=== PATIENT | male | born 1970 | race Two or more races ===

== ENCOUNTER 2024-08-13 11:53 | Inpatient (IN) | payer BC, OTHER ==
[~2024-08-13] VITALS: Ht 182.9 cm; Wt 110.0 kg
[2024-08-13] MEDS: SODIUM CHLORIDE 0.9% 1,000 ML IV ONE ×3 (12:15→20:12)
--- NOTE | 2024-08-13 12:15 | ED.PDOC ---
History of Present Illness HPI Comments 54Y M presents to ED for chief complaint etoh withdrawal. Pt has been experiencing fatigue and chills for 2wks. Pt stopped drinking in mid 2023. Pt previously drank avg 9 seltzers per day. Pt first started drinking at the age of 18. Pt denies tobacco and illicit drug use. Allergies include codeine. Chief Complaint: Withdrawal Time Seen by MD: 11:58 Reviewed Notes: Medications, Allergies Allergies: Coded Allergies: Codeine (Verified Allergy, Intermediate, 08/13/24) Information Source: Patient Mode of Arrival: Ambulatory Severity: Mild Timing: Weeks Duration: Since onset Past Medical History PAST MEDICAL HISTORY: Unknown Surgical History: Unknown Family History Family History: Unknown Social History Smoker: Non-Smoker Alcohol: Heavy Drugs: Denies Drug Use Lives In: Home Constitutional: reports: chills, fatigue; denies: diaphoresis, fever, malaise, sweats, weakness, others EENTM: denies: blurred vision, double vision, ear bleeding, ear discharge, ear drainage, ear pain, ear ringing, eye pain, eye redness, hearing loss, mouth pain, mouth swelling, nasal discharge, nose bleeding, nose congestion, nose pain, photophobia, tearing, throat pain, throat swelling, voice changes, others Respiratory: denies: cough, hemoptysis, orthopnea, SOB at rest, shortness of breath, SOB with excertion, stridor, wheezing, others Cardiovascular: denies: chest pain, dizzy spells, diaphoresis, Dyspnea on exertion, edema, irregular heart beat, left arm pain, lightheadedness, palpitations, PND, syncope, others Gastrointestinal: denies: abdomen distended, abdominal pain, blood streaked bowels, constipated, diarrhea, dysphagia, difficulty swallowing, hematemesis, melena, nausea, poor appetite, poor fluid intake, rectal bleeding, rectal pain, vomiting, others Genitourinary: denies: burning, dysuria, flank pain, frequency, hematuria, incontinence, penile discharge, penile sore, pain, testicle pain, testicle sw elling, urgency, others Neurological: denies: dizziness, fainting, headache, left sided numbness, left sided weakness, numbness, paresthesia, pre-existing deficit, right sided numbness, right sided weakness, seizure, speech problems, tingling, tremors, weakness, others Musculoskeletal: denies: back pain, gout, joint pain, joint swelling, muscle pain, muscle stiffness, neck pain, others Integumetry: denies: bruises, change in color, change in hair/nails, dryness, laceration, lesions, lumps, rash, wounds, others Allergic/Immunocompromised: denies: Difficulty Healing, Frequent Infections, Hives, Itching, others Hematologic/Lymphatic: denies: anemia, blood clots, easy bleeding, easy bruising, swollen glands, others Endocrine: denies: excessive hunger, excessive sweating, excessive thirst, excessive urination, flushing, intolerance to cold, intolerance to heat, unexplained weight gain, unexplained weight loss, others Psychiatric: denies: anxiety, bipolar disorder, depression, hopeless, panic disorder, schizophrenia, sleepless, suicidal, others All Other Systems: Reviewed and Negative Physical Exam General Appearance: Moderate Distress, Normal HEENT: Normal ENT Inspection, Pharynx Normal, TMs Normal Neck: Full Range of Motion, Non-Tender, Normal, Normal Inspection Respiratory: Chest Non-Tender, Lungs Clear, No Accessory Muscle Use, No Respiratory Distress, Normal Breath Sounds Cardiovascular: No Edema, No JVD, No Murmur, No Gallop, Tachycardia Breast Exam: Deferred Gastrointestinal: No Organomegaly, Non Tender, No Pulsatile Mass, Normal Bowel Sounds, Soft Genitalia: Deferred Pelvic: Deferred Rectal: Deferred Extremities: No calf tenderness, Normal capillary refill, Normal inspection, Normal range of motion, Non-tender, No pedal edema Musculoskeletal : Apperance: Normal Neurologic: Alert, boom tender II-XII nml as Tested, No Motor Deficits, Normal Affect, Normal Mood, No Sensory Deficits Cerebellar Function: Normal Reflexes: Normal Skin: Dry, Normal Color, Warm Peripheral Pulses: 3+ Radial (R), 3+ Radial (L) Lymphatic: No Adenopathy Was a procedure done? Was a procedure done?: No Differential Dx Considerations may include: Alcohol withdrawal Electrolyte imbalance X-Ray, Labs, Meds, VS Vital Signs Date Time Temp Pulse Resp B/P (MAP) Pulse Ox O2 Delivery O2 Flow Rate FiO2 08/13/24 16:29 116 18 131/70 (90) 97 08/13/24 13:25 Room Air* 0 21 08/13/24 13:08 99.1 125 18 138/93 (108) 96 99.1 08/13/24 12:14 126 08/13/24 12:12 98.5 139 18 151/94 (113) 95 Lab Test 08/13/24 16:24 08/13/24 15:37 08/13/24 12:37 Range/Units Urine Color Yellow Yellow Urine Clarity Clear Clear Urine pH 6.0 5.0-9.0 Urine Specific [place] 1.016 1.001-1.035 Urine Protein 1+ H Negative Urine Ketones 2+ H Negative Urine Blood Trace H Negative /uL Urine Nitrite Negative Negative Urine Bilirubin Negative Negative Urine Urobilinogen 2 H Negative mg/dL Urine Leukocyte Esterase Negative Negative /uL Urine RBC 3 0 - 3 /hpf Urine WBC 2 0 - 3 /hpf Urine Squamous Epithelial Cells Few <5 /hpf Urine Bacteria None seen None Seen /hpf Urine Glucose 4+ H Normal mg/dL POC Glucose 413 *H 70-106 mg/dl White Blood Count 16.5 H 4.4-10.8 10^3/uL Red Blood Count 4.61 4.5-5.90 10^6/uL Hemoglobin 14.1 13.5-17.5 g/dL Hematocrit 41.9 41.0-53.0 % Mean Corpuscular Volume 91.0 80.0-100.0 fL Mean Corpuscular Hemoglobin 30.6 28.0-32.0 pg Mean Corpuscular Hemoglobin Concent 33.6 32.0-36.0 g/dL Red Cell Distribution Width 12.7 11.8-14.3 % Platelet Count 364 140-450 10^3/uL Mean Platelet Volume 9.3 6.9-10.8 fL Neutrophils (%) (Auto) 95.0 H 37.0-80.0 % Lymphocytes (%) (Auto) 1.5 L 10.0-50.0 % Monocytes (%) (Auto) 3.2 0.0-12.0 % Eosinophils (%) (Auto) 0.0 0.0-7.0 % Basophils (%) (Auto) 0.3 0.0-2.0 % Neutrophils # (Auto) 15.7 H 1.6-8.6 10 ^3/uL Lymphocytes # (Auto) 0.2 L 0.4-5.4 10 ^3/uL Monocytes # (Auto) 0.5 0-1.3 10 ^3/uL Eosinophils # (Auto) 0 0-0.8 10 ^3/uL Basophils # (Auto) 0 0-0.2 10 ^3/uL Nucleated Red Blood Cells 0.0 % Sodium Level 115 *L 136-145 mmol/L Potassium Level 4.1 3.5-5.1 mmol/L Chloride Level 84 L 98-107 mmol/L Carbon Dioxide Level 20 20-31 mmol/L Anion Gap 11 5-15 Blood Urea Nitrogen 11 9-23 mg/dL Creatinine 1.22 0.700-1.30 mg/dL Glomerular Filtration Rate Calc 71 >90 mL/min BUN/Creatinine Ratio 9.0 L 10.0-20.0 Serum Glucose 489 *H 74-106 mg/dL Hemoglobin A1c 12.4 H <5.7 % A1C Calcium Level 9.6 8.7-10.4 mg/dL Current Medications Medications (Trade) Dose Ordered Sig/Unruly Route Start Time Stop Time Status Last Admin Sodium Chloride 1,000 ml @ 1,000 mls/hr Q1H ONCE IV 08/13/24 12:15 08/13/24 14:20 DC 08/13/24 13:14 Thiamine HCl 100 mg ONCE ONCE IV 08/13/24 12:15 08/13/24 12:16 DC 08/13/24 13:14 Lorazepam (Ativan Inj) 1 mg ONCE ONCE IV 08/13/24 12:15 08/13/24 12:16 DC 08/13/24 13:14 Diagnostic Test (Pha) (Accu-Chek Comfort Curve T) 1 strip IQ4HR 08/13/24 16:00 08/13/24 15:41 Insulin Human Regular (InsuLIN R) IQ4HR SC 08/13/24 16:00 08/13/24 15:40 Sodium Chloride 1,000 ml @ 120 mls/hr Q8H20M IV 08/13/24 14:30 08/13/24 14:30 Patient alert. Complaining of agitation. Blood pressure elevated. Vitals stable. He does not take any medication for his blood pressure. Tachycardia. Saturation pristine on room air. Was given thiamine. Was given Ativan. Alcohol withdrawal. Reviewed his history. Explained to the patient. Counseled patient on effects of drinking for 15 minutes. Continue cardiac monitoring. Sodium is low. Hyperglycemia. Time of 1ST Reevaluation: 12:28 Reevaluation 1ST: Unchanged Patient Education/Counseling: Diagnosis, Treatment Family Education/Counseling: No Family Present Departure 1 Departure Time of Disposition: 12:33 Impression: Primary Impression: Alcohol withdrawal Qualified Codes: F10.930 - Alcohol use, unspecified with withdrawal, uncomplicated Additional Impressions: Hypertensive emergency Hyponatremia Hyperglycemia Disposition: 09 ADMITTED INPATIENT Admit to: Med Surg Condition: Guarded Critical Care Note Critical Care Time?: Yes (45 min-critical care time only) Stability Stability form required: No Heart Score Heart Score: Heart Score Response (Comments) Value History Slightly Suspicious 0 EKG Normal 0 Age 45-64 1 Risk Factors 1 or 2 risk factors 1 Troponin Normal limit 0 Total 2 I personally scribed for COREY ROWELL MD ([facility]) on 08/13/24 at 12:15. Electronically submitted by Erin Vidal ([email or web address]). COREY ROWELL MD Aug 13, 2024 12:15
[2024-08-13 12:57] LABS: Basophils # (auto) 0 10 ^3/uL (0-0.2); Basophils % (auto) 0.3 % (0.0-2.0); Eosinophils # (auto) 0 10 ^3/uL (0-0.8); Hematocrit 41.9 % (41.0-53.0); Hemoglobin 14.1 g/dL (13.5-17.5); Lymphocytes # (auto) 0.2 10 ^3/uL (0.4-5.4); Lymphocytes % (auto) 1.5 % (10.0-50.0); Mean Corpuscular Hemoglobin 30.6 pg (28.0-32.0); Mean Corpuscular Hgb Conc. 33.6 g/dL (32.0-36.0); Monocytes # (auto) 0.5 10 ^3/uL (0-1.3); Monocytes % (auto) 3.2 % (0.0-12.0); Neutrophils # (auto) 15.7 10 ^3/uL (1.6-8.6); Platelet Count (auto) 364 10^3/uL (140-450); Red Blood Cells 4.61 10^6/uL (4.5-5.90); Red Cell Distribution Width 12.7 % (11.8-14.3); White Blood Cell 16.5 10^3/uL (4.4-10.8)
[2024-08-13 13:02] LABS: Chloride 84 mmol/L (98-107); Potassium 4.1 mmol/L (3.5-5.1)
[2024-08-13 13:03] LABS: Anion Gap 11 (5-15); Carbon Dioxide 20 mmol/L (20-31)
[2024-08-13 13:04] LABS: Calcium 9.6 mg/dL (8.7-10.4)
[2024-08-13 13:09] LABS: Blood Urea Nitrogen 11 mg/dL (9-23)
[2024-08-13 13:14] LABS: Glucose 489 mg/dL (74-106); Sodium 115 mmol/L (136-145)
[2024-08-13] MEDS: THIAMINE 100mg/ml INJ (200mg/2ml VIAL) IV ONE (13:14)
[2024-08-13] MEDS: LORazepam 2MG/ML-1ML VIAL IV ONE (13:14)
[2024-08-13] MEDS: SODIUM CHLORIDE 0.9% 1,000 ML IV SCH (14:30)
[2024-08-13] MEDS ORDERED: ONDANSETRON HCL 4 MG/2 ML VIAL IV PRN (14:30)
[2024-08-13] MEDS ORDERED: ACETAMINOPHEN 325 MG TAB PO PRN (14:30)
[2024-08-13] MEDS ORDERED: DEXTROSE (50%) 50ML SYRG IV PRN (14:30)
[2024-08-13] MEDS: InsuLIN REG 1unit/0.01ml Soln (100units/ml) SC SCH (15:40)
[2024-08-13] MEDS: ACCU-CHEK COMFORT CURVE STRIP VI SCH (15:41)
[2024-08-13 16:25] LABS: Urine Bacteria None Seen /hpf (None Seen)
--- NOTE | 2024-08-13 16:37 | DVHHP2 ---
History of Present Illness Reason for Visit: Hyponatremia History of Present Illness Patient is a 54-year-old male with past medical history of EtOH abuse who presented to [facility] ED for evaluation of alcohol withdrawal. Patient reports symptoms progressively get worse with fatigue, chills, tremors, getting worse today that prompted this visit. Patient states he recently drank average 9 seltzers per day, stopped drinking in mid July 2024. Patient was seen and evaluated in the ED, laboratory data shows elevated WBC 16.5, platelets 364, sodium 115, potassium 4.1, BUN 11, creatinine 1.22, GFR 71, glucose 489, hemoglobin A1c 12.4, blood pressure 138/94, heart rate 116, temperature 99.1 F, O2 saturation 96% on oxygen. Please see medication orders section in the computer. On my assessment, patient denied chest pain, no headache, no dizziness, no diaphoresis, no palpitations, no shortness a breath, no nausea, no vomiting, no fever, no chills. Patient was admitted for further evaluation and medical management. Past Medical History EtOH abuse Past Surgical History Denies all surgeries Family History Reviewed, noncontributory to the management of this case. Past Social History Patient lives at home, drinks alcohol heavily, denies smoking or illicit drugs abuse. Review of Systems Constitutional: Yes: Chills, Other (Fatigue); No: Fever, Sweats, Weakness, Malaise Eyes: No: Pain, Vision change, Conjunctivae inflammation, Eyelid inflammation, Other, Redness ENT: No: Ear pain, Ear discharge, Nose pain, Nose discharge, Nose congestion, Mouth pain, Mouth swelling, Throat pain, Throat swelling, Other Respiratory: No: Cough, Dry, Shortness of breath, SOB with excertion, Wheezing, Hemoptysis, Pleuritic Pain, Sputum, Wheezing, Other Cardiovascular: No: Chest Pain, Palpitations, Orthopnea, Paroxysmal Noc. Dyspnea, Edema, Lt Headedness, Other Gastrointestinal: No: Nausea, Vomiting, Abdominal Pain, Diarrhea, Constipation, Melena, Hematochezia, Other Genitourinary: No Dysuria, No Frequency, No Incontinence, No Hematuria, No Retention, No Other Musculoskeletal: No: other, neck pain, shoulder pain, arm pain, back pain, hand pain, leg pain, foot pain Skin: No: Rash, Lesions, Jaundice, Bruising, Other Neurological: Other (Tremor); No: Weakness, Numbness, Incoordination, Change in speech, Confusion, Seizures Allergies: Coded Allergies: Codeine (Verified Allergy, Intermediate, 08/13/24) Medications Current Medications Medications Dose Ordered Sig/Unruly Route Start Time Stop Time Status Last Admin Dose Admin Lorazepam 1 mg Q2HP PRN IV 08/13/24 14:30 Thiamine HCl 100 mg DAILY IV 08/14/24 10:00 Folic Acid 1 mg/ Dextrose 50.2 ml @ 200.8 mls/ hr DAILY INJ 08/14/24 10:00 Diagnostic Test (Pha) 1 strip IQ4HR 08/13/24 16:00 08/13/24 15:41 1 STRIP Insulin Human Regular IQ4HR SC 08/13/24 16:00 08/13/24 15:40 20 UNITS Dextrose 50 ml UD PRN IV 08/13/24 14:30 Sodium Chloride 1,000 ml @ 120 mls/hr Q8H20M IV 08/13/24 14:30 08/13/24 14:30 120 MLS/HR Ondansetron HCl 4 mg Q4HP PRN IV 08/13/24 14:30 Docusate Sodium 100 mg BIDPRN PRN PO 08/13/24 14:30 Acetaminophen 650 mg Q6HP PRN PO 08/13/24 14:30 Exam Vital Signs Vital Signs Date Time Temp Pulse Resp B/P (MAP) Pulse Ox O2 Delivery O2 Flow Rate FiO2 08/13/24 16:29 116 18 131/70 (90) 97 08/13/24 13:25 Room Air* 0 21 08/13/24 13:08 99.1 99.1 General Appearance: Alert, Oriented X3, Cooperative, No acute distress HEENT: Atraumatic, PERRLA, EOMI, Mucous membr. moist/pink Respiratory: Clear to auscultation, Normal air movement Cardiovascular: Regular rate, Normal S1, Normal S2, No murmurs Abdominal: Normal bowel sounds, Soft, No tenderness, No hepatospenomegaly, No masses Extremities: No clubbing, No cyanosis, No edema, Normal pulses, No tenderness/swelling Skin: No rashes, No breakdown, No significant lesion Neuro: Normal gait, Normal speech, Strength at 5/5 X4 ext, Normal tone, Sensation intact, Cranial nerves 3-12 NL, Reflexes 2+ Psych/Mental Status: Mental status NL, Mood NL Labs/Xrays Labs Test 08/13/24 16:24 08/13/24 15:37 08/13/24 12:37 Range/Units POC Glucose 413 *H 70-106 mg/dl White Blood Count 16.5 H 4.4-10.8 10^3/uL Red Blood Count 4.61 4.5-5.90 10^6/uL Hemoglobin 14.1 13.5-17.5 g/dL Hematocrit 41.9 41.0-53.0 % Mean Corpuscular Volume 91.0 80.0-100.0 fL Mean Corpuscular Hemoglobin 30.6 28.0-32.0 pg Mean Corpuscular Hemoglobin Concent 33.6 32.0-36.0 g/dL Red Cell Distribution Width 12.7 11.8-14.3 % Platelet Count 364 140-450 10^3/uL Mean Platelet Volume 9.3 6.9-10.8 fL Neutrophils (%) (Auto) 95.0 H 37.0-80.0 % Lymphocytes (%) (Auto) 1.5 L 10.0-50.0 % Monocytes (%) (Auto) 3.2 0.0-12.0 % Eosinophils (%) (Auto) 0.0 0.0-7.0 % Basophils (%) (Auto) 0.3 0.0-2.0 % Neutrophils # (Auto) 15.7 H 1.6-8.6 10 ^3/uL Lymphocytes # (Auto) 0.2 L 0.4-5.4 10 ^3/uL Monocytes # (Auto) 0.5 0-1.3 10 ^3/uL Eosinophils # (Auto) 0 0-0.8 10 ^3/uL Basophils # (Auto) 0 0-0.2 10 ^3/uL Nucleated Red Blood Cells 0.0 % Sodium Level 115 *L 136-145 mmol/L Potassium Level 4.1 3.5-5.1 mmol/L Chloride Level 84 L 98-107 mmol/L Carbon Dioxide Level 20 20-31 mmol/L Anion Gap 11 5-15 Blood Urea Nitrogen 11 9-23 mg/dL Creatinine 1.22 0.700-1.30 mg/dL Glomerular Filtration Rate Calc 71 >90 mL/min BUN/Creatinine Ratio 9.0 L 10.0-20.0 Serum Glucose 489 *H 74-106 mg/dL Hemoglobin A1c 12.4 H <5.7 % A1C Calcium Level 9.6 8.7-10.4 mg/dL Assessment/Plan Assessment/Plan Alcohol withdrawal New onset type 2 diabetes mellitus Hypertension Hyponatremia Alcohol use, unspecified with withdrawal, uncomplicated Plan 1. Admit to telemetry unit 2. Breathing treatment 3. Pain control management 4. Management of fluids and electrolytes 5. Consultation for hospitalist 6. Diagnostic tests x-ray 7. DVT prophylaxis on SCDs 8. Repeat labs CBC, CMP in a.m. 9. Continue with current medical management 10. Treatment plan discussed with patient and RN. Patient verbalized understanding. Plan discussed with: Patient, Other (RN) My Orders Orders - JOSE RAMIREZ DNP Procedure Category Date Status Time Blood Culture RONEN 08/13/24 In Process 14:23 Lorazepam 2mg/Ml Inj PHA 08/13/24 In Process (Ativan Inj) 14:30 Consistent DIET 08/13/24 Transmitted Carb(Ccho)Diabetes Dinner Thiamine Inj PHA 08/14/24 In Process 10:00 Folic Acid PHA 08/14/24 In Process 10:00 Glucose Blood PHA 08/13/24 In Process (Accu-Chek Comfort 16:00 Insulin R (Human) PHA 08/13/24 In Process (Insulin R) 16:00 Dextrose 50% Syringe PHA 08/13/24 In Process 14:30 Allergies DANIELA 08/13/24 In Process 14:23 Code Status CODE 08/13/24 Transmitted 14:23 Sodium Chloride 0.9% PHA 08/13/24 In Process 14:30 Oxygen Per Hour RT 08/13/24 Transmitted 14:23 Ondansetron Hcl PHA 08/13/24 In Process (Zofran) 14:30 Docusate Sodium PHA 08/13/24 In Process Capsule (Colace 14:30 Fall Risk Precautions DANIELA 08/13/[address] 14:23 Complete Blood Count LAB 08/14/24 Verified 04:00 Comprehensive LAB 08/14/24 Verified Metabolic Panel 04:00 Condition: Serious DANIELA 08/13/24 In Process 14:23 Acetaminophen Tablet PHA 08/13/24 In Process (Tylenol Tablet) 14:30 Sequential DANIELA 08/13/24 In Process Compression Device Admit ADMIT 08/13/24 Transmitted 16:34 Nitroglycerin PHA 08/13/24 Transmitted Sublingual (Ntrostat 16:45 Morphine Sulfate PHA 08/13/24 Transmitted Injection 16:45 Notify Of Changes [facility] 08/13/24 Transmitted From Base 16:34 Hydrology Teacher For [facility] 08/13/24 Transmitted 24 Hours 16:34 Emergency Dysrhythmia [facility] 08/13/24 Transmitted Protocol 16:34 Rhythm Strips Once [facility] 08/13/24 Transmitted Every Shift 16:34 Oxygen By Nasal RT 08/13/24 Transmitted Cannula 16:34 * Dietary Consult CONS 08/13/24 Transmitted 16:34 Problem List: (1) Alcohol withdrawal (2) New onset type 2 diabetes mellitus (3) Hypertension (4) Hyponatremia (5) Alcohol use, unspecified with withdrawal, uncomplicated Date of Service: Aug 13, 2024 Billing Provider: JOSE RAMIREZ DNP Common Visit Codes: [id number] INP/OBS CARE (HIGH) JOSE RAMIREZ DNP Aug 13, 2024 16:37
[2024-08-13 16:41] LABS: Urine Blood TRACE /uL (Negative); Urine Clarity Clear (Clear); Urine Color Yellow (Yellow); Urine Protein, UAD 1+ (Negative); Urine Specific Gravity 1.016 (1.001-1.035); Urine Urobilinogen 2 mg/dL (Negative); Urine WBC 2 /hpf (0 - 3)
[2024-08-13] MEDS ORDERED: NITROGLYCERIN 0.4 MG SL TAB SL PRN (16:45)
[2024-08-13] MEDS ORDERED: MORPHINE SULFATE INJ 2 MG/ml SYRG IV PRN (16:45)
[2024-08-13] MEDS: cefTRIAXone 1GM/50ML D5W 50 ML IV ONE (19:54)
[2024-08-13] MEDS: ACETAMINOPHEN 500 MG TAB PO ONE (19:54)
[2024-08-13 20:00] VITALS: PULSE 108; RESP 26; O2SAT 90
[2024-08-13] MEDS ORDERED: VANCOMYCIN PER PHARMACY 0 MG IV ONE (20:30)
[2024-08-13] MEDS ORDERED: VANCOMYCIN PER PHARMACY 0 MG IV PRN (20:30)
[2024-08-13] MEDS: VANCOMYCIN 1GM/200ML PREMIX IV SCH (20:58)
[2024-08-14 04:07] LABS: Basophils # (auto) 0 10 ^3/uL (0-0.2); Basophils % (auto) 0.1 % (0.0-2.0); Eosinophils # (auto) 0 10 ^3/uL (0-0.8); Eosinophils % (auto) 0.2 % (0.0-7.0); Hematocrit 35.4 % (41.0-53.0); Lymphocytes # (auto) 1.1 10 ^3/uL (0.4-5.4); Lymphocytes % (auto) 5.8 % (10.0-50.0); Mean Corpuscular Hemoglobin 30.5 pg (28.0-32.0); Mean Corpuscular Hgb Conc. 33.9 g/dL (32.0-36.0); Monocytes # (auto) 1.2 10 ^3/uL (0-1.3); Monocytes % (auto) 6.7 % (0.0-12.0); Neutrophils # (auto) 15.9 10 ^3/uL (1.6-8.6); Neutrophils % (auto) 87.2 % (37.0-80.0); Platelet Count (auto) 304 10^3/uL (140-450); Red Blood Cells 3.93 10^6/uL (4.5-5.90); Red Cell Distribution Width 12.7 % (11.8-14.3); White Blood Cell 18.2 10^3/uL (4.4-10.8)
[2024-08-14 04:24] LABS: Alanine Aminotransferase 23 U/L (7-40); Albumin 3.4 g/dL (3.2-4.8); Alkaline Phosphatase 277 U/L (46-116); Anion Gap 7 (5-15); Aspartate Aminotransferase 83 U/L (13-40); BUN/Creatinine Ratio 13.1 (10.0-20.0); Bilirubin, Total 0.8 mg/dL (0.2-1.0); Blood Urea Nitrogen 8 mg/dL (9-23); Calcium 9.1 mg/dL (8.7-10.4); Carbon Dioxide 25 mmol/L (20-31); Potassium 3.9 mmol/L (3.5-5.1); Total Protein 6.8 g/dL (5.7-8.2)
[2024-08-14] MEDS: IBUPROFEN 600 MG TAB PO ONE (04:25)
[2024-08-14 04:29] LABS: Chloride 96 mmol/L (98-107); Glucose 172 mg/dL (74-106); Sodium 128 mmol/L (136-145)
--- NOTE | 2024-08-14 06:35 | ECG ---
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
[2024-08-14] MEDS: dilTIAZem 25 MG/5 ML VIAL IV ONE ×3 (07:05→22:22)
[2024-08-14 08:00] VITALS: PULSE 117; RESP 20; O2SAT 95
--- NOTE | 2024-08-14 08:00 | ECG ---
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
[2024-08-14] MEDS: cefTRIAXone 1GM/50ML D5W 50 ML IV SCH (09:16)
[2024-08-14] MEDS: VANCOMYCIN 1.25GM/250ML IV SCH (09:28)
[2024-08-14] MEDS: THIAMINE 100mg/ml INJ (200mg/2ml VIAL) IV SCH (10:24)
[2024-08-14] MEDS: FOLIC ACID 1 MG in D5W 5% 50 ML INJ SCH (11:33)
[2024-08-14] MEDS: SODIUM CHLORIDE 0.9% 1,000 ML IV SCH (14:15)
--- NOTE | 2024-08-14 14:38 | DVH ---
CHEST RADIOGRAPH Indication:leukocytosis Technique: Single frontal view of the chest was obtained COMPARISON: None FINDINGS: Lines and Tubes: None Lungs: Diffuse increased interstitial prominence. Pleura: No effusion. No pneumothorax. Cardiomediastinal contours: Cardiomegaly Bones: Unremarkable IMPRESSION: Pulmonary vascular congestion versus viral pneumonitis.
[2024-08-14] MEDS: SODIUM CHLORIDE 0.9% 1,000 ML IV ONE (14:49)
--- NOTE | 2024-08-14 14:52 | DVHPN2 ---
Reviewed: Care Plan, H&P, Labs, Medications, Previous Orders, Radiology Changes from previous H/P or p: No Changes General: Per HPI Eyes: No Pain, No Vision change, No Conjunctivae inflammation, No Eyelid inflammation, No Other, No Redness ENT: No Ear pain, No Ear discharge, No Nose pain, No Nose discharge, No Nose congestion, No Mouth pain, No Mouth swelling, No Throat pain, No Throat swelling, No Other Cardiovascular: No Chest Pain, No Palpitations, No Orthopnea, No Paroxysmal Noc. Dyspnea, No Edema, No Lt Headedness, No Other Respiratory: No Cough, No Dry, No Shortness of breath, No SOB with excertion, No Wheezing, No Hemoptysis, No Pleuritic Pain, No Sputum, No Other Gastrointestinal: No Nausea, No Vomiting, No Abdominal Pain, No Diarrhea, No Constipation, No Melena, No Hematochezia, No Other Genitourinary: No Dysuria, No Frequency, No Incontinence, No Hematuria, No Retention, No Other Musculoskeletal: No other, No neck pain, No shoulder pain, No arm pain, No back pain, No hand pain, No leg pain, No foot pain Skin: No Rash, No Lesions, No Jaundice, No Bruising, No Other Objective Vitals Vital Signs Date Time Temp Pulse Resp B/P (MAP) Pulse Ox O2 Delivery O2 Flow Rate FiO2 08/14/24 14:00 97.7 26 124/72 (89) 96 97.7 08/14/24 13:57 153 08/14/24 08:00 Nasal Cannula* 2 28 Intake/Output Intake and Output 08/14/24 07:00 Intake Total 1440 ml Balance 1440 ml Intake IV Total 1440 ml General Appearance: Alert, Oriented X3, Cooperative Cardiovascular: Regular rate, Normal S1, Normal S2 Abdomen: Normal bowel sounds, Soft Medications Current Medications Medications Dose Ordered Sig/Unruly Route Start Time Stop Time Status Last Admin Dose Admin Lorazepam 1 mg Q2HP PRN IV 08/13/24 14:30 Thiamine HCl 100 mg DAILY IV 08/14/24 10:00 08/14/24 10:24 100 MG Folic Acid 1 mg/ Dextrose 50.2 ml @ 200.8 mls/ hr DAILY INJ 08/14/24 10:00 08/14/24 11:33 200.8 MLS/HR Diagnostic Test (Pha) 1 strip IQ4HR 08/13/24 16:00 08/14/24 12:30 1 STRIP Insulin Human Regular IQ4HR SC 08/13/24 16:00 08/14/24 12:53 12 UNITS Dextrose 50 ml UD PRN IV 08/13/24 14:30 Sodium Chloride 1,000 ml @ 120 mls/hr Q8H20M IV 08/13/24 14:30 08/14/24 14:25 120 MLS/HR Ondansetron HCl 4 mg Q4HP PRN IV 08/13/24 14:30 Docusate Sodium 100 mg BIDPRN PRN PO 08/13/24 14:30 Acetaminophen 650 mg Q6HP PRN PO 08/13/24 14:30 Nitroglycerin 0.4 mg Q5MINP PRN SL 08/13/24 16:45 Morphine Sulfate 2 mg Q30M PRN IV 08/13/24 16:45 Ceftriaxone Sodium 50 ml @ 100 mls/hr DAILY@09 IV 08/14/24 09:00 08/14/24 09:16 100 MLS/HR Vancomycin HCl 0 ml @ 0 mls/hr UD PRN IV 08/13/24 20:30 Vancomycin HCl 250 ml @ 200 mls/hr Q8H IV 08/14/24 09:00 08/14/24 09:28 200 MLS/HR Sodium Chloride 1,000 ml @ 150 mls/hr Q6H40M IV 08/14/24 14:15 Laboratory Results Laboratory Tests 08/14/24 03:52 Chemistry Test 08/14/24 03:52 Albumin 3.4 g/dL (3.2-4.8) Calcium Level 9.1 mg/dL (8.7-10.4) Total Protein 6.8 g/dL (5.7-8.2) LFT Test 08/14/24 03:52 Alanine Aminotransferase (ALT) 23 U/L (7-40) Alkaline Phosphatase 277 U/L (46-116) H Aspartate Amino Transferase (AST) 83 U/L (13-40) H Total Bilirubin 0.8 mg/dL (0.2-1.0) Urinalysis Test 08/13/24 16:24 Urine Color Yellow (Yellow) Urine Clarity Clear (Clear) Urine pH 6.0 (5.0-9.0) Urine Specific [place] 1.016 (1.001-1.035) Urine Protein 1+ (Negative) H Urine Ketones 2+ (Negative) H Urine Blood Trace /uL (Negative) H Urine Nitrite Negative (Negative) Urine Bilirubin Negative (Negative) Urine Urobilinogen 2 mg/dL (Negative) H Urine Leukocyte Esterase Negative /uL (Negative) Urine RBC 3 /hpf (0 - 3) Urine WBC 2 /hpf (0 - 3) Urine Squamous Epithelial Cells Few /hpf (<5) Urine Bacteria None seen /hpf (None Seen) Urine Glucose 4+ mg/dL (Normal) H Microbiology Microbiology Date/Time Source Procedure Growth Status 08/13/24 14:54 Blood Blood Culture - Preliminary Resulted Labs and/or images reviewed: Labs reviewed by me, Image(s) reviewed by me Assessment/Plan Assessment/Plan Patient is a 54-year-old male with past medical history of EtOH abuse who presented to [facility] ED for evaluation of alcohol withdrawal. Patient reports symptoms progressively get worse with fatigue, chills, tremors, getting worse today that prompted this visit. Patient states he recently drank average 9 seltzers per day, stopped drinking in mid July 2024. Patient was seen and evaluated in the ED, laboratory data shows elevated WBC 16.5, platelets 364, sodium 115, potassium 4.1, BUN 11, creatinine 1.22, GFR 71, glucose 489, hemoglobin A1c 12.4, blood pressure 138/94, heart rate 116, temperature 99.1 F, O2 saturation 96% on oxygen. Please see medication orders section in the computer. On my assessment, patient denied chest pain, no headache, no dizziness, no diaphoresis, no palpitations, no shortness a breath, no nausea, no vomiting, no fever, no chills. Patient was admitted for further evaluation and medical management. Alcohol withdrawal New onset type 2 diabetes mellitus Hypertension Hyponatremia Alcohol use, unspecified with withdrawal, uncomplicated a-fib with RVR bacteremia (pre-mota blood cx indicates gram positive) Newly diagnosed acute systolic congestive heart failure (LVEF 25%) Metabolic encephalopathy secondary to hyponatremia versus sepsis Sepsis with persistent bacteremia due to MSSA. Obesity History of ethanol abuse -- on amiodarone drip -- continue with ceftriaxone -- consult to ID Plan discussed with: Patient My Orders Orders - KYRIE LUONG DO Procedure Category Date Status Time Chest Xray 1 View XY 08/14/24 Resulted 14:04 Sodium Chloride 0.9% PHA 08/14/24 In Process 14:15 Sodium Chloride 0.9% PHA 08/14/24 In Process 14:15 Date of Service: Aug 14, 2024 Billing Provider: KYRIE LUONG DO Common Visit Codes: [id number] INP/OBS CARE(HIGH) KYRIE LUONG DO Aug 14, 2024 14:52
[2024-08-14] MEDS: LORazepam 2MG/ML-1ML VIAL IV PRN (21:21)
[2024-08-14 22:15] VITALS: PULSE 161; RESP 26; O2SAT 90
[2024-08-14] MEDS: AMIODARONE BOLUS KIT 100 ML IV ONE (22:57)
[2024-08-14] MEDS: AMIODARONE 450mg/250ml AE 250 ML IV SCH (23:08)
[2024-08-15] VITALS (9 sets, daily range): BP systolic 156–162; BP diastolic 91–103; PULSE 78–130; RESP 18–24; TEMP 97.4–97.9; O2SAT 92–98
[2024-08-15] MEDS: AMIODARONE 450mg/250ml AE 250 ML IV SCH (04:45)
[2024-08-15 06:15] LABS: Chloride 96 mmol/L (98-107); Potassium 3.6 mmol/L (3.5-5.1); Sodium 129 mmol/L (136-145)
[2024-08-15 06:16] LABS: Anion Gap 10 (5-15); Calcium 9.1 mg/dL (8.7-10.4); Carbon Dioxide 23 mmol/L (20-31)
[2024-08-15 06:21] LABS: BUN/Creatinine Ratio 15.4 (10.0-20.0); Blood Urea Nitrogen 8 mg/dL (9-23); Glucose 205 mg/dL (74-106)
[2024-08-15 08:02] LABS: INR 1.17 (0.9-1.15); Partial Thromboplastin Time 32.6 SEC (24.5-34.5); Prothrombin Time 12.3 sec (9.3-11.8)
[2024-08-15 08:11] LABS: Base Excess -0.9 mmol/L (-2.0-3.0)
--- NOTE | 2024-08-15 10:49 | ECG ---
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
--- NOTE | 2024-08-15 10:59 | ECG ---
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
[2024-08-15 11:05] LABS: COVID19 ANTIGEN SOFIA FIA NEGATIVE (NEGATIVE); Rapid Influenza A Negative (Negative); Rapid Influenza B Negative (Negative)
[2024-08-15] MEDS: ENOXAPARIN SOD 120 MG/0.8 ML SYRINGE SC ONE (13:53)
--- NOTE | 2024-08-15 15:20 | DVHSR ---
APPROVED REPORT EXAM: Two-dimensional and M-mode echocardiogram with Doppler and color Doppler. Blood Pressure: 142/103 mmHg INDICATION AFIB RISK FACTORS Height: 65, Weight: 234 DIMENSIONS LVDd6.1 (3.8-5.7cm)LA (2D)4.5 (1.9-4.0cm)Aortic Root3.7 (2.0-3.7cm) LVDs5.4 (2.5-4.0cm)LA (MM) (1.9-4.0cm)Aortic Cusp Exc1.8 (1.5-2.0cm) EF (%) 25.0 (55-70%)Rt. Atrium5.4 (1.9-4.0cm)Asc. Aorta cm IVSd1.0 (0.7-1.1cm)RV (D) (1.8-2.4cm) PWd1.4 (0.7-1.1cm) Mitral Valve MitralMitral Stenosis E wave1.12m/sMV Mean GR.mmHg E/A ratio0.02D MVAcm2 Aortic Valve Aortic ValveAortic Stenosis LVOT Diameter2.4 (1.8-2.4cm)Doppler AVAcm2 Pulmonic Valve V20.87m/s Tricuspid Valve TR Velocity3.40m/s [id number] Other Information Technically limited study due to body habitus. Patient was sitting straight up during exam due to br eathing. Conclusion Severely dilated left ventricle. Severely reduced left ventricular systolic function with estimated ejection fraction 25% in a global fashion. Severely reduced right ventricular systolic function. Severely elevated right ventricular systolic p [id number] mm of mercury. Moderately dilated right and left atria. Normal aortic valve structure and function. Normal mitral valve structure and function. Normal tricuspid valve structure and function. The pulmonary valve is grossly normal. No pericardial effusion.
--- NOTE | 2024-08-15 17:33 | DVHINCON2 ---
Date Seen: Aug 15, 2024 Referring Physician Ginger Hill NP Reason for Consultation New sit atrial fibrillation RVR History of Present Illness Alvin Styles is a 54 year old male patient who presents to ED with chief complaint of fatigue, generalized weakness and dry cough which started three day s before his admission. Patient has not seen any doctor for approximately 40 years. During ED stay patient was diagnosed with simple hyperglycemia associated hyponatremia and sepsis. Presented on telemetry new onset AFib RVR, with symptoms of generalized weakness, currently on amiodarone drip and therapeutic enoxaparin. Denies palpitation, syncope, chest pain, dyspnea, nausea, vomiting, diarrhea, constipation, bleeding, dysuria, recent travel, sick contacts and motor or sensory deficits. Past medical history: Hypertension, newly diagnosed diabetes Surgical history: Denies Family history: Mother diagnosed with congestive heart failure eight age 33. Father due to lung cancer secondary to smoking. Social history: Lives in [place] with mother. 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 Denies current tobacco, alcohol and other drug abuse. Allergies: Denies (per EMR codeine) Home medication: Denies Patient seen and examined at bedside. Currently is asymptomatic, has been feeling better since his admission. Past Medical History Per HPI Past Surgical History Per HPI Family History: Patient reports no known family medical history. Family History Per HPI Social History Per HPI Allergies: Coded Allergies: Codeine (Verified Allergy, Intermediate, 08/13/24) Current Medications Current Medications Medications (Trade) Dose Ordered Sig/Unruly Route PRN Reason Start Time Stop Time Status Last Admin Amiodarone HCl 250 ml @ 33.333 mls/ hr Q7H30M IV 08/14/24 22:45 08/15/24 04:44 DC 08/14/24 23:08 Amiodarone HCl 250 ml @ 16.667 mls/ hr Q15H IV 08/15/24 04:45 08/15/24 07:24 Enoxaparin Sodium (Lovenox) 110 mg Q12HR SC 08/15/24 22:00 Levalbuterol HCl (Xopenex Medneb) 0.625 mg Q6HR PRN NEB sob 08/15/24 12:30 Ipratropium [place] (Atrovent Medneb) 0.5 mg Q6HPRN PRN NEB SHORTNESS OF BREATH 08/15/24 12:30 Review of Systems Per HPI Vital Signs Vital Signs Date Time Temp Pulse Resp B/P (MAP) Pulse Ox O2 Delivery O2 Flow Rate FiO2 08/15/24 12:43 78 24 156/91 95 95 08/15/24 11:27 97.4 97.4 08/15/24 08:40 Room Air* 0 Physical Exam Patient lying in bed, in no acute distress General: Lucid, afebrile, mucosae are moist Cardiovascular: Irregular S1 and S2. No murmurs, gallops or rubs Respiratory: Normal ventilation mechanics. Clear lung sounds on auscultation Abdomen: Soft, nontender, no organomegaly, normal bowel sounds MSK/skin: Mobilizes 4 limbs. Skin is dry and warm Neurological: Oriented in 3 spheres. No motor no sensitive deficits. Pupils are isocoric and reactive Labs/Diagnostic Data Labs Test 08/15/24 16:18 08/15/24 10:00 08/15/24 08:07 08/15/24 05:23 Range/Units POC Glucose 227 H 70-106 mg/dl Influenza Type A Antigen Negative Negative Influenza Type B Antigen Negative Negative SARS-CoV-2 Antigen (Rapid) Negative NEGATIVE Blood Gas Specimen Type Arterial Blood Gas Sample Site Right radial Blood Gas Patient Temperature 37.0 Arterial Blood Date Drawn [id number] Arterial Blood pH 7.462 H 7.350-7.450 Arterial Blood Partial Pressure CO2 31.5 L 35.0-48.0 mmHg Arterial Blood Partial Pressure O2 91.1 83.0-108.0 mmHg Arterial Blood HCO3 22.0 21.0-28.0 mmol/L Arterial Blood Oxygen Saturation 97.6 94.0-98.0 % Arterial Blood Base Excess -0.9 -2.0-3.0 mmol/L Arterial Blood Oxyhemoglobin 96.7 94.0-98.0 % Arterial Blood Carboxyhemoglobin 0.6 0.5-1.5 % Arterial Blood Methemoglobin 0.3 0.0-1.5 % Obed Test Yes Blood Gas Total Hemoglobin 13.20 L 13.5-17.5 g/dL Blood Gas Liter Flow 3.00 Blood Gas Modality Nasal cannula FiO2 % 32.0 Prothrombin Time 12.3 H 9.3-11.8 sec Prothrombin Time INR 1.17 H 0.9-1.15 Activated Partial Thromboplast Time 32.6 24.5-34.5 SEC Sodium Level 129 L 136-145 mmol/L Potassium Level 3.6 3.5-5.1 mmol/L Chloride Level 96 L 98-107 mmol/L Carbon Dioxide Level 23 20-31 mmol/L Anion Gap 10 5-15 Blood Urea Nitrogen 8 L 9-23 mg/dL Creatinine 0.52 L 0.700-1.30 mg/dL Glomerular Filtration Rate Calc 121 >90 mL/min BUN/Creatinine Ratio 15.4 10.0-20.0 Serum Glucose 205 H 74-106 mg/dL Calcium Level 9.1 8.7-10.4 mg/dL Troponin I High Sensitivity 20 </=54 ng/L B-Type Natriuretic Peptide 236.74 0-100 pg/mL Test 08/15/24 00:18 08/14/24 03:52 08/13/24 16:24 08/13/24 12:37 Range/Units Vancomycin Level Trough 16.6 H 5-10 ug/mL White Blood Count 18.2 H 4.4-10.8 10^3/uL Red Blood Count 3.93 L 4.5-5.90 10^6/uL Hemoglobin 12.0 L 13.5-17.5 g/dL Hematocrit 35.4 #L 41.0-53.0 % Mean Corpuscular Volume 90.0 80.0-100.0 fL Mean Corpuscular Hemoglobin 30.5 28.0-32.0 pg Mean Corpuscular Hemoglobin Concent 33.9 32.0-36.0 g/dL Red Cell Distribution Width 12.7 11.8-14.3 % Platelet Count 304 140-450 10^3/uL Mean Platelet Volume 9.0 6.9-10.8 fL Neutrophils (%) (Auto) 87.2 H 37.0-80.0 % Lymphocytes (%) (Auto) 5.8 L 10.0-50.0 % Monocytes (%) (Auto) 6.7 0.0-12.0 % Eosinophils (%) (Auto) 0.2 0.0-7.0 % Basophils (%) (Auto) 0.1 0.0-2.0 % Neutrophils # (Auto) 15.9 H 1.6-8.6 10 ^3/uL Lymphocytes # (Auto) 1.1 0.4-5.4 10 ^3/uL Monocytes # (Auto) 1.2 0-1.3 10 ^3/uL Eosinophils # (Auto) 0 0-0.8 10 ^3/uL Basophils # (Auto) 0 0-0.2 10 ^3/uL Nucleated Red Blood Cells 0.0 % Total Bilirubin 0.8 0.2-1.0 mg/dL Aspartate Amino Transferase (AST) 83 H 13-40 U/L Alanine Aminotransferase (ALT) 23 7-40 U/L Alkaline Phosphatase 277 H 46-116 U/L Total Protein 6.8 5.7-8.2 g/dL Albumin 3.4 3.2-4.8 g/dL Urine Color Yellow Yellow Urine Clarity Clear Clear Urine pH 6.0 5.0-9.0 Urine Specific [place] 1.016 1.001-1.035 Urine Protein 1+ H Negative Urine Ketones 2+ H Negative Urine Blood Trace H Negative /uL Urine Nitrite Negative Negative Urine Bilirubin Negative Negative Urine Urobilinogen 2 H Negative mg/dL Urine Leukocyte Esterase Negative Negative /uL Urine RBC 3 0 - 3 /hpf Urine WBC 2 0 - 3 /hpf Urine Squamous Epithelial Cells Few <5 /hpf Urine Bacteria None seen None Seen /hpf Urine Glucose 4+ H Normal mg/dL Hemoglobin A1c 12.4 H <5.7 % A1C Microbiology Date/Time Source Procedure Growth Status 08/13/24 14:54 Blood Blood Culture - Preliminary Staphylococcus aureus Resulted Assessment New onset AFib RVR (chads Vasc 3 / has bled 1) Newly diagnosed acute systolic congestive heart failure (HFrEF, LVEF 25%, RVSP 75 mmHg) Metabolic encephalopathy secondary to hyponatremia versus sepsis Newly diagnosed diabetes (hemoglobin A1c 12.4%) Pseudohyponatremia Sepsis with bacteremia due to S.Aureus (pending susceptibility) Obesity Hypertension History of ethanol abuse Plan/Recommendation Echocardiogram: Severely reduced LV systolic function, LVEF 25% and global fashion, severely reduced right ventricular systolic function, RVSP 75 mmHg, moderately dilated right and left atrium. Patient continues with amiodarone drip since patient continues with atrial fibrillation (on admission patient had normal sinus rhythm). Suggest avoiding calcium channel blockers Patient is on therapeutic enoxaparin. Optimize loading conditions Pending optimization of GDM T (added metoprolol and Entresto at this point, pending spironolactone and empagliflozin) Optimize electrolytes (potassium above 4 meq/L, magnesium above 2 mEq/L) IV antibiotics per hospitalist Antidiabetic medication per hospitalist Discussed plan with Dr. Pastor, patient and nurses: Patient was newly diagnosed with HFrEF associated with new onset AFib RVR. Continue with amiodarone drip, on therapeutic enoxaparin. Recommend treating sepsis and metabolic panel (hyperglycemia, hyponatremia and electrolyte disbalance). We will evaluate coronary angiography. Patient has poor prognosis Plan discussed with: Patient, Other (Nurses) Date of Service: Aug 15, 2024 Billing Provider: MARITZA PASTOR MD Cardiology Common Codes: [id number] INP/OBS CARE (High), [id number] CARE-EACH +30MIN GRETEL CABALLERO RESIDENT Aug 15, 2024 17:33
[2024-08-15] MEDS: LEVALBUTEROL HCL 1.25 MG/3 ML NEB NEB PRN (18:17)
[2024-08-15] MEDS: SACUBITRIL-VALSARTAN 24mg/26mg TAB PO SCH (22:14)
[2024-08-15] MEDS: ENOXAPARIN SOD 120 MG/0.8 ML SYRINGE SC SCH (22:15)
[2024-08-16] VITALS (14 sets, daily range): BP systolic 136–164; BP diastolic 1–105; PULSE 91–105; RESP 14–20; TEMP 97.4–98; O2SAT 92–100
[2024-08-16] MEDS: LABETALOL HCL 20 MG/4 ML VL IV ONE (01:11)
[2024-08-16] MEDS: METOPROLOL SUCCINATE XL 50 MG TAB PO SCH (06:27)
[2024-08-16] MEDS: IPRATROPIUM BROM 0.5 MG/2.5ML INH SOL NEB PRN (06:45)
[2024-08-16 07:49] LABS: Hematocrit 41.9 % (41.0-53.0); Hemoglobin 13.8 g/dL (13.5-17.5); Magnesium 1.6 mg/dL (1.6-2.6); Mean Corpuscular Hemoglobin 29.7 pg (28.0-32.0); Mean Corpuscular Volume 90.2 fL (80.0-100.0); Platelet Count (auto) 322 10^3/uL (140-450); Red Blood Cells 4.65 10^6/uL (4.5-5.90); Red Cell Distribution Width 13.4 % (11.8-14.3); White Blood Cell 22.2 10^3/uL (4.4-10.8)
[2024-08-16 07:51] LABS: Phosphorus 4.4 mg/dL (2.4-5.1)
[2024-08-16 08:09] LABS: Band Neutrophils % (manual) 0; Basophils % (manual) 0 (0.0-2.0); Blast Cells 0; Eosinophils % (manual) 0 (0-7); Promyelocytes % 0; Reactive Lymphocytes 0
--- NOTE | 2024-08-16 08:36 | DVHPNRES ---
Progress Note Date Seen: Aug 16, 2024 Resident Creating Document: GRETEL CABALLERO RESIDENT Medical Necessity Reason Pt with a Central, PICC or Fol: No Subjective Review of Systems Alvin Styles is a 54 year old male patient who presents to ED with chief complaint of fatigue, generalized weakness and dry cough which started three days before his admission. Patient has not seen any doctor for approximately 40 years. During ED stay patient was diagnosed with simple hyperglycemia associated hyponatremia and sepsis. Presented on telemetry new onset AFib RVR, with symptoms of generalized weakness, currently on amiodarone drip and therapeutic enoxaparin. Denies palpitation, syncope, chest pain, dyspnea, nausea, vomiting, diarrhea, constipation, bleeding, dysuria, recent travel, sick contacts and motor or sensory deficits. Past medical history: Hypertension, newly diagnosed diabetes Surgical history: Denies Family history: Mother diagnosed with congestive heart failure eight age 33. Father due to lung cancer secondary to smoking. Social history: Lives in [place] with mother. 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 Denies current tobacco, alcohol and other drug abuse. Allergies: Denies (per EMR codeine) Home medication: Denies Patient seen and examined at bedside. Currently is asymptomatic, has been feeling better since his admission. Objective vital signs Vital Sign Date Time Temp Pulse Resp B/P (MAP) Pulse Ox O2 Delivery O2 Flow Rate FiO2 08/16/24 06:51 96 18 100 08/16/24 06:45 Nasal Cannula 2.0 08/16/24 06:45 28 08/16/24 06:27 176/110 08/16/24 05:00 98.0 98.0 Total Intake and Output 08/15/24 08/15/24 08/16/24 15:00 23:00 07:00 Intake Total 862.3 ml 554 ml 730 ml Output Total 600 ml Balance 862.3 ml 554 ml 130 ml medications Current Medications Medications Dose Ordered Sig/Unruly Route Start Time Stop Time Status Last Admin Dose Admin Lorazepam 1 mg Q2HP PRN IV 08/13/24 14:30 08/14/24 21:21 1 MG Thiamine HCl 100 mg DAILY IV 08/14/24 10:00 08/15/24 08:04 100 MG Folic Acid 1 mg/ Dextrose 50.2 ml @ 200.8 mls/ hr DAILY INJ 08/14/24 10:00 08/15/24 08:31 200.8 MLS/HR Diagnostic Test (Pha) 1 strip IQ4HR 08/13/24 16:00 08/16/24 03:59 1 STRIP Insulin Human Regular IQ4HR SC 08/13/24 16:00 08/16/24 01:10 2 UNITS Dextrose 50 ml UD PRN IV 08/13/24 14:30 Sodium Chloride 1,000 ml @ 120 mls/hr Q8H20M IV 08/13/24 14:30 08/15/24 17:38 120 MLS/HR Ondansetron HCl 4 mg Q4HP PRN IV 08/13/24 14:30 Docusate Sodium 100 mg BIDPRN PRN PO 08/13/24 14:30 Acetaminophen 650 mg Q6HP PRN PO 08/13/24 14:30 Nitroglycerin 0.4 mg Q5MINP PRN SL 08/13/24 16:45 Morphine Sulfate 2 mg Q30M PRN IV 08/13/24 16:45 Ceftriaxone Sodium 50 ml @ 100 mls/hr DAILY@09 IV 08/14/24 09:00 08/15/24 08:05 100 MLS/HR Vancomycin HCl 0 ml @ 0 mls/hr UD PRN IV 08/13/24 20:30 Amiodarone HCl 250 ml @ 16.667 mls/ hr Q15H IV 08/15/24 04:45 08/15/24 22:11 16.667 MLS/HR Enoxaparin Sodium 110 mg Q12HR SC 08/15/24 22:00 08/15/24 22:15 110 MG Levalbuterol HCl 0.625 mg Q6HR PRN NEB 08/15/24 12:30 08/16/24 06:45 0.625 MG Ipratropium [place] 0.5 mg Q6HPRN PRN NEB 08/15/24 12:30 08/16/24 06:45 0.5 MG Sacubitril/ Valsartan 1 tab BID PO 08/15/24 22:00 08/16/24 06:25 1 TAB Metoprolol Succinate 25 mg DAILY PO 08/16/24 10:00 08/16/24 06:27 25 MG Vancomycin HCl 300 ml @ 200 mls/hr Q8H IV 08/16/24 09:00 Examination Patient lying in bed, in no acute distress General: Lucid, afebrile, mucosae are moist Cardiovascular: Irregular S1 and S2. No murmurs, gallops or rubs Respiratory: Normal ventilation mechanics. Clear lung sounds on auscultation Abdomen: Soft, nontender, no organomegaly, normal bowel sounds MSK/skin: Mobilizes 4 limbs. Skin is dry and warm Neurological: Oriented in 3 spheres. No motor no sensitive deficits. Pupils are isocoric and reactive laboratory and microbiology Laboratory Tests 08/16/24 07:10 08/15/24 05:23 Test 08/15/24 05:23 Range/Units Serum Glucose 205 H 74-106 mg/dL Microbiology Date/Time Source Procedure Growth Status 08/13/24 14:54 Blood Blood Culture - Preliminary Staphylococcus aureus Resulted Problem List/Assessment/Plan Problem List/Assessment/Plan Assessment New onset AFib RVR (chads Vasc 3 / has bled 1) Newly diagnosed acute systolic congestive heart failure (HFrEF, LVEF 25%, RVSP 75 mmHg) Metabolic encephalopathy secondary to hyponatremia versus sepsis Newly diagnosed diabetes (hemoglobin A1c 12.4%) Pseudohyponatremia Sepsis with bacteremia due to S.Aureus (pending susceptibility) Obesity Hypertension History of ethanol abuse Plan/Recommendation Echocardiogram: Severely reduced LV systolic function, LVEF 25% and global fashion, severely reduced right ventricular systolic function, RVSP 75 mmHg, moderately dilated right and left atrium. Patient continues with amiodarone drip since patient continues with atrial fibrillation (on admission patient had normal sinus rhythm). Suggest avoiding calcium channel blockers Patient is on therapeutic enoxaparin. Optimize loading conditions Pending optimization of GDM T (added metoprolol and Entresto at this point, pending spironolactone and empagliflozin) Optimize electrolytes (potassium above 4 meq/L, magnesium above 2 mEq/L) IV antibiotics per hospitalist Antidiabetic medication per hospitalist Discussed plan with Dr. Gordon, patient and nurses: Patient was newly diagnosed with HFrEF associated with new onset AFib RVR. Continue with amiodarone drip, on therapeutic enoxaparin. Recommend treating sepsis and metabolic panel (hyperglycemia, hyponatremia and electrolyte disbalance). We will evaluate coronary angiography, planning to left heart cath on 08/17/2024. Patient has poor prognosis Plan discussed with: Patient, Other (Nurses) My Orders My Orders Orders - GRETEL CABALLERO Procedure Category Date Status Time * [facility] CONS 08/15/24 Transmitted Consult Levalbuterol Hcl PHA 08/15/24 In Process (Xopenex Medneb) 12:30 Ipratropium Medneb PHA 08/15/24 In Process (Atrovent Medneb) 12:30 Cont Med Neb Intial Tx RT 08/15/24 Logged 12:20 Enoxaparin Sodium PHA 08/15/24 In Process (Lovenox) 22:00 Blood Culture RONEN 08/15/24 In Process 17:29 Urine Bacterial RONEN 08/15/24 Logged Culture 17:29 Respiratory Culture RONEN 08/15/24 Logged W/ Gs 17:29 Sacubitril-Valsartan PHA 08/15/24 In Process (Entresto 24-26 Mg 22:00 Metoprolol Xl PHA 08/16/24 In Process Succinate (Toprol Xl) 10:00 Manual Differential LAB 08/16/24 In Process 07:10 Dietary Evaluation Review Comments: Continue current plan of care Expected Outcomes/Goals: F/U in 3-5 days Visit Coding Cardiology RES Date of Service: Aug 16, 2024 Billing Provider: MARITZA GORDON MD Cardiology Common Codes: [id number] HOSP CARE(High, [id number] CARE 30-74 MIN GRETEL CABALLERO RESIDENT Aug 16, 2024 08:36
[2024-08-16 08:51] LABS: Lymphocytes % (manual) 7 (10.0-50.0); Metamyelocytes % 2; Monocytes % (manual) 3 (0-12); Myelocytes % 1; Platelet Estimate Adequate; RBC Morphology Normal
--- NOTE | 2024-08-16 10:23 | DVH ---
CHEST RADIOGRAPH Indication:CHF Technique: Single frontal view of the chest was obtained Comparison: XY CHEST XRAY 1 VIEW on DOS: 08/14/24, XY CHEST XRAY 1 VIEW on DOS: 08/14/24 FINDINGS: Lines and Tubes: None Lungs: Diffuse increased interstitial prominence. Pleura: No effusion. No pneumothorax. Cardiomediastinal contours: Cardiomegaly Bones: Unremarkable IMPRESSION: Pulmonary vascular congestion versus viral pneumonitis.
[2024-08-16 10:28] LABS: Alanine Aminotransferase 56 U/L (7-40); Albumin 3.5 g/dL (3.2-4.8); Alkaline Phosphatase 459 U/L (46-116); Anion Gap 17 (5-15); Aspartate Aminotransferase 106 U/L (13-40); BUN/Creatinine Ratio 13.8 (10.0-20.0); Bilirubin, Total 1.4 mg/dL (0.2-1.0); Blood Urea Nitrogen 8 mg/dL (9-23); Calcium 9.2 mg/dL (8.7-10.4); Carbon Dioxide 21 mmol/L (20-31); Chloride 94 mmol/L (98-107); Glucose 153 mg/dL (74-106); Potassium 3.7 mmol/L (3.5-5.1); Sodium 132 mmol/L (136-145)
[2024-08-16] MEDS: SPIRONOLACTONE 25 MG TAB PO SCH (10:39)
[2024-08-16] MEDS: FUROSEMIDE 40 MG/4 ML VIAL IV ONE (10:40)
[2024-08-16] MEDS: VANCOMYCIN 1.5GM/300ML 300 ML IV SCH (10:43)
--- NOTE | 2024-08-16 15:37 | DVHPN2 ---
Reviewed: Care Plan, H&P, Labs, Medications, Previous Orders, Radiology Changes from previous H/P or p: No Changes General: Per HPI Eyes: No Pain, No Vision change, No Conjunctivae inflammation, No Eyelid inflammation, No Other, No Redness ENT: No Ear pain, No Ear discharge, No Nose pain, No Nose discharge, No Nose congestion, No Mouth pain, No Mouth swelling, No Throat pain, No Throat swelling, No Other Cardiovascular: No Chest Pain, No Palpitations, No Orthopnea, No Paroxysmal Noc. Dyspnea, No Edema, No Lt Headedness, No Other Respiratory: No Cough, No Dry, No Shortness of breath, No SOB with excertion, No Wheezing, No Hemoptysis, No Pleuritic Pain, No Sputum, No Other Gastrointestinal: No Nausea, No Vomiting, No Abdominal Pain, No Diarrhea, No Constipation, No Melena, No Hematochezia, No Other Genitourinary: No Dysuria, No Frequency, No Incontinence, No Hematuria, No Retention, No Other Musculoskeletal: No other, No neck pain, No shoulder pain, No arm pain, No back pain, No hand pain, No leg pain, No foot pain Skin: No Rash, No Lesions, No Jaundice, No Bruising, No Other Objective Vitals Vital Signs Date Time Temp Pulse Resp B/P (MAP) Pulse Ox O2 Delivery O2 Flow Rate FiO2 08/16/24 15:31 91 18 08/16/24 15:30 93 Nasal Cannula* 2 28 08/16/24 13:00 97.4 156/105 (122) 97.4 Intake/Output Intake and Output 08/16/24 07:00 Intake Total 2146.3 ml Output Total 600 ml Balance 1546.3 ml Intake Oral 540 ml IV Total 1606.3 ml Output Urine Total 600 ml # Voids 2 General Appearance: Alert, Oriented X3 HEENT: Atraumatic Cardiovascular: Regular rate, Normal S1, Normal S2 Abdomen: Normal bowel sounds, Soft Medications Current Medications Medications Dose Ordered Sig/Unruly Route Start Time Stop Time Status Last Admin Dose Admin Lorazepam 1 mg Q2HP PRN IV 08/13/24 14:30 08/14/24 21:21 1 MG Thiamine HCl 100 mg DAILY IV 08/14/24 10:00 08/16/24 10:42 100 MG Folic Acid 1 mg/ Dextrose 50.2 ml @ 200.8 mls/ hr DAILY INJ 08/14/24 10:00 08/16/24 14:29 200.8 MLS/HR Diagnostic Test (Pha) 1 strip IQ4HR 08/13/24 16:00 08/16/24 13:58 1 STRIP Insulin Human Regular IQ4HR SC 08/13/24 16:00 08/16/24 14:00 4 UNITS Dextrose 50 ml UD PRN IV 08/13/24 14:30 Ondansetron HCl 4 mg Q4HP PRN IV 08/13/24 14:30 Docusate Sodium 100 mg BIDPRN PRN PO 08/13/24 14:30 Acetaminophen 650 mg Q6HP PRN PO 08/13/24 14:30 Nitroglycerin 0.4 mg Q5MINP PRN SL 08/13/24 16:45 Morphine Sulfate 2 mg Q30M PRN IV 08/13/24 16:45 Ceftriaxone Sodium 50 ml @ 100 mls/hr DAILY@09 IV 08/14/24 09:00 08/16/24 08:50 100 MLS/HR Vancomycin HCl 0 ml @ 0 mls/hr UD PRN IV 08/13/24 20:30 Amiodarone HCl 250 ml @ 16.667 mls/ hr Q15H IV 08/15/24 04:45 08/16/24 15:00 16.667 MLS/HR Enoxaparin Sodium 110 mg Q12HR SC 08/15/24 22:00 08/16/24 10:42 110 MG Levalbuterol HCl 0.625 mg Q6HR PRN NEB 08/15/24 12:30 08/16/24 15:25 0.625 MG Ipratropium [place] 0.5 mg Q6HPRN PRN NEB 08/15/24 12:30 08/16/24 15:25 0.5 MG Sacubitril/ Valsartan 1 tab BID PO 08/15/24 22:00 08/16/24 06:25 1 TAB Metoprolol Succinate 25 mg DAILY PO 08/16/24 10:00 08/16/24 06:27 25 MG Vancomycin HCl 300 ml @ 200 mls/hr Q8H IV 08/16/24 09:00 08/16/24 10:43 200 MLS/HR Spironolactone 25 mg DAILY PO 08/16/24 10:00 08/16/24 10:39 25 MG Furosemide 40 mg BIDD IV 08/16/24 18:00 Laboratory Results Laboratory Tests 08/16/24 07:10 Chemistry Test 08/16/24 07:10 Albumin 3.5 g/dL (3.2-4.8) Calcium Level 9.2 mg/dL (8.7-10.4) Magnesium Level 1.6 mg/dL (1.6-2.6) Phosphorus Level 4.4 mg/dL (2.4-5.1) Total Protein 7.0 g/dL (5.7-8.2) Lipid panel Test 08/16/24 07:10 Cholesterol Level 152 mg/dL (< 200) HDL Cholesterol 8 mg/dL (40-59) L Triglycerides Level 197 mg/dL (< 150) H LFT Test 08/16/24 07:10 Alanine Aminotransferase (ALT) 56 U/L (7-40) H Alkaline Phosphatase 459 U/L (46-116) H Aspartate Amino Transferase (AST) 106 U/L (13-40) H Total Bilirubin 1.4 mg/dL (0.2-1.0) H HgA1c, TSH Test 08/16/24 07:10 Thyroid Stimulating Hormone (TSH) 1.73 uIU/mL (0.55-4.78) Urinalysis Test 08/13/24 16:24 Urine Color Yellow (Yellow) Urine Clarity Clear (Clear) Urine pH 6.0 (5.0-9.0) Urine Specific [place] 1.016 (1.001-1.035) Urine Protein 1+ (Negative) H Urine Ketones 2+ (Negative) H Urine Blood Trace /uL (Negative) H Urine Nitrite Negative (Negative) Urine Bilirubin Negative (Negative) Urine Urobilinogen 2 mg/dL (Negative) H Urine Leukocyte Esterase Negative /uL (Negative) Urine RBC 3 /hpf (0 - 3) Urine WBC 2 /hpf (0 - 3) Urine Squamous Epithelial Cells Few /hpf (<5) Urine Bacteria None seen /hpf (None Seen) Urine Glucose 4+ mg/dL (Normal) H Microbiology Microbiology Date/Time Source Procedure Growth Status 08/13/24 14:54 Blood Blood Culture - Final Staphylococcus aureus Complete Labs and/or images reviewed: Labs reviewed by me, Image(s) reviewed by me Assessment/Plan Assessment/Plan Patient is a 54-year-old male with past medical history of EtOH abuse who presented to [facility] ED for evaluation of alcohol withdrawal. Patient reports symptoms progressively get worse with fatigue, chills, tremors, getting worse today that prompted this visit. Patient states he recently drank average 9 seltzers per day, stopped drinking in mid July 2024. Patient was seen and evaluated in the ED, laboratory data shows elevated WBC 16.5, platelets 364, sodium 115, potassium 4.1, BUN 11, creatinine 1.22, GFR 71, glucose 489, hemoglobin A1c 12.4, blood pressure 138/94, heart rate 116, temperature 99.1 F, O2 saturation 96% on oxygen. Please see medication orders section in the computer. On my assessment, patient denied chest pain, no headache, no dizziness, no diaphoresis, no palpitations, no shortness a breath, no nausea, no vomiting, no fever, no chills. Patient was admitted for further evaluation and medical management. Alcohol withdrawal New onset type 2 diabetes mellitus Hypertension Hyponatremia Alcohol use, unspecified with withdrawal, uncomplicated a-fib with RVR bacteremia (pre-mota blood cx indicates gram positive) Newly diagnosed acute systolic congestive heart failure (LVEF 25%) Metabolic encephalopathy secondary to hyponatremia versus sepsis Sepsis with persistent bacteremia due to MSSA. Obesity History of ethanol abuse 08/14/2024: -- on amiodarone drip -- continue with ceftriaxone -- consult to ID 08/15/2024 -- continue with current care. still on amiodarone drip Plan discussed with: Patient Date of Service: Aug 15, 2024 Billing Provider: KYRIE LUONG DO Common Visit Codes: [id number] INP/OBS CARE(HIGH) [facility] KYRIE LUONG DO Aug 16, 2024 15:37
--- NOTE | 2024-08-16 15:38 | DVHPN2 ---
Reviewed: Care Plan, H&P, Labs, Medications, Previous Orders, Radiology Changes from previous H/P or p: No Changes General: Per HPI Eyes: No Pain, No Vision change, No Conjunctivae inflammation, No Eyelid inflammation, No Other, No Redness ENT: No Ear pain, No Ear discharge, No Nose pain, No Nose discharge, No Nose congestion, No Mouth pain, No Mouth swelling, No Throat pain, No Throat swelling, No Other Cardiovascular: No Chest Pain, No Palpitations, No Orthopnea, No Paroxysmal Noc. Dyspnea, No Edema, No Lt Headedness, No Other Respiratory: No Cough, No Dry, No Shortness of breath, No SOB with excertion, No Wheezing, No Hemoptysis, No Pleuritic Pain, No Sputum, No Other Gastrointestinal: No Nausea, No Vomiting, No Abdominal Pain, No Diarrhea, No Constipation, No Melena, No Hematochezia, No Other Genitourinary: No Dysuria, No Frequency, No Incontinence, No Hematuria, No Retention, No Other Musculoskeletal: No other, No neck pain, No shoulder pain, No arm pain, No back pain, No hand pain, No leg pain, No foot pain Skin: No Rash, No Lesions, No Jaundice, No Bruising, No Other Objective Vitals Vital Signs Date Time Temp Pulse Resp B/P (MAP) Pulse Ox O2 Delivery O2 Flow Rate FiO2 08/16/24 15:31 91 18 08/16/24 15:30 93 Nasal Cannula* 2 28 08/16/24 13:00 97.4 156/105 (122) 97.4 Intake/Output Intake and Output 08/16/24 07:00 Intake Total 2146.3 ml Output Total 600 ml Balance 1546.3 ml Intake Oral 540 ml IV Total 1606.3 ml Output Urine Total 600 ml # Voids 2 General Appearance: Alert, Oriented X3 Lungs: Clear to auscultation Cardiovascular: Regular rate, Normal S1, Normal S2 Abdomen: Normal bowel sounds Medications Current Medications Medications Dose Ordered Sig/Unruly Route Start Time Stop Time Status Last Admin Dose Admin Lorazepam 1 mg Q2HP PRN IV 08/13/24 14:30 08/14/24 21:21 1 MG Thiamine HCl 100 mg DAILY IV 08/14/24 10:00 08/16/24 10:42 100 MG Folic Acid 1 mg/ Dextrose 50.2 ml @ 200.8 mls/ hr DAILY INJ 08/14/24 10:00 08/16/24 14:29 200.8 MLS/HR Diagnostic Test (Pha) 1 strip IQ4HR 08/13/24 16:00 08/16/24 13:58 1 STRIP Insulin Human Regular IQ4HR SC 08/13/24 16:00 08/16/24 14:00 4 UNITS Dextrose 50 ml UD PRN IV 08/13/24 14:30 Ondansetron HCl 4 mg Q4HP PRN IV 08/13/24 14:30 Docusate Sodium 100 mg BIDPRN PRN PO 08/13/24 14:30 Acetaminophen 650 mg Q6HP PRN PO 08/13/24 14:30 Nitroglycerin 0.4 mg Q5MINP PRN SL 08/13/24 16:45 Morphine Sulfate 2 mg Q30M PRN IV 08/13/24 16:45 Ceftriaxone Sodium 50 ml @ 100 mls/hr DAILY@09 IV 08/14/24 09:00 08/16/24 08:50 100 MLS/HR Vancomycin HCl 0 ml @ 0 mls/hr UD PRN IV 08/13/24 20:30 Amiodarone HCl 250 ml @ 16.667 mls/ hr Q15H IV 08/15/24 04:45 08/16/24 15:00 16.667 MLS/HR Enoxaparin Sodium 110 mg Q12HR SC 08/15/24 22:00 08/16/24 10:42 110 MG Levalbuterol HCl 0.625 mg Q6HR PRN NEB 08/15/24 12:30 08/16/24 15:25 0.625 MG Ipratropium [place] 0.5 mg Q6HPRN PRN NEB 08/15/24 12:30 08/16/24 15:25 0.5 MG Sacubitril/ Valsartan 1 tab BID PO 08/15/24 22:00 08/16/24 06:25 1 TAB Metoprolol Succinate 25 mg DAILY PO 08/16/24 10:00 08/16/24 06:27 25 MG Vancomycin HCl 300 ml @ 200 mls/hr Q8H IV 08/16/24 09:00 08/16/24 10:43 200 MLS/HR Spironolactone 25 mg DAILY PO 08/16/24 10:00 08/16/24 10:39 25 MG Furosemide 40 mg BIDD IV 08/16/24 18:00 Laboratory Results Laboratory Tests 08/16/24 07:10 Chemistry Test 08/16/24 07:10 Albumin 3.5 g/dL (3.2-4.8) Calcium Level 9.2 mg/dL (8.7-10.4) Magnesium Level 1.6 mg/dL (1.6-2.6) Phosphorus Level 4.4 mg/dL (2.4-5.1) Total Protein 7.0 g/dL (5.7-8.2) Lipid panel Test 08/16/24 07:10 Cholesterol Level 152 mg/dL (< 200) HDL Cholesterol 8 mg/dL (40-59) L Triglycerides Level 197 mg/dL (< 150) H LFT Test 08/16/24 07:10 Alanine Aminotransferase (ALT) 56 U/L (7-40) H Alkaline Phosphatase 459 U/L (46-116) H Aspartate Amino Transferase (AST) 106 U/L (13-40) H Total Bilirubin 1.4 mg/dL (0.2-1.0) H HgA1c, TSH Test 08/16/24 07:10 Thyroid Stimulating Hormone (TSH) 1.73 uIU/mL (0.55-4.78) Urinalysis Test 08/13/24 16:24 Urine Color Yellow (Yellow) Urine Clarity Clear (Clear) Urine pH 6.0 (5.0-9.0) Urine Specific [place] 1.016 (1.001-1.035) Urine Protein 1+ (Negative) H Urine Ketones 2+ (Negative) H Urine Blood Trace /uL (Negative) H Urine Nitrite Negative (Negative) Urine Bilirubin Negative (Negative) Urine Urobilinogen 2 mg/dL (Negative) H Urine Leukocyte Esterase Negative /uL (Negative) Urine RBC 3 /hpf (0 - 3) Urine WBC 2 /hpf (0 - 3) Urine Squamous Epithelial Cells Few /hpf (<5) Urine Bacteria None seen /hpf (None Seen) Urine Glucose 4+ mg/dL (Normal) H Microbiology Microbiology Date/Time Source Procedure Growth Status 08/13/24 14:54 Blood Blood Culture - Final Staphylococcus aureus Complete Labs and/or images reviewed: Labs reviewed by me, Image(s) reviewed by me Assessment/Plan Assessment/Plan Patient is a 54-year-old male with past medical history of EtOH abuse who presented to [facility] ED for evaluation of alcohol withdrawal. Patient reports symptoms progressively get worse with fatigue, chills, tremors, getting worse today that prompted this visit. Patient states he recently drank average 9 seltzers per day, stopped drinking in mid July 2024. Patient was seen and evaluated in the ED, laboratory data shows elevated WBC 16.5, platelets 364, sodium 115, potassium 4.1, BUN 11, creatinine 1.22, GFR 71, glucose 489, hemoglobin A1c 12.4, blood pressure 138/94, heart rate 116, temperature 99.1 F, O2 saturation 96% on oxygen. Please see medication orders section in the computer. On my assessment, patient denied chest pain, no headache, no dizziness, no diaphoresis, no palpitations, no shortness a breath, no nausea, no vomiting, no fever, no chills. Patient was admitted for further evaluation and medical management. Alcohol withdrawal New onset type 2 diabetes mellitus Hypertension Hyponatremia Alcohol use, unspecified with withdrawal, uncomplicated a-fib with RVR bacteremia (pre-mota blood cx indicates gram positive) Newly diagnosed acute systolic congestive heart failure (LVEF 25%) Metabolic encephalopathy secondary to hyponatremia versus sepsis Sepsis with persistent bacteremia due to MSSA. Obesity History of ethanol abuse 08/14/2024: -- on amiodarone drip -- continue with ceftriaxone -- consult to ID 08/15/2024 -- continue with current care. still on amiodarone drip 08/16/2024 continue with empiric IV Abx -- repeat blood culture every 48 hours 08/17/2024: -- repeat blood cultures -- spoke with cardiology. possibly TALI. blood culture is repeated again Plan discussed with: Patient Date of Service: Aug 16, 2024 Billing Provider: KYRIE LUONG DO Common Visit Codes: [id number] INP/OBS CARE(HIGH) KYRIE LUONG DO Aug 16, 2024 15:38
[2024-08-16] MEDS: FUROSEMIDE 40 MG/4 ML VIAL IV SCH (18:11)
[2024-08-17] VITALS (16 sets, daily range): BP systolic 109–147; BP diastolic 65–101; PULSE 85–100; RESP 16–24; TEMP 98–98.6; O2SAT 90–98
[2024-08-17] MEDS: IODIXANOL 320MG/ML 100ML BTL IV ONE (07:57)
[2024-08-17] MEDS: ANGIOMAX 250 MG VIAL IV ONE (08:52)
[2024-08-17] MEDS: HEPARIN SODIUM (PORCINE) 5000 UNITS/ML 1ML VIAL ONE (08:52)
[2024-08-17] MEDS: SODIUM CHL 0.9% 0 ML ONE (08:52)
[2024-08-17] MEDS: MIDAZOLAM HCL 2MG/2ML 2ml VIAL (1mg/ml) ONE (08:52)
[2024-08-17] MEDS: VERAPAMIL 2.5MG/ML INJ 2ML VIAL IV ONE (08:52)
[2024-08-17] MEDS: fentaNYL CITRATE 100 MCG/2 ML VL ONE (08:52)
[2024-08-17] MEDS: LIDOCAINE 2%HCL (LOCAL ANESTH.) INJ 20ML MDV ONE (08:53)
--- NOTE | 2024-08-17 09:35 | DVHPNRES ---
Progress Note Date Seen: Aug 17, 2024 Resident Creating Document: GRETEL CABALLERO RESIDENT Medical Necessity Reason Pt with a Central, PICC or Fol: No Subjective Review of Systems Alvin Styles is a 54 year old male patient who presents to ED with chief complaint of fatigue, generalized weakness and dry cough which started three days before his admission. Patient has not seen any doctor for approximately 40 years. During ED stay patient was diagnosed with simple hyperglycemia associated hyponatremia and sepsis. Presented on telemetry new onset AFib RVR, with symptoms of generalized weakness, currently on amiodarone drip and therapeutic enoxaparin. Denies palpitation, syncope, chest pain, dyspnea, nausea, vomiting, diarrhea, constipation, bleeding, dysuria, recent travel, sick contacts and motor or sensory deficits. Past medical history: Hypertension, newly diagnosed diabetes Surgical history: Denies Family history: Mother diagnosed with congestive heart failure eight age 33. Father due to lung cancer secondary to smoking. Social history: Lives in [place] with mother. 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 Denies current tobacco, alcohol and other drug abuse. Allergies: Denies (per EMR codeine) Home medication: Denies Patient seen and examined at bedside. Currently is asymptomatic, has been feeling better since his admission. Telemetry shows patient is on sinus rhythm. Objective vital signs Vital Sign Date Time Temp Pulse Resp B/P (MAP) Pulse Ox O2 Delivery O2 Flow Rate FiO2 08/17/24 07:01 123/72 08/17/24 05:00 98.5 93 16 93 98.5 08/16/24 22:19 Nasal Cannula* 2 28 Total Intake and Output 08/16/24 08/16/24 08/17/24 15:00 23:00 07:00 Intake Total 634.2 ml 1652 ml 100 ml Output Total 801 ml 800 ml Balance 634.2 ml 851 ml -700 ml medications Current Medications Medications Dose Ordered Sig/Unruly Route Start Time Stop Time Status Last Admin Dose Admin Lorazepam 1 mg Q2HP PRN IV 08/13/24 14:30 08/14/24 21:21 1 MG Thiamine HCl 100 mg DAILY IV 08/14/24 10:00 08/16/24 10:42 100 MG Folic Acid 1 mg/ Dextrose 50.2 ml @ 200.8 mls/ hr DAILY INJ 08/14/24 10:00 08/16/24 14:29 200.8 MLS/HR Diagnostic Test (Pha) 1 strip IQ4HR 08/13/24 16:00 08/17/24 03:53 1 STRIP Insulin Human Regular IQ4HR SC 08/13/24 16:00 08/17/24 03:53 2 UNITS Dextrose 50 ml UD PRN IV 08/13/24 14:30 Ondansetron HCl 4 mg Q4HP PRN IV 08/13/24 14:30 Docusate Sodium 100 mg BIDPRN PRN PO 08/13/24 14:30 Acetaminophen 650 mg Q6HP PRN PO 08/13/24 14:30 Nitroglycerin 0.4 mg Q5MINP PRN SL 08/13/24 16:45 Morphine Sulfate 2 mg Q30M PRN IV 08/13/24 16:45 Ceftriaxone Sodium 50 ml @ 100 mls/hr DAILY@09 IV 08/14/24 09:00 08/16/24 08:50 100 MLS/HR Vancomycin HCl 0 ml @ 0 mls/hr UD PRN IV 08/13/24 20:30 Amiodarone HCl 250 ml @ 16.667 mls/ hr Q15H IV 08/15/24 04:45 08/17/24 07:07 16.667 MLS/HR Enoxaparin Sodium 110 mg Q12HR SC 08/15/24 22:00 08/16/24 21:02 110 MG Levalbuterol HCl 0.625 mg Q6HR PRN NEB 08/15/24 12:30 08/16/24 15:25 0.625 MG Ipratropium [place] 0.5 mg Q6HPRN PRN NEB 08/15/24 12:30 08/16/24 15:25 0.5 MG Sacubitril/ Valsartan 1 tab BID PO 08/15/24 22:00 08/16/24 21:01 1 TAB Metoprolol Succinate 25 mg DAILY PO 08/16/24 10:00 08/16/24 06:27 25 MG Vancomycin HCl 300 ml @ 200 mls/hr Q8H IV 08/16/24 09:00 08/17/24 00:31 200 MLS/HR Spironolactone 25 mg DAILY PO 08/16/24 10:00 08/16/24 10:39 25 MG Furosemide 40 mg BIDD IV 08/16/24 18:00 08/17/24 07:01 40 MG Examination Patient lying in bed, in no acute distress General: Lucid, afebrile, mucosae are moist Cardiovascular: Irregular S1 and S2. No murmurs, gallops or rubs Respiratory: Normal ventilation mechanics. Clear lung sounds on auscultation Abdomen: Soft, nontender, no organomegaly, normal bowel sounds MSK/skin: Mobilizes 4 limbs. Skin is dry and warm. Right Radial puncture site with no hematoma. Neurological: Oriented in 3 spheres. No motor no sensitive deficits. Pupils are isocoric and reactive laboratory and microbiology Laboratory Tests 08/17/24 06:55 08/16/24 07:10 Test 08/16/24 07:10 Range/Units Serum Glucose 153 H 74-106 mg/dL Microbiology Date/Time Source Procedure Growth Status 08/15/24 19:25 Blood Blood Culture - Preliminary Resulted Problem List/Assessment/Plan Problem List/Assessment/Plan Assessment New onset AFib RVR (chads Vasc 3 / has bled 1) injury hypercoagulability state Newly diagnosed acute systolic congestive heart failure (HFrEF, LVEF 25%, RVSP 75 mmHg) Metabolic encephalopathy secondary to hyponatremia versus sepsis Newly diagnosed diabetes (hemoglobin A1c 12.4%) Pseudohyponatremia Sepsis with persistent bacteremia due to MSSA. Obesity Hypertension History of ethanol abuse Plan/Recommendation Echocardiogram: Severely reduced LV systolic function, LVEF 25% and global fashion, severely reduced right ventricular systolic function, RVSP 75 mmHg, moderately dilated right and left atrium. Completed coronary angiography with nonobstructive coronary artery disease. Patient currently on amiodarone p.o. since patient converted to normal sinus rhythm. Suggest avoiding calcium channel blockers due to HFrEF Patient is on therapeutic enoxaparin. Optimize loading conditions Currently on GDM T (on metoprolol and Entresto,spironolactone and empagliflozin). Evaluate if can up titrate medication Optimize electrolytes (potassium above 4 meq/L, magnesium above 2 mEq/L) IV antibiotics per hospitalist . Patient presented to blood cultures positive for Gram-positive cocci in clusters with 48 hours of difference. Did offer TALI, but patient refused at this point. Antidiabetic medication per hospitalist Discussed plan with Dr. Gordon, patient and nurses: Patient was newly diagnosed with HFrEF associated with new onset AFib RVR. Switched amiodarone drip to p.o. since patient is currently in sinus rhythm, on therapeutic enoxaparin. Recommend treating sepsis and metabolic panel (hyperglycemia, hyponatremia and electrolyte disbalance). Coronary angiography completed with nonobstructive coronary artery disease Offered TALI due to persistent bacteremia to Gram-positive cocci in clusters, but patient refused. We will follow to evaluate need of TALI to rule out infective endocarditis and tolerance to medication. Patient has poor prognosis Plan discussed with: Patient, Other (Nurses and mother) My Orders My Orders Orders - GRETEL CABALLERO Procedure Category Date Status Time Npo Except For DANIELA 08/17/24 In Process Medications 00:01 Npo After Midnight DIET 08/17/24 Transmitted Breakfast Obtain Consent For: ORDERS 08/17/24 Transmitted 10:00 Hold Enoxaparin Day DANIELA 08/17/24 In Process Of Procedu 00:01 D/C Tlc DANIELA 08/16/24 In Process 14:07 Shave Both Groins [facility] 08/16/24 In Process 14:07 Provide Education [facility] 08/16/24 In Process Materials 14:07 Cl Left Heart Cath CL 08/16/24 Logged 14:07 Comprehensive LAB 08/18/24 Verified Metabolic Panel 04:00 Obtain Consent For [facility] 08/16/24 In Process Anesthesia 14:07 Dietary Evaluation Review Comments: Continue current plan of care Expected Outcomes/Goals: F/U in 3-5 days Visit Coding Cardiology RES Date of Service: Aug 17, 2024 Billing Provider: MARITZA GORDON MD Cardiology Common Codes: 05533-USH/OBS SAME DATE (High), [id number] CARE- EACH +30MIN GRETEL CABALLERO Aug 17, 2024 09:35
--- NOTE | 2024-08-17 09:56 | DVHOP2 ---
Operative Report -Cardiology Report Details Date: 08/17/24 Preop Diagnosis: Patient presented with a congestive heart failure and severely reduced left ventricular systolic function for which cardiac catheterization was done to rule out ischemic heart disease Postop Diagnosis: Coronary angiography did not reveal any significant coronary artery disease that account for the degree of LV systolic dysfunction the patient has. The patient has a likely case of nonischemic cardiomyopathy Surgeon: Grey Gordon MD Anesthesiologist: Conscious sedation was obtained using25 mcg of fentanyl as well as a mg of midazolam. Patient was monitored for total of35 minutes without obvious complication. Medication were given in the direct supervision of myself the primary attendant honor bar as well as in the presence of the attending nurses. Anesthesia: Local Consent: The patient was informed of the risks and benefits of the procedure. These include but are not limited to complications of anesthesia, postoperative infection, incomplete relief of symptoms, recurrence of symptoms, damage to blood vessels, nerves and tendons, deep venous thrombosis, pulmonary embolism and possible need for repeat surgery in the future. Indications for Surgery: Alvin Styles is a 54 year old male patient who presents to ED with chief complaint of fatigue, generalized weakness and dry cough which started three days before his admission. Patient has not seen any doctor for approximately 40 years. During ED stay patient was diagnosed with simple hyperglycemia associated hyponatremia and sepsis. Presented on telemetry new onset AFib RVR, with symptoms of generalized weakness, currently on amiodarone drip and therapeutic enoxaparin. Denies palpitation, syncope, chest pain, dyspnea, nausea, vomiting, diarrhea, constipation, bleeding, dysuria, recent travel, sick contacts and motor or sensory deficits. Name of Procedure Performed 1. Left heart catheterization with left ventricular end-diastolic pressure measurement. 2. Selective right and left coronary angiography utilizing right transradial approach. 3. Conscious sedation using25 mcg of fentanyl as well as a mg IV midazolam.. Procedure Details Procedure Details: Procedure note: After informed consent was obtained, risks, benefits, complications, and alternatives were discussed in details with the patient who agrees to have the procedure done. At the beginning of the procedure, the right wrist and right groin area were prepped and draped in the regular sterile fashion. Patient [id number] mcg of fentanyl as well as a mg midazolam for conscious sedation. Then received a total of2 cc of 1% xylocaine at the right wrist area for local anesthesia. Six Egyptian sheath was placed using modified Seldinger technique into the right radial artery without difficulty. A cocktail of 2.5 mg of verapamil as well as 100 mcg nitroglycerin were given intra- arterial to prevent vasospasm. After we across the aortic arch patient received 3000 of heparin. [place] five Egyptian catheter was used to engage the right and left coronary system as well as the left heart catheterization findings were as follows: 1. Left heart catheterization with left ventricular end-diastolic pressure measurement: With the help of a tiger five Egyptian catheter as well as pins and J-tip wire we were able to cross the aortic valve and measured left ventricular end-diastolic pressure which was elevated at 16mm of mercury. No significant gradient was noted across the aortic valve on the pullback. 2. Selective right and left coronary angiography utilizing right transradial approach: 1. The right coronary artery comes off the right coronary cusp it is a large and dominant system, it bifurcates distally into large posterior descending artery as well as large posterolateral branch. Right coronary artery is free of any significant atherosclerotic plaquing. 2. The left main comes off the left coronary cusp it is a large system bifurcates into large left anterior descending artery and medium-sized left circumflex vessel. Left main is free of any significant stenosis. 3. The left anterior descending artery is a large vessels with a transapical course:, it gives rise to two large diagonal branches, it has mild irregularity but no significant stenosis. 4. Left circumflex artery is medium-sized vessel it has a high takeoff 1st obtuse marginal branch with mild ostial disease at 30% but no other significant disease was noted in the remaining two branches, no significant discrete stenosis was noted in the left circumflex vessel. Impression and plan: 1. No significant coronary artery disease was noted in the study done today. 2. Patient presentation is likely due to nonischemic cardiomyopathy. 3. Given bacteremia in the blood patient could still have subtle endocarditis for which you were recommend TALI. 4. Patient would need to start on aggressive goal-directed medical therapy, including Entresto, metoprolol, Aldactone, and Jardiance. 5. Patient would need to be followed regularly by a cardiac team and patient and after discharge with a regular follow-up. Condition Good Dominance Dominance: Right Disposition GREY GORDON MD Aug 17, 2024 09:56
[2024-08-17 10:03] LABS: Alanine Aminotransferase 35 U/L (7-40); Albumin 2.9 g/dL (3.2-4.8); Alkaline Phosphatase 411 U/L (46-116); Anion Gap 9 (5-15); Aspartate Aminotransferase 51 U/L (13-40); BUN/Creatinine Ratio 14.6 (10.0-20.0); Blood Urea Nitrogen 7 mg/dL (9-23); Calcium 8.7 mg/dL (8.7-10.4); Carbon Dioxide 30 mmol/L (20-31); Chloride 98 mmol/L (98-107); Glucose 151 mg/dL (74-106); Magnesium 1.6 mg/dL (1.6-2.6); Potassium 3.4 mmol/L (3.5-5.1); Sodium 137 mmol/L (136-145)
[2024-08-17 10:04] LABS: Bilirubin, Total 1.2 mg/dL (0.2-1.0)
[2024-08-17 10:19] LABS: Basophils # (auto) 0.2 10 ^3/uL (0-0.2); Eosinophils # (auto) 0.1 10 ^3/uL (0-0.8); Eosinophils % (auto) 0.6 % (0.0-7.0); Hematocrit 38.1 % (41.0-53.0); Hemoglobin 12.9 g/dL (13.5-17.5); Lymphocytes # (auto) 2.2 10 ^3/uL (0.4-5.4); Lymphocytes % (auto) 12.9 % (10.0-50.0); Mean Corpuscular Hemoglobin 30.2 pg (28.0-32.0); Mean Corpuscular Hgb Conc. 33.8 g/dL (32.0-36.0); Mean Corpuscular Volume 89.3 fL (80.0-100.0); Monocytes % (auto) 6.1 % (0.0-12.0); Neutrophils # (auto) 13.6 10 ^3/uL (1.6-8.6); Neutrophils % (auto) 79.4 % (37.0-80.0); Nucleated Red Blood Cells % 0.1 %; Platelet Count (auto) 326 10^3/uL (140-450); Red Blood Cells 4.27 10^6/uL (4.5-5.90); Red Cell Distribution Width 13.5 % (11.8-14.3); White Blood Cell 17.1 10^3/uL (4.4-10.8)
[2024-08-17] MEDS: VANCOMYCIN 1.25GM/250ML 250 ML IV ONE (11:23)
[2024-08-17] MEDS: AMIODARONE HCL 200 MG TAB PO SCH (21:42)
[2024-08-18] VITALS (11 sets, daily range): BP systolic 104–147; BP diastolic 53–96; PULSE 80–100; RESP 14–19; TEMP 97.5–98.5; O2SAT 92–96
[2024-08-18 00:35] LABS: Urine Bacteria None Seen /hpf (None Seen)
[2024-08-18 00:44] LABS: Urine Blood TRACE /uL (Negative); Urine Clarity Clear (Clear); Urine Color Yellow (Yellow); Urine Hyaline Cast FEW /lpf (0 - 2); Urine Mucus FEW (None Seen); Urine Protein, UAD Negative (Negative); Urine Specific Gravity 1.014 (1.001-1.035); Urine Urobilinogen 2 mg/dL (Negative); Urine WBC 2 /hpf (0 - 3)
[2024-08-18 01:45] LABS: Amphetamine Screen, Urine Neg (NEGATIVE); Barbiturate Scree,Urine Neg (NEGATIVE); Benzodiazephine Screen, Urine Pos (NEGATIVE); Cannabinoid Screen, Urine Neg (NEGATIVE); Cocaine Screen, Urine Neg (NEGATIVE); Opiate Scree,Urine Neg (NEGATIVE); Phencyclidine Screen, Urine Neg (NEGATIVE)
[2024-08-18 07:06] LABS: Basophils # (auto) 0.1 10 ^3/uL (0-0.2); Basophils % (auto) 0.3 % (0.0-2.0); Eosinophils # (auto) 0.1 10 ^3/uL (0-0.8); Eosinophils % (auto) 0.9 % (0.0-7.0); Hematocrit 38.1 % (41.0-53.0); Hemoglobin 13.1 g/dL (13.5-17.5); Lymphocytes # (auto) 2.4 10 ^3/uL (0.4-5.4); Lymphocytes % (auto) 14.4 % (10.0-50.0); Mean Corpuscular Hemoglobin 30.5 pg (28.0-32.0); Mean Corpuscular Hgb Conc. 34.3 g/dL (32.0-36.0); Mean Corpuscular Volume 88.9 fL (80.0-100.0); Monocytes # (auto) 1.1 10 ^3/uL (0-1.3); Monocytes % (auto) 6.7 % (0.0-12.0); Neutrophils # (auto) 13.2 10 ^3/uL (1.6-8.6); Neutrophils % (auto) 77.7 % (37.0-80.0); Platelet Count (auto) 395 10^3/uL (140-450); Red Blood Cells 4.29 10^6/uL (4.5-5.90); Red Cell Distribution Width 13.6 % (11.8-14.3)
[2024-08-18 07:17] LABS: Alanine Aminotransferase 23 U/L (7-40); Albumin 3.3 g/dL (3.2-4.8); Alkaline Phosphatase 414 U/L (46-116); Anion Gap 8 (5-15); Aspartate Aminotransferase 34 U/L (13-40); BUN/Creatinine Ratio 10.5 (10.0-20.0); Blood Urea Nitrogen 6 mg/dL (9-23); Calcium 9.1 mg/dL (8.7-10.4); Carbon Dioxide 32 mmol/L (20-31); Chloride 97 mmol/L (98-107); Glucose 169 mg/dL (74-106); Potassium 2.9 mmol/L (3.5-5.1); Sodium 137 mmol/L (136-145)
[2024-08-18 07:18] LABS: Bilirubin, Total 1.1 mg/dL (0.2-1.0); Total Protein 7.1 g/dL (5.7-8.2)
[2024-08-18] MEDS: EMPAGLIFLOZIN 10 MG TAB PO SCH (08:00)
--- NOTE | 2024-08-18 14:41 | DVHPN2 ---
Consult Progress Note Subjective Patient reports: Feels better Review of Systems: CVS:Normal (Denies any chest pain, palpitations), RESPIRATORY:Normal (Denies any shortness of breath.) Objective vital signs Vital Sign Date Time Temp Pulse Resp B/P (MAP) Pulse Ox O2 Delivery O2 Flow Rate FiO2 08/18/24 12:44 98.5 87 14 121/96 (104) 95 98.5 08/18/24 09:05 Room Air* 0 21 Total Intake and Output 08/17/24 08/17/24 08/18/24 15:00 23:00 07:00 Intake Total 300 ml 1175 ml 300 ml Balance 300 ml 1175 ml 300 ml medications Current Medications Medications Dose Ordered Sig/Unruly Route Start Time Stop Time Status Last Admin Dose Admin Lorazepam 1 mg Q2HP PRN IV 08/13/24 14:30 08/14/24 21:21 1 MG Thiamine HCl 100 mg DAILY IV 08/14/24 10:00 08/18/24 08:02 100 MG Folic Acid 1 mg/ Dextrose 50.2 ml @ 200.8 mls/ hr DAILY INJ 08/14/24 10:00 08/18/24 12:13 200.8 MLS/HR Diagnostic Test (Pha) 1 strip IQ4HR 08/13/24 16:00 08/18/24 12:18 1 STRIP Insulin Human Regular IQ4HR SC 08/13/24 16:00 08/18/24 12:23 2 UNITS Dextrose 50 ml UD PRN IV 08/13/24 14:30 Ondansetron HCl 4 mg Q4HP PRN IV 08/13/24 14:30 Docusate Sodium 100 mg BIDPRN PRN PO 08/13/24 14:30 Acetaminophen 650 mg Q6HP PRN PO 08/13/24 14:30 Nitroglycerin 0.4 mg Q5MINP PRN SL 08/13/24 16:45 Morphine Sulfate 2 mg Q30M PRN IV 08/13/24 16:45 Ceftriaxone Sodium 50 ml @ 100 mls/hr DAILY@09 IV 08/14/24 09:00 08/18/24 07:59 100 MLS/HR Vancomycin HCl 0 ml @ 0 mls/hr UD PRN IV 08/13/24 20:30 Enoxaparin Sodium 110 mg Q12HR SC 08/15/24 22:00 08/18/24 08:02 110 MG Levalbuterol HCl 0.625 mg Q6HR PRN NEB 08/15/24 12:30 08/16/24 15:25 0.625 MG Ipratropium [place] 0.5 mg Q6HPRN PRN NEB 08/15/24 12:30 08/16/24 15:25 0.5 MG Sacubitril/ Valsartan 1 tab BID PO 08/15/24 22:00 08/18/24 08:01 1 TAB Metoprolol Succinate 25 mg DAILY PO 08/16/24 10:00 08/18/24 08:00 25 MG Vancomycin HCl 300 ml @ 200 mls/hr Q8H IV 08/16/24 09:00 08/18/24 08:32 200 MLS/HR Spironolactone 25 mg DAILY PO 08/16/24 10:00 08/18/24 08:01 25 MG Furosemide 40 mg BIDD IV 08/16/24 18:00 08/18/24 05:58 40 MG Amiodarone HCl 200 mg Q12HR PO 08/17/24 22:00 08/18/24 08:02 200 MG Empaglifozin 10 mg DAILY PO 08/18/24 10:00 08/18/24 08:00 10 MG Examination: LUNGS:Normal (Breathing stable on room air.), CVS:Normal (potline monitor reviewed consistent with sinus rhythm at 98 beats per minute, no overnight events noted.) laboratory and microbiology Laboratory Tests 08/18/24 06:41 Test 08/18/24 06:41 Range/Units Serum Glucose 169 H 74-106 mg/dL Problem List/Assessment/Plan Problem List/Assessment/Plan Problem List/Assessment/Plan Assessment New onset AFib RVR (chads Vasc 3 / has bled 1) injury hypercoagulability state Newly diagnosed acute systolic congestive heart failure (HFrEF, LVEF 25%, RVSP 75 mmHg) Metabolic encephalopathy secondary to hyponatremia versus sepsis Newly diagnosed diabetes (hemoglobin A1c 12.4%) Pseudohyponatremia Sepsis with persistent bacteremia due to MSSA. Obesity Hypertension History of ethanol abuse Plan/Recommendation Echocardiogram: Severely reduced LV systolic function, LVEF 25% and global fashion, severely reduced right ventricular systolic function, RVSP 75 mmHg, moderately dilated right and left atrium. Coronary angiography with nonobstructive coronary artery disease. Amiodarone p.o. since patient converted to normal sinus rhythm. Suggest avoiding calcium channel blockers due to HFrEF Patient is on therapeutic enoxaparin. Optimize loading conditions Currently on GDM T (on metoprolol and Entresto,spironolactone and empagliflozin). Evaluate if can up titrate medication Optimize electrolytes (potassium above 4 meq/L, magnesium above 2 mEq/L) IV antibiotics per hospitalist . Patient presented to blood cultures positive for Gram-positive cocci in clusters with 48 hours of difference. Did offer TALI, but patient refused at this point. Antidiabetic medication per hospitalist Discussed plan with Dr. Gordon, patient and nurses: Patient was newly diagnosed with HFrEF associated with new onset AFib RVR. Continue amiodarone 200 mg p.o. twice daily x1 month followed by 200 mg daily. Full-dose anticoagulation therapy with Lovenox may switch to Eliquis 5 mg p.o. twice a day upon discharge for stroke prophylaxis. Continue treating sepsis per ID and metabolic panel (hyperglycemia, hyponatremia and electrolyte disbalance). Nonobstructive CAD on coronary angiogram. Continues to not want TALI to rule out infective endocarditis and tolerance to medication. Patient has poor prognosis. Continue GDMT as above. Outpatient cardiology follow-up recommended. Stable from Cardiology standpoint. We will sign off. Plan discussed with: Patient Dietary Evaluation Review Comments: Continue current plan of care Expected Outcomes/Goals: F/U in 3-5 days Date of Service: Aug 18, 2024 Billing Provider: MARITZA GORDON MD Common Visit Codes: [id number] INP/OBS CARE(HIGH), [id number] CARE 30-74 MIN BOBBI BAI AGACNP Aug 18, 2024 14:41
--- NOTE | 2024-08-18 14:42 | DVHPN2 ---
Reviewed: Care Plan, H&P, Labs, Medications, Previous Orders, Radiology Changes from previous H/P or p: No Changes General: Per HPI Eyes: No Pain, No Vision change, No Conjunctivae inflammation, No Eyelid inflammation, No Other, No Redness ENT: No Ear pain, No Ear discharge, No Nose pain, No Nose discharge, No Nose congestion, No Mouth pain, No Mouth swelling, No Throat pain, No Throat swelling, No Other Cardiovascular: No Chest Pain, No Palpitations, No Orthopnea, No Paroxysmal Noc. Dyspnea, No Edema, No Lt Headedness, No Other Respiratory: No Cough, No Dry, No Shortness of breath, No SOB with excertion, No Wheezing, No Hemoptysis, No Pleuritic Pain, No Sputum, No Other Gastrointestinal: No Nausea, No Vomiting, No Abdominal Pain, No Diarrhea, No Constipation, No Melena, No Hematochezia, No Other Genitourinary: No Dysuria, No Frequency, No Incontinence, No Hematuria, No Retention, No Other Musculoskeletal: No other, No neck pain, No shoulder pain, No arm pain, No back pain, No hand pain, No leg pain, No foot pain Skin: No Rash, No Lesions, No Jaundice, No Bruising, No Other Objective Vitals Vital Signs Date Time Temp Pulse Resp B/P (MAP) Pulse Ox O2 Delivery O2 Flow Rate FiO2 08/18/24 12:44 98.5 87 14 121/96 (104) 95 98.5 08/18/24 09:05 Room Air* 0 21 Intake/Output Intake and Output 08/18/24 07:00 Intake Total 1775 ml Balance 1775 ml Intake Oral 1125 ml IV Total 650 ml # Voids 7 # Bowel Movements 1 General Appearance: Alert, Oriented X3 HEENT: Atraumatic Lungs: Clear to auscultation Cardiovascular: Regular rate, Normal S1, Normal S2 Abdomen: Normal bowel sounds Medications Current Medications Medications Dose Ordered Sig/Unruly Route Start Time Stop Time Status Last Admin Dose Admin Lorazepam 1 mg Q2HP PRN IV 08/13/24 14:30 08/14/24 21:21 1 MG Thiamine HCl 100 mg DAILY IV 08/14/24 10:00 08/18/24 08:02 100 MG Folic Acid 1 mg/ Dextrose 50.2 ml @ 200.8 mls/ hr DAILY INJ 08/14/24 10:00 08/18/24 12:13 200.8 MLS/HR Diagnostic Test (Pha) 1 strip IQ4HR 08/13/24 16:00 08/18/24 12:18 1 STRIP Insulin Human Regular IQ4HR SC 08/13/24 16:00 08/18/24 12:23 2 UNITS Dextrose 50 ml UD PRN IV 08/13/24 14:30 Ondansetron HCl 4 mg Q4HP PRN IV 08/13/24 14:30 Docusate Sodium 100 mg BIDPRN PRN PO 08/13/24 14:30 Acetaminophen 650 mg Q6HP PRN PO 08/13/24 14:30 Nitroglycerin 0.4 mg Q5MINP PRN SL 08/13/24 16:45 Morphine Sulfate 2 mg Q30M PRN IV 08/13/24 16:45 Ceftriaxone Sodium 50 ml @ 100 mls/hr DAILY@09 IV 08/14/24 09:00 08/18/24 07:59 100 MLS/HR Vancomycin HCl 0 ml @ 0 mls/hr UD PRN IV 08/13/24 20:30 Enoxaparin Sodium 110 mg Q12HR SC 08/15/24 22:00 08/18/24 08:02 110 MG Levalbuterol HCl 0.625 mg Q6HR PRN NEB 08/15/24 12:30 08/16/24 15:25 0.625 MG Ipratropium [place] 0.5 mg Q6HPRN PRN NEB 08/15/24 12:30 08/16/24 15:25 0.5 MG Sacubitril/ Valsartan 1 tab BID PO 08/15/24 22:00 08/18/24 08:01 1 TAB Metoprolol Succinate 25 mg DAILY PO 08/16/24 10:00 08/18/24 08:00 25 MG Vancomycin HCl 300 ml @ 200 mls/hr Q8H IV 08/16/24 09:00 08/18/24 08:32 200 MLS/HR Spironolactone 25 mg DAILY PO 08/16/24 10:00 08/18/24 08:01 25 MG Furosemide 40 mg BIDD IV 08/16/24 18:00 08/18/24 05:58 40 MG Amiodarone HCl 200 mg Q12HR PO 08/17/24 22:00 08/18/24 08:02 200 MG Empaglifozin 10 mg DAILY PO 08/18/24 10:00 08/18/24 08:00 10 MG Laboratory Results Laboratory Tests 08/18/24 06:41 Chemistry Test 08/18/24 06:41 Albumin 3.3 g/dL (3.2-4.8) Calcium Level 9.1 mg/dL (8.7-10.4) Total Protein 7.1 g/dL (5.7-8.2) LFT Test 08/18/24 06:41 Alanine Aminotransferase (ALT) 23 U/L (7-40) Alkaline Phosphatase 414 U/L (46-116) H Aspartate Amino Transferase (AST) 34 U/L (13-40) Total Bilirubin 1.1 mg/dL (0.2-1.0) H Urinalysis Test 08/17/24 21:36 Urine Color Yellow (Yellow) Urine Clarity Clear (Clear) Urine pH 6.0 (5.0-9.0) Urine Specific [place] 1.014 (1.001-1.035) Urine Protein Negative (Negative) Urine Ketones Negative (Negative) Urine Blood Trace /uL (Negative) H Urine Nitrite Negative (Negative) Urine Bilirubin Negative (Negative) Urine Urobilinogen 2 mg/dL (Negative) H Urine Leukocyte Esterase Negative /uL (Negative) Urine RBC 1 /hpf (0 - 3) Urine WBC 2 /hpf (0 - 3) Urine Squamous Epithelial Cells Few /hpf (<5) Urine Bacteria None seen /hpf (None Seen) Urine Hyaline Casts Few /lpf (0 - 2) Urine Mucus Few (None Seen) Urine Glucose 1+ mg/dL (Normal) H Microbiology Microbiology Date/Time Source Procedure Growth Status 08/17/24 11:23 Blood Blood Culture - Preliminary NO GROWTH AFTER 24 HOURS OF INCUBATION. Resulted Assessment/Plan Assessment/Plan Patient is a 54-year-old male with past medical history of EtOH abuse who presented to [facility] ED for evaluation of alcohol withdrawal. Patient reports symptoms progressively get worse with fatigue, chills, tremors, getting worse today that prompted this visit. Patient states he recently drank average 9 seltzers per day, stopped drinking in mid July 2024. Patient was seen and evaluated in the ED, laboratory data shows elevated WBC 16.5, platelets 364, sodium 115, potassium 4.1, BUN 11, creatinine 1.22, GFR 71, glucose 489, hemoglobin A1c 12.4, blood pressure 138/94, heart rate 116, temperature 99.1 F, O2 saturation 96% on oxygen. Please see medication orders section in the computer. On my assessment, patient denied chest pain, no headache, no dizziness, no diaphoresis, no palpitations, no shortness a breath, no nausea, no vomiting, no fever, no chills. Patient was admitted for further evaluation and medical management. Alcohol withdrawal New onset type 2 diabetes mellitus Hypertension Hyponatremia Alcohol use, unspecified with withdrawal, uncomplicated a-fib with RVR bacteremia (pre-mota blood cx indicates gram positive) Newly diagnosed acute systolic congestive heart failure (LVEF 25%) Metabolic encephalopathy secondary to hyponatremia versus sepsis Sepsis with persistent bacteremia due to MSSA. Obesity History of ethanol abuse 08/14/2024: -- on amiodarone drip -- continue with ceftriaxone -- consult to ID 08/15/2024 -- continue with current care. still on amiodarone drip 08/16/2024 continue with empiric IV Abx -- repeat blood culture every 48 hours 08/17/2024: -- repeat blood cultures -- spoke with cardiology. possibly TALI. blood culture is repeated again 08/18/2024: pending 3rd blood culture -- replace serum K with 60mEq Plan discussed with: Patient Date of Service: Aug 18, 2024 Billing Provider: KYRIE LUONG DO Common Visit Codes: [id number] INP/OBS CARE(HIGH) KYRIE LUONG DO Aug 18, 2024 14:42
[2024-08-18] MEDS: POTASSIUM CHL 20 Meq TABLET PO ONE (17:11)
[2024-08-18] MEDS: DOCUSATE SOD 100 MG CAP PO PRN (17:27)
[2024-08-19] VITALS (10 sets, daily range): BP systolic 129–148; BP diastolic 78–92; PULSE 70–96; RESP 14–98; TEMP 97.5–98.3; O2SAT 94–100
[2024-08-19 07:18] LABS: Hematocrit 38.7 % (41.0-53.0); Mean Corpuscular Hemoglobin 30.2 pg (28.0-32.0); Mean Corpuscular Hgb Conc. 33.6 g/dL (32.0-36.0); Mean Corpuscular Volume 89.7 fL (80.0-100.0); Platelet Count (auto) 469 10^3/uL (140-450); Red Blood Cells 4.32 10^6/uL (4.5-5.90); Red Cell Distribution Width 13.6 % (11.8-14.3); White Blood Cell 15.6 10^3/uL (4.4-10.8)
[2024-08-19 07:22] LABS: Alanine Aminotransferase 21 U/L (7-40); Albumin 3.6 g/dL (3.2-4.8); Alkaline Phosphatase 450 U/L (46-116); Anion Gap 13 (5-15); Aspartate Aminotransferase 33 U/L (13-40); BUN/Creatinine Ratio 12.9 (10.0-20.0); Bilirubin, Total 1.1 mg/dL (0.2-1.0); Blood Urea Nitrogen 8 mg/dL (9-23); Calcium 9.6 mg/dL (8.7-10.4); Carbon Dioxide 24 mmol/L (20-31); Chloride 98 mmol/L (98-107); Glucose 156 mg/dL (74-106); Potassium 3.6 mmol/L (3.5-5.1); Sodium 135 mmol/L (136-145); Total Protein 7.8 g/dL (5.7-8.2)
[2024-08-19 07:25] LABS: Basophils % (manual) 0 (0.0-2.0); Blast Cells 0; Eosinophils % (manual) 0 (0-7); Myelocytes % 0; Promyelocytes % 0
[2024-08-19 07:53] LABS: Band Neutrophils % (manual) 5; Lymphocytes % (manual) 20 (10.0-50.0); Metamyelocytes % 1; Monocytes % (manual) 7 (0-12); Reactive Lymphocytes 1
[2024-08-19 07:55] LABS: Platelet Estimate Increased; RBC Morphology Normal
--- NOTE | 2024-08-19 15:14 | DVHPN2 ---
Reviewed: Care Plan, H&P, Labs, Medications, Previous Orders, Radiology Changes from previous H/P or p: No Changes General: Per HPI Eyes: No Pain, No Vision change, No Conjunctivae inflammation, No Eyelid inflammation, No Other, No Redness ENT: No Ear pain, No Ear discharge, No Nose pain, No Nose discharge, No Nose congestion, No Mouth pain, No Mouth swelling, No Throat pain, No Throat swelling, No Other Cardiovascular: No Chest Pain, No Palpitations, No Orthopnea, No Paroxysmal Noc. Dyspnea, No Edema, No Lt Headedness, No Other Respiratory: No Cough, No Dry, No Shortness of breath, No SOB with excertion, No Wheezing, No Hemoptysis, No Pleuritic Pain, No Sputum, No Other Gastrointestinal: No Nausea, No Vomiting, No Abdominal Pain, No Diarrhea, No Constipation, No Melena, No Hematochezia, No Other Genitourinary: No Dysuria, No Frequency, No Incontinence, No Hematuria, No Retention, No Other Musculoskeletal: No other, No neck pain, No shoulder pain, No arm pain, No back pain, No hand pain, No leg pain, No foot pain Skin: No Rash, No Lesions, No Jaundice, No Bruising, No Other Objective Vitals Vital Signs Date Time Temp Pulse Resp B/P (MAP) Pulse Ox O2 Delivery O2 Flow Rate FiO2 08/19/24 13:00 98.1 79 18 148/92 (110) 96 98.1 08/19/24 08:00 Room Air* 0 21 Intake/Output Intake and Output 08/19/24 07:00 Intake Total 4634.2 ml Output Total 1375 ml Balance 3259.2 ml Intake Oral 4234 ml IV Total 400.2 ml Output Urine Total 1375 ml Stool Total 0 ml # Voids 9 General Appearance: Alert, Oriented X3 HEENT: Atraumatic Lungs: Clear to auscultation Cardiovascular: Regular rate, Normal S1, Normal S2 Abdomen: Normal bowel sounds Medications Current Medications Medications Dose Ordered Sig/Unruly Route Start Time Stop Time Status Last Admin Dose Admin Lorazepam 1 mg Q2HP PRN IV 08/13/24 14:30 08/14/24 21:21 1 MG Thiamine HCl 100 mg DAILY IV 08/14/24 10:00 08/19/24 08:16 100 MG Folic Acid 1 mg/ Dextrose 50.2 ml @ 200.8 mls/ hr DAILY INJ 08/14/24 10:00 08/19/24 12:19 200.8 MLS/HR Diagnostic Test (Pha) 1 strip IQ4HR 08/13/24 16:00 08/19/24 11:36 1 STRIP Insulin Human Regular IQ4HR SC 08/13/24 16:00 08/19/24 08:25 2 UNITS Dextrose 50 ml UD PRN IV 08/13/24 14:30 Ondansetron HCl 4 mg Q4HP PRN IV 08/13/24 14:30 Docusate Sodium 100 mg BIDPRN PRN PO 08/13/24 14:30 08/18/24 17:27 100 MG Acetaminophen 650 mg Q6HP PRN PO 08/13/24 14:30 Nitroglycerin 0.4 mg Q5MINP PRN SL 08/13/24 16:45 Morphine Sulfate 2 mg Q30M PRN IV 08/13/24 16:45 Ceftriaxone Sodium 50 ml @ 100 mls/hr DAILY@09 IV 08/14/24 09:00 08/19/24 08:15 100 MLS/HR Vancomycin HCl 0 ml @ 0 mls/hr UD PRN IV 08/13/24 20:30 Enoxaparin Sodium 110 mg Q12HR SC 08/15/24 22:00 08/19/24 08:17 110 MG Levalbuterol HCl 0.625 mg Q6HR PRN NEB 08/15/24 12:30 08/16/24 15:25 0.625 MG Ipratropium [place] 0.5 mg Q6HPRN PRN NEB 08/15/24 12:30 08/16/24 15:25 0.5 MG Sacubitril/ Valsartan 1 tab BID PO 08/15/24 22:00 08/19/24 08:17 1 TAB Metoprolol Succinate 25 mg DAILY PO 08/16/24 10:00 08/19/24 08:18 25 MG Spironolactone 25 mg DAILY PO 08/16/24 10:00 08/19/24 08:17 25 MG Furosemide 40 mg BIDD IV 08/16/24 18:00 08/19/24 05:57 40 MG Amiodarone HCl 200 mg Q12HR PO 08/17/24 22:00 08/19/24 08:17 200 MG Empaglifozin 10 mg DAILY PO 08/18/24 10:00 08/19/24 08:18 10 MG Vancomycin HCl 300 ml @ 200 mls/hr Q8H IV 08/20/24 17:00 Laboratory Results Laboratory Tests 08/19/24 06:42 Chemistry Test 08/19/24 06:42 Albumin 3.6 g/dL (3.2-4.8) Calcium Level 9.6 mg/dL (8.7-10.4) Total Protein 7.8 g/dL (5.7-8.2) LFT Test 08/19/24 06:42 Alanine Aminotransferase (ALT) 21 U/L (7-40) Alkaline Phosphatase 450 U/L (46-116) H Aspartate Amino Transferase (AST) 33 U/L (13-40) Total Bilirubin 1.1 mg/dL (0.2-1.0) H Urinalysis Test 08/17/24 21:36 Urine Color Yellow (Yellow) Urine Clarity Clear (Clear) Urine pH 6.0 (5.0-9.0) Urine Specific [place] 1.014 (1.001-1.035) Urine Protein Negative (Negative) Urine Ketones Negative (Negative) Urine Blood Trace /uL (Negative) H Urine Nitrite Negative (Negative) Urine Bilirubin Negative (Negative) Urine Urobilinogen 2 mg/dL (Negative) H Urine Leukocyte Esterase Negative /uL (Negative) Urine RBC 1 /hpf (0 - 3) Urine WBC 2 /hpf (0 - 3) Urine Squamous Epithelial Cells Few /hpf (<5) Urine Bacteria None seen /hpf (None Seen) Urine Hyaline Casts Few /lpf (0 - 2) Urine Mucus Few (None Seen) Urine Glucose 1+ mg/dL (Normal) H Microbiology Microbiology Date/Time Source Procedure Growth Status 08/17/24 11:23 Blood Blood Culture - Preliminary NO GROWTH AFTER 48 HOURS OF INCUBATION. Resulted Assessment/Plan Assessment/Plan Patient is a 54-year-old male with past medical history of EtOH abuse who presented to [facility] ED for evaluation of alcohol withdrawal. Patient reports symptoms progressively get worse with fatigue, chills, tremors, getting worse today that prompted this visit. Patient states he recently drank average 9 seltzers per day, stopped drinking in mid July 2024. Patient was seen and evaluated in the ED, laboratory data shows elevated WBC 16.5, platelets 364, sodium 115, potassium 4.1, BUN 11, creatinine 1.22, GFR 71, glucose 489, hemoglobin A1c 12.4, blood pressure 138/94, heart rate 116, temperature 99.1 F, O2 saturation 96% on oxygen. Please see medication orders section in the computer. On my assessment, patient denied chest pain, no headache, no dizziness, no diaphoresis, no palpitations, no shortness a breath, no nausea, no vomiting, no fever, no chills. Patient was admitted for further evaluation and medical management. Alcohol withdrawal New onset type 2 diabetes mellitus Hypertension Hyponatremia Alcohol use, unspecified with withdrawal, uncomplicated a-fib with RVR bacteremia (pre-mota blood cx indicates gram positive) Newly diagnosed acute systolic congestive heart failure (LVEF 25%) Metabolic encephalopathy secondary to hyponatremia versus sepsis Sepsis with persistent bacteremia due to MSSA. Obesity History of ethanol abuse 08/14/2024: -- on amiodarone drip -- continue with ceftriaxone -- consult to ID 08/15/2024 -- continue with current care. still on amiodarone drip 08/16/2024 continue with empiric IV Abx -- repeat blood culture every 48 hours 08/17/2024: -- repeat blood cultures -- spoke with cardiology. possibly TALI. blood culture is repeated again 08/18/2024: pending 3rd blood culture -- replace serum K with 60mEq 08/19/2024: persistent bacteremia, would benefit from TALI. repeat blood culture very 48 hours for now until cleared Plan discussed with: Patient Date of Service: Aug 19, 2024 Billing Provider: KYRIE LUONG DO Common Visit Codes: [id number] INP/OBS CARE(HIGH) KYRIE LUONG DO Aug 19, 2024 15:14
[2024-08-20] VITALS (8 sets, daily range): BP systolic 130–148; BP diastolic 83–96; PULSE 84–91; RESP 14–18; TEMP 97.8–98.8; O2SAT 94–99
[2024-08-20] MEDS: VANCOMYCIN 1,500 MG in SODIUM CHL 0.9% 250 ML IV ONE ×2 (00:13→09:58)
[2024-08-20 05:18] LABS: Mean Corpuscular Volume 90.3 fL (80.0-100.0); Red Cell Distribution Width 13.6 % (11.8-14.3)
[2024-08-20 05:22] LABS: Hematocrit 39.4 % (41.0-53.0); Hemoglobin 12.9 g/dL (13.5-17.5); Mean Corpuscular Hemoglobin 29.6 pg (28.0-32.0); Mean Corpuscular Hgb Conc. 32.8 g/dL (32.0-36.0); Platelet Count (auto) 527 10^3/uL (140-450); Red Blood Cells 4.36 10^6/uL (4.5-5.90); White Blood Cell 14.4 10^3/uL (4.4-10.8)
[2024-08-20 05:24] LABS: Basophils % (manual) 0 (0.0-2.0); Blast Cells 0; Promyelocytes % 0; Reactive Lymphocytes 0
[2024-08-20 06:37] LABS: Band Neutrophils % (manual) 3; Eosinophils % (manual) 1 (0-7); Giant Platelets Few; Large Platelets FEW; Lymphocytes % (manual) 24 (10.0-50.0); Metamyelocytes % 1; Monocytes % (manual) 6 (0-12); Myelocytes % 2; Platelet Estimate Increased
--- NOTE | 2024-08-20 11:25 | DVHPN2 ---
Subjective The patient is seen and examined at bedside. No complaint today. The patient wanted to go home. Patient refused TALI Reviewed: Care Plan, H&P, Labs, Medications, Previous Orders, Radiology Changes from previous H/P or p: No Changes General: Per HPI Eyes: No Pain, No Vision change, No Conjunctivae inflammation, No Eyelid inflammation, No Other, No Redness ENT: No Ear pain, No Ear discharge, No Nose pain, No Nose discharge, No Nose congestion, No Mouth pain, No Mouth swelling, No Throat pain, No Throat swelling, No Other Cardiovascular: No Chest Pain, No Palpitations, No Orthopnea, No Paroxysmal Noc. Dyspnea, No Edema, No Lt Headedness, No Other Respiratory: No Cough, No Dry, No Shortness of breath, No SOB with excertion, No Wheezing, No Hemoptysis, No Pleuritic Pain, No Sputum, No Other Gastrointestinal: No Nausea, No Vomiting, No Abdominal Pain, No Diarrhea, No Constipation, No Melena, No Hematochezia, No Other Genitourinary: No Dysuria, No Frequency, No Incontinence, No Hematuria, No Retention, No Other Musculoskeletal: No other, No neck pain, No shoulder pain, No arm pain, No back pain, No hand pain, No leg pain, No foot pain Skin: No Rash, No Lesions, No Jaundice, No Bruising, No Other Objective Vitals Vital Signs Date Time Temp Pulse Resp B/P (MAP) Pulse Ox O2 Delivery O2 Flow Rate FiO2 08/20/24 08:00 97.8 87 18 133/90 (104) 94 97.8 08/19/24 20:00 Room Air* 0 21 Intake/Output Intake and Output 08/20/24 07:00 Intake Total 3550 ml Output Total 500 ml Balance 3050 ml Intake Oral 3300 ml IV Total 250 ml Output Urine Total 500 ml # Voids 15 # Bowel Movements 2 General Appearance: Alert, No acute distress HEENT: Atraumatic Lungs: Clear to auscultation Cardiovascular: Regular rate, Normal S1, Normal S2 Abdomen: Normal bowel sounds Neuro: Cranial nerves 3-12 NL Psych/Mental Status: Mental status NL Medications Current Medications Medications Dose Ordered Sig/Unruly Route Start Time Stop Time Status Last Admin Dose Admin Lorazepam 1 mg Q2HP PRN IV 08/13/24 14:30 08/14/24 21:21 1 MG Thiamine HCl 100 mg DAILY IV 08/14/24 10:00 08/20/24 08:36 100 MG Folic Acid 1 mg/ Dextrose 50.2 ml @ 200.8 mls/ hr DAILY INJ 08/14/24 10:00 08/19/24 12:19 200.8 MLS/HR Diagnostic Test (Pha) 1 strip IQ4HR 08/13/24 16:00 08/20/24 08:39 1 STRIP Insulin Human Regular IQ4HR SC 08/13/24 16:00 08/20/24 04:15 2 UNITS Dextrose 50 ml UD PRN IV 08/13/24 14:30 Ondansetron HCl 4 mg Q4HP PRN IV 08/13/24 14:30 Docusate Sodium 100 mg BIDPRN PRN PO 08/13/24 14:30 08/18/24 17:27 100 MG Acetaminophen 650 mg Q6HP PRN PO 08/13/24 14:30 Nitroglycerin 0.4 mg Q5MINP PRN SL 08/13/24 16:45 Morphine Sulfate 2 mg Q30M PRN IV 08/13/24 16:45 Ceftriaxone Sodium 50 ml @ 100 mls/hr DAILY@09 IV 08/14/24 09:00 08/20/24 08:36 100 MLS/HR Vancomycin HCl 0 ml @ 0 mls/hr UD PRN IV 08/13/24 20:30 Enoxaparin Sodium 110 mg Q12HR SC 08/15/24 22:00 08/19/24 21:28 110 MG Levalbuterol HCl 0.625 mg Q6HR PRN NEB 08/15/24 12:30 08/16/24 15:25 0.625 MG Ipratropium [place] 0.5 mg Q6HPRN PRN NEB 08/15/24 12:30 08/16/24 15:25 0.5 MG Sacubitril/ Valsartan 1 tab BID PO 08/15/24 22:00 08/19/24 21:26 1 TAB Metoprolol Succinate 25 mg DAILY PO 08/16/24 10:00 08/19/24 08:18 25 MG Spironolactone 25 mg DAILY PO 08/16/24 10:00 08/19/24 08:17 25 MG Furosemide 40 mg BIDD IV 08/16/24 18:00 08/20/24 05:39 40 MG Amiodarone HCl 200 mg Q12HR PO 08/17/24 22:00 08/19/24 21:26 200 MG Empaglifozin 10 mg DAILY PO 08/18/24 10:00 08/19/24 08:18 10 MG Vancomycin HCl 300 ml @ 200 mls/hr Q8H IV 08/20/24 17:00 Laboratory Results Laboratory Tests 08/19/24 06:42 08/20/24 04:47 Urinalysis Test 08/17/24 21:36 Urine Color Yellow (Yellow) Urine Clarity Clear (Clear) Urine pH 6.0 (5.0-9.0) Urine Specific [place] 1.014 (1.001-1.035) Urine Protein Negative (Negative) Urine Ketones Negative (Negative) Urine Blood Trace /uL (Negative) H Urine Nitrite Negative (Negative) Urine Bilirubin Negative (Negative) Urine Urobilinogen 2 mg/dL (Negative) H Urine Leukocyte Esterase Negative /uL (Negative) Urine RBC 1 /hpf (0 - 3) Urine WBC 2 /hpf (0 - 3) Urine Squamous Epithelial Cells Few /hpf (<5) Urine Bacteria None seen /hpf (None Seen) Urine Hyaline Casts Few /lpf (0 - 2) Urine Mucus Few (None Seen) Urine Glucose 1+ mg/dL (Normal) H Microbiology Microbiology Date/Time Source Procedure Growth Status 08/17/24 11:23 Blood Blood Culture - Preliminary NO GROWTH AFTER 48 HOURS OF INCUBATION. Resulted Labs and/or images reviewed: Labs reviewed by me Assessment/Plan Assessment/Plan Alcohol withdrawal New onset type 2 diabetes mellitus Hypertension Hyponatremia Alcohol use, unspecified with withdrawal, uncomplicated a-fib with RVR bacteremia (pre-mota blood cx indicates gram positive) Newly diagnosed acute systolic congestive heart failure (LVEF 25%) Metabolic encephalopathy secondary to hyponatremia versus sepsis Sepsis with persistent bacteremia due to MSSA. Obesity History of ethanol abuse Continuing current management. Continuing with amiodarone. Continuing with IV Rocephin. Patient refused TALI we will discuss with ID physician regarding to plan of care about antibiotic Replace electrolyte Explained to the patient without TALI weaned not sure that bacteria not affecting his heart valve. I explained to him I can not discharge him until I discussed his case with Infectious Disease. Continuing sliding scale insulin. Plan discussed with: Patient Date of Service: Aug 20, 2024 Billing Provider: SHON VILLARREAL MD Common Visit Codes: [id number] INP/OBS CARE(HIGH) SHON VILLARREAL MD Aug 20, 2024 11:25
[2024-08-20] MEDS: VANCOMYCIN 1.5GM/300ML 300 ML IV SCH (17:58)
[2024-08-21] VITALS (8 sets, daily range): BP systolic 109–143; BP diastolic 62–94; PULSE 84–92; RESP 16–17; TEMP 97.3–98.6; O2SAT 94–100
[2024-08-21 07:23] LABS: Basophils % (auto) 0.3 % (0.0-2.0); Eosinophils # (auto) 0.1 10 ^3/uL (0-0.8); Neutrophils # (auto) 13.4 10 ^3/uL (1.6-8.6)
[2024-08-21 07:24] LABS: Basophils # (auto) 0 10 ^3/uL (0-0.2); Eosinophils % (auto) 0.5 % (0.0-7.0); Hemoglobin 13.4 g/dL (13.5-17.5); Lymphocytes # (auto) 2.5 10 ^3/uL (0.4-5.4); Lymphocytes % (auto) 14.9 % (10.0-50.0); Mean Corpuscular Hemoglobin 30.1 pg (28.0-32.0); Mean Corpuscular Hgb Conc. 33.5 g/dL (32.0-36.0); Mean Corpuscular Volume 89.9 fL (80.0-100.0); Monocytes # (auto) 0.9 10 ^3/uL (0-1.3); Monocytes % (auto) 5.5 % (0.0-12.0); Neutrophils % (auto) 78.8 % (37.0-80.0); Platelet Count (auto) 615 10^3/uL (140-450); Red Blood Cells 4.45 10^6/uL (4.5-5.90); Red Cell Distribution Width 14.2 % (11.8-14.3)
--- NOTE | 2024-08-21 11:34 | DVHPN2 ---
Subjective The patient is seen and examined at bedside. No complaint today. The patient wanted to go home. Patient refused TALI Reviewed: Care Plan, H&P, Labs, Medications, Previous Orders, Radiology Changes from previous H/P or p: No Changes General: Per HPI Eyes: No Pain, No Vision change, No Conjunctivae inflammation, No Eyelid inflammation, No Other, No Redness ENT: No Ear pain, No Ear discharge, No Nose pain, No Nose discharge, No Nose congestion, No Mouth pain, No Mouth swelling, No Throat pain, No Throat swelling, No Other Cardiovascular: No Chest Pain, No Palpitations, No Orthopnea, No Paroxysmal Noc. Dyspnea, No Edema, No Lt Headedness, No Other Respiratory: No Cough, No Dry, No Shortness of breath, No SOB with excertion, No Wheezing, No Hemoptysis, No Pleuritic Pain, No Sputum, No Other Gastrointestinal: No Nausea, No Vomiting, No Abdominal Pain, No Diarrhea, No Constipation, No Melena, No Hematochezia, No Other Genitourinary: No Dysuria, No Frequency, No Incontinence, No Hematuria, No Retention, No Other Musculoskeletal: No other, No neck pain, No shoulder pain, No arm pain, No back pain, No hand pain, No leg pain, No foot pain Skin: No Rash, No Lesions, No Jaundice, No Bruising, No Other Objective Vitals Vital Signs Date Time Temp Pulse Resp B/P (MAP) Pulse Ox O2 Delivery O2 Flow Rate FiO2 08/21/24 11:13 85 123/86 08/21/24 09:00 98.2 16 100 98.2 08/20/24 20:00 Room Air* 0 21 Intake/Output Intake and Output 08/21/24 07:00 Intake Total 2250.2 ml Balance 2250.2 ml Intake Oral 1900 ml IV Total 350.2 ml # Voids 8 # Bowel Movements 1 General Appearance: Alert, No acute distress HEENT: Atraumatic Lungs: Clear to auscultation Cardiovascular: Regular rate, Normal S1, Normal S2 Abdomen: Normal bowel sounds Neuro: Cranial nerves 3-12 NL Psych/Mental Status: Mental status NL Medications Current Medications Medications Dose Ordered Sig/Unruly Route Start Time Stop Time Status Last Admin Dose Admin Lorazepam 1 mg Q2HP PRN IV 08/13/24 14:30 08/14/24 21:21 1 MG Thiamine HCl 100 mg DAILY IV 08/14/24 10:00 08/21/24 11:12 100 MG Folic Acid 1 mg/ Dextrose 50.2 ml @ 200.8 mls/ hr DAILY INJ 08/14/24 10:00 08/20/24 21:52 200.8 MLS/HR Diagnostic Test (Pha) 1 strip IQ4HR 08/13/24 16:00 08/21/24 08:00 1 STRIP Insulin Human Regular IQ4HR SC 08/13/24 16:00 08/21/24 08:14 2 UNITS Dextrose 50 ml UD PRN IV 08/13/24 14:30 Ondansetron HCl 4 mg Q4HP PRN IV 08/13/24 14:30 Docusate Sodium 100 mg BIDPRN PRN PO 08/13/24 14:30 08/18/24 17:27 100 MG Acetaminophen 650 mg Q6HP PRN PO 08/13/24 14:30 Nitroglycerin 0.4 mg Q5MINP PRN SL 08/13/24 16:45 Morphine Sulfate 2 mg Q30M PRN IV 08/13/24 16:45 Ceftriaxone Sodium 50 ml @ 100 mls/hr DAILY@09 IV 08/14/24 09:00 08/21/24 08:07 100 MLS/HR Vancomycin HCl 0 ml @ 0 mls/hr UD PRN IV 08/13/24 20:30 Enoxaparin Sodium 110 mg Q12HR SC 08/15/24 22:00 08/21/24 11:14 110 MG Sacubitril/ Valsartan 1 tab BID PO 08/15/24 22:00 08/21/24 11:12 1 TAB Metoprolol Succinate 25 mg DAILY PO 08/16/24 10:00 08/21/24 11:13 25 MG Spironolactone 25 mg DAILY PO 08/16/24 10:00 08/21/24 11:12 25 MG Furosemide 40 mg BIDD IV 08/16/24 18:00 08/21/24 05:48 40 MG Amiodarone HCl 200 mg Q12HR PO 08/17/24 22:00 08/21/24 11:11 200 MG Empaglifozin 10 mg DAILY PO 08/18/24 10:00 08/21/24 11:11 10 MG Vancomycin HCl 300 ml @ 200 mls/hr Q8H IV 08/20/24 17:00 08/21/24 09:19 200 MLS/HR Laboratory Results Laboratory Tests 08/19/24 06:42 08/21/24 06:00 Urinalysis Test 08/17/24 21:36 Urine Color Yellow (Yellow) Urine Clarity Clear (Clear) Urine pH 6.0 (5.0-9.0) Urine Specific [place] 1.014 (1.001-1.035) Urine Protein Negative (Negative) Urine Ketones Negative (Negative) Urine Blood Trace /uL (Negative) H Urine Nitrite Negative (Negative) Urine Bilirubin Negative (Negative) Urine Urobilinogen 2 mg/dL (Negative) H Urine Leukocyte Esterase Negative /uL (Negative) Urine RBC 1 /hpf (0 - 3) Urine WBC 2 /hpf (0 - 3) Urine Squamous Epithelial Cells Few /hpf (<5) Urine Bacteria None seen /hpf (None Seen) Urine Hyaline Casts Few /lpf (0 - 2) Urine Mucus Few (None Seen) Urine Glucose 1+ mg/dL (Normal) H Microbiology Microbiology Date/Time Source Procedure Growth Status 08/19/24 16:10 Blood Blood Culture - Preliminary NO GROWTH AFTER 24 HOURS OF INCUBATION. Resulted Labs and/or images reviewed: Labs reviewed by me Assessment/Plan Assessment/Plan Alcohol withdrawal New onset type 2 diabetes mellitus Hypertension Hyponatremia Alcohol use, unspecified with withdrawal, uncomplicated a-fib with RVR bacteremia (pre-mota blood cx indicates gram positive) Newly diagnosed acute systolic congestive heart failure (LVEF 25%) Metabolic encephalopathy secondary to hyponatremia versus sepsis Sepsis with persistent bacteremia due to MSSA. Obesity History of ethanol abuse Continuing current management. Continuing with amiodarone. Continuing with IV Rocephin. Patient refused TALI we will discuss with ID physician regarding to plan of care about antibiotic Replace electrolyte Explained to the patient without TALI weaned not sure that bacteria not affecting his heart valve. I explained to him I can not discharge him until I discussed his case with Infectious Disease. Continuing sliding scale insulin. Continuing to monitor CBC and leukocytosis Plan discussed with: Patient Date of Service: Aug 21, 2024 Billing Provider: SHON VILLARREAL MD Common Visit Codes: [id number] INP/OBS CARE(HIGH) SHON VILLARREAL MD Aug 21, 2024 11:33
[2024-08-21] MEDS ORDERED: VANCOMYCIN 1.5 GM in D5W 5% 250 ML IV SCH (16:15)
[2024-08-21] MEDS: VANCOMYCIN 1.5 GM in D5W 5% 250 ML IV SCH (17:14)
[2024-08-22] VITALS (8 sets, daily range): BP systolic 107–128; BP diastolic 64–83; PULSE 81–91; RESP 16–18; TEMP 98–98.7; O2SAT 93–97
[2024-08-22 07:24] LABS: Basophils # (auto) 0.1 10 ^3/uL (0-0.2); Red Cell Distribution Width 13.8 % (11.8-14.3)
[2024-08-22 07:27] LABS: Basophils % (auto) 0.5 % (0.0-2.0); Eosinophils # (auto) 0.1 10 ^3/uL (0-0.8); Eosinophils % (auto) 0.5 % (0.0-7.0); Hematocrit 39.5 % (41.0-53.0); Hemoglobin 13.4 g/dL (13.5-17.5); Lymphocytes # (auto) 2.3 10 ^3/uL (0.4-5.4); Lymphocytes % (auto) 13.2 % (10.0-50.0); Mean Corpuscular Hemoglobin 30.4 pg (28.0-32.0); Mean Corpuscular Hgb Conc. 33.9 g/dL (32.0-36.0); Mean Corpuscular Volume 89.7 fL (80.0-100.0); Monocytes % (auto) 5.7 % (0.0-12.0); Neutrophils # (auto) 14.2 10 ^3/uL (1.6-8.6); Neutrophils % (auto) 80.1 % (37.0-80.0); Platelet Count (auto) 612 10^3/uL (140-450); White Blood Cell 17.8 10^3/uL (4.4-10.8)
--- NOTE | 2024-08-22 11:27 | DVHPN2 ---
Subjective The patient is seen and examined at bedside. No complaint today. Reviewed: Care Plan, H&P, Labs, Medications, Previous Orders, Radiology Changes from previous H/P or p: No Changes General: Per HPI Eyes: No Pain, No Vision change, No Conjunctivae inflammation, No Eyelid inflammation, No Other, No Redness ENT: No Ear pain, No Ear discharge, No Nose pain, No Nose discharge, No Nose congestion, No Mouth pain, No Mouth swelling, No Throat pain, No Throat swelling, No Other Cardiovascular: No Chest Pain, No Palpitations, No Orthopnea, No Paroxysmal Noc. Dyspnea, No Edema, No Lt Headedness, No Other Respiratory: No Cough, No Dry, No Shortness of breath, No SOB with excertion, No Wheezing, No Hemoptysis, No Pleuritic Pain, No Sputum, No Other Gastrointestinal: No Nausea, No Vomiting, No Abdominal Pain, No Diarrhea, No Constipation, No Melena, No Hematochezia, No Other Genitourinary: No Dysuria, No Frequency, No Incontinence, No Hematuria, No Retention, No Other Musculoskeletal: No other, No neck pain, No shoulder pain, No arm pain, No back pain, No hand pain, No leg pain, No foot pain Skin: No Rash, No Lesions, No Jaundice, No Bruising, No Other Objective Vitals Vital Signs Date Time Temp Pulse Resp B/P (MAP) Pulse Ox O2 Delivery O2 Flow Rate FiO2 08/22/24 10:39 83 107/65 08/22/24 09:00 98.1 16 96 98.1 08/21/24 20:00 Room Air* 0 21 Intake/Output Intake and Output 08/22/24 07:00 Intake Total 2308 ml Balance 2308 ml Intake Oral 1808 ml IV Total 500 ml # Voids 11 # Bowel Movements 2 General Appearance: Alert, No acute distress HEENT: Atraumatic Lungs: Clear to auscultation Cardiovascular: Regular rate, Normal S1, Normal S2 Abdomen: Normal bowel sounds Neuro: Cranial nerves 3-12 NL Psych/Mental Status: Mental status NL Medications Current Medications Medications Dose Ordered Sig/Unruly Route Start Time Stop Time Status Last Admin Dose Admin Lorazepam 1 mg Q2HP PRN IV 08/13/24 14:30 08/14/24 21:21 1 MG Thiamine HCl 100 mg DAILY IV 08/14/24 10:00 08/22/24 10:38 100 MG Folic Acid 1 mg/ Dextrose 50.2 ml @ 200.8 mls/ hr DAILY INJ 08/14/24 10:00 08/21/24 12:10 200.8 MLS/HR Diagnostic Test (Pha) 1 strip IQ4HR 08/13/24 16:00 08/22/24 07:56 1 STRIP Insulin Human Regular IQ4HR SC 08/13/24 16:00 08/22/24 09:07 4 UNITS Dextrose 50 ml UD PRN IV 08/13/24 14:30 Ondansetron HCl 4 mg Q4HP PRN IV 08/13/24 14:30 Docusate Sodium 100 mg BIDPRN PRN PO 08/13/24 14:30 08/18/24 17:27 100 MG Acetaminophen 650 mg Q6HP PRN PO 08/13/24 14:30 Nitroglycerin 0.4 mg Q5MINP PRN SL 08/13/24 16:45 Morphine Sulfate 2 mg Q30M PRN IV 08/13/24 16:45 Ceftriaxone Sodium 50 ml @ 100 mls/hr DAILY@09 IV 08/14/24 09:00 08/22/24 09:15 100 MLS/HR Vancomycin HCl 0 ml @ 0 mls/hr UD PRN IV 08/13/24 20:30 Enoxaparin Sodium 110 mg Q12HR SC 08/15/24 22:00 08/22/24 10:39 110 MG Sacubitril/ Valsartan 1 tab BID PO 08/15/24 22:00 08/22/24 10:40 1 TAB Metoprolol Succinate 25 mg DAILY PO 08/16/24 10:00 08/22/24 10:39 25 MG Spironolactone 25 mg DAILY PO 08/16/24 10:00 08/22/24 10:38 25 MG Furosemide 40 mg BIDD IV 08/16/24 18:00 08/22/24 05:51 40 MG Amiodarone HCl 200 mg Q12HR PO 08/17/24 22:00 08/22/24 10:38 200 MG Empaglifozin 10 mg DAILY PO 08/18/24 10:00 08/22/24 10:38 10 MG Vancomycin HCl 1.5 gm/Dextrose 250 ml @ 166.667 mls/hr Q8H IV 08/21/24 17:00 08/22/24 09:56 166.667 MLS/HR Laboratory Results Laboratory Tests 08/19/24 06:42 08/22/24 06:51 Urinalysis Test 08/17/24 21:36 Urine Color Yellow (Yellow) Urine Clarity Clear (Clear) Urine pH 6.0 (5.0-9.0) Urine Specific [place] 1.014 (1.001-1.035) Urine Protein Negative (Negative) Urine Ketones Negative (Negative) Urine Blood Trace /uL (Negative) H Urine Nitrite Negative (Negative) Urine Bilirubin Negative (Negative) Urine Urobilinogen 2 mg/dL (Negative) H Urine Leukocyte Esterase Negative /uL (Negative) Urine RBC 1 /hpf (0 - 3) Urine WBC 2 /hpf (0 - 3) Urine Squamous Epithelial Cells Few /hpf (<5) Urine Bacteria None seen /hpf (None Seen) Urine Hyaline Casts Few /lpf (0 - 2) Urine Mucus Few (None Seen) Urine Glucose 1+ mg/dL (Normal) H Microbiology Microbiology Date/Time Source Procedure Growth Status 08/19/24 16:10 Blood Blood Culture - Preliminary NO GROWTH AFTER 48 HOURS OF INCUBATION. Resulted Labs and/or images reviewed: Labs reviewed by me Assessment/Plan Assessment/Plan Alcohol withdrawal New onset type 2 diabetes mellitus Hypertension Hyponatremia Alcohol use, unspecified with withdrawal, uncomplicated a-fib with RVR bacteremia (pre-mota blood cx indicates gram positive) Newly diagnosed acute systolic congestive heart failure (LVEF 25%) Metabolic encephalopathy secondary to hyponatremia versus sepsis Sepsis with persistent bacteremia due to MSSA. Obesity History of ethanol abuse Continuing current management. Continuing with amiodarone. Continuing with IV Rocephin. Continuing sliding scale insulin. Continuing with IV antibiotic. Continuing with coagulation medication. Patient finally agreed to have TALI done after infectious disease doctor spoke with him. So waiting for TALI. Dr. Sanchez also order a CT scan of chest, abdomen and pelvis. We will follow up Plan discussed with: Patient Date of Service: Aug 22, 2024 Billing Provider: SHON VILLARREAL MD Common Visit Codes: [id number] INP/OBS CARE(HIGH) SHON VILLARREAL MD Aug 22, 2024 11:27
--- NOTE | 2024-08-22 11:39 | DVHINCON2 ---
Date of service: Aug 22, [address] Pichardo Reason for Consultation bacteremia History of Present Illness I was initially consulted on 08/14 however , I advised to consult other ID since I wasn't available/ out of net work insurance. apparently he hasn't seen by ID so I was reconsulted today. 08/22/2024. Patient is a 54-year-old male presents to the hospital for evaluation. He had positive blood culture. 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 He attributes his condition to self-inflicted lesions from skin picking, with a specific mention of a resolved lesion on his neck. Patient denies experiencing back pain or headaches. 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 Following his cessation of alcohol, he initially felt an improvement in his condition but subsequently experienced fatigue and general malaise. He has a history of abdominal distension, particularly noted during his period of heavy drinking, and is currently on Lasix for leg swelling management. Patient lives with a dog and denies any recent travel, joint pain, or having metal in his body. He reports no known allergies and expresses feeling much better compared to his initial presentation. However, patient is currently concerned about the financial implications of his medical care due to having [id number] insurance coverage. he has bacteremia , ID is consulted, Family History: Patient reports no known family medical history. Allergies: Coded Allergies: Codeine (Verified Allergy, Intermediate, 08/13/24) Home Meds No Active Prescriptions or Reported Meds Current Medications Current Medications Medications (Trade) Dose Ordered Sig/Unruly Route PRN Reason Start Time Stop Time Status Last Admin Vancomycin HCl 1.5 gm/Dextrose 250 ml @ 166.667 mls/hr Q8H IV 08/21/24 16:15 08/21/24 16:16 DC Vancomycin HCl 1.5 gm/Dextrose 250 ml @ 166.667 mls/hr Q8H IV 08/21/24 17:00 08/22/24 09:56 Vital Signs Vital Signs Date Time Temp Pulse Resp B/P (MAP) Pulse Ox O2 Delivery O2 Flow Rate FiO2 08/22/24 10:39 83 107/65 08/22/24 09:00 98.1 16 96 98.1 08/21/24 20:00 Room Air* 0 21 Physical Exam General alert and oriented HEENT: Atraumatic Neck: No swelling Lungs: Equal air entry and clear to auscultation Cardiovascular: S2 heard no murmur Abdomen: Soft nontender, no organomegaly, mild distended Neuro: Alert and oriented, no focal deficit Psych: Normal mood and affect Labs/Diagnostic Data Labs Test 08/22/24 07:26 08/22/24 06:51 08/20/24 16:23 08/20/24 04:47 Range/Units POC Glucose 173 H 70-106 mg/dl White Blood Count 17.8 H 4.4-10.8 10^3/uL Red Blood Count 4.40 L 4.5-5.90 10^6/uL Hemoglobin 13.4 L 13.5-17.5 g/dL Hematocrit 39.5 L 41.0-53.0 % Mean Corpuscular Volume 89.7 80.0-100.0 fL Mean Corpuscular Hemoglobin 30.4 28.0-32.0 pg Mean Corpuscular Hemoglobin Concent 33.9 32.0-36.0 g/dL Red Cell Distribution Width 13.8 11.8-14.3 % Platelet Count 612 H 140-450 10^3/uL Mean Platelet Volume 8.2 6.9-10.8 fL Neutrophils (%) (Auto) 80.1 H 37.0-80.0 % Lymphocytes (%) (Auto) 13.2 10.0-50.0 % Monocytes (%) (Auto) 5.7 0.0-12.0 % Eosinophils (%) (Auto) 0.5 0.0-7.0 % Basophils (%) (Auto) 0.5 0.0-2.0 % Neutrophils # (Auto) 14.2 H 1.6-8.6 10 ^3/uL Lymphocytes # (Auto) 2.3 0.4-5.4 10 ^3/uL Monocytes # (Auto) 1.0 0-1.3 10 ^3/uL Eosinophils # (Auto) 0.1 0-0.8 10 ^3/uL Basophils # (Auto) 0.1 0-0.2 10 ^3/uL Nucleated Red Blood Cells 0.0 % Creatinine 0.75 0.700-1.30 mg/dL Glomerular Filtration Rate Calc 108 >90 mL/min Vancomycin Level Trough 17.0 H 5-10 ug/mL Differential Total Cells Counted 100.0 100 Neutrophils % (Manual) 63 37.0-80.0 Band Neutrophils % (Manual) 3 Lymphocytes % (Manual) 24 10.0-50.0 Monocytes % (Manual) 6 0-12 Eosinophils % (Manual) 1 0-7 Basophils % (Manual) 0 0.0-2.0 Metamyelocytes % (manual) 1 Myelocytes % (Manual) 2 Promyelocytes % (Manual) 0 Blast Cells % (Manual) 0 Reactive Lymphocytes 0 Platelet Estimate Increased Large Platelets Few Giant Platelets Few Test 08/19/24 06:42 08/17/24 21:36 08/17/24 06:55 08/16/24 07:10 Range/Units Red Blood Cell Morphology Normal Sodium Level 135 L 136-145 mmol/L Potassium Level 3.6 3.5-5.1 mmol/L Chloride Level 98 98-107 mmol/L Carbon Dioxide Level 24 20-31 mmol/L Anion Gap 13 5-15 Blood Urea Nitrogen 8 L 9-23 mg/dL BUN/Creatinine Ratio 12.9 10.0-20.0 Serum Glucose 156 H 74-106 mg/dL Calcium Level 9.6 8.7-10.4 mg/dL Total Bilirubin 1.1 H 0.2-1.0 mg/dL Aspartate Amino Transferase (AST) 33 13-40 U/L Alanine Aminotransferase (ALT) 21 7-40 U/L Alkaline Phosphatase 450 H 46-116 U/L Total Protein 7.8 5.7-8.2 g/dL Albumin 3.6 3.2-4.8 g/dL Urine Color Yellow Yellow Urine Clarity Clear Clear Urine pH 6.0 5.0-9.0 Urine Specific [place] 1.014 1.001-1.035 Urine Protein Negative Negative Urine Ketones Negative Negative Urine Blood Trace H Negative /uL Urine Nitrite Negative Negative Urine Bilirubin Negative Negative Urine Urobilinogen 2 H Negative mg/dL Urine Leukocyte Esterase Negative Negative /uL Urine RBC 1 0 - 3 /hpf Urine WBC 2 0 - 3 /hpf Urine Squamous Epithelial Cells Few <5 /hpf Urine Bacteria None seen None Seen /hpf Urine Hyaline Casts Few 0 - 2 /lpf Urine Mucus Few None Seen Urine Glucose 1+ H Normal mg/dL Urine Opiates Screen Neg NEGATIVE Urine Fentanyl Screen Neg NEGATIVE Urine Barbiturates Screen Neg NEGATIVE Urine Phencyclidine Screen Neg NEGATIVE Urine Amphetamines Screen Neg NEGATIVE Urine Benzodiazepines Screen Pos NEGATIVE Urine Cocaine Screen Neg NEGATIVE Urine Cannabinoids Screen Neg NEGATIVE Phosphorus Level 4.0 2.4-5.1 mg/dL Magnesium Level 1.6 1.6-2.6 mg/dL Lactic Acid Level 1.6 0.4-2.0 mmol/L Ammonia < 10 L 11-32 umol/L Triglycerides Level 197 H < 150 mg/dL Cholesterol Level 152 < 200 mg/dL LDL Cholesterol 92 < 100 mg/dL HDL Cholesterol 8 L 40-59 mg/dL Vitamin B12 Level 3782 H 211-911 pg/mL Vitamin D 25-Hydroxy 44.9 30.0-100 ng/mL Thyroid Stimulating Hormone (TSH) 1.73 0.55-4.78 uIU/mL Test 08/15/24 10:00 08/15/24 08:07 08/15/24 05:23 08/13/24 12:37 Range/Units Influenza Type A Antigen Negative Negative Influenza Type B Antigen Negative Negative SARS-CoV-2 Antigen (Rapid) Negative NEGATIVE Blood Gas Specimen Type Arterial Blood Gas Sample Site Right radial Blood Gas Patient Temperature 37.0 Arterial Blood Date Drawn [id number] Arterial Blood pH 7.462 H 7.350-7.450 Arterial Blood Partial Pressure CO2 31.5 L 35.0-48.0 mmHg Arterial Blood Partial Pressure O2 91.1 83.0-108.0 mmHg Arterial Blood HCO3 22.0 21.0-28.0 mmol/L Arterial Blood Oxygen Saturation 97.6 94.0-98.0 % Arterial Blood Base Excess -0.9 -2.0-3.0 mmol/L Arterial Blood Oxyhemoglobin 96.7 94.0-98.0 % Arterial Blood Carboxyhemoglobin 0.6 0.5-1.5 % Arterial Blood Methemoglobin 0.3 0.0-1.5 % Obed Test Yes Blood Gas Total Hemoglobin 13.20 L 13.5-17.5 g/dL Blood Gas Liter Flow 3.00 Blood Gas Modality Nasal cannula FiO2 % 32.0 Prothrombin Time 12.3 H 9.3-11.8 sec Prothrombin Time INR 1.17 H 0.9-1.15 Activated Partial Thromboplast Time 32.6 24.5-34.5 SEC Troponin I High Sensitivity 20 </=54 ng/L B-Type Natriuretic Peptide 236.74 0-100 pg/mL Hemoglobin A1c 12.4 H <5.7 % A1C Microbiology Date/Time Source Procedure Growth Status 08/19/24 16:10 Blood Blood Culture - Preliminary NO GROWTH AFTER 48 HOURS OF INCUBATION. Resulted Assessment A 54 yo male sepsis MSSA bacteremia Liver abscess Leucocytosis Cirrhosis newly diagnosed uncontrolled diabetes cardiomyopathy with ef 25% recommendations continue IV Cefazolin CT chest/ abd reviewed, large liver abscess IR consult for drainage of abscess; send fluid for cultures Plan for TALI repeat culture from blood reviewed, no growth prognosis gaurded plan discussed with patient/ primary team Plan discussed with: Patient EVELIA OWENS MD Aug 22, 2024 11:38
--- NOTE | 2024-08-22 13:22 | DVH ---
Exam: CT CT CHEST/AB/PL W CON- IV ONLY History: possible endocarditis Comparison Study: None available at time of dictation. Technique: Multidetector spiral CT of the chest, abdomen and pelvis was performed from lower neck to pubic symphysis. 100 cc Omni 300 intravenous contrast was administered during this examination. Port al venous imaging was obtained. Axial, coronal and sagittal multiplanar reformats were performed by the technologist on a separate workstation. Radiation Dose : Chest/Abdomen/Pelvis: CTDIvol 21 mGy, DLP 1545.28 mGy*cm. Findings: Lower neck: Normal thyroid. Lungs: There is a ground-glass opacity in the right middle lobe measuring up to 12 mm. There is a le ss than 6 mm nodule in the right middle lobe. Heart/Vascular Structures: Normal heart size. No pericardial effusion. Lymph Nodes: Mediastinal lymph nodes measuring up to 10 mm. Pleura: No pleural effusion or significant pneumothorax. Liver: There is a fluid collection in the right lobe of the liver with surrounding enhancement measur ing up to 167 mm, likely an abscess. There is some adjacent fatty stranding. Gallbladder and biliary Tree: Gallbladder is surgically absent. Spleen: Unremarkable Pancreas: The pancreas is normal in appearance without focal lesions or abnormal enhancement. Adrenal Glands: Unremarkable Kidneys: There is a subcentimeter cyst in the right kidney. There is an exophytic cystic lesion proje cting off the lower pole of the right kidney measuring up to 17 mm. No hydronephrosis. Bladder: Unremarkable Bowel: The stomach is grossly normal in appearance. Small bowel and colon are normal in caliber and d istribution. Normal appendix is visualized in the right lower quadrant without findings of appendici tis. Ascites: Absent Lymphadenopathy: No mesenteric, retroperitoneal or periportal lymphadenopathy. Abdominal wall and Mesentery: Unremarkable. Vasculature: The visualized abdominal aorta is normal in size and caliber. Abdominal and pelvic vess els demonstrate normal enhancement. Pelvic Organs: Unremarkable Musculoskeletal: Grade 1 retrolisthesis of L5 on S1. IMPRESSION: 1. Large likely abscess in the right lobe of the liver measuring up to [address]-guided leah inage. 2. Nonspecific ground-glass opacity in the right middle lobe. Nonspecific mediastinal lymphadenopathy . Less than 6 mm right middle lobe nodule. 3. Possible complicated right renal cyst measuring up to 17 mm. This could be further evaluated with MRI of the abdomen with contrast. 4. Recommend clinical correlation and continued follow-up. HS:Y
[2024-08-22] MEDS: ceFAZolin 2 GM/D5W50ml 50 ML IV SCH (14:38)
--- NOTE | 2024-08-22 15:38 | DVHINCON2 ---
Date Seen: Aug 22, 2024 Referring Physician Laura Cosby Reason for Consultation TALI is requested to r/o infective endocarditis History of Present Illness This is a 54-year-old gentleman who is known to the Cardiac team. He presented to the hospital 10 days ago with the acute exacerbation of heart failure for the 1st time. His echocardiogram shows an ejection fraction 25%. He subsequently had an cardiac catheterization which shows no significant coronary artery disease but severe left ventricular systolic dysfunction indicating nonischemic cardiomyopathy. While in the hospital he was having fever which a blood culture was drawn and this came back positive repeatedly for staph aureus bacteremia. Patient at that time was advised to have a TALI but he declined. However after he is seen by the infectious disease specialist a TALI is advised to determine the duration of the antibiotics. I have discussed with the patient today the need of the TALI and he agrees to have the procedure done. With the pocket tentatively tomorrow morning for TALI after he fast mid night. Have explained in detail the procedure to the patient. And he has consented for the procedure. Past Medical History 1. Patient has alcoholic cardiomyopathy likely from longstanding alcohol intake. 2. Hyponatremia secondary to severe alcoholism. 3. Staph aureus bacteremia. 4. New onset diabetes mellitus type 2. 5. Hyperlipidemia. 6. Hypertension. 7. The radial impairment and liver disorder likely due to alcoholic hepatitis as well as cardiorenal syndrome Family History: Patient reports no known family medical history. Allergies: Coded Allergies: Codeine (Verified Allergy, Intermediate, 08/13/24) Home Meds No Active Prescriptions or Reported Meds Current Medications Current Medications Medications (Trade) Dose Ordered Sig/Unruly Route PRN Reason Start Time Stop Time Status Last Admin Vancomycin HCl 1.5 gm/Dextrose 250 ml @ 166.667 mls/hr Q8H IV 08/21/24 16:15 08/21/24 16:16 DC Vancomycin HCl 1.5 gm/Dextrose 250 ml @ 166.667 mls/hr Q8H IV 08/21/24 17:00 08/22/24 11:57 DC 08/22/24 09:56 Cefazolin Sodium/ Dextrose 50 ml @ 50 mls/hr Q8HR IV 08/22/24 14:00 08/22/24 14:38 Review of Systems Point review of system was unremarkable apart from biatrial lower limb edema, PND orthopnea, lethargy weakness and symptoms suggestive of withdrawal from myocardial Vital Signs Vital Signs Date Time Temp Pulse Resp B/P (MAP) Pulse Ox O2 Delivery O2 Flow Rate FiO2 08/22/24 13:00 98.1 82 18 128/83 (98) 97 98.1 08/22/24 08:00 Room Air* 0 21 Physical Exam Normal first and second heart sound with a optimal murmur. His lungs were clear to auscultation both function. He has got significant biatrial lower limb edema all the way up to the midshin. He has biatrial basal crackles. He has symmetrical peripheral pulses. His neurologic examination is grossly intact, his abdominal examination is in keeping with a positive shifting dullness secondary to ascites and hepatosplenomegaly. Labs/Diagnostic Data Labs Test 08/22/24 11:32 08/22/24 06:51 08/20/24 16:23 08/20/24 04:47 Range/Units POC Glucose 234 H 70-106 mg/dl White Blood Count 17.8 H 4.4-10.8 10^3/uL Red Blood Count 4.40 L 4.5-5.90 10^6/uL Hemoglobin 13.4 L 13.5-17.5 g/dL Hematocrit 39.5 L 41.0-53.0 % Mean Corpuscular Volume 89.7 80.0-100.0 fL Mean Corpuscular Hemoglobin 30.4 28.0-32.0 pg Mean Corpuscular Hemoglobin Concent 33.9 32.0-36.0 g/dL Red Cell Distribution Width 13.8 11.8-14.3 % Platelet Count 612 H 140-450 10^3/uL Mean Platelet Volume 8.2 6.9-10.8 fL Neutrophils (%) (Auto) 80.1 H 37.0-80.0 % Lymphocytes (%) (Auto) 13.2 10.0-50.0 % Monocytes (%) (Auto) 5.7 0.0-12.0 % Eosinophils (%) (Auto) 0.5 0.0-7.0 % Basophils (%) (Auto) 0.5 0.0-2.0 % Neutrophils # (Auto) 14.2 H 1.6-8.6 10 ^3/uL Lymphocytes # (Auto) 2.3 0.4-5.4 10 ^3/uL Monocytes # (Auto) 1.0 0-1.3 10 ^3/uL Eosinophils # (Auto) 0.1 0-0.8 10 ^3/uL Basophils # (Auto) 0.1 0-0.2 10 ^3/uL Nucleated Red Blood Cells 0.0 % Creatinine 0.75 0.700-1.30 mg/dL Glomerular Filtration Rate Calc 108 >90 mL/min Vancomycin Level Trough 17.0 H 5-10 ug/mL Differential Total Cells Counted 100.0 100 Neutrophils % (Manual) 63 37.0-80.0 Band Neutrophils % (Manual) 3 Lymphocytes % (Manual) 24 10.0-50.0 Monocytes % (Manual) 6 0-12 Eosinophils % (Manual) 1 0-7 Basophils % (Manual) 0 0.0-2.0 Metamyelocytes % (manual) 1 Myelocytes % (Manual) 2 Promyelocytes % (Manual) 0 Blast Cells % (Manual) 0 Reactive Lymphocytes 0 Platelet Estimate Increased Large Platelets Few Giant Platelets Few Test 08/19/24 06:42 08/17/24 21:36 08/17/24 06:55 08/16/24 07:10 Range/Units Red Blood Cell Morphology Normal Sodium Level 135 L 136-145 mmol/L Potassium Level 3.6 3.5-5.1 mmol/L Chloride Level 98 98-107 mmol/L Carbon Dioxide Level 24 20-31 mmol/L Anion Gap 13 5-15 Blood Urea Nitrogen 8 L 9-23 mg/dL BUN/Creatinine Ratio 12.9 10.0-20.0 Serum Glucose 156 H 74-106 mg/dL Calcium Level 9.6 8.7-10.4 mg/dL Total Bilirubin 1.1 H 0.2-1.0 mg/dL Aspartate Amino Transferase (AST) 33 13-40 U/L Alanine Aminotransferase (ALT) 21 7-40 U/L Alkaline Phosphatase 450 H 46-116 U/L Total Protein 7.8 5.7-8.2 g/dL Albumin 3.6 3.2-4.8 g/dL Urine Color Yellow Yellow Urine Clarity Clear Clear Urine pH 6.0 5.0-9.0 Urine Specific [place] 1.014 1.001-1.035 Urine Protein Negative Negative Urine Ketones Negative Negative Urine Blood Trace H Negative /uL Urine Nitrite Negative Negative Urine Bilirubin Negative Negative Urine Urobilinogen 2 H Negative mg/dL Urine Leukocyte Esterase Negative Negative /uL Urine RBC 1 0 - 3 /hpf Urine WBC 2 0 - 3 /hpf Urine Squamous Epithelial Cells Few <5 /hpf Urine Bacteria None seen None Seen /hpf Urine Hyaline Casts Few 0 - 2 /lpf Urine Mucus Few None Seen Urine Glucose 1+ H Normal mg/dL Urine Opiates Screen Neg NEGATIVE Urine Fentanyl Screen Neg NEGATIVE Urine Barbiturates Screen Neg NEGATIVE Urine Phencyclidine Screen Neg NEGATIVE Urine Amphetamines Screen Neg NEGATIVE Urine Benzodiazepines Screen Pos NEGATIVE Urine Cocaine Screen Neg NEGATIVE Urine Cannabinoids Screen Neg NEGATIVE Phosphorus Level 4.0 2.4-5.1 mg/dL Magnesium Level 1.6 1.6-2.6 mg/dL Lactic Acid Level 1.6 0.4-2.0 mmol/L Ammonia < 10 L 11-32 umol/L Triglycerides Level 197 H < 150 mg/dL Cholesterol Level 152 < 200 mg/dL LDL Cholesterol 92 < 100 mg/dL HDL Cholesterol 8 L 40-59 mg/dL Vitamin B12 Level 3782 H 211-911 pg/mL Vitamin D 25-Hydroxy 44.9 30.0-100 ng/mL Thyroid Stimulating Hormone (TSH) 1.73 0.55-4.78 uIU/mL Test 08/15/24 10:00 08/15/24 08:07 08/15/24 05:23 08/13/24 12:37 Range/Units Influenza Type A Antigen Negative Negative Influenza Type B Antigen Negative Negative SARS-CoV-2 Antigen (Rapid) Negative NEGATIVE Blood Gas Specimen Type Arterial Blood Gas Sample Site Right radial Blood Gas Patient Temperature 37.0 Arterial Blood Date Drawn [id number] Arterial Blood pH 7.462 H 7.350-7.450 Arterial Blood Partial Pressure CO2 31.5 L 35.0-48.0 mmHg Arterial Blood Partial Pressure O2 91.1 83.0-108.0 mmHg Arterial Blood HCO3 22.0 21.0-28.0 mmol/L Arterial Blood Oxygen Saturation 97.6 94.0-98.0 % Arterial Blood Base Excess -0.9 -2.0-3.0 mmol/L Arterial Blood Oxyhemoglobin 96.7 94.0-98.0 % Arterial Blood Carboxyhemoglobin 0.6 0.5-1.5 % Arterial Blood Methemoglobin 0.3 0.0-1.5 % Obed Test Yes Blood Gas Total Hemoglobin 13.20 L 13.5-17.5 g/dL Blood Gas Liter Flow 3.00 Blood Gas Modality Nasal cannula FiO2 % 32.0 Prothrombin Time 12.3 H 9.3-11.8 sec Prothrombin Time INR 1.17 H 0.9-1.15 Activated Partial Thromboplast Time 32.6 24.5-34.5 SEC Troponin I High Sensitivity 20 </=54 ng/L B-Type Natriuretic Peptide 236.74 0-100 pg/mL Hemoglobin A1c 12.4 H <5.7 % A1C Microbiology Date/Time Source Procedure Growth Status 08/19/24 16:10 Blood Blood Culture - Preliminary NO GROWTH AFTER 48 HOURS OF INCUBATION. Resulted Assessment Alcohol withdrawal New onset type 2 diabetes mellitus Hypertension Hyponatremia Alcohol use, unspecified with withdrawal, uncomplicated a-fib with RVR bacteremia (pre-mota blood cx indicates gram positive) Newly diagnosed acute systolic congestive heart failure (LVEF 25%) Metabolic encephalopathy secondary to hyponatremia versus sepsis Sepsis with persistent bacteremia due to MSSA. Obesity History of ethanol abuse Problems(with codes): (1) Hyperglycemia (2) Hyponatremia (3) Alcohol withdrawal (4) Hypertensive emergency (5) New onset type 2 diabetes mellitus (6) Alcohol use, unspecified with withdrawal, uncomplicated (7) Hypertension Plan/Recommendation We will arrange TALI for him tomorrow please keep patient NPO after midnight. And concentration. The procedure. Plan discussed with: Patient Date of Service: Aug 22, 2024 Billing Provider: MARITZA PASTOR MD Cardiology Common Codes: 12509-[id number] HOSP CARE(High MARITZA PASTOR MD Aug 22, 2024 15:38
[2024-08-23 01:00] VITALS: BP 109/66; PULSE 85; RESP 17; TEMP 98; O2SAT 95
[2024-08-23 08:30] VITALS: BP 116/78; PULSE 80; PULSE 94; RESP 20; TEMP 98.1; O2SAT 98
[2024-08-23] MEDS: MIDAZOLAM HCL 2MG/2ML 2ml VIAL (1mg/ml) IV ONE (10:49)
[2024-08-23] MEDS: fentaNYL CITRATE 100 MCG/2 ML VL IV ONE (10:49)
[2024-08-23] MEDS: LIDOCAINE VISCOUS 2% 15ML UD PO ONE (10:49)
--- NOTE | 2024-08-23 11:26 | DVHOP2 ---
Operative Report - 2 Report Details Date: 08/23/24 Preop Diagnosis: Patient has Staph aureus bacteremia that was positive multiple sets of blood cultures. As per infectious disease TALI was requested to rule out vegetation and endocarditis Postop Diagnosis: Transesophageal echocardiogram was done today without complication this did not show any evidence of vegetation any segment of the four valves. Moderately reduced left ventricular systolic function estimated ejection fraction 35-40%. No intracardiac shunting. No significant pericardial effusion. Surgeon: Grey Gordon MD Anesthesiologist: Conscious sedation was obtained using25 mcg of fentanyl as well as a mg of midazolam. Patient was monitored for total of35 minutes without obvious complication. Medication were given in the direct supervision of myself the primary procurement director as well as in the presence of the attending nurses. Anesthesia: Local Consent: The patient was informed of the risks and benefits of the procedure. These include but are not limited to complications of anesthesia, postoperative infection, incomplete relief of symptoms, recurrence of symptoms, damage to blood vessels, nerves and tendons, deep venous thrombosis, pulmonary embolism and possible need for repeat surgery in the future. Indications for Surgery: This is a 54-year-old gentleman was admitted to the hospital with symptoms suggestive of biventricular heart failure. He underwent coronary angiogram which shows nonischemic cardiomyopathy likely due to excess alcohol intake. However while in the hospital he was spiking temperature for which blood cultures came back positive for staph aureus bacteremia. This was proven to be positive in multiple sets of blood culture drawn at different times. Id is involved the patient has tolerated vancomycin then switched to linezolid. However patient is need to have a TALI to rule out endocarditis which was done today under conscious sedation. Name of Procedure Performed 1. Standard transesophageal echocardiography with a multiple views. 2. Bubble study. 3. Conscious sedation using25 mcg of fentanyl as well as a mg IV midazolam. In addition to a nasopharyngeal local anesthesia using 2% of 10 cc xylocaine Procedure Details Procedure Details: Procedure note: After informed consent was obtained, risks, benefits, complications, and alternatives were discussed in details with the patient who agrees to have the procedure done. At the beginning of the procedure total of 10 cc of 2% xylocaine was given for the patient to gargle to achieve posterior wall nasopharyngeal anesthesia. Patient received then conscious sedation using25 mcg of fentanyl as well as a mg IV midazolam. A standard TALI probe was advanced to the mid esophageal area and standard views including five chamber, four chamber, three chamber, and anteflexed and retroflexed fashion views were obtained. Findings were as follows: 1. Moderately reduced left ventricular systolic function estimated ejection fraction of 35-40% in a global fashion. The left ventricle is moderately dilated. 2. Normal right ventricular size and dimension. Moderately reduced right ventricular systolic function. 3. Normal biatrial size and dimension 4. Aortic valve is mildly thickened no significant stenosis or regurgitation was noted. No vegetation was discernible on the valve. 5. Mitral valve appears normal in structure and function. There is no vegetation detected. 6. The tricuspid valve appears mildly thickened no significant regurgitation, no significant vegetation was noted. 7. Pulmonary valve appears normal in structure and function no vegetation was discernible. 8. The left atrial appendage structure and function within normal limits. 9. Bubble study was conducted to rule out intra-atrial shunting which was negative for contrast through about through the atrial septum. 10. No significant pericardial effusion. 11. Normal pulmonary vein connections to the left atrium. 12. No significant pericardial effusion. 13. The visualized part of the aorta and the aortic root looks okay with a mild atherosclerotic plaquing, but no significant dissection or atheroma was noted. Impression and plan: 1. Moderately reduced left ventricular systolic function as mentioned above. 2. No evidence of vegetation in the study done today. 3. No significant valve pathology was noted in the study done today. Condition Good Disposition GREY GORDON MD Aug 23, 2024 11:26
--- NOTE | 2024-08-23 11:43 | DVHPN2 ---
Subjective The patient is seen and examined at bedside. No complaint today. The patient's CT scan abdomen pelvis showed liver abscess. Reviewed: Care Plan, H&P, Labs, Medications, Previous Orders, Radiology Changes from previous H/P or p: No Changes General: Per HPI Eyes: No Pain, No Vision change, No Conjunctivae inflammation, No Eyelid inflammation, No Other, No Redness ENT: No Ear pain, No Ear discharge, No Nose pain, No Nose discharge, No Nose congestion, No Mouth pain, No Mouth swelling, No Throat pain, No Throat swelling, No Other Cardiovascular: No Chest Pain, No Palpitations, No Orthopnea, No Paroxysmal Noc. Dyspnea, No Edema, No Lt Headedness, No Other Respiratory: No Cough, No Dry, No Shortness of breath, No SOB with excertion, No Wheezing, No Hemoptysis, No Pleuritic Pain, No Sputum, No Other Gastrointestinal: No Nausea, No Vomiting, No Abdominal Pain, No Diarrhea, No Constipation, No Melena, No Hematochezia, No Other Genitourinary: No Dysuria, No Frequency, No Incontinence, No Hematuria, No Retention, No Other Musculoskeletal: No other, No neck pain, No shoulder pain, No arm pain, No back pain, No hand pain, No leg pain, No foot pain Skin: No Rash, No Lesions, No Jaundice, No Bruising, No Other Objective Vitals Vital Signs Date Time Temp Pulse Resp B/P (MAP) Pulse Ox O2 Delivery O2 Flow Rate FiO2 08/23/24 08:30 98.1 94 20 116/78 (91) 98 98.1 08/22/24 20:00 Room Air* 0 21 Intake/Output Intake and Output 08/23/24 07:00 Intake Total 2700.2 ml Balance 2700.2 ml Intake Oral 2150 ml IV Total 550.2 ml # Voids 7 # Bowel Movements 1 General Appearance: Alert, No acute distress HEENT: Atraumatic Lungs: Clear to auscultation Cardiovascular: Regular rate, Normal S1, Normal S2 Abdomen: Normal bowel sounds Neuro: Cranial nerves 3-12 NL Psych/Mental Status: Mental status NL Medications Current Medications Medications Dose Ordered Sig/Unruly Route Start Time Stop Time Status Last Admin Dose Admin Lorazepam 1 mg Q2HP PRN IV 08/13/24 14:30 08/14/24 21:21 1 MG Thiamine HCl 100 mg DAILY IV 08/14/24 10:00 08/22/24 10:38 100 MG Folic Acid 1 mg/ Dextrose 50.2 ml @ 200.8 mls/ hr DAILY INJ 08/14/24 10:00 08/22/24 13:01 200.8 MLS/HR Diagnostic Test (Pha) 1 strip IQ4HR 08/13/24 16:00 08/23/24 08:00 1 STRIP Insulin Human Regular IQ4HR SC 08/13/24 16:00 08/23/24 08:00 4 UNITS Dextrose 50 ml UD PRN IV 08/13/24 14:30 Ondansetron HCl 4 mg Q4HP PRN IV 08/13/24 14:30 Docusate Sodium 100 mg BIDPRN PRN PO 08/13/24 14:30 08/18/24 17:27 100 MG Acetaminophen 650 mg Q6HP PRN PO 08/13/24 14:30 Nitroglycerin 0.4 mg Q5MINP PRN SL 08/13/24 16:45 Ceftriaxone Sodium 50 ml @ 100 mls/hr DAILY@09 IV 08/14/24 09:00 08/22/24 09:15 100 MLS/HR Enoxaparin Sodium 110 mg Q12HR SC 08/15/24 22:00 08/22/24 22:06 110 MG Sacubitril/ Valsartan 1 tab BID PO 08/15/24 22:00 08/22/24 22:05 1 TAB Metoprolol Succinate 25 mg DAILY PO 08/16/24 10:00 08/22/24 10:39 25 MG Spironolactone 25 mg DAILY PO 08/16/24 10:00 08/22/24 10:38 25 MG Furosemide 40 mg BIDD IV 08/16/24 18:00 08/23/24 06:46 40 MG Amiodarone HCl 200 mg Q12HR PO 08/17/24 22:00 08/22/24 22:05 200 MG Empaglifozin 10 mg DAILY PO 08/18/24 10:00 08/22/24 10:38 10 MG Cefazolin Sodium/ Dextrose 50 ml @ 50 mls/hr Q8HR IV 08/22/24 14:00 08/23/24 06:00 50 MLS/HR Laboratory Results Laboratory Tests 08/19/24 06:42 08/22/24 06:51 Urinalysis Test 08/17/24 21:36 Urine Color Yellow (Yellow) Urine Clarity Clear (Clear) Urine pH 6.0 (5.0-9.0) Urine Specific [place] 1.014 (1.001-1.035) Urine Protein Negative (Negative) Urine Ketones Negative (Negative) Urine Blood Trace /uL (Negative) H Urine Nitrite Negative (Negative) Urine Bilirubin Negative (Negative) Urine Urobilinogen 2 mg/dL (Negative) H Urine Leukocyte Esterase Negative /uL (Negative) Urine RBC 1 /hpf (0 - 3) Urine WBC 2 /hpf (0 - 3) Urine Squamous Epithelial Cells Few /hpf (<5) Urine Bacteria None seen /hpf (None Seen) Urine Hyaline Casts Few /lpf (0 - 2) Urine Mucus Few (None Seen) Urine Glucose 1+ mg/dL (Normal) H Microbiology Microbiology Date/Time Source Procedure Growth Status 08/19/24 16:10 Blood Blood Culture - Preliminary NO GROWTH AFTER 72 HOURS OF INCUBATION. Resulted Labs and/or images reviewed: Labs reviewed by me Assessment/Plan Assessment/Plan Alcohol withdrawal New onset type 2 diabetes mellitus Hypertension Hyponatremia Alcohol use, unspecified with withdrawal, uncomplicated a-fib with RVR bacteremia (pre-mota blood cx indicates gram positive) Newly diagnosed acute systolic congestive heart failure (LVEF 25%) Metabolic encephalopathy secondary to hyponatremia versus sepsis Sepsis with persistent bacteremia due to MSSA. Obesity History of ethanol abuse. Liver abscess Continuing current management. Continuing with amiodarone. Continuing with IV antibiotic. The CT scan chest, abdomen, and pelvis showed liver abscess. I will consult IR for drainage of the abscess. IV antibiotic will be change by Infectious Disease. Continuing sliding scale insulin. Continuing with anticoagulation. Plan discussed with: Patient My Orders Orders - SHON VILLARREAL MD Procedure Category Date Status Time * Cardiology Consult CONS 08/22/24 Transmitted 11:56 Date of Service: Aug 23, 2024 Billing Provider: SHON VILLARREAL MD Common Visit Codes: [id number] INP/OBS CARE(HIGH) SHON VILLARREAL MD Aug 23, 2024 11:43
[2024-08-23 16:30] VITALS: BP 101/65; PULSE 75; RESP 20; TEMP 97.9; O2SAT 92
--- NOTE | 2024-08-23 17:05 | DVHPN2 ---
Progress Note - Dictate Date Seen: Aug 23, 2024 Medical Necessity Reason Pt with a Central, PICC or Fol: No Subjective feels good. s/p TALI vital signs Vital Sign Date Time Temp Pulse Resp B/P (MAP) Pulse Ox O2 Delivery O2 Flow Rate FiO2 08/23/24 16:30 97.9 75 20 101/65 (77) 92 97.9 08/22/24 20:00 Room Air* 0 21 Total Intake and Output 08/22/24 08/22/24 08/23/24 15:00 23:00 07:00 Intake Total 350.2 ml 1000 ml 1350 ml Balance 350.2 ml 1000 ml 1350 ml medications Current Medications Medications Dose Ordered Sig/Unruly Route Start Time Stop Time Status Last Admin Dose Admin Lorazepam 1 mg Q2HP PRN IV 08/13/24 14:30 08/14/24 21:21 1 MG Thiamine HCl 100 mg DAILY IV 08/14/24 10:00 08/23/24 13:22 100 MG Folic Acid 1 mg/ Dextrose 50.2 ml @ 200.8 mls/ hr DAILY INJ 08/14/24 10:00 08/22/24 13:01 200.8 MLS/HR Diagnostic Test (Pha) 1 strip IQ4HR 08/13/24 16:00 08/23/24 08:00 1 STRIP Insulin Human Regular IQ4HR SC 08/13/24 16:00 08/23/24 08:00 4 UNITS Dextrose 50 ml UD PRN IV 08/13/24 14:30 Ondansetron HCl 4 mg Q4HP PRN IV 08/13/24 14:30 Docusate Sodium 100 mg BIDPRN PRN PO 08/13/24 14:30 08/18/24 17:27 100 MG Acetaminophen 650 mg Q6HP PRN PO 08/13/24 14:30 Nitroglycerin 0.4 mg Q5MINP PRN SL 08/13/24 16:45 Ceftriaxone Sodium 50 ml @ 100 mls/hr DAILY@09 IV 08/14/24 09:00 08/23/24 13:20 100 MLS/HR Enoxaparin Sodium 110 mg Q12HR SC 08/15/24 22:00 08/22/24 22:06 110 MG Sacubitril/ Valsartan 1 tab BID PO 08/15/24 22:00 08/23/24 13:21 1 TAB Metoprolol Succinate 25 mg DAILY PO 08/16/24 10:00 08/22/24 10:39 25 MG Spironolactone 25 mg DAILY PO 08/16/24 10:00 08/23/24 13:22 25 MG Furosemide 40 mg BIDD IV 08/16/24 18:00 08/23/24 06:46 40 MG Amiodarone HCl 200 mg Q12HR PO 08/17/24 22:00 08/23/24 13:36 200 MG Empaglifozin 10 mg DAILY PO 08/18/24 10:00 08/23/24 13:22 10 MG Cefazolin Sodium/ Dextrose 50 ml @ 50 mls/hr Q8HR IV 08/22/24 14:00 08/23/24 06:00 50 MLS/HR objective General alert and oriented HEENT: Atraumatic Neck: No swelling Lungs: Equal air entry and clear to auscultation Cardiovascular: S2 heard no murmur Abdomen: Soft nontender, no organomegaly, mild distended Neuro: Alert and oriented, no focal deficit Psych: Normal mood and affect laboratory and microbiology Laboratory Tests 08/22/24 06:51 08/19/24 06:42 Test 08/19/24 06:42 Range/Units Serum Glucose 156 H 74-106 mg/dL Assessment/Plan A 54 yo male MSSA bacteremia Liver abscess Leucocytosis Cirrhosis newly diagnosed uncontrolled diabetes recommendations continue IV Cefazolin CT chest/ abd reviewed, large liver abscess IR consult for drainage of abscess; send fluid for cultures s/p TALI; no vegetation repeat culture from blood reviewed, no growth prognosis gaurded plan discussed with patient/ primary team Dietary Evaluation Review Comments: Continue current plan of care Expected Outcomes/Goals: F/U in 3-5 days Plan discussed with: Patient, Other EVELIA OWENS MD Aug 23, 2024 17:04
[2024-08-23 20:00] VITALS: PULSE 85; PULSE 89; RESP 17
[2024-08-23 21:00] VITALS: BP 97/60; PULSE 92; RESP 20; TEMP 98.8; O2SAT 94
[2024-08-24 01:00] VITALS: BP 100/62; PULSE 85; RESP 20; TEMP 98.5; O2SAT 96
[2024-08-24 05:00] VITALS: BP 112/60; PULSE 86; RESP 20; TEMP 98.3; O2SAT 99
[2024-08-24] MEDS: MIDAZOLAM HCL 2MG/2ML 2ml VIAL (1mg/ml) IV ONE (07:00)
[2024-08-24] MEDS: fentaNYL CITRATE 100 MCG/2 ML VL IV ONE (07:00)
[2024-08-24 07:30] VITALS: PULSE 79
[2024-08-24] MEDS: GELATIN 1 SPONGE SIZE 50 TOP ONE (07:40)
--- NOTE | 2024-08-24 09:16 | DVH ---
US ULTRA GUIDED ABCESS DRAINAGE, HISTORY: LIVER ABSCESS DRAINAGE COMPARISON: 08/22 PROCEDURE: Informed consent was obtained. The patient was placed supine on the CT scanner. IV sedatio n was administered. The fluid collection was localized under CT scan/ US and the overlying skin prepp ed with chlorhexidine which was allowed to dry and draped in the usual sterile fashion and infiltrate d with Xylocaine. Time out was performed. With CT/US guidance, a 19-gauge centesis needle catheter wa s advanced via trans-peritoneal approach into the fluid collection. Following aspiration of a small a mount of fluid, a 0.035 wire was advanced into the fluid collection. Placement was confirmed with CT scan. After serial dilatation, a 8 [place] multipurpose pigtail drain was placed into the collection. Approximately 250 cc of purulent fluid was aspirated, with specimen sent for appropriate laboratory/c ytology/laboratory and cytology evaluation. The drain was sutured at the skin surface and connected t o suction drainage. No immediate complication was noted. Post procedure CT imaging through the drain site was obtained. DLP = mGy-cm. SEDATION: Dr. Geeta Downs was personally responsible for the administration of moderate sedation during the procedure performed, including the use of an independent trained observer who had no other duties during the procedure. The drugs utilized were IV fentanyl and versed (see nursing log for details). The total time of supervision by the attending physician was approximately 30 minutes. FINDINGS: Limited CT scan of through the abdomen demonstrates a large sized fluid collection in the l iver parenchyma. Collection appears complex. Post procedure scan shows pigtail drain within the colle ction. No immediate complication was identified. IMPRESSION: US/CT guided placement of 8 [place] pigtail drain into a liver abscess with 250 mL purulent fluid init ially aspirated. PLAN: Drain to remain in place for 4 weeks minimum prior to removal so that a tract can be establishe d prior to drain removal. Consider flush/aspirate daily with 5 mL saline.
--- NOTE | 2024-08-24 09:21 | DVH ---
CT ABDOMEN WITHOUT CONTRAST INDICATION: LIVER DRAINAGE HISTORY: LIVER ABSCESS DRAINAGE COMPARISON: 08/22 PROCEDURE: Informed consent was obtained. The patient was placed supine on the CT scanner. IV sedatio n was administered. The fluid collection was localized under CT scan/ US and the overlying skin prepp ed with chlorhexidine which was allowed to dry and draped in the usual sterile fashion and infiltrate d with Xylocaine. Time out was performed. With CT/US guidance, a 19-gauge centesis needle catheter wa s advanced via trans-peritoneal approach into the fluid collection. Following aspiration of a small a mount of fluid, a 0.035 wire was advanced into the fluid collection. Placement was confirmed with CT scan. After serial dilatation, a 8 Amharic multipurpose pigtail drain was placed into the collection. Approximately 250 cc of purulent fluid was aspirated, with specimen sent for appropriate laboratory/c ytology/laboratory and cytology evaluation. The drain was sutured at the skin surface and connected t o suction drainage. No immediate complication was noted. Post procedure CT imaging through the drain site was obtained. DLP = 848 mGy-cm. SEDATION: Dr. Geeta Downs was personally responsible for the administration of moderate sedation during the procedure performed, including the use of an independent trained observer who had no other duties during the procedure. The drugs utilized were IV fentanyl and versed (see nursing log for details). The total time of supervision by the attending physician was approximately 30 minutes. FINDINGS: Limited CT scan of through the abdomen demonstrates a large sized fluid collection in the l iver parenchyma. Collection appears complex. Post procedure scan shows pigtail drain within the colle ction. No immediate complication was identified. IMPRESSION: US/CT guided placement of 8 Amharic pigtail drain into a liver abscess with 250 mL purulent fluid init ially aspirated. PLAN: Drain to remain in place for 4 weeks minimum prior to removal so that a tract can be establishe d prior to drain removal. Consider flush/aspirate daily with 5 mL saline.
--- NOTE | 2024-08-24 11:23 | DVHPN2 ---
Subjective The patient is seen and examined at bedside. No complaint today. Status post liver abscess drainage. No fever or chills. Reviewed: Care Plan, H&P, Labs, Medications, Previous Orders, Radiology Changes from previous H/P or p: No Changes General: Per HPI Eyes: No Pain, No Vision change, No Conjunctivae inflammation, No Eyelid inflammation, No Other, No Redness ENT: No Ear pain, No Ear discharge, No Nose pain, No Nose discharge, No Nose congestion, No Mouth pain, No Mouth swelling, No Throat pain, No Throat swelling, No Other Cardiovascular: No Chest Pain, No Palpitations, No Orthopnea, No Paroxysmal Noc. Dyspnea, No Edema, No Lt Headedness, No Other Respiratory: No Cough, No Dry, No Shortness of breath, No SOB with excertion, No Wheezing, No Hemoptysis, No Pleuritic Pain, No Sputum, No Other Gastrointestinal: No Nausea, No Vomiting, No Abdominal Pain, No Diarrhea, No Constipation, No Melena, No Hematochezia, No Other Genitourinary: No Dysuria, No Frequency, No Incontinence, No Hematuria, No Retention, No Other Musculoskeletal: No other, No neck pain, No shoulder pain, No arm pain, No back pain, No hand pain, No leg pain, No foot pain Skin: No Rash, No Lesions, No Jaundice, No Bruising, No Other Objective Vitals Vital Signs Date Time Temp Pulse Resp B/P (MAP) Pulse Ox O2 Delivery O2 Flow Rate FiO2 08/24/24 05:00 98.3 86 20 112/60 (77) 99 98.3 08/23/24 20:00 Room Air* 0 21 Intake/Output Intake and Output 08/24/24 07:00 Intake Total 500 ml Output Total 400 ml Balance 100 ml Intake Oral 300 ml IV Total 200 ml Output Urine Total 400 ml # Voids 2 # Bowel Movements 2 General Appearance: Alert, Oriented X3, Cooperative, No acute distress HEENT: Atraumatic Lungs: Clear to auscultation Cardiovascular: Regular rate, Normal S1, Normal S2 Abdomen: Normal bowel sounds Neuro: Cranial nerves 3-12 NL Psych/Mental Status: Mental status NL Medications Current Medications Medications Dose Ordered Sig/Unruly Route Start Time Stop Time Status Last Admin Dose Admin Lorazepam 1 mg Q2HP PRN IV 08/13/24 14:30 08/14/24 21:21 1 MG Thiamine HCl 100 mg DAILY IV 08/14/24 10:00 08/23/24 13:22 100 MG Folic Acid 1 mg/ Dextrose 50.2 ml @ 200.8 mls/ hr DAILY INJ 08/14/24 10:00 08/22/24 13:01 200.8 MLS/HR Diagnostic Test (Pha) 1 strip IQ4HR 08/13/24 16:00 08/24/24 04:00 1 STRIP Insulin Human Regular IQ4HR SC 08/13/24 16:00 08/24/24 04:54 8 UNITS Dextrose 50 ml UD PRN IV 08/13/24 14:30 Ondansetron HCl 4 mg Q4HP PRN IV 08/13/24 14:30 Docusate Sodium 100 mg BIDPRN PRN PO 08/13/24 14:30 08/18/24 17:27 100 MG Acetaminophen 650 mg Q6HP PRN PO 08/13/24 14:30 Nitroglycerin 0.4 mg Q5MINP PRN SL 08/13/24 16:45 Ceftriaxone Sodium 50 ml @ 100 mls/hr DAILY@09 IV 08/14/24 09:00 08/23/24 13:20 100 MLS/HR Enoxaparin Sodium 110 mg Q12HR SC 08/15/24 22:00 08/22/24 22:06 110 MG Sacubitril/ Valsartan 1 tab BID PO 08/15/24 22:00 08/23/24 21:57 1 TAB Metoprolol Succinate 25 mg DAILY PO 08/16/24 10:00 08/22/24 10:39 25 MG Spironolactone 25 mg DAILY PO 08/16/24 10:00 08/23/24 13:22 25 MG Furosemide 40 mg BIDD IV 08/16/24 18:00 08/24/24 04:57 40 MG Amiodarone HCl 200 mg Q12HR PO 08/17/24 22:00 08/23/24 21:57 200 MG Empaglifozin 10 mg DAILY PO 08/18/24 10:00 08/23/24 13:22 10 MG Cefazolin Sodium/ Dextrose 50 ml @ 50 mls/hr Q8HR IV 08/22/24 14:00 08/24/24 04:58 50 MLS/HR Laboratory Results Laboratory Tests 08/19/24 06:42 08/22/24 06:51 Urinalysis Test 08/17/24 21:36 Urine Color Yellow (Yellow) Urine Clarity Clear (Clear) Urine pH 6.0 (5.0-9.0) Urine Specific [place] 1.014 (1.001-1.035) Urine Protein Negative (Negative) Urine Ketones Negative (Negative) Urine Blood Trace /uL (Negative) H Urine Nitrite Negative (Negative) Urine Bilirubin Negative (Negative) Urine Urobilinogen 2 mg/dL (Negative) H Urine Leukocyte Esterase Negative /uL (Negative) Urine RBC 1 /hpf (0 - 3) Urine WBC 2 /hpf (0 - 3) Urine Squamous Epithelial Cells Few /hpf (<5) Urine Bacteria None seen /hpf (None Seen) Urine Hyaline Casts Few /lpf (0 - 2) Urine Mucus Few (None Seen) Urine Glucose 1+ mg/dL (Normal) H Microbiology Microbiology Date/Time Source Procedure Growth Status 08/19/24 16:10 Blood Blood Culture - Preliminary NO GROWTH AFTER 72 HOURS OF INCUBATION. Resulted Labs and/or images reviewed: Labs reviewed by me Assessment/Plan Assessment/Plan Alcohol withdrawal New onset type 2 diabetes mellitus Hypertension Hyponatremia Alcohol use, unspecified with withdrawal, uncomplicated a-fib with RVR bacteremia (pre-mota blood cx indicates gram positive) Newly diagnosed acute systolic congestive heart failure (LVEF 25%) Metabolic encephalopathy secondary to hyponatremia versus sepsis Sepsis with persistent bacteremia due to MSSA. Obesity History of ethanol abuse Liver abscess status post drainage placement by interventional radiologist. Continuing current management. Continuing with amiodarone. Continuing with IV antibiotic. Continuing sliding scale insulin. Continuing coagulation medication. Continue hypertensive medication and congestive heart failure medication. Waiting for the culture from the drainage. Devin is normal, no vegetation. Plan discussed with: Patient My Orders Orders - SHON VILLARREAL MD Procedure Category Date Status Time Ultra Guided Abcess US 08/24/24 Resulted Drainage 07:52 Consistent DIET 08/24/24 Transmitted Carb(Ccho)Diabetes Lunch Date of Service: Aug 24, 2024 Billing Provider: SHON VILLARREAL MD Common Visit Codes: [id number] INP/OBS CARE(HIGH) SHON VILLARREAL MD Aug 24, 2024 11:23
--- NOTE | 2024-08-24 12:50 | DVHPN2 ---
Progress Note - Dictate Date Seen: Aug 24, 2024 Medical Necessity Reason Pt with a Central, PICC or Fol: No Subjective patient is seen and evaluated anthony complaints. Abscess drainage US 08/24 : placement of 8 [place]ian pigtail drain into a liver abscess with 250 mL purulent fluid vital signs Vital Sign Date Time Temp Pulse Resp B/P (MAP) Pulse Ox O2 Delivery O2 Flow Rate FiO2 08/24/24 11:43 85 135/97 08/24/24 05:00 98.3 20 99 98.3 08/23/24 20:00 Room Air* 0 21 Total Intake and Output 08/23/24 08/23/24 08/24/24 14:59 22:59 06:59 Intake Total 50 ml 400 ml 50 ml Output Total 400 ml Balance 50 ml 400 ml -350 ml medications Current Medications Medications Dose Ordered Sig/Unruly Route Start Time Stop Time Status Last Admin Dose Admin Lorazepam 1 mg Q2HP PRN IV 08/13/24 14:30 08/14/24 21:21 1 MG Thiamine HCl 100 mg DAILY IV 08/14/24 10:00 08/24/24 11:37 100 MG Folic Acid 1 mg/ Dextrose 50.2 ml @ 200.8 mls/ hr DAILY INJ 08/14/24 10:00 08/22/24 13:01 200.8 MLS/HR Diagnostic Test (Pha) 1 strip IQ4HR 08/13/24 16:00 08/24/24 04:00 1 STRIP Insulin Human Regular IQ4HR SC 08/13/24 16:00 08/24/24 04:54 8 UNITS Dextrose 50 ml UD PRN IV 08/13/24 14:30 Ondansetron HCl 4 mg Q4HP PRN IV 08/13/24 14:30 Docusate Sodium 100 mg BIDPRN PRN PO 08/13/24 14:30 08/18/24 17:27 100 MG Acetaminophen 650 mg Q6HP PRN PO 08/13/24 14:30 Nitroglycerin 0.4 mg Q5MINP PRN SL 08/13/24 16:45 Ceftriaxone Sodium 50 ml @ 100 mls/hr DAILY@09 IV 08/14/24 09:00 08/24/24 12:02 100 MLS/HR Enoxaparin Sodium 110 mg Q12HR SC 08/15/24 22:00 08/24/24 11:46 110 MG Sacubitril/ Valsartan 1 tab BID PO 08/15/24 22:00 08/24/24 11:35 1 TAB Metoprolol Succinate 25 mg DAILY PO 08/16/24 10:00 08/24/24 11:43 25 MG Spironolactone 25 mg DAILY PO 08/16/24 10:00 08/24/24 11:34 25 MG Furosemide 40 mg BIDD IV 08/16/24 18:00 08/24/24 04:57 40 MG Amiodarone HCl 200 mg Q12HR PO 08/17/24 22:00 08/24/24 11:35 200 MG Empaglifozin 10 mg DAILY PO 08/18/24 10:00 08/24/24 11:34 10 MG Cefazolin Sodium/ Dextrose 50 ml @ 50 mls/hr Q8HR IV 08/22/24 14:00 08/24/24 11:34 50 MLS/HR objective General alert and oriented HEENT: Atraumatic Neck: No swelling Lungs: Equal air entry and clear to auscultation Cardiovascular: S2 heard no murmur Abdomen: Soft nontender, no organomegaly, mild distended; liver drain + Neuro: Alert and oriented, no focal deficit Psych: Normal mood and affect laboratory and microbiology Laboratory Tests 08/22/24 06:51 08/19/24 06:42 Test 08/19/24 06:42 Range/Units Serum Glucose 156 H 74-106 mg/dL Assessment/Plan A 54 yo male MSSA bacteremia Liver abscess Leucocytosis Cirrhosis newly diagnosed uncontrolled diabetes recommendations continue IV Cefazolin CT chest/ abd reviewed, large liver abscess s/p US drain 250 cc fluid removed. drain left in place. drainage of abscess done today: send fluid for cultures s/p TALI; no vegetation repeat culture from blood reviewed, no growth recommend a picc line, IV antibiotics for 4 weeks prognosis gaurded plan discussed with patient/ primary team Dietary Evaluation Review Comments: Continue current plan of care Expected Outcomes/Goals: F/U in 3-5 days Plan discussed with: EVELIA Morales MD Aug 24, 2024 12:50
--- NOTE | 2024-08-24 16:55 | DVHPN2 ---
Consult Progress Note Date Seen: Aug 24, 2024 Subjective Other Systems: Patient remains in normal sinus rhythm on continuous community education specialist. No cardiac events reported Objective vital signs Vital Sign Date Time Temp Pulse Resp B/P (MAP) Pulse Ox O2 Delivery O2 Flow Rate FiO2 08/24/24 11:43 85 135/97 08/24/24 08:00 Room Air* 0 21 08/24/24 05:00 98.3 20 99 98.3 Total Intake and Output 08/23/24 08/23/24 08/24/24 15:00 23:00 07:00 Intake Total 400 ml 100 ml Output Total 400 ml Balance 400 ml -300 ml medications Current Medications Medications Dose Ordered Sig/Unruly Route Start Time Stop Time Status Last Admin Dose Admin Lorazepam 1 mg Q2HP PRN IV 08/13/24 14:30 08/14/24 21:21 1 MG Thiamine HCl 100 mg DAILY IV 08/14/24 10:00 08/24/24 11:37 100 MG Folic Acid 1 mg/ Dextrose 50.2 ml @ 200.8 mls/ hr DAILY INJ 08/14/24 10:00 08/24/24 13:02 200.8 MLS/HR Diagnostic Test (Pha) 1 strip IQ4HR 08/13/24 16:00 08/24/24 12:57 1 STRIP Insulin Human Regular IQ4HR SC 08/13/24 16:00 08/24/24 12:59 8 UNITS Dextrose 50 ml UD PRN IV 08/13/24 14:30 Ondansetron HCl 4 mg Q4HP PRN IV 08/13/24 14:30 Docusate Sodium 100 mg BIDPRN PRN PO 08/13/24 14:30 08/18/24 17:27 100 MG Acetaminophen 650 mg Q6HP PRN PO 08/13/24 14:30 Nitroglycerin 0.4 mg Q5MINP PRN SL 08/13/24 16:45 Ceftriaxone Sodium 50 ml @ 100 mls/hr DAILY@09 IV 08/14/24 09:00 08/24/24 12:02 100 MLS/HR Enoxaparin Sodium 110 mg Q12HR SC 08/15/24 22:00 08/24/24 11:46 110 MG Sacubitril/ Valsartan 1 tab BID PO 08/15/24 22:00 08/24/24 11:35 1 TAB Metoprolol Succinate 25 mg DAILY PO 08/16/24 10:00 08/24/24 11:43 25 MG Spironolactone 25 mg DAILY PO 08/16/24 10:00 08/24/24 11:34 25 MG Furosemide 40 mg BIDD IV 08/16/24 18:00 08/24/24 04:57 40 MG Amiodarone HCl 200 mg Q12HR PO 08/17/24 22:00 08/24/24 11:35 200 MG Empaglifozin 10 mg DAILY PO 08/18/24 10:00 08/24/24 11:34 10 MG Cefazolin Sodium/ Dextrose 50 ml @ 50 mls/hr Q8HR IV 08/22/24 14:00 08/24/24 11:34 50 MLS/HR Examination: GENERAL:Normal, LUNGS:Normal, CVS:Normal, NEURO:Normal laboratory and microbiology Laboratory Tests 08/22/24 06:51 08/19/24 06:42 Test 08/19/24 06:42 Range/Units Serum Glucose 156 H 74-106 mg/dL Problem List/Assessment/Plan Problem List/Assessment/Plan Ruled out infective endocarditis New onset atrial fibrillation with rapid ventricular response Nonischemic cardiomyopathy Acute on chronic decompensated HFrEF, NYHA class II, newly diagnosed Hypertension Bacteremia Type 2 diabetes mellitus, newly diagnosed (Hgb A1c 12.4%) History of alcohol abuse Obesity Plan/recommendations (Dr. Pastor): The patient underwent a transesophageal echocardiogram on 08/23/2024 which revealed no evidence of vegetation. The patient underwent a coronary angiogram with left heart catheterization on 08/17/24 which revealed no significant coronary artery disease. We will recommend for the patient to continue with guideline directed medical therapy for CHF as tolerated. [id number] VASc score: 3, HAS-BLED: 1 point. Continue with amiodarone and beta-lashaun for rhythm and rate control. Patient currently on therapeutic Lovenox, recommend to transition to NOAC therapy when appropriate. We will order LifeVest for patient. Patient may qualify for ICD implantation in the future if no improvement in EF within three months on guideline directed medical therapy. There is no further inpatient cardiac workup indicated at this time. Cardiology will sign off. Please reconsult if needed. Patient to follow up with the Cardiology in the outpatient setting in 1-2 weeks post discharge. Thank you for allowing us to care for this patient. Please call with any questions or concerns. This medical document was created using an electronic medical record system with voice recognition software and computerized dictation system. Although this document has been carefully reviewed, there might still be some phonetic and typographical errors. Occasional wrong-word or ``sound-alike substitutions may have occurred due to the inherent limitations of voice recognition software. These areas are purely typographical due to imperfections of the software programs and do not reflect any compromise in the patient's medical care. Please read the chart carefully and recognize, using context, where these substitutions have occurred. Plan discussed with: Patient Dietary Evaluation Review Comments: Continue current plan of care Expected Outcomes/Goals: F/U in 3-5 days Date of Service: Aug 24, 2024 Billing Provider: MARITZA PASTOR MD Cardiology Common Codes: [id number] INP/OBS CARE(Mod) DEREK [facility] Aug 24, 2024 16:55
[2024-08-24 17:00] VITALS: BP 118/67; PULSE 81; RESP 16; TEMP 97.7; O2SAT 100
[2024-08-24 20:00] VITALS: PULSE 89
[2024-08-24 21:00] VITALS: BP 137/77; PULSE 88; RESP 20; TEMP 98; O2SAT 95
[2024-08-24] MEDS: ACCU-CHEK COMFORT CURVE STRIP VI SCH (22:15)
[2024-08-24] MEDS: InsuLIN REG 1unit/0.01ml Soln (100units/ml) SC SCH (22:43)
[2024-08-25] VITALS (8 sets, daily range): BP systolic 111–130; BP diastolic 73–84; PULSE 73–90; RESP 17–20; TEMP 97.6–98.9; O2SAT 89–98
--- NOTE | 2024-08-25 09:30 | DVHPN2 ---
Progress Note - Dictate Date Seen: Aug 25, 2024 Medical Necessity Reason Pt with a Central, PICC or Fol: No Subjective Patient is seen and evaluated at bedside. He denies any new acute complaints. Patient remains in normal sinus rhythm on continuous desk monitor. Abscess drainage US 08/24 : placement of 8 Turkmen pigtail drain into a liver abscess with 250 mL purulent fluid vital signs Vital Sign Date Time Temp Pulse Resp B/P (MAP) Pulse Ox O2 Delivery O2 Flow Rate FiO2 08/25/24 07:39 116/81 08/25/24 05:00 97.6 87 20 89 97.6 08/24/24 20:00 Room Air* 0 21 Total Intake and Output 08/24/24 08/24/24 08/25/24 15:00 23:00 07:00 Intake Total 150.2 ml 700 ml 750 ml Balance 150.2 ml 700 ml 750 ml medications Current Medications Medications Dose Ordered Sig/Unruly Route Start Time Stop Time Status Last Admin Dose Admin Lorazepam 1 mg Q2HP PRN IV 08/13/24 14:30 08/14/24 21:21 1 MG Thiamine HCl 100 mg DAILY IV 08/14/24 10:00 08/24/24 11:37 100 MG Folic Acid 1 mg/ Dextrose 50.2 ml @ 200.8 mls/ hr DAILY INJ 08/14/24 10:00 08/24/24 13:02 200.8 MLS/HR Dextrose 50 ml UD PRN IV 08/13/24 14:30 Ondansetron HCl 4 mg Q4HP PRN IV 08/13/24 14:30 Docusate Sodium 100 mg BIDPRN PRN PO 08/13/24 14:30 08/18/24 17:27 100 MG Acetaminophen 650 mg Q6HP PRN PO 08/13/24 14:30 Nitroglycerin 0.4 mg Q5MINP PRN SL 08/13/24 16:45 Enoxaparin Sodium 110 mg Q12HR SC 08/15/24 22:00 08/24/24 22:12 110 MG Sacubitril/ Valsartan 1 tab BID PO 08/15/24 22:00 08/24/24 22:08 1 TAB Metoprolol Succinate 25 mg DAILY PO 08/16/24 10:00 08/24/24 11:43 25 MG Spironolactone 25 mg DAILY PO 08/16/24 10:00 08/24/24 11:34 25 MG Furosemide 40 mg BIDD IV 08/16/24 18:00 08/25/24 07:39 40 MG Amiodarone HCl 200 mg Q12HR PO 08/17/24 22:00 08/24/24 22:09 200 MG Empaglifozin 10 mg DAILY PO 08/18/24 10:00 08/24/24 11:34 10 MG Cefazolin Sodium/ Dextrose 50 ml @ 50 mls/hr Q8HR IV 08/22/24 14:00 08/25/24 07:39 50 MLS/HR Insulin Human Regular ACHS SC 08/24/24 22:00 08/25/24 07:00 8 UNITS Diagnostic Test (Pha) 1 strip ACHS 08/24/24 22:00 08/25/24 07:00 1 STRIP objective General alert and oriented HEENT: Atraumatic Neck: No swelling Lungs: Equal air entry and clear to auscultation Cardiovascular: S2 heard no murmur Abdomen: Soft nontender, no organomegaly, mild distended; liver drain + Neuro: Alert and oriented, no focal deficit Psych: Normal mood and affect laboratory and microbiology Laboratory Tests 08/22/24 06:51 08/19/24 06:42 Test 08/19/24 06:42 Range/Units Serum Glucose 156 H 74-106 mg/dL Assessment/Plan Patient is a 54-year-old male presented with: MSSA bacteremia Liver abscess Leucocytosis Cirrhosis newly diagnosed uncontrolled diabetes Recommendations Continue IV Cefazolin CT chest/ Abd reviewed, large liver abscess s/p US drain 250 cc fluid removed. drain left in place. drainage of abscess done today: send fluid for cultures s/p TALI; no vegetation repeat culture from blood reviewed, no growth recommend a picc line, IV antibiotics for 4 weeks prognosis guarded plan discussed with patient/ primary team Dietary Evaluation Review Comments: Continue current plan of care Expected Outcomes/Goals: F/U in 3-5 days Plan discussed with: Patient EVELIA OWENS MD Aug 25, 2024 09:30
--- NOTE | 2024-08-25 14:36 | DVHPN2 ---
Subjective The patient is seen and examined at bedside. No complaint today. Reviewed: Care Plan, H&P, Labs, Medications, Previous Orders, Radiology Changes from previous H/P or p: No Changes General: Per HPI Eyes: No Pain, No Vision change, No Conjunctivae inflammation, No Eyelid inflammation, No Other, No Redness ENT: No Ear pain, No Ear discharge, No Nose pain, No Nose discharge, No Nose congestion, No Mouth pain, No Mouth swelling, No Throat pain, No Throat swelling, No Other Cardiovascular: No Chest Pain, No Palpitations, No Orthopnea, No Paroxysmal Noc. Dyspnea, No Edema, No Lt Headedness, No Other Respiratory: No Cough, No Dry, No Shortness of breath, No SOB with excertion, No Wheezing, No Hemoptysis, No Pleuritic Pain, No Sputum, No Other Gastrointestinal: No Nausea, No Vomiting, No Abdominal Pain, No Diarrhea, No Constipation, No Melena, No Hematochezia, No Other Genitourinary: No Dysuria, No Frequency, No Incontinence, No Hematuria, No Retention, No Other Musculoskeletal: No other, No neck pain, No shoulder pain, No arm pain, No back pain, No hand pain, No leg pain, No foot pain Skin: No Rash, No Lesions, No Jaundice, No Bruising, No Other Objective Vitals Vital Signs Date Time Temp Pulse Resp B/P (MAP) Pulse Ox O2 Delivery O2 Flow Rate FiO2 08/25/24 13:00 98.1 90 17 117/78 (91) 98 98.1 08/24/24 20:00 Room Air* 0 21 Intake/Output Intake and Output 08/25/24 07:00 Intake Total 1600.2 ml Balance 1600.2 ml Intake Oral 1400 ml IV Total 200.2 ml # Voids 8 General Appearance: Alert, No acute distress HEENT: Atraumatic Lungs: Clear to auscultation Cardiovascular: Regular rate, Normal S1, Normal S2 Abdomen: Normal bowel sounds Neuro: Cranial nerves 3-12 NL Psych/Mental Status: Mental status NL Medications Current Medications Medications Dose Ordered Sig/Unruly Route Start Time Stop Time Status Last Admin Dose Admin Lorazepam 1 mg Q2HP PRN IV 08/13/24 14:30 08/14/24 21:21 1 MG Thiamine HCl 100 mg DAILY IV 08/14/24 10:00 08/25/24 09:36 100 MG Folic Acid 1 mg/ Dextrose 50.2 ml @ 200.8 mls/ hr DAILY INJ 08/14/24 10:00 08/25/24 09:36 200.8 MLS/HR Dextrose 50 ml UD PRN IV 08/13/24 14:30 Ondansetron HCl 4 mg Q4HP PRN IV 08/13/24 14:30 Docusate Sodium 100 mg BIDPRN PRN PO 08/13/24 14:30 08/18/24 17:27 100 MG Acetaminophen 650 mg Q6HP PRN PO 08/13/24 14:30 Nitroglycerin 0.4 mg Q5MINP PRN SL 08/13/24 16:45 Enoxaparin Sodium 110 mg Q12HR SC 08/15/24 22:00 08/25/24 09:38 110 MG Sacubitril/ Valsartan 1 tab BID PO 08/15/24 22:00 08/25/24 09:22 1 TAB Metoprolol Succinate 25 mg DAILY PO 08/16/24 10:00 08/25/24 09:34 25 MG Spironolactone 25 mg DAILY PO 08/16/24 10:00 08/25/24 09:22 25 MG Furosemide 40 mg BIDD IV 08/16/24 18:00 08/25/24 07:39 40 MG Amiodarone HCl 200 mg Q12HR PO 08/17/24 22:00 08/25/24 09:23 200 MG Empaglifozin 10 mg DAILY PO 08/18/24 10:00 08/25/24 09:23 10 MG Cefazolin Sodium/ Dextrose 50 ml @ 50 mls/hr Q8HR IV 08/22/24 14:00 08/25/24 07:39 50 MLS/HR Insulin Human Regular ACHS SC 08/24/24 22:00 08/25/24 12:10 8 UNITS Diagnostic Test (Pha) 1 strip ACHS 08/24/24 22:00 08/25/24 11:50 1 STRIP Laboratory Results Laboratory Tests 08/19/24 06:42 08/22/24 06:51 Urinalysis Test 08/17/24 21:36 Urine Color Yellow (Yellow) Urine Clarity Clear (Clear) Urine pH 6.0 (5.0-9.0) Urine Specific [place] 1.014 (1.001-1.035) Urine Protein Negative (Negative) Urine Ketones Negative (Negative) Urine Blood Trace /uL (Negative) H Urine Nitrite Negative (Negative) Urine Bilirubin Negative (Negative) Urine Urobilinogen 2 mg/dL (Negative) H Urine Leukocyte Esterase Negative /uL (Negative) Urine RBC 1 /hpf (0 - 3) Urine WBC 2 /hpf (0 - 3) Urine Squamous Epithelial Cells Few /hpf (<5) Urine Bacteria None seen /hpf (None Seen) Urine Hyaline Casts Few /lpf (0 - 2) Urine Mucus Few (None Seen) Urine Glucose 1+ mg/dL (Normal) H Microbiology Microbiology Date/Time Source Procedure Growth Status 08/24/24 09:30 Aspirate Gram Stain Pending Resulted 08/24/24 09:30 Aspirate Body Fluid Culture - Preliminary Resulted 08/19/24 16:10 Blood Blood Culture - Final NO GROWTH AFTER 5 DAYS OF INCUBATION. Complete Labs and/or images reviewed: Labs reviewed by me Assessment/Plan Assessment/Plan Alcohol withdrawal New onset type 2 diabetes mellitus Hypertension Hyponatremia Alcohol use, unspecified with withdrawal, uncomplicated a-fib with RVR bacteremia (pre-mota blood cx indicates gram positive) Newly diagnosed acute systolic congestive heart failure (LVEF 25%) Metabolic encephalopathy secondary to hyponatremia versus sepsis Sepsis with persistent bacteremia due to MSSA. Obesity History of ethanol abuse Continuing current management. Continuing with amiodarone. Continuing with IV antibiotic with cefazolin. We will follow up with abscess culture. Continuing with sliding scale insulin. Continuing with hypertensive medication. Continuing with Entresto. Continuing new with anticoagulation medication. Plan discussed with: Patient My Orders Orders - SHON VILLARREAL MD Procedure Category Date Status Time Insulin R (Human) PHA 08/24/24 In Process (Insulin R) 22:00 Glucose Blood PHA 08/24/24 In Process (Accu-Chek Comfort 22:00 Date of Service: Aug 25, 2024 Billing Provider: SHON VILLARREAL MD Common Visit Codes: [id number] INP/OBS CARE(HIGH) SHON VILLARREAL MD Aug 25, 2024 14:36
[2024-08-26] VITALS (8 sets, daily range): BP systolic 107–135; BP diastolic 68–93; PULSE 75–97; RESP 18–20; TEMP 97.7–99; O2SAT 95–99
--- NOTE | 2024-08-26 10:08 | DVHPN2 ---
Subjective The patient is seen and examined at bedside. No complaint today. No fever or chills Reviewed: Care Plan, H&P, Labs, Medications, Previous Orders, Radiology Changes from previous H/P or p: No Changes General: Per HPI Eyes: No Pain, No Vision change, No Conjunctivae inflammation, No Eyelid inflammation, No Other, No Redness ENT: No Ear pain, No Ear discharge, No Nose pain, No Nose discharge, No Nose congestion, No Mouth pain, No Mouth swelling, No Throat pain, No Throat swelling, No Other Cardiovascular: No Chest Pain, No Palpitations, No Orthopnea, No Paroxysmal Noc. Dyspnea, No Edema, No Lt Headedness, No Other Respiratory: No Cough, No Dry, No Shortness of breath, No SOB with excertion, No Wheezing, No Hemoptysis, No Pleuritic Pain, No Sputum, No Other Gastrointestinal: No Nausea, No Vomiting, No Abdominal Pain, No Diarrhea, No Constipation, No Melena, No Hematochezia, No Other Genitourinary: No Dysuria, No Frequency, No Incontinence, No Hematuria, No Retention, No Other Musculoskeletal: No other, No neck pain, No shoulder pain, No arm pain, No back pain, No hand pain, No leg pain, No foot pain Skin: No Rash, No Lesions, No Jaundice, No Bruising, No Other Objective Vitals Vital Signs Date Time Temp Pulse Resp B/P (MAP) Pulse Ox O2 Delivery O2 Flow Rate FiO2 08/26/24 06:30 128/66 08/26/24 05:00 99.0 86 20 99 99.0 08/25/24 20:00 Room Air* 0 21 Intake/Output Intake and Output 08/26/24 07:00 Intake Total 2185.2 ml Balance 2185.2 ml Intake Oral 2035 ml IV Total 150.2 ml # Voids 7 General Appearance: Alert, Oriented X3, Cooperative, No acute distress HEENT: Atraumatic Lungs: Clear to auscultation Cardiovascular: Regular rate, Normal S1, Normal S2 Abdomen: Normal bowel sounds Neuro: Cranial nerves 3-12 NL Psych/Mental Status: Mental status NL Medications Current Medications Medications Dose Ordered Sig/Unruly Route Start Time Stop Time Status Last Admin Dose Admin Lorazepam 1 mg Q2HP PRN IV 08/13/24 14:30 08/14/24 21:21 1 MG Thiamine HCl 100 mg DAILY IV 08/14/24 10:00 08/25/24 09:36 100 MG Folic Acid 1 mg/ Dextrose 50.2 ml @ 200.8 mls/ hr DAILY INJ 08/14/24 10:00 08/25/24 09:36 200.8 MLS/HR Dextrose 50 ml UD PRN IV 08/13/24 14:30 Ondansetron HCl 4 mg Q4HP PRN IV 08/13/24 14:30 Docusate Sodium 100 mg BIDPRN PRN PO 08/13/24 14:30 08/18/24 17:27 100 MG Acetaminophen 650 mg Q6HP PRN PO 08/13/24 14:30 Nitroglycerin 0.4 mg Q5MINP PRN SL 08/13/24 16:45 Enoxaparin Sodium 110 mg Q12HR SC 08/15/24 22:00 08/25/24 21:29 110 MG Sacubitril/ Valsartan 1 tab BID PO 08/15/24 22:00 08/25/24 21:28 1 TAB Metoprolol Succinate 25 mg DAILY PO 08/16/24 10:00 08/25/24 09:34 25 MG Spironolactone 25 mg DAILY PO 08/16/24 10:00 08/25/24 09:22 25 MG Furosemide 40 mg BIDD IV 08/16/24 18:00 08/26/24 06:30 40 MG Amiodarone HCl 200 mg Q12HR PO 08/17/24 22:00 08/25/24 21:29 200 MG Empaglifozin 10 mg DAILY PO 08/18/24 10:00 08/25/24 09:23 10 MG Cefazolin Sodium/ Dextrose 50 ml @ 50 mls/hr Q8HR IV 08/22/24 14:00 08/26/24 05:30 50 MLS/HR Insulin Human Regular ACHS SC 08/24/24 22:00 08/26/24 06:35 4 UNITS Diagnostic Test (Pha) 1 strip ACHS 08/24/24 22:00 08/26/24 06:32 1 STRIP Laboratory Results Laboratory Tests 08/19/24 06:42 08/22/24 06:51 Urinalysis Test 08/17/24 21:36 Urine Color Yellow (Yellow) Urine Clarity Clear (Clear) Urine pH 6.0 (5.0-9.0) Urine Specific [place] 1.014 (1.001-1.035) Urine Protein Negative (Negative) Urine Ketones Negative (Negative) Urine Blood Trace /uL (Negative) H Urine Nitrite Negative (Negative) Urine Bilirubin Negative (Negative) Urine Urobilinogen 2 mg/dL (Negative) H Urine Leukocyte Esterase Negative /uL (Negative) Urine RBC 1 /hpf (0 - 3) Urine WBC 2 /hpf (0 - 3) Urine Squamous Epithelial Cells Few /hpf (<5) Urine Bacteria None seen /hpf (None Seen) Urine Hyaline Casts Few /lpf (0 - 2) Urine Mucus Few (None Seen) Urine Glucose 1+ mg/dL (Normal) H Microbiology Microbiology Date/Time Source Procedure Growth Status 08/24/24 09:30 Aspirate Gram Stain - Final Complete 08/24/24 09:30 Body Fluid Culture - Final Staphylococcus aureus Complete 08/19/24 16:10 Blood Blood Culture - Final NO GROWTH AFTER 5 DAYS OF INCUBATION. Complete Labs and/or images reviewed: Labs reviewed by me Assessment/Plan Assessment/Plan Alcohol withdrawal New onset type 2 diabetes mellitus Hypertension Hyponatremia Alcohol use, unspecified with withdrawal, uncomplicated a-fib with RVR bacteremia (pre-mota blood cx indicates gram positive) Newly diagnosed acute systolic congestive heart failure (LVEF 25%) Metabolic encephalopathy secondary to hyponatremia versus sepsis Sepsis with persistent bacteremia due to MSSA. Obesity History of ethanol abuse Liver abscess Continuing current management. Continuing with amiodarone. Continuing with IV antibiotic Ancef. Continuing to monitor electrolytes. Continuing with hypertensive medication. Continuing with Entresto. Continuing with anticoagulation. Discharge planning. Plan discussed with: Patient My Orders Orders - SHON VILLARREAL MD Procedure Category Date Status Time Complete Blood Count LAB 08/26/24 Verified 10:07 Basic Metabolic Panel LAB 08/26/24 Verified 10:07 Date of Service: Aug 26, 2024 Billing Provider: SHON VILLARREAL MD Common Visit Codes: [id number] INP/OBS CARE(HIGH) SHON VILLARREAL MD Aug 26, 2024 10:08
--- NOTE | 2024-08-26 11:25 | DVHPN2 ---
Progress Note - Dictate Date Seen: Aug 26, 2024 Medical Necessity Reason Pt with a Central, PICC or Fol: No Subjective Patient is seen and evaluated at bedside. Patient remains in normal sinus rhythm on continuous school lunch monitor. Pt does not want to go to SNF. Pt wants to do home silvino with IV abx. Abscess drainage US 08/24 : placement of 8 Maltese pigtail drain into a liver abscess with 250 mL purulent fluid vital signs Vital Sign Date Time Temp Pulse Resp B/P (MAP) Pulse Ox O2 Delivery O2 Flow Rate FiO2 08/26/24 06:30 128/66 08/26/24 05:00 99.0 86 20 99 99.0 08/25/24 20:00 Room Air* 0 21 Total Intake and Output 08/25/24 08/25/24 08/26/24 15:00 23:00 07:00 Intake Total 100.2 ml 1285 ml 800 ml Balance 100.2 ml 1285 ml 800 ml medications Current Medications Medications Dose Ordered Sig/Unruly Route Start Time Stop Time Status Last Admin Dose Admin Lorazepam 1 mg Q2HP PRN IV 08/13/24 14:30 08/14/24 21:21 1 MG Thiamine HCl 100 mg DAILY IV 08/14/24 10:00 08/25/24 09:36 100 MG Folic Acid 1 mg/ Dextrose 50.2 ml @ 200.8 mls/ hr DAILY INJ 08/14/24 10:00 08/25/24 09:36 200.8 MLS/HR Dextrose 50 ml UD PRN IV 08/13/24 14:30 Ondansetron HCl 4 mg Q4HP PRN IV 08/13/24 14:30 Docusate Sodium 100 mg BIDPRN PRN PO 08/13/24 14:30 08/18/24 17:27 100 MG Acetaminophen 650 mg Q6HP PRN PO 08/13/24 14:30 Nitroglycerin 0.4 mg Q5MINP PRN SL 08/13/24 16:45 Enoxaparin Sodium 110 mg Q12HR SC 08/15/24 22:00 08/25/24 21:29 110 MG Sacubitril/ Valsartan 1 tab BID PO 08/15/24 22:00 08/25/24 21:28 1 TAB Metoprolol Succinate 25 mg DAILY PO 08/16/24 10:00 08/25/24 09:34 25 MG Spironolactone 25 mg DAILY PO 08/16/24 10:00 08/25/24 09:22 25 MG Furosemide 40 mg BIDD IV 08/16/24 18:00 08/26/24 06:30 40 MG Amiodarone HCl 200 mg Q12HR PO 08/17/24 22:00 08/25/24 21:29 200 MG Empaglifozin 10 mg DAILY PO 08/18/24 10:00 08/25/24 09:23 10 MG Cefazolin Sodium/ Dextrose 50 ml @ 50 mls/hr Q8HR IV 08/22/24 14:00 08/26/24 05:30 50 MLS/HR Insulin Human Regular ACHS SC 08/24/24 22:00 08/26/24 06:35 4 UNITS Diagnostic Test (Pha) 1 strip ACHS 08/24/24 22:00 08/26/24 06:32 1 STRIP objective General alert and oriented HEENT: Atraumatic Neck: No swelling Lungs: Equal air entry and clear to auscultation Cardiovascular: S2 heard no murmur Abdomen: Soft nontender, no organomegaly, mild distended; liver drain + Neuro: Alert and oriented, no focal deficit Psych: Normal mood and affect laboratory and microbiology Laboratory Tests 08/22/24 06:51 08/19/24 06:42 Test 08/19/24 06:42 Range/Units Serum Glucose 156 H 74-106 mg/dL Assessment/Plan Patient is a 54-year-old male presented with: MSSA bacteremia Liver abscess Leucocytosis Cirrhosis newly diagnosed uncontrolled diabetes Recommendations Continue IV Cefazolin 2g q [address] chest/ Abd reviewed, large liver abscess s/p US drain 250 cc fluid removed. drain left in place. drainage of abscess done today: send fluid for cultures s/p TALI; no vegetation repeat culture from blood reviewed, no growth midline placed , IV antibiotics for 4 weeks; arrange 3-4 weeks of IV cefazolin, plan discussed with patient/ primary team Dietary Evaluation Review Comments: Continue current plan of care Expected Outcomes/Goals: F/U in 3-5 days Plan discussed with: EVELIA Morales MD Aug 26, 2024 11:25
[2024-08-26 15:05] LABS: Basophils # (auto) 0.1 10 ^3/uL (0-0.2); Basophils % (auto) 0.9 % (0.0-2.0); Eosinophils # (auto) 0.1 10 ^3/uL (0-0.8); Eosinophils % (auto) 0.6 % (0.0-7.0); Hematocrit 37.7 % (41.0-53.0); Hemoglobin 12.6 g/dL (13.5-17.5); Lymphocytes # (auto) 1.8 10 ^3/uL (0.4-5.4); Lymphocytes % (auto) 17.8 % (10.0-50.0); Mean Corpuscular Hemoglobin 29.8 pg (28.0-32.0); Mean Corpuscular Hgb Conc. 33.4 g/dL (32.0-36.0); Mean Corpuscular Volume 89.3 fL (80.0-100.0); Monocytes # (auto) 0.7 10 ^3/uL (0-1.3); Monocytes % (auto) 6.6 % (0.0-12.0); Neutrophils # (auto) 7.7 10 ^3/uL (1.6-8.6); Neutrophils % (auto) 74.1 % (37.0-80.0); Nucleated Red Blood Cells % 0.1 %; Platelet Count (auto) 566 10^3/uL (140-450); Red Blood Cells 4.22 10^6/uL (4.5-5.90); Red Cell Distribution Width 13.7 % (11.8-14.3); White Blood Cell 10.3 10^3/uL (4.4-10.8)
[2024-08-26 15:12] LABS: Chloride 98 mmol/L (98-107); Potassium 4.1 mmol/L (3.5-5.1); Sodium 130 mmol/L (136-145)
[2024-08-26 15:13] LABS: Anion Gap 7 (5-15); Carbon Dioxide 25 mmol/L (20-31)
[2024-08-26 15:14] LABS: Calcium 9.8 mg/dL (8.7-10.4)
[2024-08-26 15:18] LABS: BUN/Creatinine Ratio 15.3 (10.0-20.0); Blood Urea Nitrogen 13 mg/dL (9-23); Glucose 210 mg/dL (74-106)
[2024-08-27] VITALS (8 sets, daily range): BP systolic 109–128; BP diastolic 75–93; PULSE 74–98; RESP 18–20; TEMP 98–98.9; O2SAT 6–97
[2024-08-27 09:20] LABS: Basophils # (auto) 0.1 10 ^3/uL (0-0.2); Eosinophils # (auto) 0 10 ^3/uL (0-0.8); Eosinophils % (auto) 0.5 % (0.0-7.0); Neutrophils # (auto) 7.1 10 ^3/uL (1.6-8.6); Nucleated Red Blood Cells % 0.1 %
[2024-08-27 09:23] LABS: Basophils % (auto) 0.7 % (0.0-2.0); Hematocrit 40.8 % (41.0-53.0); Hemoglobin 13.9 g/dL (13.5-17.5); Lymphocytes # (auto) 1.5 10 ^3/uL (0.4-5.4); Lymphocytes % (auto) 16.2 % (10.0-50.0); Mean Corpuscular Hemoglobin 30.3 pg (28.0-32.0); Mean Corpuscular Hgb Conc. 34.1 g/dL (32.0-36.0); Mean Corpuscular Volume 88.9 fL (80.0-100.0); Monocytes # (auto) 0.6 10 ^3/uL (0-1.3); Monocytes % (auto) 6.4 % (0.0-12.0); Neutrophils % (auto) 76.2 % (37.0-80.0); Platelet Count (auto) 557 10^3/uL (140-450); Red Blood Cells 4.59 10^6/uL (4.5-5.90); Red Cell Distribution Width 13.6 % (11.8-14.3); White Blood Cell 9.3 10^3/uL (4.4-10.8)
[2024-08-27 09:28] LABS: Chloride 97 mmol/L (98-107); Potassium 4.2 mmol/L (3.5-5.1); Sodium 130 mmol/L (136-145)
[2024-08-27 09:29] LABS: Anion Gap 9 (5-15); Calcium 9.9 mg/dL (8.7-10.4); Carbon Dioxide 24 mmol/L (20-31)
[2024-08-27 09:34] LABS: BUN/Creatinine Ratio 13.6 (10.0-20.0); Blood Urea Nitrogen 11 mg/dL (9-23); Glucose 245 mg/dL (74-106)
--- NOTE | 2024-08-27 11:33 | DVHPN2 ---
Subjective The patient is seen and examined at bedside. No complaint today. No fever or chills Reviewed: Care Plan, H&P, Labs, Medications, Previous Orders, Radiology Changes from previous H/P or p: No Changes General: Per HPI Eyes: No Pain, No Vision change, No Conjunctivae inflammation, No Eyelid inflammation, No Other, No Redness ENT: No Ear pain, No Ear discharge, No Nose pain, No Nose discharge, No Nose congestion, No Mouth pain, No Mouth swelling, No Throat pain, No Throat swelling, No Other Cardiovascular: No Chest Pain, No Palpitations, No Orthopnea, No Paroxysmal Noc. Dyspnea, No Edema, No Lt Headedness, No Other Respiratory: No Cough, No Dry, No Shortness of breath, No SOB with excertion, No Wheezing, No Hemoptysis, No Pleuritic Pain, No Sputum, No Other Gastrointestinal: No Nausea, No Vomiting, No Abdominal Pain, No Diarrhea, No Constipation, No Melena, No Hematochezia, No Other Genitourinary: No Dysuria, No Frequency, No Incontinence, No Hematuria, No Retention, No Other Musculoskeletal: No other, No neck pain, No shoulder pain, No arm pain, No back pain, No hand pain, No leg pain, No foot pain Skin: No Rash, No Lesions, No Jaundice, No Bruising, No Other Objective Vitals Vital Signs Date Time Temp Pulse Resp B/P (MAP) Pulse Ox O2 Delivery O2 Flow Rate FiO2 08/27/24 09:36 83 118/82 08/27/24 09:33 98.4 18 6 98.4 08/26/24 20:00 Room Air* 0 21 Intake/Output Intake and Output 08/27/24 07:00 Intake Total 2400.2 ml Output Total 20 ml Balance 2380.2 ml Intake Oral 2200 ml IV Total 200.2 ml Other 20 ml # Voids 11 # Bowel Movements 2 General Appearance: Alert, Oriented X3, Cooperative, No acute distress HEENT: Atraumatic Lungs: Clear to auscultation Cardiovascular: Regular rate, Normal S1, Normal S2 Abdomen: Normal bowel sounds Neuro: Cranial nerves 3-12 NL Psych/Mental Status: Mental status NL Medications Current Medications Medications Dose Ordered Sig/Unruly Route Start Time Stop Time Status Last Admin Dose Admin Lorazepam 1 mg Q2HP PRN IV 08/13/24 14:30 08/14/24 21:21 1 MG Thiamine HCl 100 mg DAILY IV 08/14/24 10:00 08/27/24 09:43 100 MG Folic Acid 1 mg/ Dextrose 50.2 ml @ 200.8 mls/ hr DAILY INJ 08/14/24 10:00 08/27/24 09:44 200.8 MLS/HR Dextrose 50 ml UD PRN IV 08/13/24 14:30 Ondansetron HCl 4 mg Q4HP PRN IV 08/13/24 14:30 Docusate Sodium 100 mg BIDPRN PRN PO 08/13/24 14:30 08/18/24 17:27 100 MG Acetaminophen 650 mg Q6HP PRN PO 08/13/24 14:30 Nitroglycerin 0.4 mg Q5MINP PRN SL 08/13/24 16:45 Sacubitril/ Valsartan 1 tab BID PO 08/15/24 22:00 08/27/24 09:37 1 TAB Metoprolol Succinate 25 mg DAILY PO 08/16/24 10:00 08/27/24 09:36 25 MG Spironolactone 25 mg DAILY PO 08/16/24 10:00 08/27/24 09:37 25 MG Furosemide 40 mg BIDD IV 08/16/24 18:00 08/27/24 05:51 40 MG Amiodarone HCl 200 mg Q12HR PO 08/17/24 22:00 08/27/24 09:37 200 MG Empaglifozin 10 mg DAILY PO 08/18/24 10:00 08/27/24 09:37 10 MG Cefazolin Sodium/ Dextrose 50 ml @ 50 mls/hr Q8HR IV 08/22/24 14:00 08/27/24 05:43 50 MLS/HR Insulin Human Regular ACHS SC 08/24/24 22:00 08/27/24 05:55 4 UNITS Diagnostic Test (Pha) 1 strip ACHS 08/24/24 22:00 08/27/24 05:43 1 STRIP Laboratory Results Laboratory Tests 08/27/24 08:28 Chemistry Test 08/26/24 14:34 08/27/24 08:28 Calcium Level 9.8 mg/dL (8.7-10.4) 9.9 mg/dL (8.7-10.4) Urinalysis Test 08/17/24 21:36 Urine Color Yellow (Yellow) Urine Clarity Clear (Clear) Urine pH 6.0 (5.0-9.0) Urine Specific [place] 1.014 (1.001-1.035) Urine Protein Negative (Negative) Urine Ketones Negative (Negative) Urine Blood Trace /uL (Negative) H Urine Nitrite Negative (Negative) Urine Bilirubin Negative (Negative) Urine Urobilinogen 2 mg/dL (Negative) H Urine Leukocyte Esterase Negative /uL (Negative) Urine RBC 1 /hpf (0 - 3) Urine WBC 2 /hpf (0 - 3) Urine Squamous Epithelial Cells Few /hpf (<5) Urine Bacteria None seen /hpf (None Seen) Urine Hyaline Casts Few /lpf (0 - 2) Urine Mucus Few (None Seen) Urine Glucose 1+ mg/dL (Normal) H Microbiology Microbiology Date/Time Source Procedure Growth Status 08/24/24 09:30 Aspirate Gram Stain - Final Complete 08/24/24 09:30 Body Fluid Culture - Final Staphylococcus aureus Complete 08/19/24 16:10 Blood Blood Culture - Final NO GROWTH AFTER 5 DAYS OF INCUBATION. Complete Labs and/or images reviewed: Labs reviewed by me Assessment/Plan Assessment/Plan Alcohol withdrawal New onset type 2 diabetes mellitus Nonischemic cardiomyopathy Hypertension Hyponatremia Alcohol use, unspecified with withdrawal, uncomplicated a-fib with RVR bacteremia (pre-mota blood cx indicates gram positive) Newly diagnosed acute systolic congestive heart failure (LVEF 25%) Metabolic encephalopathy secondary to hyponatremia versus sepsis Sepsis with persistent bacteremia due to MSSA. Obesity History of ethanol abuse Liver abscess Continuing current management. Continuing with amiodarone. Continuing with IV antibiotic Ancef. Continuing to monitor electrolytes. Continuing with hypertensive medication. Continuing with Entresto. Continuing with anticoagulation. Waiting for LifeVest fit due to cardiomyopathy. The patient we will wear LifeVest for couple months if not improved, loop tender's we will consider ICD placement Discharge planning. Plan discussed with: Patient Date of Service: Aug 27, 2024 Billing Provider: SHON VILLARREAL MD Common Visit Codes: [id number] INP/OBS CARE(HIGH) SHON VILLARREAL MD Aug 27, 2024 11:33
--- NOTE | 2024-08-27 20:20 | DVHPN2 ---
Progress Note - Dictate Date Seen: Aug 27, 2024 Medical Necessity Reason Pt with a Central, PICC or Fol: No Subjective Patient is seen and evaluated at bedside. Patient remains in normal sinus rhythm on continuous case monitor. Pt now want to go to SNF. Abscess drainage US 08/24 : placement of 8 [place] pigtail drain into a liver abscess with 250 mL purulent fluid vital signs Vital Sign Date Time Temp Pulse Resp B/P (MAP) Pulse Ox O2 Delivery O2 Flow Rate FiO2 08/27/24 17:38 112/83 08/27/24 16:43 98.6 77 18 95 98.6 08/27/24 08:15 Room Air* 0 21 Total Intake and Output 08/26/24 08/26/24 08/27/24 15:00 23:00 07:00 Intake Total 100.2 ml 1450 ml 850 ml Output Total 20 ml Balance 100.2 ml 1430 ml 850 ml medications Current Medications Medications Dose Ordered Sig/Unruly Route Start Time Stop Time Status Last Admin Dose Admin Lorazepam 1 mg Q2HP PRN IV 08/13/24 14:30 08/14/24 21:21 1 MG Thiamine HCl 100 mg DAILY IV 08/14/24 10:00 08/27/24 09:43 100 MG Folic Acid 1 mg/ Dextrose 50.2 ml @ 200.8 mls/ hr DAILY INJ 08/14/24 10:00 08/27/24 09:44 200.8 MLS/HR Dextrose 50 ml UD PRN IV 08/13/24 14:30 Ondansetron HCl 4 mg Q4HP PRN IV 08/13/24 14:30 Docusate Sodium 100 mg BIDPRN PRN PO 08/13/24 14:30 08/18/24 17:27 100 MG Acetaminophen 650 mg Q6HP PRN PO 08/13/24 14:30 Nitroglycerin 0.4 mg Q5MINP PRN SL 08/13/24 16:45 Sacubitril/ Valsartan 1 tab BID PO 08/15/24 22:00 08/27/24 09:37 1 TAB Metoprolol Succinate 25 mg DAILY PO 08/16/24 10:00 08/27/24 09:36 25 MG Spironolactone 25 mg DAILY PO 08/16/24 10:00 08/27/24 09:37 25 MG Furosemide 40 mg BIDD IV 08/16/24 18:00 08/27/24 17:38 40 MG Amiodarone HCl 200 mg Q12HR PO 08/17/24 22:00 08/27/24 09:37 200 MG Empaglifozin 10 mg DAILY PO 08/18/24 10:00 08/27/24 09:37 10 MG Cefazolin Sodium/ Dextrose 50 ml @ 50 mls/hr Q8HR IV 08/22/24 14:00 08/27/24 13:41 50 MLS/HR Insulin Human Regular ACHS SC 08/24/24 22:00 08/27/24 16:28 4 UNITS Diagnostic Test (Pha) 1 strip ACHS 08/24/24 22:00 08/27/24 16:26 1 STRIP objective General alert and oriented HEENT: Atraumatic Neck: No swelling Lungs: Equal air entry and clear to auscultation Cardiovascular: S2 heard no murmur Abdomen: Soft nontender, no organomegaly, mild distended; liver drain + Neuro: Alert and oriented, no focal deficit Psych: Normal mood and affect laboratory and microbiology Laboratory Tests 08/27/24 08:28 Test 08/27/24 08:28 Range/Units Serum Glucose 245 H 74-106 mg/dL Assessment/Plan Patient is a 54-year-old male presented with: MSSA bacteremia Liver abscess Leucocytosis Cirrhosis newly diagnosed uncontrolled diabetes Recommendations Continue IV Cefazolin 2g q [address] chest/ Abd reviewed, large liver abscess s/p US drain 250 cc fluid removed. drain left in place. drainage of abscess done today: send fluid for cultures s/p TALI; no vegetation repeat culture from blood reviewed, no growth midline placed , IV antibiotics for 4 weeks; arrange 3-4 weeks of IV cefazolin, f/u with PCP/ ID in [address] abdomen/ pelvis plan discussed with patient/ primary team Dietary Evaluation Review Comments: Continue current plan of care Expected Outcomes/Goals: F/U in 3-5 days Plan discussed with: Patient EVELIA OWENS MD Aug 27, 2024 20:20
[2024-08-28] VITALS (8 sets, daily range): BP systolic 104–121; BP diastolic 70–83; PULSE 76–98; RESP 18–20; TEMP 97.6–98.7; O2SAT 92–97
--- NOTE | 2024-08-28 09:29 | DVHPN2 ---
Progress Note - Dictate Date Seen: Aug 28, 2024 Medical Necessity Reason Pt with a Central, PICC or Fol: No Subjective Patient is seen and evaluated at bedside. Patient remains in normal sinus rhythm on continuous ekg monitor. pending SNF. Abscess drainage US 08/24 : placement of 8 [place] pigtail drain into a liver abscess with 250 mL purulent fluid vital signs Vital Sign Date Time Temp Pulse Resp B/P (MAP) Pulse Ox O2 Delivery O2 Flow Rate FiO2 08/28/24 06:06 112/78 08/28/24 05:00 98.5 76 18 96 98.5 08/27/24 20:00 Room Air* 0 21 Total Intake and Output 08/27/24 08/27/24 08/28/24 15:00 23:00 07:00 Intake Total 100.2 ml 1330 ml 800 ml Balance 100.2 ml 1330 ml 800 ml medications Current Medications Medications Dose Ordered Sig/Unruly Route Start Time Stop Time Status Last Admin Dose Admin Lorazepam 1 mg Q2HP PRN IV 08/13/24 14:30 08/14/24 21:21 1 MG Thiamine HCl 100 mg DAILY IV 08/14/24 10:00 08/27/24 09:43 100 MG Folic Acid 1 mg/ Dextrose 50.2 ml @ 200.8 mls/ hr DAILY INJ 08/14/24 10:00 08/27/24 09:44 200.8 MLS/HR Dextrose 50 ml UD PRN IV 08/13/24 14:30 Ondansetron HCl 4 mg Q4HP PRN IV 08/13/24 14:30 Docusate Sodium 100 mg BIDPRN PRN PO 08/13/24 14:30 08/18/24 17:27 100 MG Acetaminophen 650 mg Q6HP PRN PO 08/13/24 14:30 Nitroglycerin 0.4 mg Q5MINP PRN SL 08/13/24 16:45 Sacubitril/ Valsartan 1 tab BID PO 08/15/24 22:00 08/27/24 21:48 1 TAB Metoprolol Succinate 25 mg DAILY PO 08/16/24 10:00 08/27/24 09:36 25 MG Spironolactone 25 mg DAILY PO 08/16/24 10:00 08/27/24 09:37 25 MG Furosemide 40 mg BIDD IV 08/16/24 18:00 08/28/24 06:06 40 MG Amiodarone HCl 200 mg Q12HR PO 08/17/24 22:00 08/27/24 21:49 200 MG Empaglifozin 10 mg DAILY PO 08/18/24 10:00 08/27/24 09:37 10 MG Cefazolin Sodium/ Dextrose 50 ml @ 50 mls/hr Q8HR IV 08/22/24 14:00 08/28/24 06:03 50 MLS/HR Insulin Human Regular ACHS SC 08/24/24 22:00 08/28/24 06:06 4 UNITS Diagnostic Test (Pha) 1 strip ACHS 08/24/24 22:00 08/28/24 06:06 1 STRIP objective General alert and oriented HEENT: Atraumatic Neck: No swelling Lungs: Equal air entry and clear to auscultation Cardiovascular: S2 heard no murmur Abdomen: Soft nontender, no organomegaly, mild distended; liver drain + Neuro: Alert and oriented, no focal deficit Psych: Normal mood and affect laboratory and microbiology Laboratory Tests 08/27/24 08:28 Test 08/27/24 08:28 Range/Units Serum Glucose 245 H 74-106 mg/dL Assessment/Plan Patient is a 54-year-old male presented with: MSSA bacteremia Liver abscess Leucocytosis Cirrhosis newly diagnosed uncontrolled diabetes Recommendations Continue IV Cefazolin 2g q [address] chest/ Abd reviewed, large liver abscess s/p US drain 250 cc fluid removed. drain left in place. drainage of abscess done today: send fluid for cultures s/p TALI; no vegetation repeat culture from blood reviewed, no growth midline placed , IV antibiotics for 4 weeks; arrange 3-4 weeks of IV cefazolin, f/u with PCP/ ID in [address] abdomen/ pelvis plan discussed with patient/ primary team Dietary Evaluation Review Comments: Continue current plan of care Expected Outcomes/Goals: F/U in 3-5 days Plan discussed with: EVELIA Morales MD Aug 28, 2024 09:29
--- NOTE | 2024-08-28 11:29 | DVHPN2 ---
Subjective The patient is seen and examined at bedside. No complaint today. No fever or chills. Still waiting for LifeVest Reviewed: Care Plan, H&P, Labs, Medications, Previous Orders, Radiology Changes from previous H/P or p: No Changes General: Per HPI Eyes: No Pain, No Vision change, No Conjunctivae inflammation, No Eyelid inflammation, No Other, No Redness ENT: No Ear pain, No Ear discharge, No Nose pain, No Nose discharge, No Nose congestion, No Mouth pain, No Mouth swelling, No Throat pain, No Throat swelling, No Other Cardiovascular: No Chest Pain, No Palpitations, No Orthopnea, No Paroxysmal Noc. Dyspnea, No Edema, No Lt Headedness, No Other Respiratory: No Cough, No Dry, No Shortness of breath, No SOB with excertion, No Wheezing, No Hemoptysis, No Pleuritic Pain, No Sputum, No Other Gastrointestinal: No Nausea, No Vomiting, No Abdominal Pain, No Diarrhea, No Constipation, No Melena, No Hematochezia, No Other Genitourinary: No Dysuria, No Frequency, No Incontinence, No Hematuria, No Retention, No Other Musculoskeletal: No other, No neck pain, No shoulder pain, No arm pain, No back pain, No hand pain, No leg pain, No foot pain Skin: No Rash, No Lesions, No Jaundice, No Bruising, No Other Objective Vitals Vital Signs Date Time Temp Pulse Resp B/P (MAP) Pulse Ox O2 Delivery O2 Flow Rate FiO2 08/28/24 09:49 85 100/73 08/28/24 08:10 Room Air* 0 21 08/28/24 05:00 98.5 18 96 98.5 Intake/Output Intake and Output 08/28/24 07:00 Intake Total 2230.2 ml Balance 2230.2 ml Intake Oral 2080 ml IV Total 150.2 ml # Voids 6 # Bowel Movements 1 General Appearance: Alert, Oriented X3, Cooperative, No acute distress HEENT: Atraumatic Lungs: Clear to auscultation Cardiovascular: Regular rate, Normal S1, Normal S2 Abdomen: Normal bowel sounds Neuro: Cranial nerves 3-12 NL Psych/Mental Status: Mental status NL Medications Current Medications Medications Dose Ordered Sig/Unruly Route Start Time Stop Time Status Last Admin Dose Admin Lorazepam 1 mg Q2HP PRN IV 08/13/24 14:30 08/14/24 21:21 1 MG Thiamine HCl 100 mg DAILY IV 08/14/24 10:00 08/28/24 09:38 100 MG Folic Acid 1 mg/ Dextrose 50.2 ml @ 200.8 mls/ hr DAILY INJ 08/14/24 10:00 08/28/24 09:42 200.8 MLS/HR Dextrose 50 ml UD PRN IV 08/13/24 14:30 Ondansetron HCl 4 mg Q4HP PRN IV 08/13/24 14:30 Docusate Sodium 100 mg BIDPRN PRN PO 08/13/24 14:30 08/18/24 17:27 100 MG Acetaminophen 650 mg Q6HP PRN PO 08/13/24 14:30 Nitroglycerin 0.4 mg Q5MINP PRN SL 08/13/24 16:45 Sacubitril/ Valsartan 1 tab BID PO 08/15/24 22:00 08/28/24 09:47 1 TAB Metoprolol Succinate 25 mg DAILY PO 08/16/24 10:00 08/28/24 09:49 25 MG Spironolactone 25 mg DAILY PO 08/16/24 10:00 08/28/24 09:47 25 MG Furosemide 40 mg BIDD IV 08/16/24 18:00 08/28/24 06:06 40 MG Amiodarone HCl 200 mg Q12HR PO 08/17/24 22:00 08/28/24 09:49 200 MG Empaglifozin 10 mg DAILY PO 08/18/24 10:00 08/28/24 09:49 10 MG Cefazolin Sodium/ Dextrose 50 ml @ 50 mls/hr Q8HR IV 08/22/24 14:00 08/28/24 06:03 50 MLS/HR Insulin Human Regular ACHS SC 08/24/24 22:00 08/28/24 11:12 8 UNITS Diagnostic Test (Pha) 1 strip ACHS 08/24/24 22:00 08/28/24 11:10 1 STRIP Laboratory Results Laboratory Tests 08/27/24 08:28 Urinalysis Test 08/17/24 21:36 Urine Color Yellow (Yellow) Urine Clarity Clear (Clear) Urine pH 6.0 (5.0-9.0) Urine Specific [place] 1.014 (1.001-1.035) Urine Protein Negative (Negative) Urine Ketones Negative (Negative) Urine Blood Trace /uL (Negative) H Urine Nitrite Negative (Negative) Urine Bilirubin Negative (Negative) Urine Urobilinogen 2 mg/dL (Negative) H Urine Leukocyte Esterase Negative /uL (Negative) Urine RBC 1 /hpf (0 - 3) Urine WBC 2 /hpf (0 - 3) Urine Squamous Epithelial Cells Few /hpf (<5) Urine Bacteria None seen /hpf (None Seen) Urine Hyaline Casts Few /lpf (0 - 2) Urine Mucus Few (None Seen) Urine Glucose 1+ mg/dL (Normal) H Microbiology Microbiology Date/Time Source Procedure Growth Status 08/24/24 09:30 Aspirate Gram Stain - Final Complete 08/24/24 09:30 Body Fluid Culture - Final Staphylococcus aureus Complete 08/19/24 16:10 Blood Blood Culture - Final NO GROWTH AFTER 5 DAYS OF INCUBATION. Complete Assessment/Plan Assessment/Plan Alcohol withdrawal New onset type 2 diabetes mellitus Nonischemic cardiomyopathy Hypertension Hyponatremia Alcohol use, unspecified with withdrawal, uncomplicated a-fib with RVR bacteremia (pre-mota blood cx indicates gram positive) Newly diagnosed acute systolic congestive heart failure (LVEF 25%) Metabolic encephalopathy secondary to hyponatremia versus sepsis Sepsis with persistent bacteremia due to MSSA. Obesity History of ethanol abuse Liver abscess Continuing current management. Continuing with amiodarone. Continuing with IV antibiotic Ancef. Continuing to monitor electrolytes. Continuing with hypertensive medication. Continuing with Entresto. Continuing with anticoagulation. Waiting for LifeVest fit due to cardiomyopathy. The patient will wear LifeVest for couple months, and if not improved, endoscopy technician's we will consider ICD placement Discharge planning. Plan discussed with: Patient Date of Service: Aug 28, 2024 Billing Provider: SHON VILLARREAL MD Common Visit Codes: [id number] INP/OBS CARE(HIGH) SHON VILLARREAL MD Aug 28, 2024 11:29
[2024-08-28 12:45] LABS: Basophils # (auto) 0.1 10 ^3/uL (0-0.2); Basophils % (auto) 0.8 % (0.0-2.0); Eosinophils # (auto) 0.1 10 ^3/uL (0-0.8); Eosinophils % (auto) 1.2 % (0.0-7.0); Hematocrit 37.8 % (41.0-53.0); Hemoglobin 12.8 g/dL (13.5-17.5); Lymphocytes # (auto) 1.8 10 ^3/uL (0.4-5.4); Lymphocytes % (auto) 21.9 % (10.0-50.0); Mean Corpuscular Hgb Conc. 33.9 g/dL (32.0-36.0); Mean Corpuscular Volume 88.4 fL (80.0-100.0); Monocytes # (auto) 0.7 10 ^3/uL (0-1.3); Monocytes % (auto) 8.2 % (0.0-12.0); Neutrophils # (auto) 5.6 10 ^3/uL (1.6-8.6); Neutrophils % (auto) 67.9 % (37.0-80.0); Nucleated Red Blood Cells % 0.2 %; Platelet Count (auto) 518 10^3/uL (140-450); Red Blood Cells 4.27 10^6/uL (4.5-5.90); Red Cell Distribution Width 13.5 % (11.8-14.3); White Blood Cell 8.2 10^3/uL (4.4-10.8)
[2024-08-28 12:55] LABS: Chloride 98 mmol/L (98-107); Potassium 4.1 mmol/L (3.5-5.1); Sodium 131 mmol/L (136-145)
[2024-08-28 12:56] LABS: Anion Gap 7 (5-15); Calcium 9.9 mg/dL (8.7-10.4); Carbon Dioxide 26 mmol/L (20-31)
[2024-08-28 13:01] LABS: BUN/Creatinine Ratio 16.4 (10.0-20.0); Blood Urea Nitrogen 12 mg/dL (9-23); Glucose 153 mg/dL (74-106)
[2024-08-29] VITALS (8 sets, daily range): BP systolic 102–123; BP diastolic 69–91; PULSE 75–95; RESP 16–20; TEMP 97.3–98.6; O2SAT 75–98
--- NOTE | 2024-08-29 11:42 | DVHPN2 ---
Progress Note - Dictate Date Seen: Aug 29, 2024 Medical Necessity Reason Pt with a Central, PICC or Fol: No Subjective no new complaints afebrile wbc normal Abscess drainage US 08/24 : placement of 8 [place] pigtail drain into a liver abscess with 250 mL purulent fluid vital signs Vital Sign Date Time Temp Pulse Resp B/P (MAP) Pulse Ox O2 Delivery O2 Flow Rate FiO2 08/29/24 09:21 82 123/91 08/29/24 09:00 97.3 16 96 97.3 08/29/24 08:20 Room Air* 0 21 Total Intake and Output 08/28/24 08/28/24 08/29/24 15:00 23:00 07:00 Intake Total 50 ml 1260 ml 650 ml Output Total 4 ml 875 ml Balance 50 ml 1256 ml -225 ml medications Current Medications Medications Dose Ordered Sig/Unruly Route Start Time Stop Time Status Last Admin Dose Admin Lorazepam 1 mg Q2HP PRN IV 08/13/24 14:30 08/14/24 21:21 1 MG Thiamine HCl 100 mg DAILY IV 08/14/24 10:00 08/29/24 09:21 100 MG Folic Acid 1 mg/ Dextrose 50.2 ml @ 200.8 mls/ hr DAILY INJ 08/14/24 10:00 08/29/24 09:20 200.8 MLS/HR Dextrose 50 ml UD PRN IV 08/13/24 14:30 Ondansetron HCl 4 mg Q4HP PRN IV 08/13/24 14:30 Docusate Sodium 100 mg BIDPRN PRN PO 08/13/24 14:30 08/18/24 17:27 100 MG Acetaminophen 650 mg Q6HP PRN PO 08/13/24 14:30 Nitroglycerin 0.4 mg Q5MINP PRN SL 08/13/24 16:45 Sacubitril/ Valsartan 1 tab BID PO 08/15/24 22:00 08/29/24 09:22 1 TAB Metoprolol Succinate 25 mg DAILY PO 08/16/24 10:00 08/29/24 09:21 25 MG Spironolactone 25 mg DAILY PO 08/16/24 10:00 08/29/24 09:22 25 MG Furosemide 40 mg BIDD IV 08/16/24 18:00 08/29/24 05:43 40 MG Amiodarone HCl 200 mg Q12HR PO 08/17/24 22:00 08/29/24 09:22 200 MG Empaglifozin 10 mg DAILY PO 08/18/24 10:00 08/29/24 09:23 10 MG Cefazolin Sodium/ Dextrose 50 ml @ 50 mls/hr Q8HR IV 08/22/24 14:00 08/29/24 05:41 50 MLS/HR Insulin Human Regular ACHS SC 08/24/24 22:00 08/29/24 06:30 8 UNITS Diagnostic Test (Pha) 1 strip ACHS 08/24/24 22:00 08/29/24 06:24 1 STRIP objective General alert and oriented HEENT: Atraumatic Neck: No swelling Lungs: Equal air entry and clear to auscultation Cardiovascular: S2 heard no murmur Abdomen: Soft nontender, no organomegaly, mild distended; liver drain + Neuro: Alert and oriented, no focal deficit Psych: Normal mood and affect laboratory and microbiology Laboratory Tests 08/28/24 12:00 Test 08/28/24 12:00 Range/Units Serum Glucose 153 H 74-106 mg/dL Assessment/Plan Patient is a 54-year-old male presented with: MSSA bacteremia Liver abscess Leucocytosis Cirrhosis newly diagnosed uncontrolled diabetes Recommendations Continue IV Cefazolin 2g q [address] chest/ Abd reviewed, large liver abscess s/p US drain 250 cc fluid removed. drain left in place. drainage of abscess done today: send fluid for cultures s/p TALI; no vegetation repeat culture from blood reviewed, no growth midline placed , IV antibiotics for 4 weeks; arrange 3-4 weeks of IV cefazolin, f/u with PCP/ ID in [address] abdomen/ pelvis plan discussed with patient/ primary team Dietary Evaluation Review Comments: Continue current plan of care Expected Outcomes/Goals: F/U in 3-5 days Plan discussed with: EVELIA Morales MD Aug 29, 2024 11:42
--- NOTE | 2024-08-29 17:26 | DVHPN2 ---
Subjective Patient denies any symptoms at this time. Reviewed: Care Plan, H&P, Labs, Medications, Previous Orders, Radiology Changes from previous H/P or p: No Changes General: Per HPI Eyes: No Pain, No Vision change, No Conjunctivae inflammation, No Eyelid inflammation, No Other, No Redness ENT: No Ear pain, No Ear discharge, No Nose pain, No Nose discharge, No Nose congestion, No Mouth pain, No Mouth swelling, No Throat pain, No Throat swelling, No Other Cardiovascular: No Chest Pain, No Palpitations, No Orthopnea, No Paroxysmal Noc. Dyspnea, No Edema, No Lt Headedness, No Other Respiratory: No Cough, No Dry, No Shortness of breath, No SOB with excertion, No Wheezing, No Hemoptysis, No Pleuritic Pain, No Sputum, No Other Gastrointestinal: No Nausea, No Vomiting, No Abdominal Pain, No Diarrhea, No Constipation, No Melena, No Hematochezia, No Other Genitourinary: No Dysuria, No Frequency, No Incontinence, No Hematuria, No Retention, No Other Musculoskeletal: No other, No neck pain, No shoulder pain, No arm pain, No back pain, No hand pain, No leg pain, No foot pain Skin: No Rash, No Lesions, No Jaundice, No Bruising, No Other Objective Vitals Vital Signs Date Time Temp Pulse Resp B/P (MAP) Pulse Ox O2 Delivery O2 Flow Rate FiO2 08/29/24 12:46 97.7 75 17 107/76 (86) 98 97.7 08/29/24 08:20 Room Air* 0 21 Intake/Output Intake and Output 08/29/24 07:00 Intake Total 1960 ml Output Total 879 ml Balance 1081 ml Intake Oral 1810 ml IV Total 150 ml Output Urine Total 804 ml Drainage Total 75 ml # Bowel Movements 1 General Appearance: Alert, Oriented X3, Cooperative, No acute distress HEENT: Atraumatic, PERRLA Lungs: Clear to auscultation Cardiovascular: Regular rate, Normal S1, Normal S2 Abdomen: Normal bowel sounds, Other (Abdominal drain with persistent pustulant drainage.) Neuro: Cranial nerves 3-12 NL Psych/Mental Status: Mental status NL Medications Current Medications Medications Dose Ordered Sig/Unruly Route Start Time Stop Time Status Last Admin Dose Admin Lorazepam 1 mg Q2HP PRN IV 08/13/24 14:30 08/14/24 21:21 1 MG Thiamine HCl 100 mg DAILY IV 08/14/24 10:00 08/29/24 09:21 100 MG Folic Acid 1 mg/ Dextrose 50.2 ml @ 200.8 mls/ hr DAILY INJ 08/14/24 10:00 08/29/24 09:20 200.8 MLS/HR Dextrose 50 ml UD PRN IV 08/13/24 14:30 Ondansetron HCl 4 mg Q4HP PRN IV 08/13/24 14:30 Docusate Sodium 100 mg BIDPRN PRN PO 08/13/24 14:30 08/18/24 17:27 100 MG Acetaminophen 650 mg Q6HP PRN PO 08/13/24 14:30 Nitroglycerin 0.4 mg Q5MINP PRN SL 08/13/24 16:45 Sacubitril/ Valsartan 1 tab BID PO 08/15/24 22:00 08/29/24 09:22 1 TAB Metoprolol Succinate 25 mg DAILY PO 08/16/24 10:00 08/29/24 09:21 25 MG Spironolactone 25 mg DAILY PO 08/16/24 10:00 08/29/24 09:22 25 MG Amiodarone HCl 200 mg Q12HR PO 08/17/24 22:00 08/29/24 09:22 200 MG Empaglifozin 10 mg DAILY PO 08/18/24 10:00 08/29/24 09:23 10 MG Cefazolin Sodium/ Dextrose 50 ml @ 50 mls/hr Q8HR IV 08/22/24 14:00 08/29/24 14:01 50 MLS/HR Insulin Human Regular ACHS SC 08/24/24 22:00 08/29/24 17:02 4 UNITS Diagnostic Test (Pha) 1 strip ACHS 08/24/24 22:00 08/29/24 17:03 1 STRIP Furosemide 40 mg DAILY IV 08/30/24 10:00 Saccharomyces Boulardii 250 mg DAILY PO 08/30/24 10:00 Laboratory Results Laboratory Tests 08/28/24 12:00 Urinalysis Test 08/17/24 21:36 Urine Color Yellow (Yellow) Urine Clarity Clear (Clear) Urine pH 6.0 (5.0-9.0) Urine Specific [place] 1.014 (1.001-1.035) Urine Protein Negative (Negative) Urine Ketones Negative (Negative) Urine Blood Trace /uL (Negative) H Urine Nitrite Negative (Negative) Urine Bilirubin Negative (Negative) Urine Urobilinogen 2 mg/dL (Negative) H Urine Leukocyte Esterase Negative /uL (Negative) Urine RBC 1 /hpf (0 - 3) Urine WBC 2 /hpf (0 - 3) Urine Squamous Epithelial Cells Few /hpf (<5) Urine Bacteria None seen /hpf (None Seen) Urine Hyaline Casts Few /lpf (0 - 2) Urine Mucus Few (None Seen) Urine Glucose 1+ mg/dL (Normal) H Microbiology Microbiology Date/Time Source Procedure Growth Status 08/24/24 09:30 Aspirate Gram Stain - Final Complete 08/24/24 09:30 Body Fluid Culture - Final Staphylococcus aureus Complete 08/19/24 16:10 Blood Blood Culture - Final NO GROWTH AFTER 5 DAYS OF INCUBATION. Complete Labs and/or images reviewed: Labs reviewed by me, Image(s) reviewed by me Assessment/Plan Assessment/Plan Impression: -sepsis secondary to liver abscess, Staphylococcus aureus in blood and liver aspirate -new onset diabetes mellitus with severe uncontrolled hyperglycemia -acute systolic heart failure with ejection fraction 25% -pulmonary hypertension with right ventricular systolic heart failure -obesity -alcoholism Plan: -continue antibiotic therapy with Ancef. Follow up with ID for further recommendations. WBC normal -start probiotic given patient reported abdominal discomfort -continue goal-directed medical therapy for heart failure. Given patient's acute respiratory failure and O2 supplementation has improved, wean IV Lasix -continue regular insulin sliding scale. Start Lantus 15 units q.h.s. -PUD, DVT prophylaxis -social service consultation for discharge planning. Apparently, patient was currently being evaluated to be placed at a correction facility given his required three more week course of IV antibiotics. -repeat labs and chest x-ray in a.m. Total time spent with patient discussing and formulating plan of care: 35 minutes. This medical document was created using an electronic medical record system with [employer] dictation system. Although this document has been carefully reviewed, there may still be some phonetic and typographical errors. These areas are purely typographical due to imperfections of the software programs, and do not reflect any compromise in the patient's medical care. Plan discussed with: Patient, Other (RN) My Orders Orders - PEPPER KUMAR NP Procedure Category Date Status Time Basic Metabolic Panel LAB 08/30/24 Verified 04:00 Chest Portable XY 08/30/24 Logged 04:00 Furosemide Injection PHA 08/30/24 In Process (Lasix Injection) 10:00 Florastor (S. PHA 08/30/24 In Process Boulardii) (Florastor) 10:00 Insulin Lantus PHA 08/29/24 Verified (Glargine) (Lantus) 22:00 Glucose Blood PHA 08/29/24 Verified (Accu-Chek Comfort 22:00 Bedtime Insulin Scale PHA 08/29/24 Verified 22:00 Moderate Insulin Ss PHA 08/30/24 Verified 07:00 Dextrose 50% Syringe PHA 08/29/24 Verified 17:30 Date of Service: Aug 29, 2024 Billing Provider: PEPPER KUMAR NP Common Visit Codes: [id number] INP/OBS CARE(HIGH) PEPPER KUMAR NP Aug 29, 2024 17:26
[2024-08-29] MEDS ORDERED: DEXTROSE (50%) 50ML SYRG IV PRN (17:30)
[2024-08-29] MEDS: InsuLIN REG 1unit/0.01ml Soln (100units/ml) SC SCH ×2 (21:42→21:47)
[2024-08-29] MEDS: INSULIN LANTUS (GLARGINE) 1 /0.01ml (100units/ml) SC SCH (21:42)
[2024-08-29] MEDS: ACCU-CHEK COMFORT CURVE STRIP VI SCH (21:43)
[2024-08-30] VITALS (7 sets, daily range): BP systolic 104–115; BP diastolic 69–82; PULSE 67–78; RESP 18–20; TEMP 97.9–98.1; O2SAT 93–98
--- NOTE | 2024-08-30 07:04 | DVH ---
CLINICAL INFORMATION: 54 years old, Male; congestive heart failure. TECHNIQUE: Single AP portable chest radiograph was obtained. COMPARISON: XY CHEST XRAY 1 VIEW on DOS: 08/16/24, XY CHEST XRAY 1 VIEW on DOS: 08/14/24 FINDINGS: Lungs: Low lung volumes with mild bibasilar atelectasis. Mild perihilar interstitial opacities. Cardiac: Heart size is at the upper limits of normal, may be accentuated due to portable AP technique . Pulmonary vasculature: Prominence of the pulmonary vasculature Mediastinum/desmond: Unremarkable. Bones: No acute osseous abnormality identified. Other: No other significant findings. IMPRESSION: Prominence of the pulmonary vasculature and mild perihilar interstitial opacities, may be seen with p ulmonary vascular congestion in the appropriate clinical setting.
[2024-08-30 07:44] LABS: Chloride 99 mmol/L (98-107); Potassium 4.4 mmol/L (3.5-5.1)
[2024-08-30 07:45] LABS: Anion Gap 7 (5-15); Carbon Dioxide 27 mmol/L (20-31)
[2024-08-30 07:46] LABS: Sodium 133 mmol/L (136-145)
[2024-08-30 07:51] LABS: BUN/Creatinine Ratio 13.9 (10.0-20.0); Blood Urea Nitrogen 10 mg/dL (9-23)
[2024-08-30 07:58] LABS: Glucose 169 mg/dL (74-106)
[2024-08-30] MEDS: FLORASTOR (S. BOULARDII) 250 MG CAP PO SCH (09:18)
[2024-08-30] MEDS: FUROSEMIDE 40 MG/4 ML VIAL IV SCH (09:19)
--- NOTE | 2024-08-30 12:51 | DVHPN2 ---
Progress Note - Dictate Date Seen: Aug 30, 2024 Medical Necessity Reason Pt with a Central, PICC or Fol: No Subjective no new complaints afebrile normal wbc Abscess drainage US 08/24 : placement of 8 [place] pigtail drain into a liver abscess with 250 mL purulent fluid 08/30, Chest x-ray revealed: Prominence of the pulmonary vasculature and mild perihilar interstitial opacities, may be seen with pulmonary vascular congestion in the appropriate clinical setting. vital signs Vital Sign Date Time Temp Pulse Resp B/P (MAP) Pulse Ox O2 Delivery O2 Flow Rate FiO2 08/30/24 09:20 74 115/82 08/30/24 08:30 98.1 19 97 98.1 08/30/24 07:44 Room Air* 0 21 Total Intake and Output 08/29/24 08/29/24 08/30/24 15:00 23:00 07:00 Intake Total 50 ml 1430 ml 1400 ml Output Total 125 ml Balance 50 ml 1305 ml 1400 ml medications Current Medications Medications Dose Ordered Sig/Unruly Route Start Time Stop Time Status Last Admin Dose Admin Lorazepam 1 mg Q2HP PRN IV 08/13/24 14:30 08/14/24 21:21 1 MG Thiamine HCl 100 mg DAILY IV 08/14/24 10:00 08/30/24 09:18 100 MG Folic Acid 1 mg/ Dextrose 50.2 ml @ 200.8 mls/ hr DAILY INJ 08/14/24 10:00 08/30/24 09:35 200.8 MLS/HR Ondansetron HCl 4 mg Q4HP PRN IV 08/13/24 14:30 Docusate Sodium 100 mg BIDPRN PRN PO 08/13/24 14:30 08/18/24 17:27 100 MG Acetaminophen 650 mg Q6HP PRN PO 08/13/24 14:30 Nitroglycerin 0.4 mg Q5MINP PRN SL 08/13/24 16:45 Sacubitril/ Valsartan 1 tab BID PO 08/15/24 22:00 08/30/24 09:18 1 TAB Metoprolol Succinate 25 mg DAILY PO 08/16/24 10:00 08/30/24 09:20 25 MG Spironolactone 25 mg DAILY PO 08/16/24 10:00 08/30/24 09:20 25 MG Amiodarone HCl 200 mg Q12HR PO 08/17/24 22:00 08/30/24 09:20 200 MG Empaglifozin 10 mg DAILY PO 08/18/24 10:00 08/30/24 09:20 10 MG Cefazolin Sodium/ Dextrose 50 ml @ 50 mls/hr Q8HR IV 08/22/24 14:00 08/30/24 06:46 50 MLS/HR Furosemide 40 mg DAILY IV 08/30/24 10:00 08/30/24 09:19 40 MG Saccharomyces Boulardii 250 mg DAILY PO 08/30/24 10:00 08/30/24 09:18 250 MG Insulin Glargine 15 units HS SC 08/29/24 22:00 08/29/24 21:42 15 UNITS Diagnostic Test (Pha) 1 strip ACHS 08/29/24 22:00 08/30/24 11:30 1 STRIP Insulin Human Regular HS SC 08/29/24 22:00 08/29/24 21:47 4 UNITS Insulin Human Regular AC SC 08/30/24 07:00 08/30/24 12:21 3 UNITS Dextrose 50 ml UD PRN IV 08/29/24 17:30 objective General alert and oriented HEENT: Atraumatic Neck: No swelling Lungs: Equal air entry and clear to auscultation Cardiovascular: S2 heard no murmur Abdomen: Soft nontender, no organomegaly, mild distended; liver drain + Neuro: Alert and oriented, no focal deficit Psych: Normal mood and affect laboratory and microbiology Laboratory Tests 08/30/24 06:55 08/28/24 12:00 Test 08/30/24 06:55 Range/Units Serum Glucose 169 H 74-106 mg/dL Assessment/Plan Patient is a 54-year-old male presented with: MSSA bacteremia Liver abscess Leucocytosis Cirrhosis newly diagnosed uncontrolled diabetes Recommendations Continue IV Cefazolin 2g q [address] chest/ Abd reviewed, large liver abscess s/p US drain 250 cc fluid removed. drain left in place. drainage of abscess done today: send fluid for cultures s/p TALI; no vegetation repeat culture from blood reviewed, no growth midline placed , IV antibiotics for 4 weeks; arrange 3-4 weeks of IV cefazolin, f/u with PCP/ ID in [address] abdomen/ pelvis plan discussed with patient/ primary team Dietary Evaluation Review Comments: Continue current plan of care Expected Outcomes/Goals: F/U in 3-5 days Plan discussed with: Other EVELIA OWENS MD Aug 30, 2024 12:51
[2024-08-31] VITALS (9 sets, daily range): BP systolic 107–135; BP diastolic 71–90; PULSE 66–81; RESP 16–18; TEMP 97.5–99.4; O2SAT 92–100
--- NOTE | 2024-08-31 09:41 | DVHPN2 ---
Progress Note - Dictate Date Seen: Aug 31, 2024 Medical Necessity Reason Pt with a Central, PICC or Fol: No Subjective no new complaints afebrile normal wbc Abscess drainage US 08/24 : Placement of 8 [place] pigtail drain into a liver abscess with 250 mL purulent fluid 08/30, Chest x-ray revealed: Prominence of the pulmonary vasculature and mild perihilar interstitial opacities, may be seen with pulmonary vascular congestion in the appropriate clinical setting. vital signs Vital Sign Date Time Temp Pulse Resp B/P (MAP) Pulse Ox O2 Delivery O2 Flow Rate FiO2 08/31/24 09:09 68 126/70 08/31/24 07:57 Room Air* 0 21 08/31/24 05:00 98.0 18 92 98.0 Total Intake and Output 08/30/24 08/30/24 08/31/24 15:00 23:00 07:00 Intake Total 50 ml 1150 ml 800 ml Balance 50 ml 1150 ml 800 ml medications Current Medications Medications Dose Ordered Sig/Unruly Route Start Time Stop Time Status Last Admin Dose Admin Lorazepam 1 mg Q2HP PRN IV 08/13/24 14:30 08/14/24 21:21 1 MG Thiamine HCl 100 mg DAILY IV 08/14/24 10:00 08/31/24 09:08 100 MG Folic Acid 1 mg/ Dextrose 50.2 ml @ 200.8 mls/ hr DAILY INJ 08/14/24 10:00 08/31/24 09:11 200.8 MLS/HR Ondansetron HCl 4 mg Q4HP PRN IV 08/13/24 14:30 Docusate Sodium 100 mg BIDPRN PRN PO 08/13/24 14:30 08/18/24 17:27 100 MG Acetaminophen 650 mg Q6HP PRN PO 08/13/24 14:30 Nitroglycerin 0.4 mg Q5MINP PRN SL 08/13/24 16:45 Sacubitril/ Valsartan 1 tab BID PO 08/15/24 22:00 08/31/24 09:09 1 TAB Metoprolol Succinate 25 mg DAILY PO 08/16/24 10:00 08/31/24 09:09 25 MG Spironolactone 25 mg DAILY PO 08/16/24 10:00 08/31/24 09:09 25 MG Amiodarone HCl 200 mg Q12HR PO 08/17/24 22:00 08/31/24 09:09 200 MG Empaglifozin 10 mg DAILY PO 08/18/24 10:00 08/31/24 09:09 10 MG Cefazolin Sodium/ Dextrose 50 ml @ 50 mls/hr Q8HR IV 08/22/24 14:00 08/31/24 06:09 50 MLS/HR Furosemide 40 mg DAILY IV 08/30/24 10:00 08/31/24 09:08 40 MG Saccharomyces Boulardii 250 mg DAILY PO 08/30/24 10:00 08/31/24 09:09 250 MG Insulin Glargine 15 units HS SC 08/29/24 22:00 08/30/24 21:33 15 UNITS Diagnostic Test (Pha) 1 strip ACHS 08/29/24 22:00 08/31/24 05:53 1 STRIP Insulin Human Regular HS SC 08/29/24 22:00 08/30/24 21:34 4 UNITS Insulin Human Regular AC SC 08/30/24 07:00 08/31/24 05:58 2 UNITS Dextrose 50 ml UD PRN IV 08/29/24 17:30 objective General alert and oriented HEENT: Atraumatic Neck: No swelling Lungs: Equal air entry and clear to auscultation Cardiovascular: S2 heard no murmur Abdomen: Soft nontender, no organomegaly, mild distended; liver drain + Neuro: Alert and oriented, no focal deficit Psych: Normal mood and affect laboratory and microbiology Laboratory Tests 08/30/24 06:55 08/28/24 12:00 Test 08/30/24 06:55 Range/Units Serum Glucose 169 H 74-106 mg/dL Assessment/Plan Patient is a 54-year-old male presented with: MSSA bacteremia Liver abscess Leucocytosis Cirrhosis newly diagnosed uncontrolled diabetes Recommendations Continue IV Cefazolin 2g q [address] chest/ Abd reviewed, large liver abscess s/p US drain 250 cc fluid removed. drain left in place. drainage of abscess done today: send fluid for cultures s/p TALI; no vegetation repeat culture from blood reviewed, no growth midline placed , IV antibiotics for 4 weeks; arrange 3-4 weeks of IV cefazolin, f/u with PCP/ ID in [address] abdomen/ pelvis plan discussed with patient/ primary team Dietary Evaluation Review Comments: Continue current plan of care Expected Outcomes/Goals: F/U in 3-5 days Plan discussed with: Other EVELIA OWENS MD Aug 31, 2024 09:41
--- NOTE | 2024-08-31 12:17 | DVHPN2 ---
Subjective The patient is seen and examined at bedside. No complaint today. No fever or chills. Still waiting for LifeVest Reviewed: Care Plan, H&P, Labs, Medications, Previous Orders, Radiology Changes from previous H/P or p: No Changes General: Per HPI Eyes: No Pain, No Vision change, No Conjunctivae inflammation, No Eyelid inflammation, No Other, No Redness ENT: No Ear pain, No Ear discharge, No Nose pain, No Nose discharge, No Nose congestion, No Mouth pain, No Mouth swelling, No Throat pain, No Throat swelling, No Other Cardiovascular: No Chest Pain, No Palpitations, No Orthopnea, No Paroxysmal Noc. Dyspnea, No Edema, No Lt Headedness, No Other Respiratory: No Cough, No Dry, No Shortness of breath, No SOB with excertion, No Wheezing, No Hemoptysis, No Pleuritic Pain, No Sputum, No Other Gastrointestinal: No Nausea, No Vomiting, No Abdominal Pain, No Diarrhea, No Constipation, No Melena, No Hematochezia, No Other Genitourinary: No Dysuria, No Frequency, No Incontinence, No Hematuria, No Retention, No Other Musculoskeletal: No other, No neck pain, No shoulder pain, No arm pain, No back pain, No hand pain, No leg pain, No foot pain Skin: No Rash, No Lesions, No Jaundice, No Bruising, No Other Objective Vitals Vital Signs Date Time Temp Pulse Resp B/P (MAP) Pulse Ox O2 Delivery O2 Flow Rate FiO2 08/31/24 09:09 68 126/70 08/31/24 09:00 98.3 18 96 98.3 08/31/24 07:57 Room Air* 0 21 Intake/Output Intake and Output 08/31/24 07:00 Intake Total 2000 ml Balance 2000 ml Intake Oral 1900 ml IV Total 100 ml # Voids 11 # Bowel Movements 2 General Appearance: Alert, Oriented X3, Cooperative, No acute distress HEENT: Atraumatic Lungs: Clear to auscultation Cardiovascular: Regular rate, Normal S1, Normal S2 Abdomen: Normal bowel sounds Neuro: Cranial nerves 3-12 NL Psych/Mental Status: Mental status NL Medications Current Medications Medications Dose Ordered Sig/Unruly Route Start Time Stop Time Status Last Admin Dose Admin Lorazepam 1 mg Q2HP PRN IV 08/13/24 14:30 08/14/24 21:21 1 MG Thiamine HCl 100 mg DAILY IV 08/14/24 10:00 08/31/24 09:08 100 MG Folic Acid 1 mg/ Dextrose 50.2 ml @ 200.8 mls/ hr DAILY INJ 08/14/24 10:00 08/31/24 09:11 200.8 MLS/HR Ondansetron HCl 4 mg Q4HP PRN IV 08/13/24 14:30 Docusate Sodium 100 mg BIDPRN PRN PO 08/13/24 14:30 08/18/24 17:27 100 MG Acetaminophen 650 mg Q6HP PRN PO 08/13/24 14:30 Nitroglycerin 0.4 mg Q5MINP PRN SL 08/13/24 16:45 Sacubitril/ Valsartan 1 tab BID PO 08/15/24 22:00 08/31/24 09:09 1 TAB Metoprolol Succinate 25 mg DAILY PO 08/16/24 10:00 08/31/24 09:09 25 MG Spironolactone 25 mg DAILY PO 08/16/24 10:00 08/31/24 09:09 25 MG Amiodarone HCl 200 mg Q12HR PO 08/17/24 22:00 08/31/24 09:09 200 MG Empaglifozin 10 mg DAILY PO 08/18/24 10:00 08/31/24 09:09 10 MG Cefazolin Sodium/ Dextrose 50 ml @ 50 mls/hr Q8HR IV 08/22/24 14:00 08/31/24 06:09 50 MLS/HR Furosemide 40 mg DAILY IV 08/30/24 10:00 08/31/24 09:08 40 MG Saccharomyces Boulardii 250 mg DAILY PO 08/30/24 10:00 08/31/24 09:09 250 MG Insulin Glargine 15 units HS SC 08/29/24 22:00 08/30/24 21:33 15 UNITS Diagnostic Test (Pha) 1 strip ACHS 08/29/24 22:00 08/31/24 11:21 1 STRIP Insulin Human Regular HS SC 08/29/24 22:00 08/30/24 21:34 4 UNITS Insulin Human Regular AC SC 08/30/24 07:00 08/31/24 11:22 3 UNITS Dextrose 50 ml UD PRN IV 08/29/24 17:30 Laboratory Results Laboratory Tests 08/28/24 12:00 08/30/24 06:55 Urinalysis Test 08/17/24 21:36 Urine Color Yellow (Yellow) Urine Clarity Clear (Clear) Urine pH 6.0 (5.0-9.0) Urine Specific [place] 1.014 (1.001-1.035) Urine Protein Negative (Negative) Urine Ketones Negative (Negative) Urine Blood Trace /uL (Negative) H Urine Nitrite Negative (Negative) Urine Bilirubin Negative (Negative) Urine Urobilinogen 2 mg/dL (Negative) H Urine Leukocyte Esterase Negative /uL (Negative) Urine RBC 1 /hpf (0 - 3) Urine WBC 2 /hpf (0 - 3) Urine Squamous Epithelial Cells Few /hpf (<5) Urine Bacteria None seen /hpf (None Seen) Urine Hyaline Casts Few /lpf (0 - 2) Urine Mucus Few (None Seen) Urine Glucose 1+ mg/dL (Normal) H Microbiology Microbiology Date/Time Source Procedure Growth Status 08/24/24 09:30 Aspirate Gram Stain - Final Complete 08/24/24 09:30 Body Fluid Culture - Final Staphylococcus aureus Complete 08/19/24 16:10 Blood Blood Culture - Final NO GROWTH AFTER 5 DAYS OF INCUBATION. Complete Labs and/or images reviewed: Labs reviewed by me Assessment/Plan Assessment/Plan Alcohol withdrawal New onset type 2 diabetes mellitus Nonischemic cardiomyopathy Hypertension Hyponatremia Alcohol use, unspecified with withdrawal, uncomplicated a-fib with RVR bacteremia (pre-mota blood cx indicates gram positive) Newly diagnosed acute systolic congestive heart failure (LVEF 25%) Metabolic encephalopathy secondary to hyponatremia versus sepsis Sepsis with persistent bacteremia due to MSSA. Obesity History of ethanol abuse Liver abscess Continuing current management. Continuing with amiodarone. Continuing with IV antibiotic Ancef. Continuing to monitor electrolytes. Continuing with hypertensive medication. Continuing with Entresto. Continuing with anticoagulation. Waiting for LifeVest delivery due to cardiomyopathy. 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 Plan discussed with: Patient Date of Service: Aug 31, 2024 Billing Provider: SHON VILLARREAL MD Common Visit Codes: [id number] INP/OBS CARE(HIGH) SHON VILLARREAL MD Aug 31, 2024 12:17
[2024-09-01] VITALS (8 sets, daily range): BP systolic 104–113; BP diastolic 70–80; PULSE 59–77; RESP 16–18; TEMP 98.1–98.6; O2SAT 90–96
--- NOTE | 2024-09-01 11:02 | DVHPN2 ---
Progress Note - Dictate Date Seen: Sep 01, 2024 Medical Necessity Reason Pt with a Central, PICC or Fol: No Subjective No new acute complaints noted. Still waiting for LifeVest Abscess drainage US 08/24 : Placement of 8 [place] pigtail drain into a liver abscess with 250 mL purulent fluid 08/30, Chest x-ray revealed: Prominence of the pulmonary vasculature and mild perihilar interstitial opacities, may be seen with pulmonary vascular congestion in the appropriate clinical setting. vital signs Vital Sign Date Time Temp Pulse Resp B/P (MAP) Pulse Ox O2 Delivery O2 Flow Rate FiO2 09/01/24 09:51 67 111/80 09/01/24 09:00 98.6 16 94 98.6 09/01/24 08:15 Room Air* 0 21 Total Intake and Output 08/31/24 08/31/24 09/01/24 15:00 23:00 07:00 Intake Total 100.2 ml 1027 ml 650 ml Balance 100.2 ml 1027 ml 650 ml medications Current Medications Medications Dose Ordered Sig/Unruly Route Start Time Stop Time Status Last Admin Dose Admin Lorazepam 1 mg Q2HP PRN IV 08/13/24 14:30 08/14/24 21:21 1 MG Thiamine HCl 100 mg DAILY IV 08/14/24 10:00 09/01/24 09:50 100 MG Folic Acid 1 mg/ Dextrose 50.2 ml @ 200.8 mls/ hr DAILY INJ 08/14/24 10:00 09/01/24 10:13 200.8 MLS/HR Ondansetron HCl 4 mg Q4HP PRN IV 08/13/24 14:30 Docusate Sodium 100 mg BIDPRN PRN PO 08/13/24 14:30 08/18/24 17:27 100 MG Acetaminophen 650 mg Q6HP PRN PO 08/13/24 14:30 Nitroglycerin 0.4 mg Q5MINP PRN SL 08/13/24 16:45 Sacubitril/ Valsartan 1 tab BID PO 08/15/24 22:00 09/01/24 09:50 1 TAB Metoprolol Succinate 25 mg DAILY PO 08/16/24 10:00 09/01/24 09:51 25 MG Spironolactone 25 mg DAILY PO 08/16/24 10:00 09/01/24 09:52 25 MG Amiodarone HCl 200 mg Q12HR PO 08/17/24 22:00 09/01/24 09:51 200 MG Empaglifozin 10 mg DAILY PO 08/18/24 10:00 09/01/24 09:52 10 MG Cefazolin Sodium/ Dextrose 50 ml @ 50 mls/hr Q8HR IV 08/22/24 14:00 09/01/24 06:24 50 MLS/HR Furosemide 40 mg DAILY IV 08/30/24 10:00 09/01/24 09:50 40 MG Saccharomyces Boulardii 250 mg DAILY PO 08/30/24 10:00 09/01/24 09:51 250 MG Insulin Glargine 15 units HS SC 08/29/24 22:00 08/31/24 22:26 15 UNITS Diagnostic Test (Pha) 1 strip ACHS 08/29/24 22:00 09/01/24 06:43 1 STRIP Insulin Human Regular HS SC 08/29/24 22:00 08/31/24 22:25 4 UNITS Insulin Human Regular AC SC 08/30/24 07:00 09/01/24 06:23 3 UNITS Dextrose 50 ml UD PRN IV 08/29/24 17:30 objective General alert and oriented HEENT: Atraumatic Neck: No swelling Lungs: Equal air entry and clear to auscultation Cardiovascular: S2 heard no murmur Abdomen: Soft nontender, no organomegaly, mild distended; liver drain + Neuro: Alert and oriented, no focal deficit Psych: Normal mood and affect laboratory and microbiology Laboratory Tests 08/30/24 06:55 08/28/24 12:00 Test 08/30/24 06:55 Range/Units Serum Glucose 169 H 74-106 mg/dL Assessment/Plan Patient is a 54-year-old male presented with: MSSA bacteremia Liver abscess Leucocytosis Cirrhosis newly diagnosed uncontrolled diabetes Cardiomyopathy Recommendations waiting for life vest Continue IV Cefazolin 2g q [address] chest/ Abd reviewed, large liver abscess s/p US drain 250 cc fluid removed. drain left in place. drainage of abscess done today: send fluid for cultures s/p ATLI; no vegetation repeat culture from blood reviewed, no growth midline placed , IV antibiotics for 4 weeks; arrange 3-4 weeks of IV cefazolin, f/u with PCP/ ID in [address] abdomen/ pelvis plan discussed with patient/ primary team Dietary Evaluation Review Comments: Continue current plan of care Expected Outcomes/Goals: F/U in 3-5 days Plan discussed with: EVELIA Morales MD Sep 01, 2024 11:02
--- NOTE | 2024-09-01 14:07 | DVHPN2 ---
Subjective The patient is seen and examined at bedside. No complaint today. No fever or chills. LifeVest delivery. Still waiting for IV antibiotic and penitentiary arrangement. Reviewed: Care Plan, H&P, Labs, Medications, Previous Orders, Radiology Changes from previous H/P or p: No Changes General: Per HPI Eyes: No Pain, No Vision change, No Conjunctivae inflammation, No Eyelid inflammation, No Other, No Redness ENT: No Ear pain, No Ear discharge, No Nose pain, No Nose discharge, No Nose congestion, No Mouth pain, No Mouth swelling, No Throat pain, No Throat swelling, No Other Cardiovascular: No Chest Pain, No Palpitations, No Orthopnea, No Paroxysmal Noc. Dyspnea, No Edema, No Lt Headedness, No Other Respiratory: No Cough, No Dry, No Shortness of breath, No SOB with excertion, No Wheezing, No Hemoptysis, No Pleuritic Pain, No Sputum, No Other Gastrointestinal: No Nausea, No Vomiting, No Abdominal Pain, No Diarrhea, No Constipation, No Melena, No Hematochezia, No Other Genitourinary: No Dysuria, No Frequency, No Incontinence, No Hematuria, No Retention, No Other Musculoskeletal: No other, No neck pain, No shoulder pain, No arm pain, No back pain, No hand pain, No leg pain, No foot pain Skin: No Rash, No Lesions, No Jaundice, No Bruising, No Other Objective Vitals Vital Signs Date Time Temp Pulse Resp B/P (MAP) Pulse Ox O2 Delivery O2 Flow Rate FiO2 09/01/24 09:51 67 111/80 09/01/24 09:00 98.6 16 94 98.6 09/01/24 08:15 Room Air* 0 21 Intake/Output Intake and Output 09/01/24 07:00 Intake Total 1777.2 ml Balance 1777.2 ml Intake Oral 1577 ml IV Total 200.2 ml # Voids 10 # Bowel Movements 2 General Appearance: Alert, Oriented X3, Cooperative, No acute distress HEENT: Atraumatic Lungs: Clear to auscultation Cardiovascular: Regular rate, Normal S1, Normal S2 Abdomen: Normal bowel sounds Neuro: Cranial nerves 3-12 NL Psych/Mental Status: Mental status NL Medications Current Medications Medications Dose Ordered Sig/Unruly Route Start Time Stop Time Status Last Admin Dose Admin Lorazepam 1 mg Q2HP PRN IV 08/13/24 14:30 08/14/24 21:21 1 MG Thiamine HCl 100 mg DAILY IV 08/14/24 10:00 09/01/24 09:50 100 MG Folic Acid 1 mg/ Dextrose 50.2 ml @ 200.8 mls/ hr DAILY INJ 08/14/24 10:00 09/01/24 10:13 200.8 MLS/HR Ondansetron HCl 4 mg Q4HP PRN IV 08/13/24 14:30 Docusate Sodium 100 mg BIDPRN PRN PO 08/13/24 14:30 08/18/24 17:27 100 MG Acetaminophen 650 mg Q6HP PRN PO 08/13/24 14:30 Nitroglycerin 0.4 mg Q5MINP PRN SL 08/13/24 16:45 Sacubitril/ Valsartan 1 tab BID PO 08/15/24 22:00 09/01/24 09:50 1 TAB Metoprolol Succinate 25 mg DAILY PO 08/16/24 10:00 09/01/24 09:51 25 MG Spironolactone 25 mg DAILY PO 08/16/24 10:00 09/01/24 09:52 25 MG Amiodarone HCl 200 mg Q12HR PO 08/17/24 22:00 09/01/24 09:51 200 MG Empaglifozin 10 mg DAILY PO 08/18/24 10:00 09/01/24 09:52 10 MG Cefazolin Sodium/ Dextrose 50 ml @ 50 mls/hr Q8HR IV 08/22/24 14:00 09/01/24 06:24 50 MLS/HR Furosemide 40 mg DAILY IV 08/30/24 10:00 09/01/24 09:50 40 MG Saccharomyces Boulardii 250 mg DAILY PO 08/30/24 10:00 09/01/24 09:51 250 MG Insulin Glargine 15 units HS SC 08/29/24 22:00 08/31/24 22:26 15 UNITS Diagnostic Test (Pha) 1 strip ACHS 08/29/24 22:00 09/01/24 11:51 1 STRIP Insulin Human Regular HS SC 08/29/24 22:00 08/31/24 22:25 4 UNITS Insulin Human Regular AC SC 08/30/24 07:00 09/01/24 11:51 6 UNITS Dextrose 50 ml UD PRN IV 08/29/24 17:30 Laboratory Results Laboratory Tests 08/28/24 12:00 08/30/24 06:55 Urinalysis Test 08/17/24 21:36 Urine Color Yellow (Yellow) Urine Clarity Clear (Clear) Urine pH 6.0 (5.0-9.0) Urine Specific [place] 1.014 (1.001-1.035) Urine Protein Negative (Negative) Urine Ketones Negative (Negative) Urine Blood Trace /uL (Negative) H Urine Nitrite Negative (Negative) Urine Bilirubin Negative (Negative) Urine Urobilinogen 2 mg/dL (Negative) H Urine Leukocyte Esterase Negative /uL (Negative) Urine RBC 1 /hpf (0 - 3) Urine WBC 2 /hpf (0 - 3) Urine Squamous Epithelial Cells Few /hpf (<5) Urine Bacteria None seen /hpf (None Seen) Urine Hyaline Casts Few /lpf (0 - 2) Urine Mucus Few (None Seen) Urine Glucose 1+ mg/dL (Normal) H Microbiology Microbiology Date/Time Source Procedure Growth Status 08/24/24 09:30 Aspirate Gram Stain - Final Complete 08/24/24 09:30 Body Fluid Culture - Final Staphylococcus aureus Complete 08/19/24 16:10 Blood Blood Culture - Final NO GROWTH AFTER 5 DAYS OF INCUBATION. Complete Labs and/or images reviewed: Labs reviewed by me Assessment/Plan Assessment/Plan Alcohol withdrawal New onset type 2 diabetes mellitus Nonischemic cardiomyopathy Hypertension Hyponatremia Alcohol use, unspecified with withdrawal, uncomplicated a-fib with RVR bacteremia (pre-mota blood cx indicates gram positive) Newly diagnosed acute systolic congestive heart failure (LVEF 25%) Metabolic encephalopathy secondary to hyponatremia versus sepsis Sepsis with persistent bacteremia due to MSSA. Obesity History of ethanol abuse Liver abscess Continuing current management. Continuing with amiodarone. Continuing with IV antibiotic Ancef. Continuing to monitor electrolytes. Continuing with hypertensive medication. Continuing with Entresto. Continuing with anticoagulation. LifeVest had been delivery today. Still waiting for arrangement for outpatient IV antibiotic. Discharge planning. Plan discussed with: Patient Date of Service: Sep 01, 2024 Billing Provider: SHON VILLARREAL MD Common Visit Codes: [id number] INP/OBS CARE(HIGH) SHON VILLARREAL MD Sep 01, 2024 14:07
[2024-09-02] VITALS (8 sets, daily range): BP systolic 109–131; BP diastolic 76–94; PULSE 70–81; RESP 17–19; TEMP 97.8–98.6; O2SAT 92–98
--- NOTE | 2024-09-02 08:31 | DVHPN2 ---
Subjective The patient is seen and examined at bedside. No complaint today. No fever or chills. Still waiting for IV antibiotic set up as outpatient Reviewed: Care Plan, H&P, Labs, Medications, Previous Orders, Radiology Changes from previous H/P or p: No Changes General: Per HPI Eyes: No Pain, No Vision change, No Conjunctivae inflammation, No Eyelid inflammation, No Other, No Redness ENT: No Ear pain, No Ear discharge, No Nose pain, No Nose discharge, No Nose congestion, No Mouth pain, No Mouth swelling, No Throat pain, No Throat swelling, No Other Cardiovascular: No Chest Pain, No Palpitations, No Orthopnea, No Paroxysmal Noc. Dyspnea, No Edema, No Lt Headedness, No Other Respiratory: No Cough, No Dry, No Shortness of breath, No SOB with excertion, No Wheezing, No Hemoptysis, No Pleuritic Pain, No Sputum, No Other Gastrointestinal: No Nausea, No Vomiting, No Abdominal Pain, No Diarrhea, No Constipation, No Melena, No Hematochezia, No Other Genitourinary: No Dysuria, No Frequency, No Incontinence, No Hematuria, No Retention, No Other Musculoskeletal: No other, No neck pain, No shoulder pain, No arm pain, No back pain, No hand pain, No leg pain, No foot pain Skin: No Rash, No Lesions, No Jaundice, No Bruising, No Other Objective Vitals Vital Signs Date Time Temp Pulse Resp B/P (MAP) Pulse Ox O2 Delivery O2 Flow Rate FiO2 09/02/24 05:00 98.6 71 18 112/76 (88) 94 98.6 09/01/24 20:00 Room Air* 0 21 Intake/Output Intake and Output 09/02/24 07:00 Intake Total 1000.2 ml Output Total 1200 ml Balance -199.8 ml Intake Oral 600 ml IV Total 400.2 ml Output Urine Total 1200 ml # Voids 3 General Appearance: Alert, Oriented X3, Cooperative, No acute distress HEENT: Atraumatic Lungs: Clear to auscultation Cardiovascular: Regular rate, Normal S1, Normal S2 Abdomen: Normal bowel sounds Neuro: Cranial nerves 3-12 NL Psych/Mental Status: Mental status NL Medications Current Medications Medications Dose Ordered Sig/Unruly Route Start Time Stop Time Status Last Admin Dose Admin Lorazepam 1 mg Q2HP PRN IV 08/13/24 14:30 08/14/24 21:21 1 MG Thiamine HCl 100 mg DAILY IV 08/14/24 10:00 09/01/24 09:50 100 MG Folic Acid 1 mg/ Dextrose 50.2 ml @ 200.8 mls/ hr DAILY INJ 08/14/24 10:00 09/01/24 10:13 200.8 MLS/HR Ondansetron HCl 4 mg Q4HP PRN IV 08/13/24 14:30 Docusate Sodium 100 mg BIDPRN PRN PO 08/13/24 14:30 08/18/24 17:27 100 MG Acetaminophen 650 mg Q6HP PRN PO 08/13/24 14:30 Nitroglycerin 0.4 mg Q5MINP PRN SL 08/13/24 16:45 Sacubitril/ Valsartan 1 tab BID PO 08/15/24 22:00 09/01/24 22:27 1 TAB Metoprolol Succinate 25 mg DAILY PO 08/16/24 10:00 09/01/24 09:51 25 MG Spironolactone 25 mg DAILY PO 08/16/24 10:00 09/01/24 09:52 25 MG Amiodarone HCl 200 mg Q12HR PO 08/17/24 22:00 09/01/24 22:27 200 MG Empaglifozin 10 mg DAILY PO 08/18/24 10:00 09/01/24 09:52 10 MG Cefazolin Sodium/ Dextrose 50 ml @ 50 mls/hr Q8HR IV 08/22/24 14:00 09/02/24 05:58 50 MLS/HR Furosemide 40 mg DAILY IV 08/30/24 10:00 09/01/24 09:50 40 MG Saccharomyces Boulardii 250 mg DAILY PO 08/30/24 10:00 09/01/24 09:51 250 MG Insulin Glargine 15 units HS SC 08/29/24 22:00 09/01/24 22:43 15 UNITS Diagnostic Test (Pha) 1 strip ACHS 08/29/24 22:00 09/02/24 05:58 1 STRIP Insulin Human Regular HS SC 08/29/24 22:00 09/01/24 22:44 6 UNITS Insulin Human Regular AC SC 08/30/24 07:00 09/02/24 06:12 2 UNITS Dextrose 50 ml UD PRN IV 08/29/24 17:30 Laboratory Results Laboratory Tests 08/28/24 12:00 08/30/24 06:55 Urinalysis Test 08/17/24 21:36 Urine Color Yellow (Yellow) Urine Clarity Clear (Clear) Urine pH 6.0 (5.0-9.0) Urine Specific [place] 1.014 (1.001-1.035) Urine Protein Negative (Negative) Urine Ketones Negative (Negative) Urine Blood Trace /uL (Negative) H Urine Nitrite Negative (Negative) Urine Bilirubin Negative (Negative) Urine Urobilinogen 2 mg/dL (Negative) H Urine Leukocyte Esterase Negative /uL (Negative) Urine RBC 1 /hpf (0 - 3) Urine WBC 2 /hpf (0 - 3) Urine Squamous Epithelial Cells Few /hpf (<5) Urine Bacteria None seen /hpf (None Seen) Urine Hyaline Casts Few /lpf (0 - 2) Urine Mucus Few (None Seen) Urine Glucose 1+ mg/dL (Normal) H Microbiology Microbiology Date/Time Source Procedure Growth Status 08/24/24 09:30 Aspirate Gram Stain - Final Complete 08/24/24 09:30 Body Fluid Culture - Final Staphylococcus aureus Complete 08/19/24 16:10 Blood Blood Culture - Final NO GROWTH AFTER 5 DAYS OF INCUBATION. Complete Labs and/or images reviewed: Labs reviewed by me Assessment/Plan Assessment/Plan Alcohol withdrawal New onset type 2 diabetes mellitus Nonischemic cardiomyopathy Hypertension Hyponatremia Alcohol use, unspecified with withdrawal, uncomplicated a-fib with RVR bacteremia (pre-mota blood cx indicates gram positive) Newly diagnosed acute systolic congestive heart failure (LVEF 25%) Metabolic encephalopathy secondary to hyponatremia versus sepsis Sepsis with persistent bacteremia due to MSSA. Obesity History of ethanol abuse Liver abscess Continuing current management. Continuing with amiodarone. Continuing with IV antibiotic Ancef. Continuing to monitor electrolytes. Continuing with hypertensive medication. Continuing with Entresto. Continuing with anticoagulation. LifeVest had been delivery . Still waiting for arrangement for outpatient IV antibiotic. Discharge planning when outpatient IV antibiotics set up done. Plan discussed with: Patient Date of Service: Sep 02, 2024 Billing Provider: SHON VILLARREAL MD Common Visit Codes: [id number] INP/OBS CARE(HIGH) SHON VILLARREAL MD Sep 02, 2024 08:31
--- NOTE | 2024-09-02 13:43 | DVHPN2 ---
Progress Note - Dictate Date Seen: Sep 02, 2024 Medical Necessity Reason Pt with a Central, PICC or Fol: No Subjective No new acute complaints noted. Still waiting for LifeVest Abscess drainage US 08/24 : Placement of 8 Nepali pigtail drain into a liver abscess with 250 mL purulent fluid 08/30, Chest x-ray revealed: Prominence of the pulmonary vasculature and mild perihilar interstitial opacities, may be seen with pulmonary vascular congestion in the appropriate clinical setting. vital signs Vital Sign Date Time Temp Pulse Resp B/P (MAP) Pulse Ox O2 Delivery O2 Flow Rate FiO2 09/02/24 11: 70 127/78 09/02/24 09:00 97.9 19 96 97.9 09/01/24 20:00 Room Air* 0 21 Total Intake and Output 09/01/24 09/01/24 09/02/24 15:00 23:00 07:00 Intake Total 100.2 ml 50 ml 850 ml Output Total 1200 ml Balance 100.2 ml -1150 ml 850 ml medications Current Medications Medications Dose Ordered Sig/Unruly Route Start Time Stop Time Status Last Admin Dose Admin Lorazepam 1 mg Q2HP PRN IV 08/13/24 14:30 08/14/24 21:21 1 MG Thiamine HCl 100 mg DAILY IV 08/14/24 10:00 09/02/24 11:27 100 MG Folic Acid 1 mg/ Dextrose 50.2 ml @ 200.8 mls/ hr DAILY INJ 08/14/24 10:00 09/02/24 11:27 200.8 MLS/HR Ondansetron HCl 4 mg Q4HP PRN IV 08/13/24 14:30 Docusate Sodium 100 mg BIDPRN PRN PO 08/13/24 14:30 08/18/24 17:27 100 MG Acetaminophen 650 mg Q6HP PRN PO 08/13/24 14:30 Nitroglycerin 0.4 mg Q5MINP PRN SL 08/13/24 16:45 Sacubitril/ Valsartan 1 tab BID PO 08/15/24 22:00 09/02/24 11:28 1 TAB Metoprolol Succinate 25 mg DAILY PO 08/16/24 10:00 09/02/24 11:29 25 MG Spironolactone 25 mg DAILY PO 08/16/24 10:00 09/02/24 11:29 25 MG Amiodarone HCl 200 mg Q12HR PO 08/17/24 22:00 09/02/24 11:29 200 MG Empaglifozin 10 mg DAILY PO 08/18/24 10:00 09/02/24 11:29 10 MG Cefazolin Sodium/ Dextrose 50 ml @ 50 mls/hr Q8HR IV 08/22/24 14:00 09/02/24 05:58 50 MLS/HR Furosemide 40 mg DAILY IV 08/30/24 10:00 09/02/24 11:28 40 MG Saccharomyces Boulardii 250 mg DAILY PO 08/30/24 10:00 09/02/24 11:28 250 MG Insulin Glargine 15 units HS SC 08/29/24 22:00 09/01/24 22:43 15 UNITS Diagnostic Test (Pha) 1 strip ACHS 08/29/24 22:00 09/02/24 12:26 1 STRIP Insulin Human Regular HS SC 08/29/24 22:00 09/01/24 22:44 6 UNITS Insulin Human Regular AC SC 08/30/24 07:00 09/02/24 12:25 3 UNITS Dextrose 50 ml UD PRN IV 08/29/24 17:30 objective General alert and oriented HEENT: Atraumatic Neck: No swelling Lungs: Equal air entry and clear to auscultation Cardiovascular: S2 heard no murmur Abdomen: Soft nontender, no organomegaly, mild distended; liver drain + Neuro: Alert and oriented, no focal deficit Psych: Normal mood and affect laboratory and microbiology Laboratory Tests 08/30/24 06:55 08/28/24 12:00 Test 08/30/24 06:55 Range/Units Serum Glucose 169 H 74-106 mg/dL Assessment/Plan Patient is a 54-year-old male presented with: MSSA bacteremia Liver abscess Leucocytosis Cirrhosis newly diagnosed uncontrolled diabetes Cardiomyopathy Recommendations waiting for life vest Continue IV Cefazolin 2g q [address] chest/ Abd reviewed, large liver abscess s/p US drain 250 cc fluid removed. drain left in place. on 08/24 ; cultures MSSA s/p TALI; no vegetation repeat culture from blood reviewed, no growth midline placed , IV antibiotics for 4 weeks; arrange 3-4 weeks of IV cefazolin, f/u with PCP/ ID in [address] abdomen/ pelvis plan discussed with patient/ primary team Dietary Evaluation Review Comments: Continue current plan of care Expected Outcomes/Goals: F/U in 3-5 days Plan discussed with: EVELIA Morales MD Sep 02, 2024 13:43
[2024-09-02] MEDS: ceFAZolin 2 GM/D5W50ml 50 ML IV ONE (23:17)
[2024-09-03 05:00] VITALS: BP 114/78; PULSE 74; RESP 17; TEMP 98.5; O2SAT 100
[2024-09-03 08:00] VITALS: BP 129/90; PULSE 74; PULSE 80; RESP 17; TEMP 97.5; O2SAT 95
[2024-09-03] MEDS: ENOXAPARIN SOD 40 MG/0.4 ML SYRINGE SC SCH (11:00)
--- NOTE | 2024-09-03 12:15 | DVHPN2 ---
Progress Note - Dictate Date Seen: Sep 03, 2024 Medical Necessity Reason Pt with a Central, PICC or Fol: No Subjective [employer] denied patient for SNF and provided denial letter. Patient informed of denial. Patient verbalized wanting to go home. re-assessment SS consult arrange snf placement for 3 weeks for iv-abx Abscess drainage US 08/24 : Placement of 8 [place] pigtail drain into a liver abscess with 250 mL purulent fluid 08/30, Chest x-ray revealed: Prominence of the pulmonary vasculature and mild perihilar interstitial opacities, may be seen with pulmonary vascular congestion in the appropriate clinical setting. vital signs Vital Sign Date Time Temp Pulse Resp B/P (MAP) Pulse Ox O2 Delivery O2 Flow Rate FiO2 09/03/24 11:00 73 122/86 09/03/24 08:00 97.5 17 95 97.5 09/02/24 20:00 Room Air* 0 21 Total Intake and Output 09/02/24 09/02/24 09/03/24 15:00 23:00 07:00 Intake Total 100.2 ml 1100 ml 1050 ml Balance 100.2 ml 1100 ml 1050 ml medications Current Medications Medications Dose Ordered Sig/Unruly Route Start Time Stop Time Status Last Admin Dose Admin Lorazepam 1 mg Q2HP PRN IV 08/13/24 14:30 08/14/24 21:21 1 MG Thiamine HCl 100 mg DAILY IV 08/14/24 10:00 09/03/24 10:58 100 MG Folic Acid 1 mg/ Dextrose 50.2 ml @ 200.8 mls/ hr DAILY INJ 08/14/24 10:00 09/03/24 11:01 200.8 MLS/HR Ondansetron HCl 4 mg Q4HP PRN IV 08/13/24 14:30 Docusate Sodium 100 mg BIDPRN PRN PO 08/13/24 14:30 08/18/24 17:27 100 MG Acetaminophen 650 mg Q6HP PRN PO 08/13/24 14:30 Nitroglycerin 0.4 mg Q5MINP PRN SL 08/13/24 16:45 Sacubitril/ Valsartan 1 tab BID PO 08/15/24 22:00 09/03/24 11:00 1 TAB Metoprolol Succinate 25 mg DAILY PO 08/16/24 10:00 09/03/24 11:00 25 MG Spironolactone 25 mg DAILY PO 08/16/24 10:00 09/03/24 10:59 25 MG Amiodarone HCl 200 mg Q12HR PO 08/17/24 22:00 09/03/24 10:59 200 MG Empaglifozin 10 mg DAILY PO 08/18/24 10:00 09/03/24 10:59 10 MG Furosemide 40 mg DAILY IV 08/30/24 10:00 09/03/24 10:58 40 MG Saccharomyces Boulardii 250 mg DAILY PO 08/30/24 10:00 09/03/24 10:58 250 MG Insulin Glargine 15 units HS SC 08/29/24 22:00 09/02/24 22:42 15 UNITS Diagnostic Test (Pha) 1 strip ACHS 08/29/24 22:00 09/03/24 11:42 1 STRIP Insulin Human Regular HS SC 08/29/24 22:00 09/02/24 22:42 6 UNITS Insulin Human Regular AC SC 08/30/24 07:00 09/03/24 11:42 3 UNITS Dextrose 50 ml UD PRN IV 08/29/24 17:30 Enoxaparin Sodium 40 mg DAILY SC 09/03/24 10:00 09/03/24 11:00 40 MG objective General alert and oriented HEENT: Atraumatic Neck: No swelling Lungs: Equal air entry and clear to auscultation Cardiovascular: S2 heard no murmur Abdomen: Soft nontender, no organomegaly, mild distended; liver drain + Neuro: Alert and oriented, no focal deficit Psych: Normal mood and affect laboratory and microbiology Laboratory Tests 08/30/24 06:55 08/28/24 12:00 Test 08/30/24 06:55 Range/Units Serum Glucose 169 H 74-106 mg/dL Assessment/Plan Patient is a 54-year-old male presented with: MSSA bacteremia Liver abscess Leucocytosis Cirrhosis newly diagnosed uncontrolled diabetes Cardiomyopathy Recommendations re-assessment re SS consult arrange snf placement for 3 weeks for iv-abx will plan for repeat CT abdomen and pelvis to reevaulate antibiotics duration Continue IV Cefazolin 2g q [address] chest/ Abd reviewed, large liver abscess s/p US drain 250 cc fluid removed. drain left in place. 08/24 s/p TALI; no vegetation repeat culture from blood reviewed, no growth midline placed , IV antibiotics for 4 weeks; arrange 3-4 weeks of IV cefazolin, f/u with PCP/ ID in [address] abdomen/ pelvis plan discussed with patient/ primary team Dietary Evaluation Review Comments: Continue current plan of care Expected Outcomes/Goals: F/U in 3-5 days Plan discussed with: EVELIA Morales MD Sep 03, 2024 12:15
[2024-09-03 13:24] VITALS: BP 122/84; PULSE 71; RESP 16; TEMP 97.8; O2SAT 96
--- NOTE | 2024-09-03 15:36 | DVHPN2 ---
Assessment/Plan Assessment/Plan Progress note Subjective 54-year-old male admitted for hyponatremia, found to have MSSA bacteremia, status post DEVIN, also diagnosed with new onset heart failure with reduced ejection fraction, new onset diabetes, in AFib with RVR. Patient was covered with IV antibiotics, discharge planning for home antibiotics, however declined by insurance Objective Physical exam Alert, oriented x3 PERRLA JVD clavicles Clear breath sounds bilaterally S1-S2 regular rate and rhythm Abdomen soft nontender, no organomegaly Moving all four extremities Trace extremity edema Lab MSSA bacteremia Imaging Echo with 25% ejection fraction Devin with no vegetation Assessment and plan MSSA bacteremia Liver abscess Leucocytosis Cirrhosis newly diagnosed uncontrolled diabetes Alcohol withdrawal, resolved New onset type 2 diabetes mellitus Hypertension Hyponatremia Alcohol use, unspecified with withdrawal, uncomplicated a-fib with RVR Newly diagnosed acute systolic congestive heart failure (LVEF 25%) Metabolic encephalopathy secondary to hyponatremia versus sepsis, resolved Obesity Continue with IV antibiotics, patient will need 3 weeks more coverage For social service unable to get home IV antibiotics Try stiff placement for antibiotic Start in optimize GDMT Cardio Consult appreciated ID consult appreciated Patient had LifeVest side Telemetry DEVIN without vegetation Replete electrolytes Diet heart healthy DVT prophylaxis full-dose anticoagulation Plan discussed with: Patient Date of Service: Sep 03, 2024 Billing Provider: ALBIN ROWAN MD Common Visit Codes: [id number] INP/OBS CARE(HIGH) ALBIN ROWAN MD Sep 03, 2024 15:36
[2024-09-03 17:00] VITALS: BP 123/76; PULSE 77; RESP 16; TEMP 97.8; O2SAT 97
[2024-09-03 20:00] VITALS: PULSE 78; PULSE 79
[2024-09-03 22:00] VITALS: BP 127/84; PULSE 75; RESP 18; TEMP 97.9; O2SAT 97
[2024-09-03] MEDS: SALINE 0.65 % NASAL SPRAY 45ML BOTTLE EACHNOSTRI SCH (22:00)
[2024-09-03] MEDS: ceFAZolin 2 GM/D5W50ml 50 ML IV SCH (23:39)
[2024-09-04] VITALS (7 sets, daily range): BP systolic 103–128; BP diastolic 70–86; PULSE 70–84; RESP 16–20; TEMP 97.5–98.6; O2SAT 93–100
--- NOTE | 2024-09-04 08:32 | DVHPN2 ---
Assessment/Plan Assessment/Plan Progress note Subjective 54-year-old male admitted for hyponatremia, found to have MSSA bacteremia, status post DEVIN, also diagnosed with new onset heart failure with reduced ejection fraction, new onset diabetes, in AFib with RVR. Patient was covered with IV antibiotics, discharge planning for home antibiotics, however declined by insurance Patient is seen by me today during rounds Here to continue IV abx, wont able to do home or SNF IV abx Objective Physical exam Alert, oriented x3 PERRLA JVD clavicles Clear breath sounds bilaterally S1-S2 regular rate and rhythm Abdomen soft nontender, no organomegaly Moving all four extremities Trace extremity edema Lab MSSA bacteremia Imaging Echo with 25% ejection fraction Devin with no vegetation Assessment and plan MSSA bacteremia Liver abscess Leucocytosis Cirrhosis newly diagnosed uncontrolled diabetes Alcohol withdrawal, resolved New onset type 2 diabetes mellitus Hypertension Hyponatremia Alcohol use, unspecified with withdrawal, uncomplicated a-fib with RVR Newly diagnosed acute systolic congestive heart failure (LVEF 25%) Metabolic encephalopathy secondary to hyponatremia versus sepsis, resolved Obesity Continue with IV ancef (s/p vanc 08/20, on ancef 08/22-now) Not able to get home IV abx and SNF placement Will discuss abx duration with ID Start in optimize GDMT Cardio Consult appreciated ID consult appreciated will discuss with ID possibility of dalvance Patient had LifeVest side Telemetry DEVIN without vegetation Replete electrolytes Diet heart healthy DVT prophylaxis full-dose anticoagulation Plan discussed with: Patient My Orders Orders - ALBIN ROWAN MD Procedure Category Date Status Time Cefazolin 2 PHA 09/03/24 In Process [id number] (Ancef) 22:00 Saline ([place] Nasal PHA 09/04/24 In Process [place]) 12:00 Comprehensive LAB 09/05/24 Verified Metabolic Panel 04:00 Complete Blood Count LAB 09/05/24 Verified 04:00 Date of Service: Sep 04, 2024 Billing Provider: ALBIN ROWAN MD Common Visit Codes: [id number] INP/OBS CARE(HIGH) ALBIN ROWAN MD Sep 04, 2024 08:32
[2024-09-04] MEDS: SALINE 0.65 % NASAL SPRAY 45ML BOTTLE EACHNOSTRI SCH (10:06)
--- NOTE | 2024-09-04 10:27 | DVHPN2 ---
Progress Note - Dictate Date Seen: Sep 04, 2024 Medical Necessity Reason Pt with a Central, PICC or Fol: Yes Subjective Patient was seen and evaluated at bedside. [facility] denied patient for SNF and provided denial letter. Patient informed of denial. Patient verbalized wanting to go home. re-assessment SS consult arrange snf placement for 3 weeks for iv-abx Abscess drainage US 08/24 : Placement of 8 Guatemalan pigtail drain into a liver abscess with 250 mL purulent fluid 08/30, Chest x-ray revealed: Prominence of the pulmonary vasculature and mild perihilar interstitial opacities, may be seen with pulmonary vascular congestion in the appropriate clinical setting. vital signs Vital Sign Date Time Temp Pulse Resp B/P (MAP) Pulse Ox O2 Delivery O2 Flow Rate FiO2 09/04/24 10:09 128/86 09/04/24 10:08 106 09/04/24 09:15 97.5 17 100 97.5 09/03/24 20:00 Room Air* 0 21 Total Intake and Output 09/03/24 09/03/24 09/04/24 15:00 23:00 07:00 Intake Total 825 ml 1200 ml Balance 825 ml 1200 ml medications Current Medications Medications Dose Ordered Sig/Unruly Route Start Time Stop Time Status Last Admin Dose Admin Lorazepam 1 mg Q2HP PRN IV 08/13/24 14:30 08/14/24 21:21 1 MG Thiamine HCl 100 mg DAILY IV 08/14/24 10:00 09/04/24 10:08 100 MG Folic Acid 1 mg/ Dextrose 50.2 ml @ 200.8 mls/ hr DAILY INJ 08/14/24 10:00 09/04/24 10:11 200.8 MLS/HR Ondansetron HCl 4 mg Q4HP PRN IV 08/13/24 14:30 Docusate Sodium 100 mg BIDPRN PRN PO 08/13/24 14:30 08/18/24 17:27 100 MG Acetaminophen 650 mg Q6HP PRN PO 08/13/24 14:30 Nitroglycerin 0.4 mg Q5MINP PRN SL 08/13/24 16:45 Sacubitril/ Valsartan 1 tab BID PO 08/15/24 22:00 09/04/24 10:07 1 TAB Metoprolol Succinate 25 mg DAILY PO 08/16/24 10:00 09/04/24 10:08 25 MG Spironolactone 25 mg DAILY PO 08/16/24 10:00 09/04/24 10:08 25 MG Amiodarone HCl 200 mg Q12HR PO 08/17/24 22:00 09/04/24 10:06 200 MG Empaglifozin 10 mg DAILY PO 08/18/24 10:00 09/04/24 10:07 10 MG Furosemide 40 mg DAILY IV 08/30/24 10:00 09/04/24 10:09 40 MG Saccharomyces Boulardii 250 mg DAILY PO 08/30/24 10:00 09/04/24 10:08 250 MG Insulin Glargine 15 units HS SC 08/29/24 22:00 09/03/24 22:00 15 UNITS Diagnostic Test (Pha) 1 strip ACHS 08/29/24 22:00 09/04/24 06:51 1 STRIP Insulin Human Regular HS SC 08/29/24 22:00 09/03/24 22:00 3 UNITS Insulin Human Regular AC SC 08/30/24 07:00 09/04/24 06:51 3 UNITS Dextrose 50 ml UD PRN IV 08/29/24 17:30 Enoxaparin Sodium 40 mg DAILY SC 09/03/24 10:00 09/04/24 10:09 40 MG Cefazolin Sodium/ Dextrose 50 ml @ 50 mls/hr Q8HR IV 09/03/24 22:00 09/04/24 06:56 50 MLS/HR Sodium Chloride 1 spr QID EACHNOSTRI 09/04/24 12:00 09/04/24 10:06 1 SPR objective General alert and oriented HEENT: Atraumatic Neck: No swelling Lungs: Equal air entry and clear to auscultation Cardiovascular: S2 heard no murmur Abdomen: Soft nontender, no organomegaly, mild distended; liver drain + Neuro: Alert and oriented, no focal deficit Psych: Normal mood and affect laboratory and microbiology Laboratory Tests 08/30/24 06:55 08/28/24 12:00 Test 08/30/24 06:55 Range/Units Serum Glucose 169 H 74-106 mg/dL Assessment/Plan Patient is a 54-year-old male presented with: MSSA bacteremia Liver abscess Leucocytosis Cirrhosis newly diagnosed uncontrolled diabetes Cardiomyopathy Recommendations re-assessment re SS consult arrange snf placement for 3 weeks for iv-abx Continue IV Cefazolin 2g q 8 hours discussed with primary the need for repeat CT abdomen and pelvis CT chest/ Abd reviewed, large liver abscess s/p US drain 250 cc fluid removed. drain left in placed on 08/24, cultures grew MSSA s/p TALI; no vegetation repeat culture from blood reviewed, no growth midline placed , IV antibiotics for 4 weeks; arrange 3-4 weeks of IV cefazolin, plan discussed with patient/ primary team Dietary Evaluation Review Comments: Continue current plan of care Expected Outcomes/Goals: F/U in 3-5 days Plan discussed with: Patient EVELIA OWENS MD Sep 04, 2024 10:27
[2024-09-04] MEDS: IOHEXOL 300 MG/ML 100ML BOTTLE IJ ONE (13:39)
[2024-09-04] MEDS ORDERED: POLYETHYLENE GLYCOL 17 GM PWDR PO PRN (14:15)
--- NOTE | 2024-09-04 14:29 | DVH ---
Exam: CT CT AB PEL WITH IV CON ONLY History: liver abscess COMPARISON: CT CT CHEST/AB/PL W CON- IV ONLY on DOS: 08/22/24 Technique: Multidetector spiral CT of the abdomen and pelvis was performed from lung bases to pubic symphysis. Intravenous contrast was administered during this examination. Portal venous imaging was obtained. Axial, coronal and sagittal multiplanar reformats were performed by the technologist on a separate workstation. Radiation Dose : Abdomen/Pelvis: CTDIvol 82 mGy, DLP 3156.09 mGy*cm. CONTRAST: Type of contrast: Omni 300 Contrast injected: 100 mL Findings: Lung Bases: No acute or significant lung base finding. Normal heart size. No pleural or pericardial effusion. Liver: There has been significant interval decrease in the size of the hepatic abscess. Residual flu id collection measures approximately 76 by 17 mm. There is a pigtail catheter in place. There is adj acent abnormal enhancement likely related to phlegmon. Gallbladder and biliary Tree: Gallbladder is surgically absent. Spleen: Unremarkable Pancreas: The pancreas is normal in appearance without focal lesions or abnormal enhancement. Adrenal Glands: Unremarkable Kidneys: Subcentimeter right renal cyst. No hydronephrosis or nephrolithiasis. Bladder: Unremarkable Bowel: The stomach is grossly normal in appearance. Small bowel and colon are normal in caliber and d istribution. Normal appendix is visualized in the right lower quadrant without findings of appendici tis. Ascites: Absent Lymphadenopathy: No mesenteric, retroperitoneal or periportal lymphadenopathy. Abdominal wall and Mesentery: Unremarkable. Vasculature: The visualized abdominal aorta is normal in size and caliber. Abdominal and pelvic vess els demonstrate normal enhancement. Pelvic Organs: Unremarkable Musculoskeletal: No aggressive focal bony lesions, acute fractures or dislocation. IMPRESSION: 1. Interval placement of a pigtail catheter in the hepatic abscess. Significant interval decrease in the size of the abscess. Persistent fluid collection as above with luther abscess phlegmon. Pigtail cat heter may need to be repositioned deeper into the collection for more adequate drainage. Correlate wi th drain output. Clinical correlation and continued follow-up is recommended. Radiation optimization: All CT scans at this facility use at least one of these dose optimization ryne hniques: Automated exposure control mA and/or kV adjustment per patient size (includes targeted exams where dose is matched to clinical indication) or iterative reconstruction. HS:Y
[2024-09-04] MEDS: POLYETHYLENE GLYCOL 17 GM PWDR PO ONE (16:50)
[2024-09-05] VITALS (8 sets, daily range): BP systolic 100–125; BP diastolic 72–96; PULSE 65–91; RESP 16–18; TEMP 97.5–98.5; O2SAT 95–99
[2024-09-05 06:50] LABS: Basophils # (auto) 0.1 10 ^3/uL (0-0.2); Basophils % (auto) 1.6 % (0.0-2.0); Eosinophils # (auto) 0.3 10 ^3/uL (0-0.8); Eosinophils % (auto) 3.9 % (0.0-7.0); Hemoglobin 12.8 g/dL (13.5-17.5); Lymphocytes # (auto) 2.2 10 ^3/uL (0.4-5.4); Lymphocytes % (auto) 30.8 % (10.0-50.0); Mean Corpuscular Hemoglobin 29.9 pg (28.0-32.0); Mean Corpuscular Hgb Conc. 33.7 g/dL (32.0-36.0); Mean Corpuscular Volume 88.6 fL (80.0-100.0); Monocytes # (auto) 0.6 10 ^3/uL (0-1.3); Monocytes % (auto) 8.7 % (0.0-12.0); Neutrophils # (auto) 3.9 10 ^3/uL (1.6-8.6); Nucleated Red Blood Cells % 0.2 %; Platelet Count (auto) 414 10^3/uL (140-450); Red Blood Cells 4.29 10^6/uL (4.5-5.90)
[2024-09-05 07:05] LABS: Anion Gap 9 (5-15); BUN/Creatinine Ratio 19.5 (10.0-20.0); Blood Urea Nitrogen 15 mg/dL (9-23); Calcium 10.3 mg/dL (8.7-10.4); Carbon Dioxide 26 mmol/L (20-31); Chloride 99 mmol/L (98-107); Potassium 4.4 mmol/L (3.5-5.1)
[2024-09-05 07:06] LABS: Albumin 4.1 g/dL (3.2-4.8)
[2024-09-05 07:07] LABS: Bilirubin, Total 0.4 mg/dL (0.2-1.0); Total Protein 7.8 g/dL (5.7-8.2)
[2024-09-05 07:10] LABS: Alanine Aminotransferase < 9 U/L (7-40); Alkaline Phosphatase 159 U/L (46-116); Aspartate Aminotransferase 11 U/L (13-40); Glucose 154 mg/dL (74-106); Sodium 134 mmol/L (136-145)
--- NOTE | 2024-09-05 12:07 | DVHPN2 ---
Progress Note - Dictate Date Seen: Sep 05, 2024 Medical Necessity Reason Pt with a Central, PICC or Fol: No Subjective Patient was seen and evaluated at bedside. [facility] denied patient for SNF and provided denial letter. Patient informed of denial. Patient verbalized wanting to go home. re-assessment SS consult arrange snf placement for 3 weeks for iv-abx Abscess drainage US 08/24 : Placement of 8 Turkmen pigtail drain into a liver abscess with 250 mL purulent fluid 08/30, Chest x-ray revealed: Prominence of the pulmonary vasculature and mild perihilar interstitial opacities, may be seen with pulmonary vascular congestion in the appropriate clinical setting. vital signs Vital Sign Date Time Temp Pulse Resp B/P (MAP) Pulse Ox O2 Delivery O2 Flow Rate FiO2 09/05/24 09:03 76 112/71 09/05/24 09:00 97.7 18 96 97.7 09/05/24 08:00 Room Air* 0 21 Total Intake and Output 09/04/24 09/04/24 09/05/24 14:59 22:59 06:59 Intake Total 50 ml 1125 ml 1450 ml Output Total 30 ml Balance 50 ml 1125 ml 1420 ml medications Current Medications Medications Dose Ordered Sig/Unruly Route Start Time Stop Time Status Last Admin Dose Admin Lorazepam 1 mg Q2HP PRN IV 08/13/24 14:30 08/14/24 21:21 1 MG Thiamine HCl 100 mg DAILY IV 08/14/24 10:00 09/05/24 09:00 100 MG Folic Acid 1 mg/ Dextrose 50.2 ml @ 200.8 mls/ hr DAILY INJ 08/14/24 10:00 09/05/24 09:00 200.8 MLS/HR Ondansetron HCl 4 mg Q4HP PRN IV 08/13/24 14:30 Acetaminophen 650 mg Q6HP PRN PO 08/13/24 14:30 Nitroglycerin 0.4 mg Q5MINP PRN SL 08/13/24 16:45 Sacubitril/ Valsartan 1 tab BID PO 08/15/24 22:00 09/05/24 09:02 1 TAB Metoprolol Succinate 25 mg DAILY PO 08/16/24 10:00 09/05/24 09:03 25 MG Spironolactone 25 mg DAILY PO 08/16/24 10:00 09/05/24 09:02 25 MG Amiodarone HCl 200 mg Q12HR PO 08/17/24 22:00 09/05/24 09:02 200 MG Empaglifozin 10 mg DAILY PO 08/18/24 10:00 09/05/24 09:02 10 MG Furosemide 40 mg DAILY IV 08/30/24 10:00 09/05/24 09:01 40 MG Saccharomyces Boulardii 250 mg DAILY PO 08/30/24 10:00 09/05/24 09:02 250 MG Insulin Glargine 15 units HS SC 08/29/24 22:00 09/04/24 21:32 15 UNITS Diagnostic Test (Pha) 1 strip ACHS 08/29/24 22:00 09/05/24 06:14 1 STRIP Insulin Human Regular HS SC 08/29/24 22:00 09/04/24 21:31 4 UNITS Insulin Human Regular AC SC 08/30/24 07:00 09/05/24 06:15 2 UNITS Dextrose 50 ml UD PRN IV 08/29/24 17:30 Enoxaparin Sodium 40 mg DAILY SC 09/03/24 10:00 09/05/24 09:03 40 MG Cefazolin Sodium/ Dextrose 50 ml @ 50 mls/hr Q8HR IV 09/03/24 22:00 09/05/24 06:14 50 MLS/HR Sodium Chloride 1 spr QID EACHNOSTRI 09/04/24 12:00 09/05/24 06:14 1 SPR Polyethylene Glycol 17 gm DAILYPRN PRN PO 09/04/24 14:15 objective General alert and oriented HEENT: Atraumatic Neck: No swelling Lungs: Equal air entry and clear to auscultation Cardiovascular: S2 heard no murmur Abdomen: Soft nontender, no organomegaly, mild distended; liver drain + Neuro: Alert and oriented, no focal deficit Psych: Normal mood and affect laboratory and microbiology Laboratory Tests 09/05/24 05:40 Test 09/05/24 05:40 Range/Units Serum Glucose 154 H 74-106 mg/dL Assessment/Plan Patient is a 54-year-old male presented with: MSSA bacteremia Liver abscess Leucocytosis Cirrhosis newly diagnosed uncontrolled diabetes Cardiomyopathy Recommendations repeat CT showed from 09/04 showed liver abscess is decreased in size however there is a concern for CBD leak and recommended repositioning of drain. Continue IV Cefazolin 2g q [address] chest/ Abd reviewed, large liver abscess s/p US drain 250 cc fluid removed. drain left in placed on 08/24, cx MSSA s/p TALI; no vegetation repeat culture from blood reviewed, no growth midline placed , IV antibiotics for 4 weeks; arrange 3-4 weeks of IV cefazolin, plan discussed with patient/ primary team Dietary Evaluation Review Comments: Continue current plan of care Expected Outcomes/Goals: F/U in 3-5 days Plan discussed with: Other EVELIA OWENS MD Sep 05, 2024 12:07
--- NOTE | 2024-09-05 12:27 | DVHPN2 ---
Assessment/Plan Assessment/Plan Progress note Subjective 54-year-old male admitted for hyponatremia, found to have MSSA bacteremia, status post DEVIN, also diagnosed with new onset heart failure with reduced ejection fraction, new onset diabetes, in AFib with RVR. Patient was covered with IV antibiotics, discharge planning for home antibiotics, however declined by insurance Patient is seen by me today during rounds Here to continue IV abx, wont able to do home or SNF IV abx. discussed with ID, repeat CT improved with some collection, consult IR to reposition drain Objective Physical exam Alert, oriented x3 PERRLA JVD clavicles Clear breath sounds bilaterally S1-S2 regular rate and rhythm Abdomen soft nontender, no organomegaly Moving all four extremities Trace extremity edema Lab MSSA bacteremia Imaging Echo with 25% ejection fraction Devin with no vegetation repeat CT with improvement in hepatic abscess Assessment and plan MSSA bacteremia Liver abscess Leucocytosis Cirrhosis newly diagnosed uncontrolled diabetes Alcohol withdrawal, resolved New onset type 2 diabetes mellitus Hypertension Hyponatremia Alcohol use, unspecified with withdrawal, uncomplicated a-fib with RVR Newly diagnosed acute systolic congestive heart failure (LVEF 25%) Metabolic encephalopathy secondary to hyponatremia versus sepsis, resolved Obesity Continue with IV ancef (s/p vanc 08/20, on ancef 08/22-now) Not able to get home IV abx and SNF placement Will discuss abx duration with ID Start in optimize GDMT Cardio Consult appreciated ID consult appreciated will discuss with ID possibility of dalvance Patient had LifeVest side Telemetry DEVIN without vegetation radiology to reposition drain Replete electrolytes Diet heart healthy DVT prophylaxis full-dose anticoagulation Plan discussed with: Patient My Orders Orders - ALBIN ROWAN MD Procedure Category Date Status Time Ct Ab Pel With Iv Con CT 09/04/24 Resulted Only 13:22 Polyethylene Glycol PHA 09/04/24 In Process 17g Powder (Miralax 14:15 * Radiologist Consult CONS 09/05/24 Transmitted 08:45 Admit ADMIT 09/05/24 Transmitted 09:08 Transfer Orders XFER 09/05/24 Transmitted 09:08 Discontinue Tele DANIELA 09/05/24 In Process 09:08 Date of Service: Sep 05, 2024 Billing Provider: ALBIN ROWAN MD Common Visit Codes: [id number] INP/OBS CARE(HIGH) ALBIN ROWAN MD Sep 05, 2024 12:27
[2024-09-05] MEDS: IOHEXOL 300 MG/ML 100ML BOTTLE IJ ONE (12:53)
[2024-09-05] MEDS: LIDOCAINE 2%HCL (LOCAL ANESTH.) INJ 10ml MDV ONE (12:55)
--- NOTE | 2024-09-05 14:24 | DVH ---
XY FLUOROGUIDANCE FOR NEEDLE PLAC HISTORY: REPOSTION DRAIN COMPARISON: None PROCEDURE: The risks and benefits of the procedure including infection, hemorrhage and technical failure were di scussed with the patient, who agreed to proceed. The patient was positioned supine on the fluoroscopy table. Time out was performed. The liver drain w as localized using fluoroscopy, and a software engineer sales image was obtained. The region was prepped and draped us ing routine sterile technique. Contrast was injected into the old drain for a tube check. The drain p igtail was released and a stiff glidewire was placed into the abscess cavity. The old drain was remov ed, and a new 8 Fr pigtail drain was placed into the abscess cavity. A post procedure image was obtai juliann. The drain was sutured to the skin. A new suction bag was placed and a sterile dressing applied. Findings: Decompressed liver abscess cavity. However the common bile duct was visualized. Possible vi sualization of a decompressed gallbladder from contrast injection. Exchange/ minor reposition for a n ew 8 Fr pigtail drain in the liver abscess cavity. IMPRESSION: Exchange/ minor reposition for a new 8 Fr pigtail drain in the liver abscess cavity. Possible visualization of a decompressed gallbladder from contrast injection. Common bile duct was visualized with contrast injection. Differential diagnosis includes prior cholec ystitis with rupture into the liver resulting in liver abscess. Consider surgical evaluation for cholecystectomy.
--- NOTE | 2024-09-05 14:54 | DVH ---
XY FLUOROGUIDANCE FOR NEEDLE PLAC HISTORY: REPOSTION DRAIN COMPARISON: None PROCEDURE: The risks and benefits of the procedure including infection, hemorrhage and technical failure were di scussed with the patient, who agreed to proceed. The patient was positioned supine on the fluoroscopy table. Time out was performed. The liver drain w as localized using fluoroscopy, and a tube washer image was obtained. The region was prepped and draped usi ng routine sterile technique. Contrast was injected into the old drain for a tube check. The drain pi gtail was released and a stiff glidewire was placed into the abscess cavity. The old drain was remove d, and a new 8 Fr pigtail drain was placed into the abscess cavity. A post procedure image was obtain ed. The drain was sutured to the skin. A new suction bag was placed and a sterile dressing applied. Findings: Decompressed liver abscess cavity. However the common bile duct was visualized. Possible vi sualization of a decompressed gallbladder from contrast injection. Exchange/ minor reposition for a n ew 8 Fr pigtail drain in the liver abscess cavity. IMPRESSION: Exchange/ minor reposition for a new 8 Fr pigtail drain in the liver abscess cavity. Possible visualization of a decompressed gallbladder from contrast injection. Common bile duct was visualized with contrast injection. Differential diagnosis includes prior cholec ystitis with rupture into the liver resulting in liver abscess. Consider surgical evaluation for cholecystectomy.
--- NOTE | 2024-09-05 16:15 | DVHPN2 ---
Assessment/Plan Assessment/Plan Progress note Subjective 54-year-old male admitted for hyponatremia, found to have MSSA bacteremia, status post DEVIN, also diagnosed with new onset heart failure with reduced ejection fraction, new onset diabetes, in AFib with RVR. Patient was covered with IV antibiotics, discharge planning for home antibiotics, however declined by insurance Patient is seen by me today during rounds Here to continue IV abx, wont able to do home or SNF IV abx. per IR communication between CBD and abscess, albeit improving. switched drain today. Objective Physical exam Alert, oriented x3 PERRLA JVD clavicles Clear breath sounds bilaterally S1-S2 regular rate and rhythm Abdomen soft nontender, no organomegaly Moving all four extremities Trace extremity edema Lab MSSA bacteremia Imaging Echo with 25% ejection fraction Devin with no vegetation repeat CT with improvement in hepatic abscess Assessment and plan MSSA bacteremia Liver abscess Leucocytosis Cirrhosis newly diagnosed uncontrolled diabetes Alcohol withdrawal, resolved New onset type 2 diabetes mellitus Hypertension Hyponatremia Alcohol use, unspecified with withdrawal, uncomplicated a-fib with RVR Newly diagnosed acute systolic congestive heart failure (LVEF 25%) Metabolic encephalopathy secondary to hyponatremia versus sepsis, resolved Obesity communication between abscess and CBD, fistula? Continue with IV ancef (s/p vanc 08/20, on ancef 08/22-now) Not able to get home IV abx and SNF placement Will discuss abx duration with ID Start in optimize GDMT Cardio Consult appreciated ID consult appreciated will discuss with ID possibility of dalvance Patient had LifeVest side Telemetry DEVIN without vegetation radiology to reposition drain surgery consult, however poor candidate for surgery Replete electrolytes Diet heart healthy DVT prophylaxis full-dose anticoagulation Plan discussed with: Patient My Orders Orders - ALBIN ROWAN MD Procedure Category Date Status Time * Radiologist Consult CONS 09/05/24 Transmitted 08:45 Admit ADMIT 09/05/24 Transmitted 09:08 Transfer Orders XFER 09/05/24 Transmitted 09:08 Discontinue Tele DANIELA 09/05/24 In Process 09:08 * Surgical Consult CONS 09/05/24 Transmitted Date of Service: Sep 05, 2024 Billing Provider: ALBIN ROWAN MD Common Visit Codes: [id number] INP/OBS CARE(HIGH) ALBIN ROWAN MD Sep 05, 2024 16:15
[2024-09-06] VITALS (8 sets, daily range): BP systolic 105–134; BP diastolic 70–90; PULSE 65–86; RESP 16–18; TEMP 97.6–98.4; O2SAT 94–97
--- NOTE | 2024-09-06 03:01 | DVH ---
CLINICAL HISTORY: CBD obstruction,Abscess TECHNIQUE: Utilizing a 1.5 shantel scanner, MRI and MRCP of the abdomen was performed without gadoliniu m. 3D reconstructed images were created under concurrent radiologist supervision and archived on the PACS system. WID: COMPARISON: CT abdomen and pelvis from 09/04/2024 FINDINGS: Lower Thorax: Unremarkable. Liver and Biliary system: Mild hepatomegaly measuring 19 cm craniocaudal. There is a right upper quad rant abdominal approach percutaneous catheter in the region of segment 4 B of the liver. There is T2 hyperintensity in the parenchyma segment 4B and segment 6 as well as a thin pockets of fluid within this area 1 of which measures 1.1 x 5.8 cm on series 4, image 20. There is no biliary ductal dilatat ion. Prior cholecystectomy Spleen: Unremarkable. Adrenal Glands and Kidneys: Normal adrenal glands. Small bilateral renal cysts there is a complicated right lower pole renal cystic lesion measuring 1.6 cm on series 4, image 35 there is no hydronephros is. Pancreas and Retroperitoneum: Unremarkable. Aorta and branch Vessels: Unremarkable. Bowel, Mesentery and Peritoneal space: Normal caliber visualized small and large bowel. There is mild distal colonic diverticulosis. No fluid collection. Abdominal wall and Osseous Structures: Intact IMPRESSION: 1. As demonstrated on recent CT there has been significant decrease in size of hepatic abscess predom inantly in segment 4B and segment 6 with thin pockets of fluid remaining ; a percutaneous pigtail leah inage catheter is in place, also better seen on CT. 2. Mild hepatomegaly. 3. Distal colonic diverticulosis. 4. Mildly complicated right lower pole cystic lesion. Consider surveillance imaging with contrast-en hanced CT abdomen and pelvis ( renal mass protocol ) for re-evaluation
--- NOTE | 2024-09-06 09:18 | DVHPN2 ---
Assessment/Plan Assessment/Plan Progress note Subjective 54-year-old male admitted for hyponatremia, found to have MSSA bacteremia, status post DEVIN, also diagnosed with new onset heart failure with reduced ejection fraction, new onset diabetes, in AFib with RVR. Patient was covered with IV antibiotics, discharge planning for home antibiotics, however declined by insurance Patient is seen by me today during rounds Here to continue IV abx, wont able to do home or SNF IV abx. Plan for MRCP, pending surgical consult. Objective Physical exam Alert, oriented x3 PERRLA JVD clavicles Clear breath sounds bilaterally S1-S2 regular rate and rhythm Abdomen soft nontender, no organomegaly Moving all four extremities Trace extremity edema Lab MSSA bacteremia Imaging Echo with 25% ejection fraction Devin with no vegetation repeat CT with improvement in hepatic abscess Assessment and plan MSSA bacteremia Liver abscess Leucocytosis Cirrhosis newly diagnosed uncontrolled diabetes Alcohol withdrawal, resolved New onset type 2 diabetes mellitus Hypertension Hyponatremia Alcohol use, unspecified with withdrawal, uncomplicated a-fib with RVR Newly diagnosed acute systolic congestive heart failure (LVEF 25%) Metabolic encephalopathy secondary to hyponatremia versus sepsis, resolved Obesity communication between abscess and CBD, fistula? Continue with IV ancef (s/p vanc 08/20, on ancef 08/22-now) Not able to get home IV abx and SNF placement Will discuss abx duration with ID Start in optimize GDMT Cardio Consult appreciated ID consult appreciated will discuss with ID possibility of dalvance Patient had LifeVest side Telemetry DEVIN without vegetation s/p drain switch and reposition by IR surgery consult, however poor candidate for surgery MRCP Replete electrolytes Diet heart healthy DVT prophylaxis full-dose anticoagulation Plan discussed with: Patient My Orders Orders - ALBIN ROWAN MD Procedure Category Date Status Time Regulatory Intern ORDERS 09/05/24 Transmitted 16:15 Transfer Orders XFER 09/05/24 Transmitted 16:15 * Surgical Consult CONS 09/05/24 Transmitted 16:26 Date of Service: Sep 06, 2024 Billing Provider: ALBIN ROWAN MD Common Visit Codes: [id number] INP/OBS CARE(HIGH) ALBIN ROWAN MD Sep 06, 2024 09:18
--- NOTE | 2024-09-06 10:05 | DVHINCON2 ---
Date of service: Sep 06, 2024 Family History: Patient reports no known family medical history. Allergies: Coded Allergies: Codeine (Verified Allergy, Intermediate, 08/13/24) Home Meds No Active Prescriptions or Reported Meds Vital Signs Vital Signs Date Time Temp Pulse Resp B/P (MAP) Pulse Ox O2 Delivery O2 Flow Rate FiO2 09/06/24 09:02 86 126/71 09/06/24 08:00 18 97 Room Air* 0 21 09/06/24 05:00 98.3 98.3 Labs/Diagnostic Data Labs Test 09/06/24 05:15 09/05/24 05:40 08/22/24 15:59 08/20/24 04:47 Range/Units POC Glucose 152 H 70-106 mg/dl White Blood Count 7.0 4.4-10.8 10^3/uL Red Blood Count 4.29 L 4.5-5.90 10^6/uL Hemoglobin 12.8 L 13.5-17.5 g/dL Hematocrit 38.0 L 41.0-53.0 % Mean Corpuscular Volume 88.6 80.0-100.0 fL Mean Corpuscular Hemoglobin 29.9 28.0-32.0 pg Mean Corpuscular Hemoglobin Concent 33.7 32.0-36.0 g/dL Red Cell Distribution Width 14.0 11.8-14.3 % Platelet Count 414 140-450 10^3/uL Mean Platelet Volume 8.4 6.9-10.8 fL Neutrophils (%) (Auto) 55.0 37.0-80.0 % Lymphocytes (%) (Auto) 30.8 10.0-50.0 % Monocytes (%) (Auto) 8.7 0.0-12.0 % Eosinophils (%) (Auto) 3.9 0.0-7.0 % Basophils (%) (Auto) 1.6 0.0-2.0 % Neutrophils # (Auto) 3.9 1.6-8.6 10 ^3/uL Lymphocytes # (Auto) 2.2 0.4-5.4 10 ^3/uL Monocytes # (Auto) 0.6 0-1.3 10 ^3/uL Eosinophils # (Auto) 0.3 0-0.8 10 ^3/uL Basophils # (Auto) 0.1 0-0.2 10 ^3/uL Nucleated Red Blood Cells 0.2 % Sodium Level 134 L 136-145 mmol/L Potassium Level 4.4 3.5-5.1 mmol/L Chloride Level 99 98-107 mmol/L Carbon Dioxide Level 26 20-31 mmol/L Anion Gap 9 5-15 Blood Urea Nitrogen 15 9-23 mg/dL Creatinine 0.77 0.700-1.30 mg/dL Glomerular Filtration Rate Calc 107 >90 mL/min BUN/Creatinine Ratio 19.5 10.0-20.0 Serum Glucose 154 H 74-106 mg/dL Calcium Level 10.3 8.7-10.4 mg/dL Total Bilirubin 0.4 0.2-1.0 mg/dL Aspartate Amino Transferase (AST) 11 L 13-40 U/L Alanine Aminotransferase (ALT) < 9 7-40 U/L Alkaline Phosphatase 159 H 46-116 U/L Total Protein 7.8 5.7-8.2 g/dL Albumin 4.1 3.2-4.8 g/dL Vancomycin Level Trough 25.7 H 5-10 ug/mL Differential Total Cells Counted 100.0 100 Neutrophils % (Manual) 63 37.0-80.0 Band Neutrophils % (Manual) 3 Lymphocytes % (Manual) 24 10.0-50.0 Monocytes % (Manual) 6 0-12 Eosinophils % (Manual) 1 0-7 Basophils % (Manual) 0 0.0-2.0 Metamyelocytes % (manual) 1 Myelocytes % (Manual) 2 Promyelocytes % (Manual) 0 Blast Cells % (Manual) 0 Reactive Lymphocytes 0 Platelet Estimate Increased Large Platelets Few Giant Platelets Few Test 08/19/24 06:42 08/17/24 21:36 08/17/24 06:55 08/16/24 07:10 Range/Units Red Blood Cell Morphology Normal Urine Color Yellow Yellow Urine Clarity Clear Clear Urine pH 6.0 5.0-9.0 Urine Specific Bann[place] 1.014 1.001-1.035 Urine Protein Negative Negative Urine Ketones Negative Negative Urine Blood Trace H Negative /uL Urine Nitrite Negative Negative Urine Bilirubin Negative Negative Urine Urobilinogen 2 H Negative mg/dL Urine Leukocyte Esterase Negative Negative /uL Urine RBC 1 0 - 3 /hpf Urine WBC 2 0 - 3 /hpf Urine Squamous Epithelial Cells Few <5 /hpf Urine Bacteria None seen None Seen /hpf Urine Hyaline Casts Few 0 - 2 /lpf Urine Mucus Few None Seen Urine Glucose 1+ H Normal mg/dL Urine Opiates Screen Neg NEGATIVE Urine Fentanyl Screen Neg NEGATIVE Urine Barbiturates Screen Neg NEGATIVE Urine Phencyclidine Screen Neg NEGATIVE Urine Amphetamines Screen Neg NEGATIVE Urine Benzodiazepines Screen Pos NEGATIVE Urine Cocaine Screen Neg NEGATIVE Urine Cannabinoids Screen Neg NEGATIVE Phosphorus Level 4.0 2.4-5.1 mg/dL Magnesium Level 1.6 1.6-2.6 mg/dL Lactic Acid Level 1.6 0.4-2.0 mmol/L Ammonia < 10 L 11-32 umol/L Triglycerides Level 197 H < 150 mg/dL Cholesterol Level 152 < 200 mg/dL LDL Cholesterol 92 < 100 mg/dL HDL Cholesterol 8 L 40-59 mg/dL Vitamin B12 Level 3782 H 211-911 pg/mL Vitamin D 25-Hydroxy 44.9 30.0-100 ng/mL Thyroid Stimulating Hormone (TSH) 1.73 0.55-4.78 uIU/mL Test 08/15/24 10:00 08/15/24 08:07 08/15/24 05:23 08/13/24 12:37 Range/Units Influenza Type A Antigen Negative Negative Influenza Type B Antigen Negative Negative SARS-CoV-2 Antigen (Rapid) Negative NEGATIVE Blood Gas Specimen Type Arterial Blood Gas Sample Site Right radial Blood Gas Patient Temperature 37.0 Arterial Blood Date Drawn [id number] Arterial Blood pH 7.462 H 7.350-7.450 Arterial Blood Partial Pressure CO2 31.5 L 35.0-48.0 mmHg Arterial Blood Partial Pressure O2 91.1 83.0-108.0 mmHg Arterial Blood HCO3 22.0 21.0-28.0 mmol/L Arterial Blood Oxygen Saturation 97.6 94.0-98.0 % Arterial Blood Base Excess -0.9 -2.0-3.0 mmol/L Arterial Blood Oxyhemoglobin 96.7 94.0-98.0 % Arterial Blood Carboxyhemoglobin 0.6 0.5-1.5 % Arterial Blood Methemoglobin 0.3 0.0-1.5 % Obed Test Yes Blood Gas Total Hemoglobin 13.20 L 13.5-17.5 g/dL Blood Gas Liter Flow 3.00 Blood Gas Modality Nasal cannula FiO2 % 32.0 Prothrombin Time 12.3 H 9.3-11.8 sec Prothrombin Time INR 1.17 H 0.9-1.15 Activated Partial Thromboplast Time 32.6 24.5-34.5 SEC Troponin I High Sensitivity 20 </=54 ng/L B-Type Natriuretic Peptide 236.74 0-100 pg/mL Hemoglobin A1c 12.4 H <5.7 % A1C Microbiology Date/Time Source Procedure Growth Status 08/24/24 09:30 Aspirate Gram Stain - Final Complete 08/24/24 09:30 Body Fluid Culture - Final Staphylococcus aureus Complete 08/19/24 16:10 Blood Blood Culture - Final NO GROWTH AFTER 5 DAYS OF INCUBATION. Complete Assessment 54 year old male alcohol abuser(stopped 1 and half months ago) had a liver abscess drain by IR, on follow up imaging there is significant decrease in the since of his abscess and he is clinically improved. Imaging reported as showing the Gallbladder to be surgically absent however the patient denies any past operations. at present there is no indication for surgical intervention, I would continue with the conservative management till complete resolution of the abscess documented by follow up imaging, Plan discussed with: Patient OLIVIA ELLIS MD Sep 06, 2024 10:05
--- NOTE | 2024-09-06 11:42 | DVHPN2 ---
Progress Note - Dictate Date Seen: Sep 06, 2024 Medical Necessity Reason Pt with a Central, PICC or Fol: No Subjective no new complaints vital signs Vital Sign Date Time Temp Pulse Resp B/P (MAP) Pulse Ox O2 Delivery O2 Flow Rate FiO2 09/06/24 09:02 86 126/71 09/06/24 09:00 98.0 16 95 98.0 09/06/24 08:00 Room Air* 0 21 Total Intake and Output 09/05/24 09/05/24 09/06/24 15:00 23:00 07:00 Intake Total 50 ml 800 ml 850 ml Balance 50 ml 800 ml 850 ml medications Current Medications Medications Dose Ordered Sig/Unruly Route Start Time Stop Time Status Last Admin Dose Admin Lorazepam 1 mg Q2HP PRN IV 08/13/24 14:30 08/14/24 21:21 1 MG Thiamine HCl 100 mg DAILY IV 08/14/24 10:00 09/06/24 09:00 100 MG Folic Acid 1 mg/ Dextrose 50.2 ml @ 200.8 mls/ hr DAILY INJ 08/14/24 10:00 09/06/24 08:59 200.8 MLS/HR Ondansetron HCl 4 mg Q4HP PRN IV 08/13/24 14:30 Acetaminophen 650 mg Q6HP PRN PO 08/13/24 14:30 Nitroglycerin 0.4 mg Q5MINP PRN SL 08/13/24 16:45 Sacubitril/ Valsartan 1 tab BID PO 08/15/24 22:00 09/06/24 09:01 1 TAB Metoprolol Succinate 25 mg DAILY PO 08/16/24 10:00 09/06/24 09:02 25 MG Spironolactone 25 mg DAILY PO 08/16/24 10:00 09/06/24 09:01 25 MG Amiodarone HCl 200 mg Q12HR PO 08/17/24 22:00 09/06/24 09:01 200 MG Empaglifozin 10 mg DAILY PO 08/18/24 10:00 09/06/24 09:02 10 MG Furosemide 40 mg DAILY IV 08/30/24 10:00 09/06/24 09:01 40 MG Saccharomyces Boulardii 250 mg DAILY PO 08/30/24 10:00 09/06/24 09:02 250 MG Insulin Glargine 15 units HS SC 08/29/24 22:00 09/05/24 22:18 15 UNITS Diagnostic Test (Pha) 1 strip ACHS 08/29/24 22:00 09/06/24 11:19 1 STRIP Insulin Human Regular HS SC 08/29/24 22:00 09/05/24 22:18 4 UNITS Insulin Human Regular AC SC 08/30/24 07:00 09/06/24 11:22 6 UNITS Dextrose 50 ml UD PRN IV 08/29/24 17:30 Enoxaparin Sodium 40 mg DAILY SC 09/03/24 10:00 09/06/24 09:03 40 MG Cefazolin Sodium/ Dextrose 50 ml @ 50 mls/hr Q8HR IV 09/03/24 22:00 09/06/24 06:15 50 MLS/HR Sodium Chloride 1 spr QID EACHNOSTRI 09/04/24 12:00 09/06/24 11:19 1 SPR Polyethylene Glycol 17 gm DAILYPRN PRN PO 09/04/24 14:15 objective General alert and oriented HEENT: Atraumatic Neck: No swelling Lungs: Equal air entry and clear to auscultation Cardiovascular: S2 heard no murmur Abdomen: Soft nontender, no organomegaly, mild distended; liver drain + Neuro: Alert and oriented, no focal deficit Psych: Normal mood and affect laboratory and microbiology Laboratory Tests 09/05/24 05:40 Test 09/05/24 05:40 Range/Units Serum Glucose 154 H 74-106 mg/dL Assessment/Plan Patient is a 54-year-old male presented with: MSSA bacteremia Liver abscess Leucocytosis Cirrhosis newly diagnosed uncontrolled diabetes Cardiomyopathy Recommendations blood cx cleared on 08/15. receiving IV antibiotics. completed 3 weeks of IV, drain placed on 08/24 cx grew MSSA repeat CT showed from 09/04 showed liver abscess is decreased in size however there is a concern for CBD leak and s/p repositioning of drain. Continue IV Cefazolin 2g q 8 hours; awaiting for abscess cultures from 09/04. will consider taper to oral antibiotics based on sensitivity. he is also having issues with placement surgery on board, gall bladder missing s/p TALI; no vegetation repeat culture from blood reviewed, no growth 09/05, MRCP reviewed thank you for the opportunity to care for the patient. Dietary Evaluation Review Comments: Continue current plan of care Expected Outcomes/Goals: F/U in 3-5 days Plan discussed with: EVELIA Morales MD Sep 06, 2024 11:42
[2024-09-07] VITALS (7 sets, daily range): BP systolic 115–139; BP diastolic 51–89; PULSE 61–72; RESP 18–20; TEMP 97.5–98.3; O2SAT 93–100
--- NOTE | 2024-09-07 09:19 | DVHPN2 ---
Assessment/Plan Assessment/Plan Progress note Subjective 54-year-old male admitted for hyponatremia, found to have MSSA bacteremia, status post DEVIN, also diagnosed with new onset heart failure with reduced ejection fraction, new onset diabetes, in AFib with RVR. Patient was covered with IV antibiotics, discharge planning for home antibiotics, however declined by insurance Patient is seen by me today during rounds Here to continue IV abx, wont able to do home or SNF IV abx. seen by surgery, conservative management. Off note patient has no visible galblader although did not have prior cholecystectomy. Objective Physical exam Alert, oriented x3 PERRLA JVD clavicles Clear breath sounds bilaterally S1-S2 regular rate and rhythm Abdomen soft nontender, no organomegaly Moving all four extremities Trace extremity edema Lab MSSA bacteremia Imaging Echo with 25% ejection fraction Devin with no vegetation repeat CT with improvement in hepatic abscess Assessment and plan MSSA bacteremia Liver abscess Leucocytosis Cirrhosis newly diagnosed uncontrolled diabetes Alcohol withdrawal, resolved New onset type 2 diabetes mellitus Hypertension Hyponatremia Alcohol use, unspecified with withdrawal, uncomplicated a-fib with RVR Newly diagnosed acute systolic congestive heart failure (LVEF 25%) Metabolic encephalopathy secondary to hyponatremia versus sepsis, resolved Obesity communication between abscess and CBD, fistula? Continue with IV ancef (s/p vanc 08/20, on ancef 08/22-now) Not able to get home IV abx and SNF placement Will discuss abx duration with ID Start in optimize GDMT Cardio Consult appreciated ID consult appreciated will discuss with ID possibility of dalvance Patient had LifeVest side Telemetry DEVIN without vegetation s/p drain switch and reposition by IR surgery consult appreciated, conservative mgmt minimize blood draw vitals sleep friendly switched lasix to PO Replete electrolytes Diet heart healthy DVT prophylaxis full-dose anticoagulation Plan discussed with: Patient My Orders Orders - ALBIN ROWAN MD Procedure Category Date Status Time Air Bed ORDERS 09/07/24 Transmitted 08:47 Insulin Lantus PHA 09/07/24 Logged (Glargine) (Lantus) 22:00 Furosemide Tablet PHA 09/07/24 Logged (Lasix Tablet) 18:00 Thiamine Tab PHA 09/07/24 Logged 10:00 Folic Acid Tablet PHA 09/07/24 Logged 10:00 Date of Service: Sep 07, 2024 Billing Provider: ALBIN ROWAN MD Common Visit Codes: [id number] INP/OBS CARE(HIGH) ALBIN ROWAN MD Sep 07, 2024 09:19
[2024-09-07] MEDS: THIAMINE HCL 100 MG TAB PO SCH (10:00)
[2024-09-07] MEDS: FOLIC ACID 1 MG TAB PO SCH (10:00)
--- NOTE | 2024-09-07 15:43 | DVHPN2 ---
Progress Note - Dictate Date Seen: Sep 07, 2024 Medical Necessity Reason Pt with a Central, PICC or Fol: Yes Subjective No new acute complaints noted. He wont able to do home or SNF IV antibiotics. Seen by surgery, conservative management. Off note patient has no visible gallbladder although did not have prior cholecystectomy. vital signs Vital Sign Date Time Temp Pulse Resp B/P (MAP) Pulse Ox O2 Delivery O2 Flow Rate FiO2 09/07/24 13:00 97.7 69 19 139/89 (106) 100 97.7 09/06/24 20:00 Room Air* 0 21 Total Intake and Output 09/06/24 09/06/24 09/07/24 15:00 23:00 07:00 Intake Total 50 ml 2100 ml 850 ml Balance 50 ml 2100 ml 850 ml medications Current Medications Medications Dose Ordered Sig/Unruly Route Start Time Stop Time Status Last Admin Dose Admin Acetaminophen 650 mg Q6HP PRN PO 08/13/24 14:30 Sacubitril/ Valsartan 1 tab BID PO 08/15/24 22:00 09/07/24 10:56 1 TAB Metoprolol Succinate 25 mg DAILY PO 08/16/24 10:00 09/07/24 10:58 25 MG Spironolactone 25 mg DAILY PO 08/16/24 10:00 09/07/24 10:58 25 MG Amiodarone HCl 200 mg Q12HR PO 08/17/24 22:00 09/07/24 10:58 200 MG Empaglifozin 10 mg DAILY PO 08/18/24 10:00 09/07/24 10:58 10 MG Saccharomyces Boulardii 250 mg DAILY PO 08/30/24 10:00 09/07/24 10:56 250 MG Diagnostic Test (Pha) 1 strip ACHS 08/29/24 22:00 09/07/24 11:30 1 STRIP Insulin Human Regular HS SC 08/29/24 22:00 09/06/24 22:33 6 UNITS Insulin Human Regular AC SC 08/30/24 07:00 09/07/24 11:30 3 UNITS Dextrose 50 ml UD PRN IV 08/29/24 17:30 Enoxaparin Sodium 40 mg DAILY SC 09/03/24 10:00 09/07/24 10:56 40 MG Cefazolin Sodium/ Dextrose 50 ml @ 50 mls/hr Q8HR IV 09/03/24 22:00 09/07/24 06:29 50 MLS/HR Sodium Chloride 1 spr QID EACHNOSTRI 09/04/24 12:00 09/07/24 06:30 1 SPR Polyethylene Glycol 17 gm DAILYPRN PRN PO 09/04/24 14:15 Insulin Glargine 20 units HS SC 09/07/24 22:00 Furosemide 40 mg BIDD PO 09/07/24 18:00 Thiamine HCl 100 mg DAILY PO 09/07/24 10:00 Folic Acid 1 mg DAILY PO 09/07/24 10:00 objective General: Alert and oriented HEENT: Atraumatic Neck: No swelling Lungs: Equal air entry and clear to auscultation Cardiovascular: S2 heard no murmur Abdomen: Soft nontender, no organomegaly, mild distended; liver drain + Neuro: Alert and oriented, no focal deficit Psych: Normal mood and affect laboratory and microbiology Laboratory Tests 09/05/24 05:40 Test 09/05/24 05:40 Range/Units Serum Glucose 154 H 74-106 mg/dL Assessment/Plan Patient is a 54-year-old male presented with: MSSA bacteremia Liver abscess Leucocytosis Cirrhosis newly diagnosed uncontrolled diabetes Cardiomyopathy Recommendations blood cx cleared on 08/15. receiving IV antibiotics. completed 3 weeks of IV, drain placed on 08/24 cx grew MSSA repeat CT showed from 09/04 showed liver abscess is decreased in size however there is a concern for CBD leak and s/p repositioning of drain. Continue IV Cefazolin 2g q 8 hours; awaiting for abscess cultures from 09/04, showed no growth. will consider taper to oral antibiotics based on sensitivity. he is also having issues with placement surgery on board, gall bladder missing s/p TALI; no vegetation repeat culture from blood reviewed, no growth 09/05, MRCP reviewed thank you for the opportunity to care for the patient. Dietary Evaluation Review Comments: Continue current plan of care Expected Outcomes/Goals: F/U in 3-5 days Plan discussed with: EVELIA Morales MD Sep 07, 2024 15:43
[2024-09-07] MEDS: FUROSEMIDE 20 MG TAB PO SCH (18:55)
[2024-09-07] MEDS: INSULIN LANTUS (GLARGINE) 1 /0.01ml (100units/ml) SC SCH (22:35)
[2024-09-08] VITALS (8 sets, daily range): BP systolic 106–133; BP diastolic 62–88; PULSE 59–78; RESP 18–20; TEMP 97.7–98.3; O2SAT 90–98
--- NOTE | 2024-09-08 12:50 | DVHPN2 ---
Reviewed: Care Plan, H&P, Labs, Medications, Previous Orders, Radiology Changes from previous H/P or p: No Changes General: Per HPI Eyes: No Pain, No Vision change, No Conjunctivae inflammation, No Eyelid inflammation, No Other, No Redness ENT: No Ear pain, No Ear discharge, No Nose pain, No Nose discharge, No Nose congestion, No Mouth pain, No Mouth swelling, No Throat pain, No Throat swelling, No Other Cardiovascular: No Chest Pain, No Palpitations, No Orthopnea, No Paroxysmal Noc. Dyspnea, No Edema, No Lt Headedness, No Other Respiratory: No Cough, No Dry, No Shortness of breath, No SOB with excertion, No Wheezing, No Hemoptysis, No Pleuritic Pain, No Sputum, No Other Gastrointestinal: No Nausea, No Vomiting, No Abdominal Pain, No Diarrhea, No Constipation, No Melena, No Hematochezia, No Other Genitourinary: No Dysuria, No Frequency, No Incontinence, No Hematuria, No Retention, No Other Musculoskeletal: No other, No neck pain, No shoulder pain, No arm pain, No back pain, No hand pain, No leg pain, No foot pain Skin: No Rash, No Lesions, No Jaundice, No Bruising, No Other Objective Vitals Vital Signs Date Time Temp Pulse Resp B/P (MAP) Pulse Ox O2 Delivery O2 Flow Rate FiO2 09/08/24 10:45 65 115/62 09/08/24 09:00 97.8 18 98 97.8 09/07/24 20:00 Room Air* 0 21 Intake/Output Intake and Output 09/08/24 07:00 Intake Total 2245 ml Output Total 601 ml Balance 1644 ml Intake Oral 2095 ml IV Total 150 ml Output Urine Total 600 ml Urine/Stool Mix 1 ml # Voids 4 # Bowel Movements 4 General Appearance: Alert, Oriented X3, Cooperative, No acute distress HEENT: Atraumatic Lungs: Clear to auscultation Cardiovascular: Regular rate, Normal S1, Normal S2 Abdomen: Normal bowel sounds Neuro: Cranial nerves 3-12 NL Psych/Mental Status: Mental status NL Medications Current Medications Medications Dose Ordered Sig/Unruly Route Start Time Stop Time Status Last Admin Dose Admin Acetaminophen 650 mg Q6HP PRN PO 08/13/24 14:30 Sacubitril/ Valsartan 1 tab BID PO 08/15/24 22:00 09/08/24 10:43 1 TAB Metoprolol Succinate 25 mg DAILY PO 08/16/24 10:00 09/08/24 10:45 25 MG Spironolactone 25 mg DAILY PO 08/16/24 10:00 09/08/24 10:42 25 MG Amiodarone HCl 200 mg Q12HR PO 08/17/24 22:00 09/08/24 10:43 200 MG Empaglifozin 10 mg DAILY PO 08/18/24 10:00 09/08/24 10:00 10 MG Saccharomyces Boulardii 250 mg DAILY PO 08/30/24 10:00 09/08/24 10:42 250 MG Diagnostic Test (Pha) 1 strip ACHS 08/29/24 22:00 09/08/24 11:30 1 STRIP Insulin Human Regular HS SC 08/29/24 22:00 09/07/24 22:34 3 UNITS Insulin Human Regular AC SC 08/30/24 07:00 09/08/24 11:30 3 UNITS Dextrose 50 ml UD PRN IV 08/29/24 17:30 Enoxaparin Sodium 40 mg DAILY SC 09/03/24 10:00 09/08/24 10:00 40 MG Cefazolin Sodium/ Dextrose 50 ml @ 50 mls/hr Q8HR IV 09/03/24 22:00 09/08/24 04:49 50 MLS/HR Sodium Chloride 1 spr QID EACHNOSTRI 09/04/24 12:00 09/08/24 12:25 1 SPR Polyethylene Glycol 17 gm DAILYPRN PRN PO 09/04/24 14:15 Insulin Glargine 20 units HS SC 09/07/24 22:00 09/07/24 22:35 20 UNITS Furosemide 40 mg BIDD PO 09/07/24 18:00 09/08/24 06:22 40 MG Thiamine HCl 100 mg DAILY PO 09/07/24 10:00 09/08/24 10:42 100 MG Folic Acid 1 mg DAILY PO 09/07/24 10:00 09/08/24 10:42 1 MG Laboratory Results Laboratory Tests 09/05/24 05:40 Urinalysis Test 08/17/24 21:36 Urine Color Yellow (Yellow) Urine Clarity Clear (Clear) Urine pH 6.0 (5.0-9.0) Urine Specific Pierz 1.014 (1.001-1.035) Urine Protein Negative (Negative) Urine Ketones Negative (Negative) Urine Blood Trace /uL (Negative) H Urine Nitrite Negative (Negative) Urine Bilirubin Negative (Negative) Urine Urobilinogen 2 mg/dL (Negative) H Urine Leukocyte Esterase Negative /uL (Negative) Urine RBC 1 /hpf (0 - 3) Urine WBC 2 /hpf (0 - 3) Urine Squamous Epithelial Cells Few /hpf (<5) Urine Bacteria None seen /hpf (None Seen) Urine Hyaline Casts Few /lpf (0 - 2) Urine Mucus Few (None Seen) Urine Glucose 1+ mg/dL (Normal) H Microbiology Microbiology Date/Time Source Procedure Growth Status 09/05/24 13:45 Aspirate Gram Stain - Final Resulted 09/05/24 13:45 Aspirate Body Fluid Culture - Preliminary Resulted 08/19/24 16:10 Blood Blood Culture - Final NO GROWTH AFTER 5 DAYS OF INCUBATION. Complete Labs and/or images reviewed: Labs reviewed by me, Image(s) reviewed by me Assessment/Plan Assessment/Plan Covering for Dr. Sr MSSA bacteremia: Continue Ancef Sepsis Liver abscess Leucocytosis Cirrhosis newly diagnosed uncontrolled diabetes Alcohol withdrawal, resolved New onset type 2 diabetes mellitus Hypertension Hyponatremia Alcohol use, unspecified with withdrawal, uncomplicated a-fib with RVR Newly diagnosed acute systolic congestive heart failure (LVEF 25%) Metabolic encephalopathy secondary to hyponatremia versus sepsis, resolved Obesity Time spent 50 minutes Patient is full code Advanced care planning time 20 minutes Plan discussed with: Patient Date of Service: Sep 08, 2024 Billing Provider: MILADYS NASSAR MD Common Visit Codes: [id number] INP/OBS CARE(HIGH) Secondary Visit Codes: [id number] CARE PLAN 30 MINUTES MILADYS NASSAR MD Sep 08, 2024 12:50
--- NOTE | 2024-09-08 16:55 | DVHPN2 ---
Progress Note - Dictate Date Seen: Sep 08, 2024 Medical Necessity Reason Pt with a Central, PICC or Fol: Yes Subjective No new acute complaints noted. He wont able to do home or SNF IV antibiotics. Seen by surgery, conservative management. Off note patient has no visible gallbladder although did not have prior cholecystectomy. WBC trending down, currently at 7.0. vital signs Vital Sign Date Time Temp Pulse Resp B/P (MAP) Pulse Ox O2 Delivery O2 Flow Rate FiO2 09/08/24 12:58 98.3 66 18 123/87 (99) 98 98.3 09/08/24 08:00 Room Air* 0 21 Total Intake and Output 09/07/24 09/07/24 09/08/24 15:00 23:00 07:00 Intake Total 50 ml 1450 ml 745 ml Output Total 601 ml Balance 50 ml 1450 ml 144 ml medications Current Medications Medications Dose Ordered Sig/Unruly Route Start Time Stop Time Status Last Admin Dose Admin Acetaminophen 650 mg Q6HP PRN PO 08/13/24 14:30 Sacubitril/ Valsartan 1 tab BID PO 08/15/24 22:00 09/08/24 10:43 1 TAB Metoprolol Succinate 25 mg DAILY PO 08/16/24 10:00 09/08/24 10:45 25 MG Spironolactone 25 mg DAILY PO 08/16/24 10:00 09/08/24 10:42 25 MG Amiodarone HCl 200 mg Q12HR PO 08/17/24 22:00 09/08/24 10:43 200 MG Empaglifozin 10 mg DAILY PO 08/18/24 10:00 09/08/24 10:00 10 MG Saccharomyces Boulardii 250 mg DAILY PO 08/30/24 10:00 09/08/24 10:42 250 MG Diagnostic Test (Pha) 1 strip ACHS 08/29/24 22:00 09/08/24 11:30 1 STRIP Insulin Human Regular HS SC 08/29/24 22:00 09/07/24 22:34 3 UNITS Insulin Human Regular AC SC 08/30/24 07:00 09/08/24 11:30 3 UNITS Dextrose 50 ml UD PRN IV 08/29/24 17:30 Enoxaparin Sodium 40 mg DAILY SC 09/03/24 10:00 09/08/24 10:00 40 MG Cefazolin Sodium/ Dextrose 50 ml @ 50 mls/hr Q8HR IV 09/03/24 22:00 09/08/24 13:53 50 MLS/HR Sodium Chloride 1 spr QID EACHNOSTRI 09/04/24 12:00 09/08/24 12:25 1 SPR Polyethylene Glycol 17 gm DAILYPRN PRN PO 09/04/24 14:15 Insulin Glargine 20 units HS SC 09/07/24 22:00 09/07/24 22:35 20 UNITS Furosemide 40 mg BIDD PO 09/07/24 18:00 09/08/24 06:22 40 MG Thiamine HCl 100 mg DAILY PO 09/07/24 10:00 09/08/24 10:42 100 MG Folic Acid 1 mg DAILY PO 09/07/24 10:00 09/08/24 10:42 1 MG objective General: Alert and oriented HEENT: Atraumatic Neck: No swelling Lungs: Equal air entry and clear to auscultation Cardiovascular: S2 heard no murmur Abdomen: Soft nontender, no organomegaly, mild distended; liver drain + Neuro: Alert and oriented, no focal deficit Psych: Normal mood and affect laboratory and microbiology Laboratory Tests 09/05/24 05:40 Test 09/05/24 05:40 Range/Units Serum Glucose 154 H 74-106 mg/dL Assessment/Plan Patient is a 54-year-old male presented with: MSSA bacteremia Liver abscess Leucocytosis Cirrhosis newly diagnosed uncontrolled diabetes Cardiomyopathy Recommendations blood cx cleared on 08/15. receiving IV antibiotics. completed 3 weeks of IV, will do 4 weeks on , drain placed on 08/24 cx grew MSSA repeat CT showed from 09/04 showed liver abscess is decreased in size however there is a concern for CBD leak and s/p repositioning of drain. Continue IV Cefazolin 2g q 8 hours; abscess cultures from 09/04, showed no growth. will consider taper to oral antibiotics based on sensitivity. he is also having issues with placement surgery on board, gall bladder missing s/p TALI; no vegetation repeat culture from blood reviewed, no growth 09/05, MRCP reviewed thank you for the opportunity to care for the patient. Dietary Evaluation Review Comments: Continue current plan of care Expected Outcomes/Goals: F/U in 3-5 days Plan discussed with: EVELIA Morales MD Sep 08, 2024 16:54
[2024-09-09] VITALS (7 sets, daily range): BP systolic 101–118; BP diastolic 67–78; PULSE 64–90; RESP 12–18; TEMP 97.7–98.4; O2SAT 69–97
--- NOTE | 2024-09-09 11:51 | DVHPN2 ---
Reviewed: Care Plan, H&P, Labs, Medications, Previous Orders, Radiology Changes from previous H/P or p: No Changes General: Per HPI Eyes: No Pain, No Vision change, No Conjunctivae inflammation, No Eyelid inflammation, No Other, No Redness ENT: No Ear pain, No Ear discharge, No Nose pain, No Nose discharge, No Nose congestion, No Mouth pain, No Mouth swelling, No Throat pain, No Throat swelling, No Other Cardiovascular: No Chest Pain, No Palpitations, No Orthopnea, No Paroxysmal Noc. Dyspnea, No Edema, No Lt Headedness, No Other Respiratory: No Cough, No Dry, No Shortness of breath, No SOB with excertion, No Wheezing, No Hemoptysis, No Pleuritic Pain, No Sputum, No Other Gastrointestinal: No Nausea, No Vomiting, No Abdominal Pain, No Diarrhea, No Constipation, No Melena, No Hematochezia, No Other Genitourinary: No Dysuria, No Frequency, No Incontinence, No Hematuria, No Retention, No Other Musculoskeletal: No other, No neck pain, No shoulder pain, No arm pain, No back pain, No hand pain, No leg pain, No foot pain Skin: No Rash, No Lesions, No Jaundice, No Bruising, No Other Objective Vitals Vital Signs Date Time Temp Pulse Resp B/P (MAP) Pulse Ox O2 Delivery O2 Flow Rate FiO2 09/09/24 09:35 90 144/98 09/09/24 09:00 98.4 16 94 98.4 09/09/24 08:00 Room Air* 0 21 Intake/Output Intake and Output 09/09/24 07:00 Intake Total 1870 ml Balance 1870 ml Intake Oral 1820 ml IV Total 50 ml # Voids 9 # Bowel Movements 1 General Appearance: Alert, Oriented X3, Cooperative, No acute distress HEENT: Atraumatic Lungs: Clear to auscultation Cardiovascular: Regular rate, Normal S1, Normal S2 Abdomen: Normal bowel sounds Neuro: Cranial nerves 3-12 NL Psych/Mental Status: Mental status NL Medications Current Medications Medications Dose Ordered Sig/Unruly Route Start Time Stop Time Status Last Admin Dose Admin Acetaminophen 650 mg Q6HP PRN PO 08/13/24 14:30 Sacubitril/ Valsartan 1 tab BID PO 08/15/24 22:00 09/09/24 09:36 1 TAB Metoprolol Succinate 25 mg DAILY PO 08/16/24 10:00 09/09/24 09:35 25 MG Spironolactone 25 mg DAILY PO 08/16/24 10:00 09/09/24 09:33 25 MG Amiodarone HCl 200 mg Q12HR PO 08/17/24 22:00 09/09/24 09:36 200 MG Empaglifozin 10 mg DAILY PO 08/18/24 10:00 09/09/24 09:36 10 MG Saccharomyces Boulardii 250 mg DAILY PO 08/30/24 10:00 09/09/24 09:36 250 MG Diagnostic Test (Pha) 1 strip ACHS 08/29/24 22:00 09/09/24 11:25 1 STRIP Insulin Human Regular HS SC 08/29/24 22:00 09/08/24 22:26 6 UNITS Insulin Human Regular AC SC 08/30/24 07:00 09/09/24 11:25 3 UNITS Dextrose 50 ml UD PRN IV 08/29/24 17:30 Enoxaparin Sodium 40 mg DAILY SC 09/03/24 10:00 09/09/24 09:35 40 MG Cefazolin Sodium/ Dextrose 50 ml @ 50 mls/hr Q8HR IV 09/03/24 22:00 09/09/24 05:39 50 MLS/HR Sodium Chloride 1 spr QID EACHNOSTRI 09/04/24 12:00 09/09/24 11:25 1 SPR Polyethylene Glycol 17 gm DAILYPRN PRN PO 09/04/24 14:15 Insulin Glargine 20 units HS SC 09/07/24 22:00 09/08/24 22:27 20 UNITS Furosemide 40 mg BIDD PO 09/07/24 18:00 09/09/24 06:08 40 MG Thiamine HCl 100 mg DAILY PO 09/07/24 10:00 09/09/24 09:35 100 MG Folic Acid 1 mg DAILY PO 09/07/24 10:00 09/09/24 09:35 1 MG Laboratory Results Laboratory Tests 09/05/24 05:40 Urinalysis Test 08/17/24 21:36 Urine Color Yellow (Yellow) Urine Clarity Clear (Clear) Urine pH 6.0 (5.0-9.0) Urine Specific [place] 1.014 (1.001-1.035) Urine Protein Negative (Negative) Urine Ketones Negative (Negative) Urine Blood Trace /uL (Negative) H Urine Nitrite Negative (Negative) Urine Bilirubin Negative (Negative) Urine Urobilinogen 2 mg/dL (Negative) H Urine Leukocyte Esterase Negative /uL (Negative) Urine RBC 1 /hpf (0 - 3) Urine WBC 2 /hpf (0 - 3) Urine Squamous Epithelial Cells Few /hpf (<5) Urine Bacteria None seen /hpf (None Seen) Urine Hyaline Casts Few /lpf (0 - 2) Urine Mucus Few (None Seen) Urine Glucose 1+ mg/dL (Normal) H Microbiology Microbiology Date/Time Source Procedure Growth Status 09/05/24 13:45 Aspirate Gram Stain - Final Resulted 09/05/24 13:45 Aspirate Body Fluid Culture - Preliminary Resulted 08/19/24 16:10 Blood Blood Culture - Final NO GROWTH AFTER 5 DAYS OF INCUBATION. Complete Labs and/or images reviewed: Labs reviewed by me, Image(s) reviewed by me Assessment/Plan Assessment/Plan Covering for Dr. Sr MSSA bacteremia: Continue Ancef Sepsis Liver abscess Leucocytosis Cirrhosis newly diagnosed uncontrolled diabetes Alcohol withdrawal, resolved New onset type 2 diabetes mellitus Hypertension Hyponatremia Alcohol use, unspecified with withdrawal, uncomplicated a-fib with RVR Newly diagnosed acute systolic congestive heart failure (LVEF 25%) Metabolic encephalopathy secondary to hyponatremia versus sepsis, resolved Obesity Manager Embalmer Funeral Director trying to set up home health for IV antibiotics Time spent 45 minutes Patient is full code Advanced care planning time 20 minutes Plan discussed with: Patient Date of Service: Sep 09, 2024 Billing Provider: MILADYS NASSAR MD Common Visit Codes: [id number] INP/OBS CARE(HIGH) MILADYS NASSAR MD Sep 09, 2024 11:51
--- NOTE | 2024-09-09 18:16 | DVHPN2 ---
Progress Note - Dictate Date Seen: Sep 09, 2024 Medical Necessity Reason Pt with a Central, PICC or Fol: Yes Subjective No new acute complaints noted. He wont able to do home or SNF IV antibiotics. Seen by surgery, conservative management. Off note patient has no visible gallbladder although did not have prior cholecystectomy. Patient states she has a pressure headache that has not been resolved with tylenol and non-pharmacological interventions and is requesting something for the pain and a break from the O2 via nasal cannula WBC trending down, currently at 7.0. vital signs Vital Sign Date Time Temp Pulse Resp B/P (MAP) Pulse Ox O2 Delivery O2 Flow Rate FiO2 09/09/24 17:28 113/76 09/09/24 16:58 97.9 69 12 69 97.9 09/09/24 08:00 Room Air* 0 21 Total Intake and Output 09/08/24 09/08/24 09/09/24 15:00 23:00 07:00 Intake Total 50 ml 920 ml 900 ml Balance 50 ml 920 ml 900 ml medications Current Medications Medications Dose Ordered Sig/Unruly Route Start Time Stop Time Status Last Admin Dose Admin Acetaminophen 650 mg Q6HP PRN PO 08/13/24 14:30 Sacubitril/ Valsartan 1 tab BID PO 08/15/24 22:00 09/09/24 09:36 1 TAB Metoprolol Succinate 25 mg DAILY PO 08/16/24 10:00 09/09/24 09:35 25 MG Spironolactone 25 mg DAILY PO 08/16/24 10:00 09/09/24 09:33 25 MG Amiodarone HCl 200 mg Q12HR PO 08/17/24 22:00 09/09/24 09:36 200 MG Empaglifozin 10 mg DAILY PO 08/18/24 10:00 09/09/24 09:36 10 MG Saccharomyces Boulardii 250 mg DAILY PO 08/30/24 10:00 09/09/24 09:36 250 MG Diagnostic Test (Pha) 1 strip ACHS 08/29/24 22:00 09/09/24 17:19 1 STRIP Insulin Human Regular HS SC 08/29/24 22:00 09/08/24 22:26 6 UNITS Insulin Human Regular AC SC 08/30/24 07:00 09/09/24 17:26 3 UNITS Dextrose 50 ml UD PRN IV 08/29/24 17:30 Enoxaparin Sodium 40 mg DAILY SC 09/03/24 10:00 09/09/24 09:35 40 MG Cefazolin Sodium/ Dextrose 50 ml @ 50 mls/hr Q8HR IV 09/03/24 22:00 09/09/24 14:00 50 MLS/HR Sodium Chloride 1 spr QID EACHNOSTRI 09/04/24 12:00 09/09/24 11:25 1 SPR Polyethylene Glycol 17 gm DAILYPRN PRN PO 09/04/24 14:15 Insulin Glargine 20 units HS SC 09/07/24 22:00 09/08/24 22:27 20 UNITS Furosemide 40 mg BIDD PO 09/07/24 18:00 09/09/24 17:28 40 MG Thiamine HCl 100 mg DAILY PO 09/07/24 10:00 09/09/24 09:35 100 MG Folic Acid 1 mg DAILY PO 09/07/24 10:00 09/09/24 09:35 1 MG objective General: Alert and oriented HEENT: Atraumatic Neck: No swelling Lungs: Equal air entry and clear to auscultation Cardiovascular: S2 heard no murmur Abdomen: Soft nontender, no organomegaly, mild distended; liver drain + Neuro: Alert and oriented, no focal deficit Psych: Normal mood and affect laboratory and microbiology Laboratory Tests 09/05/24 05:40 Test 09/05/24 05:40 Range/Units Serum Glucose 154 H 74-106 mg/dL Assessment/Plan Patient is a 54-year-old male presented with: MSSA bacteremia Liver abscess Leucocytosis Cirrhosis newly diagnosed uncontrolled diabetes Cardiomyopathy Recommendations blood cx cleared on 08/15. receiving IV antibiotics. completing 4 weeks of IV on 09/12, drain placed on 08/24 cx grew MSSA repeat CT showed from 09/04 showed liver abscess is decreased in size however there is a concern for CBD leak and s/p repositioning of drain. the residual size of abscess is 7.6 cm x 1.7 cm Continue IV Cefazolin 2g q 8 hours; abscess cultures from 09/04, showed no growth. HH to arrange Iv, plan for 2-3 weeks more. need repeat CT abdomen surgery on board, gall bladder missing s/p TALI; no vegetation repeat culture from blood reviewed, no growth 09/05, MRCP reviewed Graphite Mill Operator trying to set up home health for IV antibiotics thank you for the opportunity to care for the patient. Dietary Evaluation Review Comments: Continue current plan of care Expected Outcomes/Goals: F/U in 3-5 days Plan discussed with: EVELIA Morales MD Sep 09, 2024 18:16
[2024-09-10 08:00] VITALS: PULSE 58; PULSE 73; O2SAT 99
[2024-09-10 09:00] VITALS: BP 126/90; PULSE 73; RESP 17; TEMP 98.2; O2SAT 99
--- NOTE | 2024-09-10 12:06 | DVHPN2 ---
Reviewed: Care Plan, H&P, Labs, Medications, Previous Orders, Radiology Changes from previous H/P or p: No Changes General: Per HPI Eyes: No Pain, No Vision change, No Conjunctivae inflammation, No Eyelid inflammation, No Other, No Redness ENT: No Ear pain, No Ear discharge, No Nose pain, No Nose discharge, No Nose congestion, No Mouth pain, No Mouth swelling, No Throat pain, No Throat swelling, No Other Cardiovascular: No Chest Pain, No Palpitations, No Orthopnea, No Paroxysmal Noc. Dyspnea, No Edema, No Lt Headedness, No Other Respiratory: No Cough, No Dry, No Shortness of breath, No SOB with excertion, No Wheezing, No Hemoptysis, No Pleuritic Pain, No Sputum, No Other Gastrointestinal: No Nausea, No Vomiting, No Abdominal Pain, No Diarrhea, No Constipation, No Melena, No Hematochezia, No Other Genitourinary: No Dysuria, No Frequency, No Incontinence, No Hematuria, No Retention, No Other Musculoskeletal: No other, No neck pain, No shoulder pain, No arm pain, No back pain, No hand pain, No leg pain, No foot pain Skin: No Rash, No Lesions, No Jaundice, No Bruising, No Other Objective Vitals Vital Signs Date Time Temp Pulse Resp B/P (MAP) Pulse Ox O2 Delivery O2 Flow Rate FiO2 09/10/24 10:14 73 126/90 09/10/24 09:00 98.2 17 99 98.2 09/10/24 08:00 Room Air* 0 21 Intake/Output Intake and Output 09/10/24 07:00 Intake Total 1610 ml Balance 1610 ml Intake Oral 1560 ml IV Total 50 ml # Voids 6 # Bowel Movements 1 General Appearance: Alert, Oriented X3, Cooperative, No acute distress HEENT: Atraumatic Lungs: Clear to auscultation Cardiovascular: Regular rate, Normal S1, Normal S2 Abdomen: Normal bowel sounds Neuro: Cranial nerves 3-12 NL Psych/Mental Status: Mental status NL Medications Current Medications Medications Dose Ordered Sig/Unruly Route Start Time Stop Time Status Last Admin Dose Admin Acetaminophen 650 mg Q6HP PRN PO 08/13/24 14:30 Sacubitril/ Valsartan 1 tab BID PO 08/15/24 22:00 09/10/24 10:13 1 TAB Metoprolol Succinate 25 mg DAILY PO 08/16/24 10:00 09/10/24 10:14 25 MG Spironolactone 25 mg DAILY PO 08/16/24 10:00 09/10/24 10:13 25 MG Amiodarone HCl 200 mg Q12HR PO 08/17/24 22:00 09/10/24 10:13 200 MG Empaglifozin 10 mg DAILY PO 08/18/24 10:00 09/10/24 10:14 10 MG Saccharomyces Boulardii 250 mg DAILY PO 08/30/24 10:00 09/10/24 10:14 250 MG Diagnostic Test (Pha) 1 strip ACHS 08/29/24 22:00 09/10/24 11:59 1 STRIP Insulin Human Regular HS SC 08/29/24 22:00 09/09/24 21:55 4 UNITS Insulin Human Regular AC SC 08/30/24 07:00 09/10/24 11:59 3 UNITS Dextrose 50 ml UD PRN IV 08/29/24 17:30 Enoxaparin Sodium 40 mg DAILY SC 09/03/24 10:00 09/10/24 10:15 40 MG Cefazolin Sodium/ Dextrose 50 ml @ 50 mls/hr Q8HR IV 09/03/24 22:00 09/10/24 05:19 50 MLS/HR Sodium Chloride 1 spr QID EACHNOSTRI 09/04/24 12:00 09/10/24 05:31 1 SPR Polyethylene Glycol 17 gm DAILYPRN PRN PO 09/04/24 14:15 Insulin Glargine 20 units HS SC 09/07/24 22:00 09/09/24 21:56 20 UNITS Furosemide 40 mg BIDD PO 09/07/24 18:00 09/10/24 05:20 40 MG Thiamine HCl 100 mg DAILY PO 09/07/24 10:00 09/10/24 10:13 100 MG Folic Acid 1 mg DAILY PO 09/07/24 10:00 09/10/24 10:13 1 MG Laboratory Results Laboratory Tests 09/05/24 05:40 Urinalysis Test 08/17/24 21:36 Urine Color Yellow (Yellow) Urine Clarity Clear (Clear) Urine pH 6.0 (5.0-9.0) Urine Specific [place] 1.014 (1.001-1.035) Urine Protein Negative (Negative) Urine Ketones Negative (Negative) Urine Blood Trace /uL (Negative) H Urine Nitrite Negative (Negative) Urine Bilirubin Negative (Negative) Urine Urobilinogen 2 mg/dL (Negative) H Urine Leukocyte Esterase Negative /uL (Negative) Urine RBC 1 /hpf (0 - 3) Urine WBC 2 /hpf (0 - 3) Urine Squamous Epithelial Cells Few /hpf (<5) Urine Bacteria None seen /hpf (None Seen) Urine Hyaline Casts Few /lpf (0 - 2) Urine Mucus Few (None Seen) Urine Glucose 1+ mg/dL (Normal) H Microbiology Microbiology Date/Time Source Procedure Growth Status 09/05/24 13:45 Aspirate Gram Stain - Final Complete 09/05/24 13:45 Aspirate Body Fluid Culture - Final Complete 08/19/24 16:10 Blood Blood Culture - Final NO GROWTH AFTER 5 DAYS OF INCUBATION. Complete Labs and/or images reviewed: Labs reviewed by me, Image(s) reviewed by me Assessment/Plan Assessment/Plan Covering for Dr. Sr MSSA bacteremia: Continue Ancef Sepsis Liver abscess Leucocytosis Cirrhosis newly diagnosed uncontrolled diabetes Alcohol withdrawal, resolved New onset type 2 diabetes mellitus Hypertension Hyponatremia Alcohol use, unspecified with withdrawal, uncomplicated a-fib with RVR Newly diagnosed acute systolic congestive heart failure (LVEF 25%) Metabolic encephalopathy secondary to hyponatremia versus sepsis, resolved Obesity Casserole Preparer trying to set up home health for IV antibiotics Time spent 48 minutes Patient is full code advisory services associate working on home health arrangement for IV antibiotics Plan discussed with: Patient Date of Service: Sep 10, 2024 Billing Provider: MILADYS NASSAR MD Common Visit Codes: [id number] INP/OBS CARE(HIGH) MILADYS NASSAR MD Sep 10, 2024 12:06
[2024-09-10 13:00] VITALS: BP 108/69; PULSE 63; RESP 17; TEMP 98.2; O2SAT 98
[2024-09-10 16:49] VITALS: BP 122/85; PULSE 71; RESP 17; TEMP 98; O2SAT 96
[2024-09-10 20:00] VITALS: PULSE 69; PULSE 71; PULSE 72; RESP 18; O2SAT 98
[2024-09-10 21:00] VITALS: BP 109/74; PULSE 72; RESP 18; TEMP 98; O2SAT 98
--- NOTE | 2024-09-10 23:42 | DVHPN2 ---
Progress Note - Dictate Date Seen: Sep 10, 2024 Medical Necessity Reason Pt with a Central, PICC or Fol: Yes Subjective No new acute complaints noted. He wont able to do home or SNF IV antibiotics. Seen by surgery, conservative management. Off note patient has no visible gallbladder although did not have prior cholecystectomy. Patient states she has a pressure headache that has not been resolved with tylenol and non-pharmacological interventions and is requesting something for the pain and a break from the O2 via nasal cannula WBC trending down, currently at 7.0. vital signs Vital Sign Date Time Temp Pulse Resp B/P (MAP) Pulse Ox O2 Delivery O2 Flow Rate FiO2 09/10/24 21:00 98.0 72 18 109/74 (86) 98 98.0 09/10/24 20:00 Room Air* 0 21 Total Intake and Output 09/09/24 09/09/24 09/10/24 15:00 23:00 07:00 Intake Total 50 ml 920 ml 640 ml Balance 50 ml 920 ml 640 ml medications Current Medications Medications Dose Ordered Sig/Unruly Route Start Time Stop Time Status Last Admin Dose Admin Acetaminophen 650 mg Q6HP PRN PO 08/13/24 14:30 Sacubitril/ Valsartan 1 tab BID PO 08/15/24 22:00 09/10/24 21:39 1 TAB Metoprolol Succinate 25 mg DAILY PO 08/16/24 10:00 09/10/24 10:14 25 MG Spironolactone 25 mg DAILY PO 08/16/24 10:00 09/10/24 10:13 25 MG Amiodarone HCl 200 mg Q12HR PO 08/17/24 22:00 09/10/24 21:39 200 MG Empaglifozin 10 mg DAILY PO 08/18/24 10:00 09/10/24 10:14 10 MG Saccharomyces Boulardii 250 mg DAILY PO 08/30/24 10:00 09/10/24 10:14 250 MG Diagnostic Test (Pha) 1 strip ACHS 08/29/24 22:00 09/10/24 21:46 1 STRIP Insulin Human Regular HS SC 08/29/24 22:00 09/10/24 21:47 4 UNITS Insulin Human Regular AC SC 08/30/24 07:00 09/10/24 17:50 3 UNITS Dextrose 50 ml UD PRN IV 08/29/24 17:30 Enoxaparin Sodium 40 mg DAILY SC 09/03/24 10:00 09/10/24 10:15 40 MG Cefazolin Sodium/ Dextrose 50 ml @ 50 mls/hr Q8HR IV 09/03/24 22:00 09/10/24 21:40 50 MLS/HR Sodium Chloride 1 spr QID EACHNOSTRI 09/04/24 12:00 09/10/24 21:47 1 SPR Polyethylene Glycol 17 gm DAILYPRN PRN PO 09/04/24 14:15 Insulin Glargine 20 units HS SC 09/07/24 22:00 09/10/24 21:46 20 UNITS Furosemide 40 mg BIDD PO 09/07/24 18:00 09/10/24 19:35 40 MG Thiamine HCl 100 mg DAILY PO 09/07/24 10:00 09/10/24 10:13 100 MG Folic Acid 1 mg DAILY PO 09/07/24 10:00 09/10/24 10:13 1 MG objective General: Alert and oriented HEENT: Atraumatic Neck: No swelling Lungs: Equal air entry and clear to auscultation Cardiovascular: S2 heard no murmur Abdomen: Soft nontender, no organomegaly, mild distended; liver drain + Neuro: Alert and oriented, no focal deficit Psych: Normal mood and affect laboratory and microbiology Laboratory Tests 09/05/24 05:40 Test 09/05/24 05:40 Range/Units Serum Glucose 154 H 74-106 mg/dL Assessment/Plan Patient is a 54-year-old male presented with: MSSA bacteremia Liver abscess Leucocytosis Cirrhosis newly diagnosed uncontrolled diabetes Cardiomyopathy Recommendations blood cx cleared on 08/15. receiving IV antibiotics. completing 4 weeks of IV on 09/12, drain placed on 08/24 cx grew MSSA repeat CT showed from 09/04 showed liver abscess is decreased in size however there is a concern for CBD leak and s/p repositioning of drain. the residual size of abscess is 7.6 cm x 1.7 cm Continue IV Cefazolin 2g q 8 hours; abscess cultures from 09/04, showed no growth. HH to arrange Iv, plan for 2-3 weeks more. need repeat CT abdomen surgery on board, gall bladder missing s/p TALI; no vegetation repeat culture from blood reviewed, no growth 09/05, MRCP reviewed Ordnance Handler trying to set up home health for IV antibiotics thank you for the opportunity to care for the patient. Dietary Evaluation Review Comments: Continue current plan of care Expected Outcomes/Goals: F/U in 3-5 days EVELIA OWENS MD Sep 10, 2024 23:42
[2024-09-11 05:00] VITALS: BP 114/76; PULSE 67; RESP 18; TEMP 97.7; O2SAT 93
[2024-09-11 08:10] VITALS: PULSE 59; PULSE 61; RESP 18; O2SAT 98
[2024-09-11 09:00] VITALS: BP 110/66; PULSE 61; RESP 18; TEMP 97.8; O2SAT 98
[2024-09-11 13:00] VITALS: BP 117/83; PULSE 91; RESP 18; TEMP 97.9; O2SAT 97
[2024-09-11] MEDS ORDERED: FURO20TA4 PO (13:27)
[2024-09-11] MEDS ORDERED: METF-490 PO (13:27)
[2024-09-11] MEDS ORDERED: INSU300I SC (13:27)
[2024-09-11] MEDS ORDERED: SACU1TAB PO (13:27)
[2024-09-11] MEDS ORDERED: AMIO200T13 PO (13:27)
[2024-09-11] MEDS ORDERED: EMPA1TAB PO (13:27)
[2024-09-11] MEDS ORDERED: EMPA1TAB3 PO (13:27)
[2024-09-11] MEDS ORDERED: SPIR25TA PO (13:27)
[2024-09-11] MEDS ORDERED: METO-6 PO (13:27)
[2024-09-11 14:10] VITALS: BP 117/83; PULSE 91; RESP 18; TEMP 36.6; O2SAT 97
--- NOTE | 2024-09-11 16:00 | DVHDS2 ---
Discharge Summary Date of Admission Aug 13, 2024 at 16:34 Date of Discharge: Sep 11, 2024 Labs/Diagnostic Data: Laboratory Results Test 09/11/24 11:57 09/05/24 05:40 08/22/24 15:59 08/20/24 04:47 POC Glucose 178 mg/dl (70-106) White Blood Count 7.0 10^3/uL (4.4-10.8) Red Blood Count 4.29 10^6/uL (4.5-5.90) Hemoglobin 12.8 g/dL (13.5-17.5) Hematocrit 38.0 % (41.0-53.0) Mean Corpuscular Volume 88.6 fL (80.0-100.0) Mean Corpuscular Hemoglobin 29.9 pg (28.0-32.0) Mean Corpuscular Hemoglobin Concent 33.7 g/dL (32.0-36.0) Red Cell Distribution Width 14.0 % (11.8-14.3) Platelet Count 414 10^3/uL (140-450) Mean Platelet Volume 8.4 fL (6.9-10.8) Neutrophils (%) (Auto) 55.0 % (37.0-80.0) Lymphocytes (%) (Auto) 30.8 % (10.0-50.0) Monocytes (%) (Auto) 8.7 % (0.0-12.0) Eosinophils (%) (Auto) 3.9 % (0.0-7.0) Basophils (%) (Auto) 1.6 % (0.0-2.0) Neutrophils # (Auto) 3.9 10 ^3/uL (1.6-8.6) Lymphocytes # (Auto) 2.2 10 ^3/uL (0.4-5.4) Monocytes # (Auto) 0.6 10 ^3/uL (0-1.3) Eosinophils # (Auto) 0.3 10 ^3/uL (0-0.8) Basophils # (Auto) 0.1 10 ^3/uL (0-0.2) Nucleated Red Blood Cells 0.2 % Sodium Level 134 mmol/L (136-145) Potassium Level 4.4 mmol/L (3.5-5.1) Chloride Level 99 mmol/L (98-107) Carbon Dioxide Level 26 mmol/L (20-31) Anion Gap 9 (5-15) Blood Urea Nitrogen 15 mg/dL (9-23) Creatinine 0.77 mg/dL (0.700-1.30) Glomerular Filtration Rate Calc 107 mL/min (>90) BUN/Creatinine Ratio 19.5 (10.0-20.0) Serum Glucose 154 mg/dL (74-106) Calcium Level 10.3 mg/dL (8.7-10.4) Total Bilirubin 0.4 mg/dL (0.2-1.0) Aspartate Amino Transferase (AST) 11 U/L (13-40) Alanine Aminotransferase (ALT) < 9 U/L (7-40) Alkaline Phosphatase 159 U/L (46-116) Total Protein 7.8 g/dL (5.7-8.2) Albumin 4.1 g/dL (3.2-4.8) Vancomycin Level Trough 25.7 ug/mL (5-10) Differential Total Cells Counted 100.0 (100) Neutrophils % (Manual) 63 (37.0-80.0) Band Neutrophils % (Manual) 3 Lymphocytes % (Manual) 24 (10.0-50.0) Monocytes % (Manual) 6 (0-12) Eosinophils % (Manual) 1 (0-7) Basophils % (Manual) 0 (0.0-2.0) Metamyelocytes % (manual) 1 Myelocytes % (Manual) 2 Promyelocytes % (Manual) 0 Blast Cells % (Manual) 0 Reactive Lymphocytes 0 Platelet Estimate Increased Large Platelets Few Giant Platelets Few Test 08/19/24 06:42 08/17/24 21:36 08/17/24 06:55 08/16/24 07:10 Red Blood Cell Morphology Normal Urine Color Yellow (Yellow) Urine Clarity Clear (Clear) Urine pH 6.0 (5.0-9.0) Urine Specific Galliano 1.014 (1.001-1.035) Urine Protein Negative (Negative) Urine Ketones Negative (Negative) Urine Blood Trace /uL (Negative) Urine Nitrite Negative (Negative) Urine Bilirubin Negative (Negative) Urine Urobilinogen 2 mg/dL (Negative) Urine Leukocyte Esterase Negative /uL (Negative) Urine RBC 1 /hpf (0 - 3) Urine WBC 2 /hpf (0 - 3) Urine Squamous Epithelial Cells Few /hpf (<5) Urine Bacteria None seen /hpf (None Seen) Urine Hyaline Casts Few /lpf (0 - 2) Urine Mucus Few (None Seen) Urine Glucose 1+ mg/dL (Normal) Urine Opiates Screen Neg (NEGATIVE) Urine Fentanyl Screen Neg (NEGATIVE) Urine Barbiturates Screen Neg (NEGATIVE) Urine Phencyclidine Screen Neg (NEGATIVE) Urine Amphetamines Screen Neg (NEGATIVE) Urine Benzodiazepines Screen Pos (NEGATIVE) Urine Cocaine Screen Neg (NEGATIVE) Urine Cannabinoids Screen Neg (NEGATIVE) Phosphorus Level 4.0 mg/dL (2.4-5.1) Magnesium Level 1.6 mg/dL (1.6-2.6) Lactic Acid Level 1.6 mmol/L (0.4-2.0) Ammonia < 10 umol/L (11-32) Triglycerides Level 197 mg/dL (< 150) Cholesterol Level 152 mg/dL (< 200) LDL Cholesterol 92 mg/dL (< 100) HDL Cholesterol 8 mg/dL (40-59) Vitamin B12 Level 3782 pg/mL (211-911) Vitamin D 25-Hydroxy 44.9 ng/mL (30.0-100) Thyroid Stimulating Hormone (TSH) 1.73 uIU/mL (0.55-4.78) Test 08/15/24 10:00 08/15/24 08:07 08/15/24 05:23 08/13/24 12:37 Influenza Type A Antigen Negative (Negative) Influenza Type B Antigen Negative (Negative) SARS-CoV-2 Antigen (Rapid) Negative (NEGATIVE) Blood Gas Specimen Type Arterial Blood Gas Sample Site Right radial Blood Gas Patient Temperature 37.0 Arterial Blood Date Drawn [id number] Arterial Blood pH 7.462 (7.350-7.450) Arterial Blood Partial Pressure CO2 31.5 mmHg (35.0-48.0) Arterial Blood Partial Pressure O2 91.1 mmHg (83.0-108.0) Arterial Blood HCO3 22.0 mmol/L (21.0-28.0) Arterial Blood Oxygen Saturation 97.6 % (94.0-98.0) Arterial Blood Base Excess -0.9 mmol/L (-2.0-3.0) Arterial Blood Oxyhemoglobin 96.7 % (94.0-98.0) Arterial Blood Carboxyhemoglobin 0.6 % (0.5-1.5) Arterial Blood Methemoglobin 0.3 % (0.0-1.5) Obed Test Yes Blood Gas Total Hemoglobin 13.20 g/dL (13.5-17.5) Blood Gas Liter Flow 3.00 Blood Gas Modality Nasal cannula FiO2 % 32.0 Prothrombin Time 12.3 sec (9.3-11.8) Prothrombin Time INR 1.17 (0.9-1.15) Activated Partial Thromboplast Time 32.6 SEC (24.5-34.5) Troponin I High Sensitivity 20 ng/L (</=54) B-Type Natriuretic Peptide 236.74 pg/mL (0-100) Hemoglobin A1c 12.4 % A1C (<5.7) Other Laboratory Tests 09/05/24 05:40 Brief Hx & Hospital Course: 54 yo M with alcohol use admitted for sepsis, found to have uncontrolled DM, HTN, new heart failure with reduced ejection fraction, cirrhosis, liver abscess. Prolonged hospital stay for optimization and IV antibiotic. Culture grows MSSA, patient had TALI with no vegetations, liver abscess that was drained by IR, and on repeat CT the drain was replaced, Patient also found to not have a galbladder, possibilities include the abscess was from his galbladder as evident from communication of contrast to CBD during procedure. Patient was intitiated and titrated on GDMT, started on anticoagulation, and was given livefest. Initially declined by insurance for home abx or SNF placement however was further revisited and was able to be discharged with home IV abx. Patient was educated prior to discharge on HF, afib and his follow up. Patient to follow up with surgery, cardiology and PCP. Condition at Discharge: Good Final Diagnosis/Problems List MSSA bacteremia with hepatic abscess HFrEF IDDM Discharge Disposition: Home with Health Services Discharge Instruct/Medications Diet: Consistent carbohydrate, Cardiac 2g Na,low cholest Activity: No Restrictions, As Tolerated Follow Up/Referral: cardiology surgery PCP ID Medications: IV cefazolin at home for 2 weeks entresto jardiance metformin metoprolol succinate lipitor aldactone amiodarone 45 Discharge Statement: "Patient was advised to return to the ER or call 911 if any headaches, dizziness, shortness of breath, chest pain, abdominal pain, bleeding, fevers, or worsening of medical condition. Patient was counseled about treatment plan, medications, possible side effects, patientverbalized understanding. All questions were answered to the best of my ability. This discharge took greater then 30 minutes in planning, reviewing documentation, counseling the patient, and discussing with other team members." ASSESSMENT ASSESSMENT Assessment MSSA bacteremia Sepsis, resolved Liver abscess s/p drainage Leucocytosis, resolved Cirrhosis newly diagnosed uncontrolled diabetes alcohol use Alcohol withdrawal, resolved New onset type 2 diabetes mellitus Primary hypertension Hyponatremia, resolved a-fib with RVR, controlled Newly diagnosed acute systolic heart failure (LVEF 25%) acute hypoxic respiratory failure, resolved Metabolic encephalopathy secondary to hyponatremia versus sepsis, resolved 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
[2024-09-11] MEDS ORDERED: APIX5TAB PO (19:41)
[2024-09-11] MEDS ORDERED: INSULIN LANTUS (GLARGINE) 1 /0.01ml (100units/ml) SC SCH (22:00)
[2024-09-12] MEDS ORDERED: LANC-347 XX (10:19)
[2024-09-12] MEDS ORDERED: BLOOMIS92 XX (10:19)
[2024-09-12] MEDS ORDERED: METF-370 PO (10:19)
[2024-09-12] MEDS ORDERED: ALCO70PA28 XX (10:19)
== END 2024-09-11 15:40 | disposition home health service (06) | DRG 871 ==
LOC: ER 11:53 → TELE 16:34 → TELE-WESTW 08-15 10:36
PROVIDERS: ADMIT Nurse Practitioner Family; ATTEND Student in an Organized Health Care Education/Training Program
PROC: 4A023N7 Measurement of Cardiac Sampling and Pressure, Left Heart, Percutaneous Approach (ICD-10-PCS; principal; 2024-08-17)
PROC: B211YZZ Fluoroscopy of Multiple Coronary Arteries using Other Contrast (ICD-10-PCS; 2024-08-17)
PROC: B24BZZ4 Ultrasonography of Heart with Aorta, Transesophageal (ICD-10-PCS; 2024-08-23)
PROC: 0F903ZX Drainage of Liver, Percutaneous Approach, Diagnostic (ICD-10-PCS; 2024-08-24)
PROC: 05HC33Z Insertion of Infusion Device into Left Basilic Vein, Percutaneous Approach (ICD-10-PCS; 2024-08-25)
PROC: B544ZZA Ultrasonography of Left Jugular Veins, Guidance (ICD-10-PCS; 2024-08-25)
DX: A41.01 Sepsis due to Methicillin susceptible Staphylococcus aureus (principal); G93.41 Metabolic encephalopathy; K75.0 Abscess of liver; J96.01 Acute respiratory failure with hypoxia; I50.23 Acute on chronic systolic (congestive) heart failure; E87.1 Hypo-osmolality and hyponatremia; I16.1 Hypertensive emergency; I42.6 Alcoholic cardiomyopathy; I13.0 Hypertensive heart and chronic kidney disease with heart failure and stage 1 through stage 4 chronic kidney disease, or unspecified chronic kidney disease; I38 Endocarditis, valve unspecified; D68.59 Other primary thrombophilia; F10.230 Alcohol dependence with withdrawal, uncomplicated; Z20.822 Contact with and (suspected) exposure to COVID-19; N18.9 Chronic kidney disease, unspecified; I48.91 Unspecified atrial fibrillation; E66.9 Obesity, unspecified; E11.22 Type 2 diabetes mellitus with diabetic chronic kidney disease; E78.5 Hyperlipidemia, unspecified; I25.10 Atherosclerotic heart disease of native coronary artery without angina pectoris; K74.60 Unspecified cirrhosis of liver; I27.20 Pulmonary hypertension, unspecified; Z79.899 Other long term (current) drug therapy; Z88.5 Allergy status to narcotic agent; Z79.4 Long term (current) use of insulin; Y90.9 Presence of alcohol in blood, level not specified
CPT/HCPCS: 10005; 36415; 36600; 71045; 71260; 74018; 74150; 74177; 74181; 75989; 77002; 77012; 80048; 80053; 80061; 80202; 80307; 81001; 82140; 82306; 82565; 82607; 82805; 82962; 83036; 83605; 83735; 83880; 84100; 84443; 84484; 85007; 85025; 85027; 85610; 85730; 86850; 86900; 86901; 87040; 87077; 87186; 87205; 87426; 87804; 93005; 93306; 93312; 93458; 94640; 99152; C1729; G0378; J1815; J2003; J2250; J7060; Q9967

== ENCOUNTER → 2024-10-15 | Outpatient (CLI) | payer BC ==
[~2024-10-15] MED LIST: ALCO70PA28 XX; AMIO200T13 PO; APIX5TAB PO; BLOOMIS92 XX; EMPA1TAB PO; EMPA1TAB3 PO; FURO20TA4 PO; INSU300I SC; LANC-347 XX; METF-370 PO; METF-490 PO; METO-6 PO; SACU1TAB PO; SPIR25TA PO
[2024-10-15 11:06] LABS: Basophils # (auto) 0.1 10 ^3/uL (0-0.2); Basophils % (auto) 0.5 % (0.0-2.0); Eosinophils # (auto) 0.2 10 ^3/uL (0-0.8); Eosinophils % (auto) 1.8 % (0.0-7.0); Hematocrit 45.3 % (41.0-53.0); Hemoglobin 15.3 g/dL (13.5-17.5); Lymphocytes # (auto) 3.3 10 ^3/uL (0.4-5.4); Lymphocytes % (auto) 30.1 % (10.0-50.0); Mean Corpuscular Hemoglobin 29.7 pg (28.0-32.0); Mean Corpuscular Hgb Conc. 33.7 g/dL (32.0-36.0); Mean Corpuscular Volume 88.1 fL (80.0-100.0); Monocytes # (auto) 0.7 10 ^3/uL (0-1.3); Monocytes % (auto) 6.4 % (0.0-12.0); Neutrophils # (auto) 6.6 10 ^3/uL (1.6-8.6); Neutrophils % (auto) 61.2 % (37.0-80.0); Platelet Count (auto) 367 10^3/uL (140-450); Red Blood Cells 5.14 10^6/uL (4.5-5.90); Red Cell Distribution Width 14.1 % (11.8-14.3); White Blood Cell 10.8 10^3/uL (4.4-10.8)
[2024-10-15 11:19] LABS: Alkaline Phosphatase 92 U/L (46-116); Anion Gap 9 (5-15); BUN/Creatinine Ratio 14.4 (10.0-20.0); Bilirubin, Total 0.6 mg/dL (0.2-1.0); Blood Urea Nitrogen 14 mg/dL (9-23); Carbon Dioxide 26 mmol/L (20-31); Chloride 101 mmol/L (98-107); Cholesterol 178 mg/dL (< 200); HDL Cholesterol 43 mg/dL (40-59); Potassium 4.5 mmol/L (3.5-5.1); Triglycerides 119 mg/dL (< 150)
[2024-10-15 11:26] LABS: Alanine Aminotransferase < 9 U/L (7-40); Albumin 4.9 g/dL (3.2-4.8); Aspartate Aminotransferase 12 U/L (13-40); Calcium 10.9 mg/dL (8.7-10.4); Glucose 199 mg/dL (74-106); LDL Cholesterol 125 mg/dL (< 100); Sodium 136 mmol/L (136-145); Total Protein 8.4 g/dL (5.7-8.2)
[2024-10-15 11:54] LABS: Free T4 (Free Thyroxine) 1.21 ng/dL (0.89-1.76)
== END | disposition home or self-care (01) ==
LOC: LAB 10:06
PROVIDERS: ATTEND Internal Medicine
DX: E11.65 Type 2 diabetes mellitus with hyperglycemia (principal); R78.81 Bacteremia
CPT/HCPCS: 36415; 80053; 80061; 82306; 82607; 83036; 84439; 84443; 85025